=== PATIENT | male | born 1965 | race African-American/Black ===

== ENCOUNTER 2016-10-30 12:06 | Inpatient (IN) ==
[2016-10-30] MEDS ORDERED: PANTOPRAZOLE 40 MG VIAL IV STA (12:38)
[2016-10-30] MEDS ORDERED: METOCLOPRAMIDE 10 MG/2 ML VIAL IV STA (12:38)
[2016-10-30] MEDS ORDERED: ONDANSETRON ODT 4 MG TABLET PO STA (12:38)
[2016-10-30] MEDS ORDERED: SODIUM CHLORIDE 0.9% 1,000 ML IV STA (12:38)
--- NOTE | 2016-10-30 12:44 | Emergency Department Note ---
Arrival - Arrival Chief Complaint: Abdominal / Flank Pain Stated Complaint: gallbladder problems and sob ED Nursing Triage Note: C/o generalized abd pain and nausea-onset last night. Denies vomiting/diarrhea. Mode of Arrival: Ambulatory Limitations: No Limitations Source: Patient Time Seen by Provider: 10/30/16 12:38 - History of Present Illness HPI Narrative: This 51-year-old black male presents for abrupt onset of marked increase in right upper quadrant abdominal pain and nausea. The patient has been seen previously for low-grade cholecystitis which initially resolved in August but became a problem again in the last week or 2 with increased heartburn, indigestion, and water brash associated with right upper quadrant pain. Patient is nauseated but denies any chills, fever, kevin vomiting or diarrhea. Bothersome is complaints of some shortness of breath associated with this and some centralization of chest pain as well. Currently the patient appears uncomfortable but in no acute distress. Onset (ago): hour(s) (patient presents 3 hours post onset of symptoms) Consistency: constant Severity: moderate Severity scale (1-10): 7 Quality: aching Allergies/Adverse Reactions: Allergies Allergy/AdvReac Type Severity Reaction Status Date / Time No Known Allergies Allergy Verified 09/15/16 19:22 Home Medications: Home Medications Medication Instructions Recorded Confirmed Type Carvedilol 6.25 mg PO BID W/MEALS 04/21/16 10/30/16 History Citalopram Hydrobromide 10 mg PO DAILY 04/21/16 10/30/16 History [Citalopram HBr] Furosemide Tab [Lasix Tab] 20 mg PO BID DIURETIC 04/21/16 10/30/16 History Spironolactone 25 mg PO DAILY 04/21/16 10/30/16 History Aspirin EC Tab 81 mg PO DAILY 09/15/16 10/30/16 History Valsartan 40 mg PO DAILY 10/30/16 10/30/16 History Review of System - Review of System 12 point system: reviewed and no additional remarkable complaints except as stated - Review of System Constitutional: Present: as per HPI Gastrointestinal: Present: as per HPI Medical,Surgical,& Family Hx - Medical History Cardio: History of: CHF, Hypertension Psychological: History of: Anxiety Disorders, Depression Neurology: History of: Vertigo HEENT: History of: Eye Problem (ARTIFICIAL RIGHT EYE) Endocrine: No history of: Diabetes Mellitus (NIDDM) Respiratory: History of: Respiratory Problems (CHF) Gastrointestinal: History of: GI Problems (ABD PAIN) Musculoskeletal: History of: Musculoskeletal Problems (FX L WRIST) - Surgical History Abdominal Surgeries: Surgical HX of: Abdominal Surgery (HAKEEM INGUINEAL HERNIA REPAIR), Hernia Repair Orthopedic Surgeries: Surgical HX of;: Orthopedic Surgery (L WRIST PINNING) - Family History Family History: Reports;: Family Diabetes (GREAT GM), Family Heart Disease (MOM- CHF), Family Hypertension (?FATHER,BROTHER) Denies;: Family Anesthesia Reaction, Family Cancer, Family Psychiatric Problems, Family Stroke - Social History Smoking Status: Former smoker Frequency of Alcohol Use: None Type of Drug Use: None Exam Physical Examination: GENERAL: Obese black male in no acute distress. HEENT: Normocephalic. No trauma. Moist mucous membranes. EOMI. PERRLA. NECK: Supple. No adenopathy. CARDIAC: Regular. No murmurs. Heart rate 96 and CHEST: Clear to auscultation. No respiratory distress. O2 sat 96% is ABDOMEN: Firm abdomen. Tender right upper quadrant with hypoactive bowel sounds bowel sounds. EXTREMITIES: No trauma. Normal ROM. No pedal edema. SKIN: No diaphoresis. No rash. NEURO: Alert. Physiologic exam No focal deficits. Vital Signs: Vital Signs Temperature 97.3 F L 10/30/16 12:10 Pulse Rate 96 H 10/30/16 12:10 Respiratory Rate 18 10/30/16 12:10 Blood Pressure 126/92 10/30/16 12:10 O2 Sat by Pulse Oximetry 96 10/30/16 12:10 Results - Labs CBC & BMP: 10/30/16 12:54 - Impressions EKG: Sinus rhythm at 90, normal OH interval and QRS duration. Left atrial enlargement. Poor R-wave progression anteriorly with diffuse ST flattening and depression consistent with ischemia. No acute injury pattern noted.
[2016-10-30] MEDS ORDERED: LEVOFLOXACIN INJ 750 MG in PREMIX 1 EACH IV STA (13:19)
[2016-10-30] MEDS ORDERED: FUROSEMIDE 40 MG/4 ML VIAL IV STA (13:19)
[2016-10-30 13:32] LABS: Amylase 49 U/L (25-115); Lactic Acid 1.7 MMOL/L (0.4-2.0)
[2016-10-30 13:33] LABS: Albumin 3.2 G/DL (3.4-5.0); Bilirubin,Total 0.9 MG/DL (0.2-1.0); Potassium 4.4 MMOL/L (3.5-5.1); Total Protein 6.3 G/DL (6.4-8.3)
[2016-10-30 13:34] LABS: Troponin I Only 0.048 NG/ML (0.00-0.045)
[2016-10-30] MEDS ORDERED: PANTOPRAZOLE 40 MG VIAL IV ONE (13:41)
--- NOTE | 2016-10-30 13:41 | Ultrasound Report ---
US abdomen limited Indication: Right upper quadrant abdominal pain. Comparison: CT abdomen pelvis dated 09/15/16. Technique: Multiple longitudinal and transverse real-time sonographic images of the right upper quadrant of the abdomen are obtained. Findings: The liver measures 18.9 cm and demonstrates normal echogenicity without focal abnormality. Hepatic and portal veins are patent with normal directional flow. Punctate echogenic lesion with no significant posterior shadowing in the right lobe measures maximum of 0.6 cm and may represent a hemangioma. The gallbladder is contracted with suggestion of wall thickening, possibly due to contraction or gallbladder wall edema. There is also mild pericholecystic fluid and the sonographic Klein's sign is positive. Punctate internal echogenic foci adjacent to the wall may represent cholesterol deposits or adherent stones. The common duct measures 0.4 cm in diameter and there is no evidence of intrahepatic ductal dilation. Right kidney measures 11.6 x 4.1 x 5.5 cm and appears normal. There is no hydronephrosis. There is a small amount of perihepatic ascites noted within the right upper quadrant. There is also a small right pleural effusion. IMPRESSION: Gallbladder irregularity including wall thickening and trace pericholecystic fluid, which is accentuated due to the superimposed contracted gallbladder. Correlate clinically to exclude acute cholecystitis. No retained gallstones or biliary ductal dilatation. Ultrasound images were captured and stored. PROCEDURE INTERPRETED AT [facility] Final Report Signed by: Deandre Wilson
[2016-10-30] MEDS ORDERED: ONDANSETRON 4 MG/2 ML VIAL ONE (13:42)
[2016-10-30] MEDS ORDERED: METOCLOPRAMIDE 10 MG/2 ML VIAL ONE (13:42)
--- NOTE | 2016-10-30 13:43 | XRay Report ---
Exam: XR chest 2V Indication: Shortness of breath Comparison study: 04/24/16 Findings: Cardiac silhouette is enlarged, stable from prior. There are patchy perihilar interstitial opacities and basilar interstitial/airspace opacities which are slightly decreased in prominence from prior but may represent residual atelectasis and/or interstitial edema. There is also blunting of the right costophrenic angle. Right perihilar and right lung calcified nodular densities are most compatible with granulomatous disease and appear stable from prior. There is no pneumothorax. Impression: Cardiomegaly with small right pleural effusion and right basilar atelectasis. Minimal perihilar and basilar interstitial opacities are favored to represent scarring and superimposed interstitial edema changes. Infectious/inflammatory infiltrates are difficult to exclude. PROCEDURE INTERPRETED AT [facility]MENT OF RADIOLOGY Final Report Signed by: Deandre Wilson
--- NOTE | 2016-10-30 13:43 | EKG Report ---
Stationary ECG Study [facility] ER Test Date: 10/30/2016 1:41:33 PM Pat Name: JOSE IRVING Department: Room: Gender: M Laborer Laboratory: [facility] : 1965 Requested by: David Melgar Order Number: [id number] Reading MD: DIANE OKEEFE Intervals [place] Rate: 90 P: -4 CT: 198 QRS: -24 QRSD: 102 T: 138 QT: 403 QTc: 451 Interpretive Statements SINUS RHYTHM LEFT ATRIAL ENLARGEMENT ANTERIOR MYOCARDIAL INFARCTION, age indeterminate Electronically Signed On 10-30-16 15:05:55 ADMINISTRATIVE UNDERWRITER by DIANE OKEEFE [email or web address]
[2016-10-30] MEDS ORDERED: FUROSEMIDE 100 MG/10 ML VIAL ONE (13:55)
[2016-10-30] MEDS ORDERED: LEVOFLOXACIN INJ 150 ML IV ONE (13:55)
[2016-10-30 14:16] LABS: Basophils # 0.1 10*3/uL (0.0-0.2); Basophils % 1.1 % (0.0-0.8); Eosinophils # 0.4 10*3/uL (0.0-0.87); Hematocrit 46.5 VOL% (42.0-52.0); Hemoglobin 15.2 GM/DL (14.0-18.0); Immature Granulocytes % 0.3 %; Immature Granulocytes Absolute 0.02 #; Lymphocytes # 1.5 10*3/uL (1.4-4.0); Lymphocytes % 22.2 % (21.2-54.2); Mean Corpuscular HGB Conc 32.7 GM/DL (32-36); Mean Corpuscular Hemoglobin 30 PG (27-34); Mean Platelet Volume 14.1 FL (9.6-12.0); Monocytes % 14.8 % (1.7-12.7); NRBC # 0.02 10*3/uL; Neutrophils # 3.7 10*3/uL (1.4-7.4); Neutrophils % 55.6 % (38.7-73.9); Platelet Count 161 10*3/uL (130-400); Red Blood Count 5.11 10*6/uL (3.8-5.5); Red Cell Distribution Width 15.1 % (9.3-17.3); White Blood Count 6.6 10*3/uL (4.5-13.71)
--- NOTE | 2016-10-30 14:57 | Hospitalist History & Physical ---
History of Present Illness Chief complaint: abdominal pain History of present illness: Mr. Ramírez is a 51 year old male obese male with a history of hypertension and and systolic and diastolic congestive heart failure. Patient reports he was told that he had a bad gallbladder in the past and he said it has been hurting him every day and he cannot stand the pain anymore. During my physical exam I pressed is hard as I could over the gallbladder and he is nontender. Patient says the pain is causing him to be short of breath. Patient was satting 96% on room air on admission. Patient was given Lasix. Chest x-ray showed some mild congestive heart failure. Home Medications Medication Instructions Recorded Confirmed Type Carvedilol 6.25 mg PO BID W/MEALS 04/21/16 10/30/16 History Citalopram Hydrobromide 10 mg PO DAILY 04/21/16 10/30/16 History [Citalopram HBr] Furosemide Tab [Lasix Tab] 20 mg PO BID DIURETIC 04/21/16 10/30/16 History Spironolactone 25 mg PO DAILY 04/21/16 10/30/16 History Aspirin EC Tab 81 mg PO DAILY 09/15/16 10/30/16 History Valsartan 40 mg PO DAILY 10/30/16 10/30/16 History Allergies Allergy/AdvReac Type Severity Reaction Status Date / Time No Known Allergies Allergy Verified 09/15/16 19:22 Medical,Surgical,& Family Hx - Medical History Cardio: History of: CHF, Hypertension Psychological: History of: Anxiety Disorders, Depression Neurology: History of: Vertigo HEENT: History of: Eye Problem (ARTIFICIAL RIGHT EYE) Endocrine: No history of: Diabetes Mellitus (NIDDM) Respiratory: History of: Respiratory Problems (CHF) Gastrointestinal: History of: GI Problems (ABD PAIN) Musculoskeletal: History of: Musculoskeletal Problems (FX L WRIST) - Surgical History Abdominal Surgeries: Surgical HX of: Abdominal Surgery (HAKEEM INGUINEAL HERNIA REPAIR), Hernia Repair Orthopedic Surgeries: Surgical HX of;: Orthopedic Surgery (L WRIST PINNING) - Family History Family History: Reports;: Family Diabetes (GREAT GM), Family Heart Disease (MOM- CHF), Family Hypertension (?FATHER,BROTHER) Denies;: Family Anesthesia Reaction, Family Cancer, Family Psychiatric Problems, Family Stroke - Social History Smoking Status: Former smoker Frequency of Alcohol Use: None Type of Drug Use: None Exam - Constitutional Vitals: Period Temp Pulse Resp BP Sys/Lobo Pulse Ox Last 24 Hr 97.3 F 96 18 126/92 96 Results - Labs CBC & BMP: 10/30/16 12:54 10/30/16 12:54
--- NOTE | 2016-10-30 15:02 | Hospitalist Consult Note ---
Assessment and Plan (1) Abdominal pain Status: Acute Assessment and plan: us of abdomen mild prominence of GB, no stones, ?drug seeking, hida scan in am, defer to Jarrett Ivy given in Er, not convinced that his GB needs to come out. UDS. Current Visit: Yes (2) Hypertension Status: Acute Assessment and plan: controlled, restart home meds Current Visit: Yes (3) Congestive heart failure Status: Acute Assessment and plan: troponin not concerning, no chest pain, given diuretic in ER, restart home meds. Patient needs to continue on home meds. Current Visit: No History of Present Illness - Data of Consult Consult date: 10/30/16 Requesting Physician: David Barahona - Consult Narrative Reason for consult: abdominal pain History of present illness: Mr. Ramírez is a 51 year old male with a history of hypertension and systolic congestive heart failure. Patient sees the doctor at [facility] and does not have insurance. He does not work. Patient was told previously that he had a bad gallbladder that needed to be removed. He said he has been having significant abdominal pain and cannot stand the pain anymore and has to have his gallbladder removed. Ultrasound shows a contracted gallbladder with irregular wall thickening but no identified stones. Patient reports the pain is so bad that he is getting short of breath. Patient was satting 96% on room air. He was given 80 of IV Lasix in the emergency room. Chest x-ray shows some mild edema. Patient is not tender on exam over his gallbladder. This is a primary surgical case and have deferred it to Dr. Penn. Patient's last echocardiogram showed an EF of 25% with diastolic dysfunction and mitral regurgitation. Patient's blood pressure is well controlled. CC: - Home Medications and Allergies Home Medications: Home Medications Medication Instructions Recorded Confirmed Type Carvedilol 6.25 mg PO BID W/MEALS 04/21/16 10/30/16 History Citalopram Hydrobromide 10 mg PO DAILY 04/21/16 10/30/16 History [Citalopram HBr] Furosemide Tab [Lasix Tab] 20 mg PO BID DIURETIC 04/21/16 10/30/16 History Spironolactone 25 mg PO DAILY 04/21/16 10/30/16 History Aspirin EC Tab 81 mg PO DAILY 09/15/16 10/30/16 History Valsartan 40 mg PO DAILY 10/30/16 10/30/16 History Allergies/Adverse Reactions: Allergies Allergy/AdvReac Type Severity Reaction Status Date / Time No Known Allergies Allergy Verified 09/15/16 19:22 Medical,Surgical,& Family Hx - Medical History Cardio: History of: CHF, Hypertension Psychological: History of: Anxiety Disorders, Depression Neurology: History of: Vertigo HEENT: History of: Eye Problem (ARTIFICIAL RIGHT EYE) Endocrine: No history of: Diabetes Mellitus (NIDDM) Respiratory: History of: Respiratory Problems (CHF) Gastrointestinal: History of: GI Problems (ABD PAIN) Musculoskeletal: History of: Musculoskeletal Problems (FX L WRIST) - Surgical History Abdominal Surgeries: Surgical HX of: Abdominal Surgery (HAKEEM INGUINEAL HERNIA REPAIR), Hernia Repair Orthopedic Surgeries: Surgical HX of;: Orthopedic Surgery (L WRIST PINNING) - Family History Family History: Reports;: Family Diabetes (GREAT GM), Family Heart Disease (MOM- CHF), Family Hypertension (?FATHER,BROTHER) Denies;: Family Anesthesia Reaction, Family Cancer, Family Psychiatric Problems, Family Stroke - Social History Smoking Status: Former smoker Frequency of Alcohol Use: None Type of Drug Use: None Marital Status: Single Lives With:: Alone Functional capacity: independent ambulation - EENT Eyes: Absent: blurry vision, diplopia - Cardiovascular Cardiovascular: Present: dyspnea, dyspnea on exertion, edema. Absent: chest pain at rest, chest pain with activity - Gastrointestinal Gastrointestinal: Present: abdominal pain, diarrhea, nausea, vomiting. Absent: constipation - Psychiatric Psychiatric: Present: anxiety. Absent: depression - Endocrine Endocrine: Present: fatigue. Absent: cold intolerance, heat intolerance Exam - Constitutional Vitals: Period Temp Pulse Resp BP Sys/Lobo Pulse Ox Last 24 Hr 97.3 F 96 18 126/92 96 General appearance: no acute distress, morbidly obese - Head Head exam: Present: normal inspection, normocephalic - Eye Eye exam: Present: EOMI. Absent: scleral icterus Pupils: Present: CB, normal accommodation - ENT ENT exam: Present: normal exam, normal external ear exam - Neck Neck exam: Absent: lymphadenopathy, thyromegaly - Respiratory Respiratory exam: Present: clear to auscultation bilaterally. Absent: rhonchi, wheezes - Cardiovascular Cardiovascular exam: Present: regular rate and rhythm. Absent: systolic murmur - GI/Abdominal GI/Abdominal exam: Present: normal bowel sounds, soft. Absent: tenderness - Extremities Exam Extremities exam: Present: normal capillary refill, edema - Neurological Exam Neurological exam: Present: alert, oriented X3, CN II-XII intact, reflexes normal. Absent: motor sensory deficit - Psychiatric Psychiatric exam: Present: normal affect, normal mood - Skin Skin exam: Present: normal color, warm Results - Labs CBC & BMP: 10/30/16 12:54 10/30/16 12:54 Lab Results: I have reviewed the past 24 hour labs - EKG EKG shows: sinus rhythm - Diagnostic Findings Procedure: Chest x-ray: report reviewed by me, pending (mild interstitial changes ), Ultrasound: report reviewed by me (GB wall thickening and acute be consistent with cholecystitis ) Specialty Discharge - Follow Up or Referrals - Discharge Medications No Action Spironolactone 25 mg PO DAILY Carvedilol 6.25 mg PO BID W/MEALS Furosemide Tab [Lasix Tab] 20 mg PO BID DIURETIC Citalopram Hydrobromide [Citalopram HBr] 10 mg PO DAILY Aspirin EC Tab 81 mg PO DAILY Valsartan 40 mg PO DAILY
[2016-10-30 15:35] LABS: Apearance,Urine CLEAR (Clear); Bilirubin,Urine Negative (Negative); Blood, Urine Negative (Negative); Glucose,Urine (UA) Negative (Negative); Hyaline Casts,Urine 3 /LPF (0-3); Ketones,Urine Negative (Negative); Mucus,Urine Occasional /LPF (Occasional); Nitrite,Urine Negative (Negative); Protein,Urine 30 MG/DL; RBC,Urine 1 /HPF (0-4); Urine Color Yellow (Yellow); Urine Specific Gravity 1.004 (1.001-1.035); Urine Urobilinogen < 2.0 EU/DL (0.2-1.0); WBC,Urine <1 /HPF (0-6)
[2016-10-30 15:43] LABS: Barbiturates Screen,Urine Negative (Negative); Benzodiazepines Screen,Urine Negative (Negative); Cannabinoid Screen,Urine Negative (Negative); Opiate Screen,Urine Negative (Negative); Phencyclidine Screen,Urine Negative (Negative)
--- NOTE | 2016-10-30 16:16 | General Surgery Consult Note ---
Assessment and Plan - Time spent with patient Time spent with patient: Greater than 30 minutes (1) Abdominal pain Status: Acute Assessment and plan: Impression: 1. Abdominal pain etiology unclear questionable gallbladder disease undiagnosed 2. Obesity 3. Congestive heart failure 4. Low cardiac ejection fraction Recommendations: 1. Certainly would look at do a HIDA scan to see if its abnormal with that ejection fraction 2. We consider repeating ultrasound after his been nothing by mouth for at least 12 hours to see if there is any changes in the gallbladder see if it distends back up looks normal 3. We consider a CT scan abdomen and pelvis with contrast to get a better idea this is nothing else going on. 4. He needs a complete cardiac evaluation before that any consideration of surgery because he is at such high risk 5. May need pulmonary consult at some point 6. We consider surgery on the gallbladder all if everything else is ruled out and that we have clear diagnosis that he could possibly have gallbladder disease. Current Visit: Yes Qualifiers: Abdominal location: upper abdomen, unspecified Qualified Code(s): R10.10 - Upper abdominal pain, unspecified History of Present Illness Chief complaint: chronic abdominal pain etiology unclear History of present illness: Mr. Ramírez is a 51 year old male -[place] who came to the emergency room because of abdominal discomfort he describes as having recurring episodes in the past. Patient has significant coronary artery disease and has congestive heart failure with cardiomegaly and a low ejection fraction. He was extremely short of breath trying to walk in at this time. He ascribes some discomfort whenever he eats was never had a scope to rule out peptic ulcer disease in the past. His abdomen is not tender and liver function studies are normal. An ultrasound did suggest that there was a contracted gallbladder but otherwise unclear. He's had previous CT that was described as mild cholecystitis although that's unclear just a suggestion on CT. No stones of ever been diagnosed he's never had any complete workup of his gallbladder. Has been no history of stones that we can determine at this time. 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 He appears to be a high surgical risk and I do not think that surgery would be indicated him a she had a clear etiology of possible gallbladder disease. At this point he needs a good cardiac workup HIDA scan CT scan and possible repeat ultrasound at sometime when he is nothing by mouth to see if the contracted gallbladder distends back up and looks normal. He may also need possibility of consideration for an EGD if he is having symptoms whenever he eats in order to make sure he doesn't have peptic ulcer disease. Patient reports [place] some sorrel stool test on him that said he didn't have any occult blood but it is AG's never had a colonoscopy. Discussed with the hospitalist and he'll be admitted further evaluation get out of skin see exactly what might be going on see if we can better define his disease. Home Medications Medication Instructions Recorded Confirmed Type Carvedilol 6.25 mg PO BID W/MEALS 04/21/16 10/30/16 History Citalopram Hydrobromide 10 mg PO DAILY 04/21/16 10/30/16 History [Citalopram HBr] Furosemide Tab [Lasix Tab] 20 mg PO BID DIURETIC 04/21/16 10/30/16 History Spironolactone 25 mg PO DAILY 04/21/16 10/30/16 History Aspirin EC Tab 81 mg PO DAILY 09/15/16 10/30/16 History Valsartan 40 mg PO DAILY 10/30/16 10/30/16 History Allergies Allergy/AdvReac Type Severity Reaction Status Date / Time No Known Allergies Allergy Verified 09/15/16 19:22 Medical,Surgical,& Family Hx - Medical History Cardio: History of: CHF, Hypertension Psychological: History of: Anxiety Disorders, Depression Neurology: History of: Vertigo HEENT: History of: Eye Problem (ARTIFICIAL RIGHT EYE) Endocrine: No history of: Diabetes Mellitus (NIDDM) Respiratory: History of: Respiratory Problems (CHF) Gastrointestinal: History of: GI Problems (ABD PAIN) Musculoskeletal: History of: Musculoskeletal Problems (FX L WRIST) - Surgical History Abdominal Surgeries: Surgical HX of: Abdominal Surgery (HAKEEM INGUINEAL HERNIA REPAIR), Hernia Repair Orthopedic Surgeries: Surgical HX of;: Orthopedic Surgery (L WRIST PINNING) - Family History Family History: Reports;: Family Diabetes (GREAT GM), Family Heart Disease (MOM- CHF), Family Hypertension (?FATHER,BROTHER) Denies;: Family Anesthesia Reaction, Family Cancer, Family Psychiatric Problems, Family Stroke - Social History Smoking Status: Former smoker Frequency of Alcohol Use: None Type of Drug Use: None 12 point system: reviewed and no additional remarkable complaints except as stated Exam - Constitutional Vitals: Period Temp Pulse Resp BP Sys/Lobo Pulse Ox Last 24 Hr 97.3 F 88-101 16-18 103-155/72-92 96-100 General appearance: mild distress - Head Head exam: Present: normal inspection - ENT ENT exam: Present: normal exam - Neck Neck exam: Present: normal inspection - Respiratory Respiratory exam: Present: rales, rhonchi - Cardiovascular Cardiovascular exam: Present: RRR - GI/Abdominal GI/Abdominal exam: Present: hypoactive bowel sounds, soft, other (large obese rotund abdomen). Absent: distended, Klein's sign, tenderness - Extremities Exam Extremities exam: Present: normal inspection - Back Exam Back exam: Present: normal inspection - Neurological Exam Neurological exam: Present: alert, oriented X3, CN II-XII intact - Skin Skin exam: Present: normal color, warm, dry Results - Labs CBC & BMP: 10/30/16 12:54 10/30/16 12:54 Lab Results: I have reviewed the past 24 hour labs - Diagnostic Findings Procedure: Ultrasound: report reviewed by me (contracted gallbladder questionable disease) Specialty Discharge - Follow Up or Referrals - Discharge Medications No Action Spironolactone 25 mg PO DAILY Carvedilol 6.25 mg PO BID W/MEALS Furosemide Tab [Lasix Tab] 20 mg PO BID DIURETIC Citalopram Hydrobromide [Citalopram HBr] 10 mg PO DAILY Aspirin EC Tab 81 mg PO DAILY Valsartan 40 mg PO DAILY
--- NOTE | 2016-10-30 16:50 | Cardiology Consult Note ---
Assessment and Plan (1) Congestive heart failure Status: Acute Assessment and plan: Patient with pulmonary vascular congestion probably right pleural effusion. He has known cardiomyopathy that is systolic in nature. He has an exacerbation at this time. He needs to have diuresis and has frozen moderate ordered IV. He hasn't go up on his losartan as well as carvedilol.. Current Visit: No (2) Exertional dyspnea Status: Acute Assessment and plan: This is probably secondary to his congestive heart failure exacerbation. Current Visit: No (3) Acute on chronic systolic CHF (congestive heart failure) Status: Acute Assessment and plan: He has chronic cardiomyopathy and apparently some recurrent episodes of congestive heart failure symptomatology. Current Visit: No (4) Abdominal pain Status: Acute Assessment and plan: Etiology of this is unclear but evaluation is ongoing. Current Visit: Yes Qualifiers: Abdominal location: upper abdomen, unspecified Qualified Code(s): R10.10 - Upper abdominal pain, unspecified (5) Hypertension Status: Acute Current Visit: Yes History of Present Illness - Data of Consult Patient: new to practice Consult date: 10/30/16 Requesting Physician: Jennifer Knox - Consult Narrative Reason for consult: CHF History of present illness: Mr. Ramírez is a 51 year old male there were asked to see with a history of cardiomyopathy and congestive heart failure. He has abdominal pain is being evaluated. The patient has a long history of cardiomyopathy at least for several years and ejection fraction by echocardiogram this been persistent around 25%. This is based on old records as well as most recent echocardiogram of 6 months ago. He has marked severe mitral regurgitation. He is followed by cardiology clinic in [place] that he states is the heart. The and anteriorly sees Sherine Rodríguez nurse practitioner. He recently has had some dyspnea on exertion but denies PND or orthopnea. He thinks he may have has morphine edema recently. He has never had any angina and. He states she's had some kind cardiac scans that did not reveal any evidence for ischemia. The patient states he's previously been seen because of some possible gallbladder disease. He came to the emergency room today with right upper quadrant abdominal pain. There is some question whether or not this patient has gallbladder disease. On his evaluation he was found to have an elevated BNP of 1074. His chest x-ray with what may be some right pleural effusion and some pulmonary vascular congestion. The patient is already received some Lasix in the emergency room. Patient's ECG with sinus rhythm with left atrial enlargement. There is delayed anterior R-wave progression. The patient will be at least at moderate cardiovascular risk for moderate surgery. If he can be carried out with diuresis and better fluid control isn't improved his situation. CC: - Home Medications and Allergies Home Medications: Home Medications Medication Instructions Recorded Confirmed Type Carvedilol 6.25 mg PO BID W/MEALS 04/21/16 10/30/16 History Citalopram Hydrobromide 10 mg PO DAILY 04/21/16 10/30/16 History [Citalopram HBr] Furosemide Tab [Lasix Tab] 20 mg PO BID DIURETIC 04/21/16 10/30/16 History Spironolactone 25 mg PO DAILY 04/21/16 10/30/16 History Aspirin EC Tab 81 mg PO DAILY 09/15/16 10/30/16 History Valsartan 40 mg PO DAILY 10/30/16 10/30/16 History Allergies/Adverse Reactions: Allergies Allergy/AdvReac Type Severity Reaction Status Date / Time No Known Allergies Allergy Verified 09/15/16 19:22 Review of systems: Constitutional: Denies anorexia, chills, fatigue, fever, frequent falls, night sweats, weight gain, weight loss. He is chronically obese. Eyes: Denies visual changes or loss of vision Ears: Denies decreased hearing, vertigo Nose, mouth and throat: Denies dysphagia, epistaxis, headaches, neck pain, tongue swelling, Neck: Denies thyromegaly or masses. No stiffness. Cardiovascular: as per HPI Respiratory: Denies cough, hemoptysis, wheezing, snoring. Patient has had some dyspnea on exertion. Gastrointestinal: Denies dyspepsia, constipation, dysphagia, hematemesis, hematochezia, melena, nausea, vomiting. No abdominal pains discussed in history present illness. Genitourinary: Denies dysuria, hematuria, nocturia Musculoskeletal: Denies arthralgias, joint swelling, muscle weakness, myalgias Neurological: denies abnormal gait, abnormal speech, confusion, convulsions, frequent falls, headaches, memory loss, syncope Psychiatric: Denies anxiety, confusion, depression Endocrine: Denies cold intolerance, fatigue, heat intolerance Hematologic/Lymphatic: Denies easy bleeding, easy bruising Dermatologic: Denies Rash, itching, shingles Medical,Surgical,& Family Hx - Medical History Cardio: History of: CHF, Hypertension Psychological: History of: Anxiety Disorders, Depression Neurology: History of: Vertigo HEENT: History of: Eye Problem (ARTIFICIAL RIGHT EYE) Endocrine: History of: Dyslipidemia No history of: Diabetes Mellitus (NIDDM) Respiratory: History of: Respiratory Problems (CHF) Gastrointestinal: History of: GI Problems (ABD PAIN) Musculoskeletal: History of: Musculoskeletal Problems (FX L WRIST) - Surgical History Abdominal Surgeries: Surgical HX of: Abdominal Surgery (HAKEEM INGUINEAL HERNIA REPAIR), Hernia Repair Orthopedic Surgeries: Surgical HX of;: Orthopedic Surgery (L WRIST PINNING) - Family History Family History: Reports;: Family Diabetes (GREAT GM), Family Heart Disease (MOM- CHF), Family Hypertension (?FATHER,BROTHER) Denies;: Family Anesthesia Reaction, Family Cancer, Family Psychiatric Problems, Family Stroke - Social History Smoking Status: Former smoker Frequency of Alcohol Use: None Type of Drug Use: None Functional capacity: independent ambulation Physical Examination Vital Signs Temp Pulse Resp BP Pulse Ox 97.3 F L 96 H 18 126/92 96 10/30/16 12:10 10/30/16 12:10 10/30/16 12:10 10/30/16 12:10 10/30/16 12:10 Other: General appearance: Morbidly obese, no acute distress Head exam: normal inspection, atraumatic Eye exam: Right eye is a prosthesis. EOMI of left eye. Ear exam: Anatomically normal. Normal auditory acuity to conversation. Oral exam: No significant oral lesions. Neck exam: normal inspection no JVD. No carotid bruit. Trachea is in midline. Respiratory exam: Distant heart sounds but clear to auscultation bilaterally posteriorly and anteriorly with good air movement. A few scattered rales in the lower lung smiley posteriorly. Cardiovascular exam: regular rate and rhythm, no murmur or gallop or rub. No precordial lift. No bruits over the major arteries. Chest wall/torso: Anatomically normal. No tenderness, deformity Peripheral Pulses: 2+ radial. GI/Abdominal exam: Obese normal bowel sounds, soft. Right upper abdominal tenderness. Musculoskeletal/Extremities exam: Bilateral 1+ pre-tibial edema. Neurological exam: alert, oriented X3. There is no gross neurologic deficits. Psychiatric exam: normal affect, normal mood. Cognitive function is grossly intact. Skin exam: normal color, warm. No rashes or other skin lesions. Result/EKG - Labs CBC & BMP: 10/30/16 12:54 10/30/16 12:54 Lab Results: I have reviewed the past 24 hour labs Labs: Laboratory Results - last 24 hr 10/30/16 10/30/16 10/30/16 12:54 12:54 12:54 WBC 6.6 RBC 5.11 Hgb 15.2 Hct 46.5 MCV 91.0 MCH 30 MCHC 32.7 RDW 15.1 Plt Count 161 MPV 14.1 H Neut % (Auto) 55.6 Lymph % (Auto) 22.2 [place] % (Auto) 14.8 H Eos % (Auto) 6.0 Baso % (Auto) 1.1 H Neut # (Auto) 3.7 Lymph # (Auto) 1.5 [place] # (Auto) 1.0 H Eos # (Auto) 0.4 Baso # (Auto) 0.1 Immature Gran % 0.3 Nucleated RBC % 0.3 Immature Gran # 0.02 Nucleated RBCs # 0.02 Sodium 143 Potassium 4.4 Chloride 107 Carbon Dioxide 26 Anion Gap 14.4 BUN 16 Creatinine 1.20 GFR Calculation 100 BUN/Creatinine Ratio 13.00 Glucose 86 Calculated Osmolality 284.0 Lactic Acid 1.7 Calcium 8.0 L Total Bilirubin 0.90 AST 32 ALT 22 Alkaline Phosphatase 69 Total Creatine Kinase 363 H CK-MB (CK-2) 3.0 Troponin I 0.048 H B-Natriuretic Peptide Total Protein 6.3 L Albumin 3.2 L Globulin 3.1 Albumin/Globulin Ratio 1.0 L Amylase 49 Lipase 170.0 Urine Color Urine Appearance Urine pH Ur Specific [place] Urine Protein Urine Glucose (UA) Urine Ketones Urine Blood Urine Nitrate Urine Bilirubin Urine Urobilinogen Urine Leukocytes Urine RBC Urine WBC Hyaline Casts Urine Mucus Ur Culture Indicated? Urine Opiates Screen Ur Barbiturates Screen Ur Phencyclidine Scrn U Amphetamine/Methamph U Benzodiazepines Scrn U Cocaine Metab Screen U Cannabinoids Screen 10/30/16 10/30/16 10/30/16 12:54 15:15 15:15 WBC RBC Hgb Hct MCV MCH MCHC RDW Plt Count MPV Neut % (Auto) Lymph % (Auto) [place] % (Auto) Eos % (Auto) Baso % (Auto) Neut # (Auto) Lymph # (Auto) [place] # (Auto) Eos # (Auto) Baso # (Auto) Immature Gran % Nucleated RBC % Immature Gran # Nucleated RBCs # Sodium Potassium Chloride Carbon Dioxide Anion Gap BUN Creatinine GFR Calculation BUN/Creatinine Ratio Glucose Calculated Osmolality Lactic Acid Calcium Total Bilirubin AST ALT Alkaline Phosphatase Total Creatine Kinase CK-MB (CK-2) Troponin I B-Natriuretic Peptide 1074 H Total Protein Albumin Globulin Albumin/Globulin Ratio Amylase Lipase Urine Color Yellow Urine Appearance Clear Urine pH 6.0 Ur Specific [place] 1.004 Urine Protein 30 Urine Glucose (UA) Negative Urine Ketones Negative Urine Blood Negative Urine Nitrate Negative Urine Bilirubin Negative Urine Urobilinogen < 2.0 H Urine Leukocytes Negative Urine RBC 1 Urine WBC <1 Hyaline Casts 3 Urine Mucus Occasional Ur Culture Indicated? Not indicated Urine Opiates Screen Negative Ur Barbiturates Screen Negative Ur Phencyclidine Scrn Negative U Amphetamine/Methamph Negative U Benzodiazepines Scrn Negative U Cocaine Metab Screen Negative U Cannabinoids Screen Negative - Impressions Impressions: C description history present illness. Specialty Discharge - Follow Up or Referrals - Discharge Medications No Action Spironolactone 25 mg PO DAILY Carvedilol 6.25 mg PO BID W/MEALS Furosemide Tab [Lasix Tab] 20 mg PO BID DIURETIC Citalopram Hydrobromide [Citalopram HBr] 10 mg PO DAILY Aspirin EC Tab 81 mg PO DAILY Valsartan 40 mg PO DAILY
[2016-10-30] MEDS ORDERED: ACETAMINOPHEN 325 MG TABLET PO PRN (18:42)
[2016-10-30] MEDS ORDERED: MAGNESIUM SULF RIDER 4 GM in PREMIX 1 EACH IV PRN (18:42)
[2016-10-30] MEDS ORDERED: ZALEPLON 5 MG CAPSULE PO PRN (18:42)
[2016-10-30 19:37] LABS: Magnesium 1.9 MG/DL (1.8-2.4); Thyroid Stimulating Hormone 4.6 uIU/ml (0.358-3.74)
[2016-10-30] MEDS: LOSARTAN 25 MG TABLET PO SCH (20:44)
[2016-10-30] MEDS: CARVEDILOL 3.125 MG TABLET PO SCH (20:44)
[2016-10-30] MEDS: PANTOPRAZOLE 40 MG TABLET PO SCH (20:44)
[2016-10-30] MEDS: ENOXAPARIN 40 MG/0.4 ML SYRINGE SUBCUT SCH (20:44)
[2016-10-30] MEDS: AMPICILLIN/SULBACTAM 3,000 MG in SODIUM CHLORIDE 0.9% 100 ML IV SCH (20:50)
[2016-10-31 01:44] LABS: Basophils # 0.1 10*3/uL (0.0-0.2); Eosinophils # 0.5 10*3/uL (0.0-0.87); Eosinophils % 7.2 % (0.00-10.9); Hemoglobin 13.6 GM/DL (14.0-18.0); Immature Granulocytes % 0.1 %; Immature Granulocytes Absolute 0.01 #; Lymphocytes # 1.9 10*3/uL (1.4-4.0); Lymphocytes % 27.4 % (21.2-54.2); Mean Corpuscular HGB Conc 32.4 GM/DL (32-36); Mean Corpuscular Hemoglobin 29 PG (27-34); Mean Corpuscular Volume 90.3 FL (87-102); Mean Platelet Volume 13.5 FL (9.6-12.0); Monocytes % 14.1 % (1.7-12.7); Neutrophils # 3.4 10*3/uL (1.4-7.4); Neutrophils % 50.2 % (38.7-73.9); Platelet Count 152 10*3/uL (130-400); Red Blood Count 4.65 10*6/uL (3.8-5.5); Red Cell Distribution Width 15.1 % (9.3-17.3); White Blood Count 6.8 10*3/uL (4.5-13.71)
[2016-10-31 02:15] LABS: Calcium 7.7 MG/DL (8.5-10.1); Potassium 3.9 MMOL/L (3.5-5.1); Risk Ratio 5.37; VLDL CHOLESTEROL 14.4 MG/DL
[2016-10-31] MEDS: AMPICILLIN/SULBACTAM 3,000 MG in SODIUM CHLORIDE 0.9% 100 ML IV SCH ×4 (05:38→20:23)
--- NOTE | 2016-10-31 07:41 | General Surgery Progress Note ---
Assessment and Plan (1) Abdominal pain Status: Acute Assessment and plan: Impression: 1. Abdominal pain etiology unclear questionable gallbladder disease undiagnosed 2. Obesity 3. Congestive heart failure 4. Low cardiac ejection fraction Recommendations: 1. Certainly would look at do a HIDA scan to see if its abnormal with that ejection fraction 2. We consider repeating ultrasound after his been nothing by mouth for at least 12 hours to see if there is any changes in the gallbladder see if it distends back up looks normal 3. We consider a CT scan abdomen and pelvis with contrast to get a better idea this is nothing else going on. 4. He needs a complete cardiac evaluation before that any consideration of surgery because he is at such high risk 5. May need pulmonary consult at some point 6. We consider surgery on the gallbladder all if everything else is ruled out and that we have clear diagnosis that he could possibly have gallbladder disease. 10/31/2016. Patient continues to complain of discomfort in the upper abdomen right chest area. On exam though he does not exhibit any guarding or unusual tenderness on deep palpation. No masses are palpable. He did not have his oxygen own and I have noted cardiology's note. He is for a HIDA scan today and hopefully we'll plan to CT scan abdomen and pelvis tomorrow. Still unclear whether he has gallbladder disease but certainly he remains a high risk surgical patient because of his cardiac disease. Current Visit: Yes Qualifiers: Abdominal location: upper abdomen, unspecified Qualified Code(s): R10.10 - Upper abdominal pain, unspecified Subjective Patient reports: Present: still having pain, no bowel movement, afebrile Exam - Constitutional Vitals: Period Temp Pulse Resp BP Sys/Lobo Pulse Ox Last 24 Hr 97.2 F-97.4 F 77-89 16-18 97-117/67-77 97-99 General appearance: mild distress - Head Head exam: Present: normal inspection - ENT ENT exam: Present: normal exam - Neck Neck exam: Present: normal inspection - Respiratory Respiratory exam: Present: rales, rhonchi - Cardiovascular Cardiovascular exam: Present: RRR - GI/Abdominal GI/Abdominal exam: Present: hypoactive bowel sounds, soft. Absent: guarding, tenderness - Extremities Exam Extremities exam: Present: normal inspection - Back Exam Back exam: Present: normal inspection - Neurological Exam Neurological exam: Present: alert, oriented X3, CN II-XII intact - Skin Skin exam: Present: normal color, warm, dry Results - Labs CBC & BMP: 10/31/16 01:32 10/31/16 01:32 Lab Results: I have reviewed the past 24 hour labs Specialty Discharge - Follow Up or Referrals - Discharge Medications No Action Spironolactone 25 mg PO DAILY Carvedilol 6.25 mg PO BID W/MEALS Furosemide Tab [Lasix Tab] 20 mg PO BID DIURETIC Citalopram Hydrobromide [Citalopram HBr] 10 mg PO DAILY Aspirin EC Tab 81 mg PO DAILY Valsartan 40 mg PO DAILY
[2016-10-31] MEDS: FUROSEMIDE 40 MG/4 ML VIAL IV SCH ×2 (10:00→16:13)
--- NOTE | 2016-10-31 10:05 | Cardiology Progress Note ---
Assessment and Plan (1) Congestive heart failure Status: Acute Assessment and plan: Clinically this is improving. Will follow-up on his echocardiogram is ordered as well as check his chest x-ray tomorrow. Current Visit: No (2) Exertional dyspnea Status: Acute Assessment and plan: This is probably secondary to his congestive heart failure exacerbation and cardiovascular congestion. We will follow-up on his chest x-ray tomorrow. Current Visit: No (3) Acute on chronic systolic CHF (congestive heart failure) Status: Acute Assessment and plan: He has chronic cardiomyopathy and apparently some recurrent episodes of congestive heart failure symptomatology. This is been followed by his physicians in [place]. Current Visit: No (4) Abdominal pain Status: Acute Assessment and plan: Etiology of this is unclear but evaluation is ongoing. This is being evaluated by surgery. Current Visit: Yes Qualifiers: Abdominal location: upper abdomen, unspecified Qualified Code(s): R10.10 - Upper abdominal pain, unspecified (5) Hypertension Status: Chronic Assessment and plan: blood pressures are stable at this time. Current Visit: Yes Cardiology - PN: Subj Interval history: Patient feels better today. Is not short of breath. His abdominal pain does not appear to be a significant. His abdominal pain is being evaluated by Dr. Guerra surgery. He is not having any complaint of PND or orthopnea. He thinks his edema is better. He denies chest pain is not ever had chest pain. Patient's lab work is stable including blood counts and chemistries as well as electrolytes. It should be noted that he has been followed by heart clinic in [place]. Exam (Progress Note) - Constitutional Vitals: Period Temp Pulse Resp BP Sys/Lobo Pulse Ox Last 24 Hr 97.2 F-97.4 F 77-89 16-18 97-117/67-77 97-99 Exam: General appearance: Morbidly obese, no acute distress Head exam: normal inspection, atraumatic Eye exam: Right eye is a prosthesis. EOMI of left eye. Ear exam: Anatomically normal. Normal auditory acuity to conversation. Neck exam: normal inspection no JVD. No carotid bruit. Trachea is in midline. Respiratory exam: Quiet breath sounds but clear to auscultation bilaterally posteriorly and anteriorly with good air movement. Cardiovascular exam: regular rate and rhythm, no murmur or gallop or rub. No precordial lift. No bruits over the major arteries. Chest wall/torso: Anatomically normal. No tenderness, deformity Peripheral Pulses: 2+ radial. GI/Abdominal exam: Obese normal bowel sounds, soft. Right upper abdominal tenderness. Musculoskeletal/Extremities exam: Bilateral trace pre-tibial edema. Neurological exam: alert, oriented X3. There is no gross neurologic deficits. Psychiatric exam: normal affect, normal mood. Cognitive function is grossly intact. Skin exam: normal color, warm. No rashes or other skin lesions. Result/EKG - Labs CBC & BMP: 10/31/16 01:32 10/31/16 01:32 Lab Results: I have reviewed the past 24 hour labs (his chemistries are stable today.) Labs: Laboratory Results - last 24 hr 10/30/16 10/30/16 10/30/16 19:00 19:00 19:00 WBC RBC Hgb Hct MCV MCH MCHC RDW Plt Count MPV Neut % (Auto) Lymph % (Auto) [place] % (Auto) Eos % (Auto) Baso % (Auto) Neut # (Auto) Lymph # (Auto) [place] # (Auto) Eos # (Auto) Baso # (Auto) Immature Gran % Nucleated RBC % Immature Gran # Nucleated RBCs # Sodium Potassium Chloride Carbon Dioxide Anion Gap BUN Creatinine GFR Calculation BUN/Creatinine Ratio Glucose Calculated Osmolality Calcium Magnesium 1.9 Troponin I 0.056 H Triglycerides Cholesterol LDL Cholesterol VLDL Cholesterol HDL Cholesterol Heart Disease Risk Ratio Free T4 1.59 H TSH 3rd Generation 4.600 H 10/30/16 10/31/16 10/31/16 21:53 01:32 01:32 WBC 6.8 RBC 4.65 Hgb 13.6 L Hct 42.0 MCV 90.3 MCH 29 MCHC 32.4 RDW 15.1 Plt Count 152 MPV 13.5 H Neut % (Auto) 50.2 Lymph % (Auto) 27.4 [place] % (Auto) 14.1 H Eos % (Auto) 7.2 Baso % (Auto) 1.0 H Neut # (Auto) 3.4 Lymph # (Auto) 1.9 [place] # (Auto) 1.0 H Eos # (Auto) 0.5 Baso # (Auto) 0.1 Immature Gran % 0.1 Nucleated RBC % 0.0 Immature Gran # 0.01 Nucleated RBCs # 0.00 Sodium Potassium Chloride Carbon Dioxide Anion Gap BUN Creatinine GFR Calculation BUN/Creatinine Ratio Glucose Calculated Osmolality Calcium Magnesium Troponin I 0.053 H 0.046 H Triglycerides Cholesterol LDL Cholesterol VLDL Cholesterol HDL Cholesterol Heart Disease Risk Ratio Free T4 TSH 3rd Generation 10/31/16 01:32 WBC RBC Hgb Hct MCV MCH MCHC RDW Plt Count MPV Neut % (Auto) Lymph % (Auto) [place] % (Auto) Eos % (Auto) Baso % (Auto) Neut # (Auto) Lymph # (Auto) [place] # (Auto) Eos # (Auto) Baso # (Auto) Immature Gran % Nucleated RBC % Immature Gran # Nucleated RBCs # Sodium 143 Potassium 3.9 Chloride 106 Carbon Dioxide 28 Anion Gap 12.9 BUN 17 Creatinine 1.20 GFR Calculation 101 BUN/Creatinine Ratio 14.00 Glucose 87 Calculated Osmolality 285.0 Calcium 7.7 L Magnesium Troponin I Triglycerides 72 Cholesterol 102 LDL Cholesterol 74.0 VLDL Cholesterol 14.4 HDL Cholesterol 19 L Heart Disease Risk Ratio 5.37 Free T4 TSH 3rd Generation - Impressions Impressions: Telemetry was sinus rhythm without dysrhythmias. Specialty Discharge - Follow Up or Referrals - Discharge Medications No Action Spironolactone 25 mg PO DAILY Carvedilol 6.25 mg PO BID W/MEALS Furosemide Tab [Lasix Tab] 20 mg PO BID DIURETIC Citalopram Hydrobromide [Citalopram HBr] 10 mg PO DAILY Aspirin EC Tab 81 mg PO DAILY Valsartan 40 mg PO DAILY
--- NOTE | 2016-10-31 10:40 | ECHO Report ---
Monroe Ramírez Exam Date: 10/31/2016 08:44 Referring Physician: Technologist: Blake RUANO Age: 51 Ht (in): Wt (lb): Gender: M Exam Location: [facility] Echo Indications: abd. pain, CHF, exertional dyspnea, cocaine abuse, HTN BP: / HR: Rhythm: Sinus Technical Quality: Good IMPRESSIONS 1. Left ventricle is severely dilated with global hypokinesis and ejection fraction of 15% or less. 2. Right and left atrium are dilated. 3. Right ventricle is upper is normal size to mildly dilated and hypokinetic. 4. Moderate mitral valve regurgitation. 5. Moderate tricuspid valve regurgitation. 6. Mild pulmonic valve insufficiency. 7. It worse mildly elevated right-sided pressures. MEASUREMENTS (Male / Female) Normal Values 2D ECHO LV Diastolic Diameter PLAX 7.8 cm 4.2 - 5.9 / 3.9 - 5.3 cm LV Systolic Diameter PLAX 7.4 cm LV Fractional Shortening PLAX 4.5 % IVS Diastolic Thickness 1.1 cm 0.6 - 1.0 / 0.6 - 0.9 cm LVPW Diastolic Thickness 1.4 cm 0.6 - 1.0 / 0.6 - 0.9 cm RV Internal Dim ED PLAX 3.6 cm Aortic Root Diameter 2.4 cm LA Systolic Diameter LX 4.7 cm 3.0 - 4.0 / 2.7 - 3.8 cm DOPPLER TR Peak Velocity 290.0 cm/s TR Peak Gradient 33.6 mmHg FINDINGS Left Ventricle Left ventricle is severely dilated with severe global hypokinesis and ejection fraction 15% or less. No specific segmental wall motion abnormalities are appreciated. Right Ventricle Right ventricle is upper limits normal size to mildly dilated with hypokinesis. Right Atrium The right atrium is mildly enlarged. Left Atrium Left atrium is mild to moderately increased in size. Mitral Valve Morphologically normal mitral valve. Moderate mitral valve regurgitation. Aortic Valve Aortic valve sclerosis without stenosis or regurgitation. Tricuspid Valve Morphologically normal tricuspid valve. Moderate tricuspid valve regurgitation. Tricuspid regurgitation velocities suggest TR gradient of 34 mercury with a estimated right ventricular peak systolic pressure of 39-44 mmHg. Pulmonic Valve Morphologically normal pulmonic valve. Mild pulmonary valve regurgitation. Pericardium No pericardial effusion. Aorta Normal size aortic root and proximal ascending aorta. Benigno Dodson MD (Electronically Signed) Final Date: 31 October 2016 10:39
--- NOTE | 2016-10-31 12:15 | Nuclear Medicine Report ---
History: Acute cholecystitis Date: 10/31/2016 Study: Nuclear medicine hepatobiliary scan with gallbladder ejection fraction Comparison exam: No previous similar study Following the IV administration of 5 mCi technetium 99m Choletec, there is homogeneous uptake of the radiotracer by the liver. There is visualization of duodenal activity at 10 minutes and gallbladder activity at 20 minutes. Following routine dynamic imaging, a gallbladder ejection fraction was then measured for 20 minutes. Counts were measured over the gallbladder following the IV administration of 2.1 mcg sincalide. The patient did report some nausea with sincalide administration. The gallbladder ejection fraction measures decreased at 12%. Impression: Abnormally low gallbladder ejection fraction of 12%. Otherwise normal study PROCEDURE INTERPRETED AT [facility] DEPARTMENT OF RADIOLOGY Final Report Signed by: Dr. Kristen Salgado
[2016-10-31] MEDS: PANTOPRAZOLE 40 MG TABLET PO SCH (12:26)
[2016-10-31] MEDS: SPIRONOLACTONE 25 MG TABLET PO SCH (12:26)
[2016-10-31] MEDS: LOSARTAN 25 MG TABLET PO SCH (12:26)
[2016-10-31] MEDS: CARVEDILOL 3.125 MG TABLET PO SCH ×2 (12:26→20:22)
[2016-10-31] MEDS: CITALOPRAM 20 MG TABLET PO SCH (12:26)
--- NOTE | 2016-10-31 12:27 | Hospitalist Progress Note ---
Assessment and Plan (1) Abdominal pain Status: Acute Assessment and plan: Discussed with Dr Penn last night, hida scan today if negative will repeat ct of abdomen tomorrow, cont IV abx Current Visit: Yes Qualifiers: Abdominal location: upper abdomen, unspecified Qualified Code(s): R10.10 - Upper abdominal pain, unspecified (2) Hypertension Status: Chronic Assessment and plan: controlled, cont coreg and losartan Current Visit: Yes (3) Congestive heart failure Status: Acute Assessment and plan: Dr alvarez feels he is at moderate risk for surgery. Repeat echo ef down to 15%, with moderate MV regurg, need to download onto disk to take with him when he leaves. cont IV lasix, coreg, losartan and aldactone. Current Visit: No (4) CHEMA (obstructive sleep apnea) Status: Acute Assessment and plan: Has severe chema, will need evaluation left message today, Dr Arellano to see him on Wednesday when he returns. I feel it is making his heart failure worse. Current Visit: Yes Hospitalist: Subjective Interval history: Had long conversation with patient today approximately 20 minutes and spoke with his brother on the phone. He is still having abdominal discomfort and we are going to do a HIDA scan today just to see if his gallbladder is working. His gallbladder definitely has disease and it was at some point needs to come out. I am concerned because he does not have insurance and I want to get everything done in the hospital that he needs. I am also concerned that he is got obstructive sleep apnea and I will have Dr. Arellano see him on Wednesday. Cardiology saw him yesterday and feels he is moderate risk for surgery due to his heart failure also explained to him that he has bad mitral valve but according to him he is seeing cardiology down in [place] which is excellent. I repeated his echo just to see if his mitral valve is changed since the last time that he was in the hospital. Tomorrow Dr. Penn and I had talked about doing a CT of his abdomen if the HIDA was unremarkable today. Patient's color looks better today after receiving oxygen and he is will be getting IV Lasix twice a day to try to get off the extra fluid. His BNP was over thousand. I believe his sleep apnea needs to be treated otherwise his heart failure exacerbations will be less for him. Exam - Constitutional Vitals: Period Temp Pulse Resp BP Sys/Lobo Pulse Ox Last 24 Hr 97.0 F-97.4 F 77-89 16-20 97-117/67-77 91-99 Exam: Heart Rate-[RRR] Lungs-[clear but diminished] GI-[+bs soft, NT] Ext-[edema much better] neuro motor 5/5, alert and oriented times 3 psych normal mood and affect general no acute distress Results - Labs CBC & BMP: 10/31/16 01:32 10/31/16 01:32 Lab Results: I have reviewed the past 24 hour labs - Diagnostic Findings Procedure: Ultrasound: report reviewed by me (echo moderate MVR, ef 15% ) Specialty Discharge - Follow Up or Referrals - Discharge Medications No Action Spironolactone 25 mg PO DAILY Carvedilol 6.25 mg PO BID W/MEALS Furosemide Tab [Lasix Tab] 20 mg PO BID DIURETIC Citalopram Hydrobromide [Citalopram HBr] 10 mg PO DAILY Aspirin EC Tab 81 mg PO DAILY Valsartan 40 mg PO DAILY
[2016-10-31] MEDS: ENOXAPARIN 40 MG/0.4 ML SYRINGE SUBCUT SCH (20:22)
[2016-11-01] MEDS: AMPICILLIN/SULBACTAM 3,000 MG in SODIUM CHLORIDE 0.9% 100 ML IV SCH ×3 (05:26→20:18)
[2016-11-01 06:03] LABS: Basophils # 0.1 10*3/uL (0.0-0.2); Basophils % 1.3 % (0.0-0.8); Eosinophils # 0.4 10*3/uL (0.0-0.87); Eosinophils % 7.3 % (0.00-10.9); Hematocrit 44.4 VOL% (42.0-52.0); Hemoglobin 14.3 GM/DL (14.0-18.0); Immature Granulocytes % 0.2 %; Immature Granulocytes Absolute 0.01 #; Lymphocytes # 1.4 10*3/uL (1.4-4.0); Lymphocytes % 22.4 % (21.2-54.2); Mean Corpuscular HGB Conc 32.2 GM/DL (32-36); Mean Corpuscular Hemoglobin 29 PG (27-34); Mean Corpuscular Volume 90.2 FL (87-102); Mean Platelet Volume 13.8 FL (9.6-12.0); Monocytes # 0.7 10*3/uL (0.11-0.8); Monocytes % 12.3 % (1.7-12.7); Neutrophils # 3.4 10*3/uL (1.4-7.4); Neutrophils % 56.5 % (38.7-73.9); Platelet Count 146 10*3/uL (130-400); Red Blood Count 4.92 10*6/uL (3.8-5.5); Red Cell Distribution Width 15.2 % (9.3-17.3)
[2016-11-01 06:16] LABS: INR 1.3; PT Patient Result 14.5 SECS; Partial Thromboplastin Time 28.7 SECS (0-40)
[2016-11-01 06:51] LABS: Albumin 2.9 G/DL (3.4-5.0); Bilirubin,Total 1.7 MG/DL (0.2-1.0); Calcium 8.4 MG/DL (8.5-10.1); Osmolality,Calculated 285.1 MOS/KG (273-304); Potassium 4.7 MMOL/L (3.5-5.1); Total Protein 5.9 G/DL (6.4-8.3)
[2016-11-01] MEDS: SPIRONOLACTONE 25 MG TABLET PO SCH (09:00)
[2016-11-01] MEDS: CITALOPRAM 20 MG TABLET PO SCH (09:00)
[2016-11-01] MEDS: CARVEDILOL 3.125 MG TABLET PO SCH ×2 (09:00→20:18)
[2016-11-01] MEDS: LOSARTAN 25 MG TABLET PO SCH (09:01)
[2016-11-01] MEDS: PANTOPRAZOLE 40 MG TABLET PO SCH (09:01)
[2016-11-01] MEDS: FUROSEMIDE 40 MG/4 ML VIAL IV SCH ×2 (09:10→17:00)
--- NOTE | 2016-11-01 09:25 | XRay Report ---
History: CHF. Cardiomyopathy Date: 11/01/2016 Study: Chest x-ray PA and lateral Comparison exam: Chest x-ray 10/31/2016 There is continued cardiomegaly. The mediastinal contours are unchanged. The pulmonary vasculature is upper normal. There is continued mild platelike scar or atelectasis in the left mid to lower lung. There is continued strandy and hazy atelectasis/infiltrate in the right lung base. There is a calcified granuloma in the right midlung. The osseous structures are similar. Impression: There is some continued mild asymmetric right basilar atelectasis/infiltrate which could represent pneumonia. This was not present on April 24, 2016. Cardiomegaly without overt pulmonary venous hypertension. Otherwise unchanged PROCEDURE INTERPRETED AT [facility] DEPARTMENT OF RADIOLOGY Final Report Signed by: Dr. Kristen Salgado
--- NOTE | 2016-11-01 10:01 | CT Report ---
History: Right upper quadrant abdominal pain Date: 11/01/2016 Study: CT abdomen and pelvis with IV contrast Comparison exam: Noncontrast CT abdomen and pelvis September 15, 2016 Technique: Spiral CT sections were obtained from the lung bases to the pubic symphysis following oral contrast and 100 mL Omnipaque 350 IV. Total DLP measures 2104.6 mGy*cm. CT abdomen: There is mild to moderate right-sided pleural effusion. There is mild strandy atelectatic change in the lower lobes, right greater than left. There is cardiomegaly. There is no evidence of pneumoperitoneum. There is distention of the IVC and hepatic veins suggesting passive venous congestion. There is body wall edema which has developed since the previous study. There is mild to moderate diffuse fatty infiltration of the otherwise unremarkable liver. There is no abnormal biliary dilatation. The gallbladder is slightly contracted. No calcific density gallstones are seen. The spleen, pancreas, and adrenal glands are without obvious intrinsic mass lesion. There is bilateral renal excretion without hydronephrosis. There is no renal parenchymal mass. There is some bilateral perinephric stranding which is unchanged from the comparison study. There is some minimal right paracolic gutter free fluid which has developed since the previous study. There is no kevin bowel obstruction. The appendix is normal. There is no abdominal aortic aneurysm. CT pelvis: There is small fat-containing right inguinal hernia. There is mild nonspecific diffuse prominence of the prostate gland. There is no obvious soft tissue mass in the pelvis. Impression: Mild to moderate right pleural effusion. Mild right greater than left bilateral lower lobe atelectasis. Contracted gallbladder Minimal free fluid in the right paracolic gutter region Continued bilateral perinephric stranding which is unchanged from the previous study There is evidence of hepatic venous congestion, suggesting element of right heart failure. There is increasing body wall edema suggesting anasarca No significant changes otherwise PROCEDURE INTERPRETED AT [facility] DEPARTMENT OF RADIOLOGY Final Report Signed by: Dr. Kristen Salgado
--- NOTE | 2016-11-01 10:24 | Event Note ---
11/01/2016. Waiting on the final report on the CT scan of the abdomen. There are some changes on it that concerns me greatly at this time. To me it has a suggestion of an enlargement of the head of the pancreas but not certain of this. Also there looks like some stranding around the kidneys whether this represents a chronic pyelonephritis is unclear. Before making any plans at this point will see what the final CT report says suggest there probably reviewed with the radiologist.
--- NOTE | 2016-11-01 11:28 | Hospitalist Progress Note ---
Assessment and Plan (1) Abdominal pain Status: Acute Assessment and plan: Patient's gallbladder is not working we will need lap kailey. CT of the abdomen shows perinephritic standing but his UA was negative. Continue antibiotics. Current Visit: Yes Qualifiers: Abdominal location: upper abdomen, unspecified Qualified Code(s): R10.10 - Upper abdominal pain, unspecified (2) Hypertension Status: Chronic Assessment and plan: controlled Current Visit: Yes (3) Congestive heart failure Status: Acute Assessment and plan: Patient echo shows an EF of 15% and moderate mitral regurg already discussed with patient, cont lasix IV. Current Visit: No (4) CHEMA (obstructive sleep apnea) Status: Acute Assessment and plan: Has severe chema, Dr harmon to see in am Current Visit: Yes (5) Fatty liver Status: Acute Assessment and plan: needs to lose weight Current Visit: Yes Hospitalist: Subjective Interval history: I am hoping patient will have a lap kailey tomorrow. He has got a right pleural effusion which may need to be tapped at some point. Patient's breathing has improved. He is able to lay down a little bit. His CT of his abdomen shows fatty infiltration of the liver. When I saw him this morning the results of the CT and chest x-ray are not available. Patient reports still having some abdominal discomfort. Exam - Constitutional Vitals: Period Temp Pulse Resp BP Sys/Lobo Pulse Ox Last 24 Hr 96.0 F-98.4 F 73-89 18-22 97-116/63-78 91-98 Exam: Heart Rate-[RRR] Lungs-[few wheezes but diminished] GI-[+bs soft, NT] Ext-[edema trace] neuro motor 5/5, alert and oriented times 3 psych normal mood and affect general no acute distress Results - Labs CBC & BMP: 11/01/16 04:59 11/01/16 04:59 Lab Results: I have reviewed the past 24 hour labs Labs: Blood cultures 2 negative. - Diagnostic Findings Procedure: Chest x-ray: report reviewed by me (Right pleural effusion mild to moderate), CT Abdomen and Pelvis: report reviewed by me (Fatty liver and perinephritic stranding.) Specialty Discharge - Follow Up or Referrals - Discharge Medications No Action Spironolactone 25 mg PO DAILY Carvedilol 6.25 mg PO BID W/MEALS Furosemide Tab [Lasix Tab] 20 mg PO BID DIURETIC Citalopram Hydrobromide [Citalopram HBr] 10 mg PO DAILY Aspirin EC Tab 81 mg PO DAILY Valsartan 40 mg PO DAILY
[2016-11-01] MEDS: ALBUTEROL/IPRATROPIUM 3 ML NEB RESP TX SCH ×2 (12:58→19:14)
--- NOTE | 2016-11-01 12:59 | Cardiology Progress Note ---
Assessment and Plan (1) Congestive heart failure Status: Acute Assessment and plan: Clinically this is improving. His echocardiogram course reveals that he has severe LV dysfunction. This though is stable compared to his prior history. We will continue to aggressively treat his clinical status. His blood pressure is stable. We'll diurese him as he tolerates. Current Visit: No (2) Exertional dyspnea Status: Acute Assessment and plan: Clinically this is stable. Current Visit: No (3) Acute on chronic systolic CHF (congestive heart failure) Status: Acute Assessment and plan: Chronic severe cardiomyopathy. Clinically is having some heart failure but this is improved. Current Visit: No (4) Abdominal pain Status: Acute Assessment and plan: This may well be secondary to gallbladder disease is being evaluated by surgery. Current Visit: Yes Qualifiers: Abdominal location: upper abdomen, unspecified Qualified Code(s): R10.10 - Upper abdominal pain, unspecified (5) Hypertension Status: Chronic Assessment and plan: blood pressures are stable at this time. Current Visit: Yes (6) Cardiomyopathy Status: Chronic Assessment and plan: He has chronic severe cardiomyopathy is really unchanged. Continue to treat this aggressively. He may need a AICD but I would not place at this time. He is followed by cardiology in [place]. Current Visit: Yes (7) Tachycardia Status: Acute Assessment and plan: Brief tachycardic episode that is either ventricular tachycardia or SVT. He's had one episode. We will await his magnesium. His other chemistries were unremarkable. Current Visit: Yes Cardiology - PN: Subj Interval history: Patient without specific cardiac complaints. No SOB or chest pain. Has diuresed some with decreased weight. He did have an episode of fast rhythm but complex and not changed from his baseline and I suspect this may be an SVT but cannot rule out VT. His lower chest was okay but will wait is magnesium level. He is being evaluated for gallbladder disease which apparent has some level of. We will await surgeon's evaluation. Once again this patient will be a moderate to high risk for abdominal surgery from his chronic standpoint. His heart failure status is improving. Exam (Progress Note) - Constitutional Vitals: Period Temp Pulse Resp BP Sys/Lobo Pulse Ox Last 24 Hr 96.0 F-98.4 F 73-89 18-22 97-116/63-75 92-99 Exam: General appearance: Morbidly obese, no acute distress Head exam: normal inspection, atraumatic Eye exam: Right eye is a prosthesis. EOMI of left eye. Ear exam: Anatomically normal. Normal auditory acuity to conversation. Neck exam: normal inspection no JVD. No carotid bruit. Trachea is in midline. Respiratory exam: Quiet breath sounds but clear to auscultation bilaterally posteriorly and anteriorly with good air movement. Cardiovascular exam: regular rate and rhythm, no murmur or gallop or rub. No precordial lift. No bruits over the major arteries. Chest wall/torso: Anatomically normal. No tenderness, deformity Peripheral Pulses: 2+ radial. GI/Abdominal exam: Obese normal bowel sounds, soft. Right upper abdominal tenderness. Musculoskeletal/Extremities exam: Bilateral trace pre-tibial edema. Neurological exam: alert, oriented X3. There is no gross neurologic deficits. Psychiatric exam: normal affect, normal mood. Cognitive function is grossly intact. Skin exam: normal color, warm. No rashes or other skin lesions. Result/EKG - Labs CBC & BMP: 11/01/16 04:59 11/01/16 04:59 Lab Results: I have reviewed the past 24 hour labs (this is stable. We will await his magnesium level of the time this dictation.) Labs: Laboratory Results - last 24 hr 11/01/16 11/01/16 11/01/16 04:59 04:59 04:59 WBC 6.0 RBC 4.92 Hgb 14.3 Hct 44.4 MCV 90.2 MCH 29 MCHC 32.2 RDW 15.2 Plt Count 146 MPV 13.8 H Neut % (Auto) 56.5 Lymph % (Auto) 22.4 Beadle % (Auto) 12.3 Eos % (Auto) 7.3 Baso % (Auto) 1.3 H Neut # (Auto) 3.4 Lymph # (Auto) 1.4 Beadle # (Auto) 0.7 Eos # (Auto) 0.4 Baso # (Auto) 0.1 Immature Gran % 0.2 Nucleated RBC % 0.0 Immature Gran # 0.01 Nucleated RBCs # 0.00 INR 1.3 PT Patient/Control Mix 14.5 Circ Anticoag PTT 28.7 Sodium 142 Potassium 4.7 Chloride 104 Carbon Dioxide 27 Anion Gap 15.7 H BUN 22 H Creatinine 1.10 GFR Calculation 115 BUN/Creatinine Ratio 20.00 Glucose 92 Calculated Osmolality 285.1 Calcium 8.4 L Total Bilirubin 1.70 H AST 25 ALT 17 Alkaline Phosphatase 60 Total Protein 5.9 L Albumin 2.9 L Globulin 3.0 Albumin/Globulin Ratio 0.9 L - Impressions Impressions: Rhythm is been sinus. He had one episode of tachycardia SVT versus VT. Specialty Discharge - Follow Up or Referrals - Discharge Medications No Action Spironolactone 25 mg PO DAILY Carvedilol 6.25 mg PO BID W/MEALS Furosemide Tab [Lasix Tab] 20 mg PO BID DIURETIC Citalopram Hydrobromide [Citalopram HBr] 10 mg PO DAILY Aspirin EC Tab 81 mg PO DAILY Valsartan 40 mg PO DAILY
--- NOTE | 2016-11-01 13:29 | General Surgery Progress Note ---
Assessment and Plan (1) Abdominal pain Status: Acute Assessment and plan: Impression: 1. Abdominal pain etiology unclear questionable gallbladder disease undiagnosed 2. Obesity 3. Congestive heart failure 4. Low cardiac ejection fraction Recommendations: 1. Certainly would look at do a HIDA scan to see if its abnormal with that ejection fraction 2. We consider repeating ultrasound after his been nothing by mouth for at least 12 hours to see if there is any changes in the gallbladder see if it distends back up looks normal 3. We consider a CT scan abdomen and pelvis with contrast to get a better idea this is nothing else going on. 4. He needs a complete cardiac evaluation before that any consideration of surgery because he is at such high risk 5. May need pulmonary consult at some point 6. We consider surgery on the gallbladder all if everything else is ruled out and that we have clear diagnosis that he could possibly have gallbladder disease. 10/31/2016. Patient continues to complain of discomfort in the upper abdomen right chest area. On exam though he does not exhibit any guarding or unusual tenderness on deep palpation. No masses are palpable. He did not have his oxygen own and I have noted cardiology's note. He is for a HIDA scan today and hopefully we'll plan to CT scan abdomen and pelvis tomorrow. Still unclear whether he has gallbladder disease but certainly he remains a high risk surgical patient because of his cardiac disease. 11/01/2016 Patient continues to have some discomfort in the upper part of his abdomen. Better today than has been. His CT scan abdomen and pelvis was performed in his completed and they continue to see her contracted gallbladder normal size biliary tree. See some stranding around the kidneys but otherwise nothing dramatically noted at this point. I felt the pancreas was okay. At this point after discussing his cardiac status with Dr. Dodson we feel like that he has in optimal condition to proceed with surgery at this time. He is a high risk patient and he understands this but he is okay with going ahead with surgery. Dr. Dodson feels like that he would be best to get him at this point when he is optimal as opposed to let the gallbladder get truly sick and then having a worse situation deal with. Current Visit: Yes Qualifiers: Abdominal location: upper abdomen, unspecified Qualified Code(s): R10.10 - Upper abdominal pain, unspecified Subjective Patient reports: Present: feels better, tolerating liquids well, bowel movement , afebrile Exam - Constitutional Vitals: Period Temp Pulse Resp BP Sys/Lobo Pulse Ox Last 24 Hr 96.0 F-98.4 F 63-89 16-22 97-116/63-75 92-99 General appearance: mild distress - Head Head exam: Present: normal inspection - ENT ENT exam: Present: normal exam - Neck Neck exam: Present: normal inspection - Respiratory Respiratory exam: Present: rales - Cardiovascular Cardiovascular exam: Present: RRR - GI/Abdominal GI/Abdominal exam: Present: hypoactive bowel sounds, tenderness (still RUQ), soft - Extremities Exam Extremities exam: Present: normal inspection - Neurological Exam Neurological exam: Present: alert, oriented X3, CN II-XII intact - Skin Skin exam: Present: normal color, warm, dry Results - Labs CBC & BMP: 11/01/16 04:59 11/01/16 04:59 Lab Results: I have reviewed the past 24 hour labs - Diagnostic Findings Procedure: CT: report reviewed by me (report noted) Specialty Discharge - Follow Up or Referrals - Discharge Medications No Action Spironolactone 25 mg PO DAILY Carvedilol 6.25 mg PO BID W/MEALS Furosemide Tab [Lasix Tab] 20 mg PO BID DIURETIC Citalopram Hydrobromide [Citalopram HBr] 10 mg PO DAILY Aspirin EC Tab 81 mg PO DAILY Valsartan 40 mg PO DAILY
[2016-11-02] MEDS: ALBUTEROL/IPRATROPIUM 3 ML NEB RESP TX SCH ×4 (00:37→20:03)
[2016-11-02 04:04] LABS: INR 1.3; PT Patient Result 13.8 SECS; Partial Thromboplastin Time 27.3 SECS (0-40)
[2016-11-02 04:05] LABS: Basophils # 0.1 10*3/uL (0.0-0.2); Basophils % 1.3 % (0.0-0.8); Eosinophils # 0.4 10*3/uL (0.0-0.87); Eosinophils % 6.9 % (0.00-10.9); Hematocrit 43.8 VOL% (42.0-52.0); Hemoglobin 14.2 GM/DL (14.0-18.0); Immature Granulocytes % 0.2 %; Immature Granulocytes Absolute 0.01 #; Lymphocytes # 1.6 10*3/uL (1.4-4.0); Lymphocytes % 24.6 % (21.2-54.2); Mean Corpuscular HGB Conc 32.4 GM/DL (32-36); Mean Corpuscular Hemoglobin 29 PG (27-34); Mean Corpuscular Volume 90.1 FL (87-102); Monocytes # 0.7 10*3/uL (0.11-0.8); Monocytes % 11.3 % (1.7-12.7); Neutrophils # 3.5 10*3/uL (1.4-7.4); Neutrophils % 55.7 % (38.7-73.9); Platelet Count 154 10*3/uL (130-400); Red Blood Count 4.86 10*6/uL (3.8-5.5); White Blood Count 6.4 10*3/uL (4.5-13.71)
[2016-11-02 04:27] LABS: Bilirubin,Total 1.5 MG/DL (0.2-1.0); Calcium 7.9 MG/DL (8.5-10.1); Potassium 4.3 MMOL/L (3.5-5.1); Total Protein 6.1 G/DL (6.4-8.3)
[2016-11-02 04:52] LABS: Calcium 8.3 MG/DL (8.5-10.1); Osmolality,Calculated 287.8 MOS/KG (273-304); Potassium 4.3 MMOL/L (3.5-5.1)
[2016-11-02] MEDS: AMPICILLIN/SULBACTAM 3,000 MG in SODIUM CHLORIDE 0.9% 100 ML IV SCH ×2 (05:11→20:52)
[2016-11-02] MEDS: FUROSEMIDE 40 MG/4 ML VIAL IV SCH (07:34)
[2016-11-02] MEDS: CARVEDILOL 3.125 MG TABLET PO SCH ×2 (07:52→11:26)
[2016-11-02] MEDS: LOSARTAN 25 MG TABLET PO SCH ×2 (07:52→11:26)
[2016-11-02] MEDS: SPIRONOLACTONE 25 MG TABLET PO SCH ×2 (07:52→11:25)
[2016-11-02] MEDS: CITALOPRAM 20 MG TABLET PO SCH (07:52)
[2016-11-02] MEDS: PANTOPRAZOLE 40 MG TABLET PO SCH ×2 (07:53→11:26)
[2016-11-02] MEDS ORDERED: ceFAZolin 2,000 MG in PREMIX 1 EACH IV ONE (08:00)
[2016-11-02] MEDS ORDERED: BUPIVACAINE MPF 0.25% /EPI 30 ML VIAL ONE (08:14)
[2016-11-02] MEDS ORDERED: ceFAZolin 1,000 MG VIAL ONE (08:58)
[2016-11-02] MEDS ORDERED: LIDOCAINE 1% 5 ML VIAL ONE (09:00)
[2016-11-02] MEDS ORDERED: DEXAMETHASONE 10 MG/1 ML VIAL ONE (09:00)
[2016-11-02] MEDS ORDERED: NEOSTIGMINE 10 MG/10 ML VIAL ONE (09:00)
[2016-11-02] MEDS ORDERED: KETOROLAC 30 MG/1 ML VIAL ONE (09:00)
[2016-11-02] MEDS ORDERED: GLYCOPYRROLATE 0.4 MG/2 ML VIAL ONE (09:00)
[2016-11-02] MEDS ORDERED: PHENYLEPHRINE 1 MG/10 ML SYRINGE IV ONE (09:00)
[2016-11-02] MEDS ORDERED: ONDANSETRON 4 MG/2 ML VIAL ONE (09:00)
[2016-11-02] MEDS ORDERED: METOPROLOL TARTRATE 5 MG/5 ML VIAL IV ONE (09:00)
[2016-11-02] MEDS ORDERED: ROCURONIUM 100 MG/10 ML VIAL IV ONE (09:00)
[2016-11-02] MEDS ORDERED: PROPOFOL 200 MG/20 ML VIAL IV ONE ×2 (09:00→12:50)
[2016-11-02 11:00] LABS: Apearance,Urine CLEAR (Clear); Bilirubin,Urine Negative (Negative); Blood, Urine Negative (Negative); Glucose,Urine (UA) Negative (Negative); Ketones,Urine Negative (Negative); Nitrite,Urine Negative (Negative); Protein,Urine Negative; Urine Color Straw (Yellow); Urine Specific Gravity 1.004 (1.001-1.035)
--- NOTE | 2016-11-02 11:51 | Operative Note ---
Date of procedure: 11/02/16 Pre-op diagnosis: acalculous cholecystitis Post-op diagnosis: other (acalculus cholecystitis and epigastric hernia) Procedure: Operative note: Preoperative diagnosis: Acalculous cholecystitis. Postoperative diagnosis: Acalculus cholecystitis. Epigastric incarcerated hernia Procedure: 1. Laparoscopic cholecystectomy with intraoperative clenched Wang. 2. Reduction and primary repair of epigastric ventral hernia 3. Insertion of central line right internal jugular Surgeon Dr. [facility] Adult Basic Studies Teacher Mei Bello [facility] Anesthesia Gen. with local Brief history: 51-year-old obese after [place] male with severe coronary disease with cardiomegaly and congestive heart failure comes in complaining of constant abdominal pain right upper quadrant area. His a CT scan showed contracted gallbladder ultrasound with contracted gallbladder some fluid around the gallbladder. HIDA scan though was a showed the cystic duct be open but it was a 12% ejection fraction. Was here he was seen by cardiology and all of his cardiac status was stabilized. We finally decided to go ahead with gallbladder since he continued complain of discomfort in that area and difficulty needing because of the pain. Nothing else that shown up on the scans and he was felt to be in an optimal cardiac status at this time. It was felt that he was in optimal shape at this time and move along with surgery. Procedure: With patient supine position prepped and draped in a sterile fashion Timeout and antibodies completed we approached this area of the abdomen itself. Large rotund abdomen at this point so elected go just above the umbilicus. Infiltrated with local anesthetic and made an incision to skin subcutaneous tissue and as I dissected into the fatty tissue we encountered an epigastric hernia with fat in it. I carefully dissected around the hernia to free it from the subcutaneous tissue Jackie see it down the base of the fascia. Did not appear to be umbilical in nature seen to be above the head just small epigastric incarcerated hernia. At that point opened up the hernia sac and began to dissect out the omental fat in it until I had it fat removed and I had an opening. I removed the excess of the sac made a small incision in the fascia to place a 11 mm trocar in through this area. We then filled the abdomen with 3 L of CO2. We put her scope in looked around we didn't see any other abnormalities the liver looked like it had a little chronic scarring in it and the gallbladder was pale not thickened or distended but had adhesions on the underside of it. At that point we then placed in 5 mm trocar the anterior axillary line and a 5 mm trocar at the midclavicular line under direct vision. We then placed an epigastric trocar 11 mm at the epigastric area under direct vision. We then put the patient in upright tilt left side position. I was able to grasp fundus of the gallbladder elevated up that I had to use sharp and blunt dissection to dissected the omentum from the underside the gallbladder. Once that was dissected free I grasped the fundus and did careful dissection until I could identify the cystic duct and cystic artery. I then placed a clip on the proximal part of the cystic duct made an incision and placed a cholangio- clamp in place. We then brought the C-arm in and we did several x-rays showing that we were in the cystic duct with good flow into duodenum and good upper radicles were seen. We then pulled the Cholangiocath and we then went back reestablished our exposure. I then placed 3 clips across the distal part of the cystic duct and then placed 3 clips on the proximal part of the cystic artery and one distally and we divided then. At that point we then went ahead and began to dissected out the gallbladder incising the peritoneal attachments anteriorly and posteriorly and used sharp and blunt dissection is dissected gallbladder out of the liver bed. Once the gallbladder was free we placed it in the Endo Catch bag pulled it out through the epigastric port. Once it was out we went back in and we washed irrigated touch liver bed with the cautery to control any bleeding and washed out the above and below the liver. He was stable with a little bit of low blood pressure at this point and so elected go ahead and placed a #10 Ermias-Fuchs drain under the liver bring it out to the lateral port secure with 3-0 nylon. I then placed Surgicel in the liver bed so that we can monitor this more closely. We then pulled our of the trocar sites and went back to the epigastric closed it with interrupted 0 Monocryl and and then went back and closed the hernia defect in the umbilical port site with interrupted 0 Monocryl sutures. We then washed out subcutaneous tissue and closed it with 3-0 Vicryl closed the skin with skin clips. Dressings were applied. Estimated blood loss about 30 mL Sponge count was correct 2 Drains one #10 Ermias-Fuchs Complications were none Condition stable at this time. Before leaving the OR the patient underwent a cardiac arrest and had undergo cardiac massage with multiple medications. After 20 minutes of work he did reestablish a pulse width SaO2 in the 90s. He sounds he has his endotracheal tube in place. At this point I plan to place a central line. After prepping and draping the area of the right neck and I was able to bring the ultrasound up identified the vein and used that as a guide to place the needle and catheter in the vein itself. Once it was in place with good flow was able placed a wire through this catheter. Once it was in good position I used the dilator over the wire and we placed the triple-lumen catheter into the vein and sutured it in place with 2-0 silk suture. This went well without problems dressings were applied and the patient was moved to the unit. Anesthesia: GETA, local (0.25% Marcaine with epinephrine mixed [id number] 1 to Xylocaine plain into the trocar sites) Surgeon / Physician: Emiliano ePnn Adult Basic Studies Teacher: Mei Bello Estimated blood loss: other (30 mL) Specimens: other (gallbladder and hernia contents) Condition: stable Disposition: ICU Results - Labs CBC & BMP: 11/02/16 02:31 11/02/16 02:31 Discharge Plan - Discharge Medications No Action Spironolactone 25 mg PO DAILY Carvedilol 6.25 mg PO BID W/MEALS Furosemide Tab [Lasix Tab] 20 mg PO BID DIURETIC Citalopram Hydrobromide [Citalopram HBr] 10 mg PO DAILY Aspirin EC Tab 81 mg PO DAILY Valsartan 40 mg PO DAILY - Follow Up or Referral - Forms/Instructions
--- NOTE | 2016-11-02 12:02 | EKG Report ---
Stationary ECG Study [facility] Test Date: 11/02/2016 12:01:37 PM Pat Name: JOSE IRVING Department: Room: 107 Gender: M Advanced Solutions Architect: MARCY : 1965 Requested by: Emiliano Penn Order Number: [id number] Reading MD: ANA LAURA LUNA Intervals [place] Rate: 85 P: 85 AR: 180 QRS: 13 QRSD: 118 T: 115 QT: 392 QTc: 435 Interpretive Statements SINUS RHYTHM MODERATE INTRAVENTRICULAR CONDUCTION DELAY ST ELEVATION, PROBABLY EARLY REPOLARIZATION NONSPECIFIC T-WAVE ABNORMALITY Electronically Signed On 11-02-16 12:14:00 PYTHON CONSULTANT by ANA LAURA LUNA [email or web address]
[2016-11-02] MEDS ORDERED: PHENYLEPHRINE DRIP 40 MG/250 ML PREMIX IV ONE (12:15)
[2016-11-02] MEDS ORDERED: PROPOFOL 1,000 MG/100 ML BOTTLE IV ONE (12:15)
[2016-11-02] MEDS ORDERED: EPINEPHrine 1 MG/ML VIAL ONE (12:16)
[2016-11-02] MEDS: PROPOFOL 1,000 MG/100 ML BOTTLE IV SCH ×2 (12:20→21:06)
[2016-11-02] MEDS ORDERED: SODIUM CHLORIDE 0.9% 500 ML IV ONE (12:28)
--- NOTE | 2016-11-02 12:35 | Sleep Medicine Progress Note ---
Sleep Medicine Subjective Interval history: Sleep medicine been consulted to see this patient regarding possible sleep apnea. He underwent cholecystectomy today and had a postop cardiac arrest. He is now on mechanical ventilation after prolonged CPR. I discussed this case with the hospitalist service, sleep medicine we'll be glad to see him once off mechanical ventilation and if consultation is felt appropriate. Exam (Progress Note) - Constitutional Vitals: Period Temp Pulse Resp BP Sys/Lobo Pulse Ox Last 24 Hr 97.5 F-98 F 63-86 15-20 104-113/64-73 95-100 Results - Labs CBC & BMP: 11/02/16 02:31 11/02/16 02:31 Specialty Discharge - Follow Up or Referrals - Discharge Medications No Action Spironolactone 25 mg PO DAILY Carvedilol 6.25 mg PO BID W/MEALS Furosemide Tab [Lasix Tab] 20 mg PO BID DIURETIC Citalopram Hydrobromide [Citalopram HBr] 10 mg PO DAILY Aspirin EC Tab 81 mg PO DAILY Valsartan 40 mg PO DAILY
[2016-11-02 12:37] LABS: Basophils # 0.1 10*3/uL (0.0-0.2); Basophils % 0.6 % (0.0-0.8); Eosinophils # 0.2 10*3/uL (0.0-0.87); Eosinophils % 1.9 % (0.00-10.9); Hematocrit 44.7 VOL% (42.0-52.0); Hemoglobin 14.5 GM/DL (14.0-18.0); Immature Granulocytes % 0.5 %; Immature Granulocytes Absolute 0.05 #; Lymphocytes # 0.6 10*3/uL (1.4-4.0); Lymphocytes % 5.7 % (21.2-54.2); Mean Corpuscular HGB Conc 32.4 GM/DL (32-36); Mean Corpuscular Hemoglobin 30 PG (27-34); Mean Corpuscular Volume 91.2 FL (87-102); Mean Platelet Volume 13.1 FL (9.6-12.0); Monocytes # 0.2 10*3/uL (0.11-0.8); Monocytes % 2.2 % (1.7-12.7); NRBC # 0.02 10*3/uL; Neutrophils # 9.6 10*3/uL (1.4-7.4); Neutrophils % 89.1 % (38.7-73.9); Platelet Count 165 10*3/uL (130-400); Red Cell Distribution Width 15.1 % (9.3-17.3); White Blood Count 10.7 10*3/uL (4.5-13.71)
--- NOTE | 2016-11-02 12:38 | Hospitalist Progress Note ---
Hospitalist: Subjective Interval history: Mr Ramírez had lap cholecystectomy and hernia repair this morning and the arrested just before the end of surgery. The OR nurses report that he had bradycardia then PEA/asystole. He required CPR for 20 minutes. He was started on Epi infusion and transferred to ICU. Dr Colindres has been consulted for vent management and Dr Tovar talked to Dr Lam his finance mgr. He did require Marquis during the entire procedure, and had been diuresed to optimize his chronic systolic CHF in the days prior to surgery. He made 600 cc urine during the procedure, and has had about 100 since code. A/P: 1)S/P PEA/asystolic arrest after surgery- supportive care. Bolus with NS and reeval hemodynamics- his SBP is 90-100 on Epi. Monitor UOP. post code labs and ABG pending. Hold BP lowering meds for now, including lasix for now. revisit as things stabilize. 2)lap cholecystectomy and hernia repair. 3)chronic systolic CHF with EF of 15% 4)CHEMA- Dr Arellano can be reconsulted when off vent. 5)social- his brother is long distance steam table worker on the road. He is next of kin. Unclear at this point whether he has been notified of today's events. 6)h/o cocaine use- verbal report- Exam - Constitutional Vitals: Period Temp Pulse Resp BP Sys/Lobo Pulse Ox Last 24 Hr 97.5 F-98 F 63-86 15-20 104-113/64-73 95-100 General appearance: morbidly obese, other (sedated on vent. Noted to try to sit up after code, I saw him move his right arm a bit.) - Head Head exam: Present: normocephalic, atraumatic - Respiratory Respiratory exam: Present: rhonchi (upper airway noises, no rales. ) - Cardiovascular Cardiovascular exam: Present: regular rate and rhythm, systolic murmur - GI/Abdominal GI/Abdominal exam: Present: hypoactive bowel sounds, soft (lap kailey incisions dressed. MAT drain with bloody drainage.) - Extremities Exam Extremities exam: Absent: edema - Neurological Exam Neurological exam: Present: altered - Skin Skin exam: Present: warm, dry Results - Labs CBC & BMP: 11/02/16 02:31 11/02/16 02:31 Lab Results: I have reviewed the past 24 hour labs Specialty Discharge - Follow Up or Referrals - Discharge Medications No Action Spironolactone 25 mg PO DAILY Carvedilol 6.25 mg PO BID W/MEALS Furosemide Tab [Lasix Tab] 20 mg PO BID DIURETIC Citalopram Hydrobromide [Citalopram HBr] 10 mg PO DAILY Aspirin EC Tab 81 mg PO DAILY Valsartan 40 mg PO DAILY
--- NOTE | 2016-11-02 13:02 | XRay Report ---
History: Cardiac arrest. Central line placement Date: 11/02/2016 at 12:22 PM Study: Chest x-ray AP portable Comparison exam: Chest x-ray 11/01/2016 The right IJ central line is well-positioned with its tip over the region of the atriocaval junction. There is no pneumothorax. The endotracheal tube is well-positioned. There is continued cardiomegaly. The mediastinal contours are unchanged. Some left retrocardiac atelectasis has developed since the previous study. There is increasing asymmetric patchy and hazy right perihilar airspace disease on the current exam. Consider asymmetric pulmonary edema and aspiration. There is a calcified granuloma in the right mid to lower lung. The osseous structures are unchanged. Impression: No evidence of pneumothorax following central line placement Right perihilar airspace disease which could represent asymmetric pulmonary edema, though also consider aspiration. Developing left lower lobe atelectasis The endotracheal tube is well-positioned PROCEDURE INTERPRETED AT [facility] DEPARTMENT OF RADIOLOGY Final Report Signed by: Dr. Kristen Salgado
[2016-11-02 13:05] LABS: Albumin 2.9 G/DL (3.4-5.0); Bilirubin,Total 1.5 MG/DL (0.2-1.0); Calcium 8.1 MG/DL (8.5-10.1); Osmolality,Calculated 288.8 MOS/KG (273-304); Potassium 4.4 MMOL/L (3.5-5.1); Total Protein 5.8 G/DL (6.4-8.3)
[2016-11-02 13:20] LABS: Troponin I Only 0.046 NG/ML (0.00-0.045)
[2016-11-02 13:28] LABS: ABG Base Excess -1.7 MMOL/L (-2.5-2.5); ABG HCO3 22.9 MMOL/L (20-26); ABG Oxygen Saturation 95.5 % (95-100); ABG PH 7.261 (7.35-7.45); ABG PO2 96.6 MM HG (80-95); ABG TCO2 23.7 MMOL/L (23-27); Pt O2 Delivery Device Ventilator
[2016-11-02] MEDS: DEXTROSE 5% NACL 0.45% 1,000 ML IV SCH ×2 (13:43→23:00)
--- NOTE | 2016-11-02 14:52 | Fluoroscopy Report ---
History: Patient with history of right upper quadrant abdominal pain undergoing cholecystectomy Date: 11/02/2016 Study: Intraoperative cholangiogram Comparison exam: No previous similar study Contrast material was injected into the biliary tree via the cystic duct stump in surgery by Dr. Penn, who used 24.4 seconds fluoroscopy time. The common bile duct and hepatic ducts are normal in appearance where opacified. There is no choledochal stone. There is contrast material in the second portion of the duodenum compatible with patency of the common bile duct. Impression: Normal intraoperative cholangiogram in this patient undergoing cholecystectomy PROCEDURE INTERPRETED AT [facility] DEPARTMENT OF RADIOLOGY Final Report Signed by: Dr. Kristen Salgado
[2016-11-02] MEDS ORDERED: SEVOFLURANE 1 UNIT/15 MINUTE INH ONE (15:24)
[2016-11-02] MEDS ORDERED: fentaNYL 100 MCG/2 ML VIAL ONE (15:25)
[2016-11-02] MEDS ORDERED: MIDAZOLAM 2 MG/2 ML VIAL ONE (15:25)
[2016-11-02] MEDS ORDERED: SODIUM CHLORIDE 0.9% 250 ML IV ONE (15:25)
[2016-11-02] MEDS ORDERED: LACTATED RINGERS 1,000 ML IV ONE (15:25)
[2016-11-02] MEDS ORDERED: ePHEDrine 50 MG/ML AMP ONE (15:25)
[2016-11-02 16:04] LABS: Hematocrit 44.1 VOL% (42.0-52.0); Hemoglobin 14.6 GM/DL (14.0-18.0)
--- NOTE | 2016-11-02 16:17 | Cardiology Progress Note ---
Moshe Mancia Vanessa, RN, am scribing for, and in the presence of, Yannick Meyer MD 16 :12. Assessment and Plan - Time spent with patient Time spent with patient: Less than 30 minutes (1) Cardiopulmonary arrest with successful resuscitation Status: Acute Assessment and plan: 51 year old black male with PMHx of severe NICM (LV EF 15%), CHF, HTN, and h/o cocaine abuse admitted to hospital for cholecystitis. He underwent LC today and had a bradycardic arrest at the end of the procedure. CPR for approximately 20 minutes. He did not regain consciousness, which is also difficult to assess as he was on anesthetics at that time. -ECG, recheck cardiac enzymes. Doubt ACS. Enzymes likely due to demand ischema -Hold propofol. If he does not regain consciousness, we'll initiate cooling protocol. He also became febrile. -Check and monitor CVP. Severe CHF. Oliguric despite good BP. -A-line. -Hold losartan/coreg/aldactone while on pressor Current Visit: Yes (2) S/P laparoscopic cholecystectomy Status: Acute Current Visit: Yes (3) Acute on chronic systolic CHF (congestive heart failure) Status: Acute Current Visit: No (4) Cardiomyopathy Status: Chronic Current Visit: Yes (5) CHEMA (obstructive sleep apnea) Status: Acute Current Visit: Yes (6) Hypertension Status: Chronic Current Visit: Yes (7) Cocaine abuse Status: Acute Current Visit: No (8) Uncontrolled hypertension Status: Acute Current Visit: No Cardiology - PN: Subj Interval history: He had bradycardic arrest at the end of LC. CPR for approximately 20 minutes. He did not regain full consciousness and is now febrile. Still on low-dose epinephrine, at 4. MAP 89. Has a central line but no A-line. SR with occasional PVCs. First set of troponins borderline post event. Exam (Progress Note) - Constitutional Vitals: Period Temp Pulse Resp BP Sys/Lobo Pulse Ox Last 24 Hr 97.5 F-99.3 F 72-96 10-20 96-113/64-73 95-100 General appearance: over weight, other (intubated and sedated) - Head Head exam: Absent: contusion, hematoma - Eye Eye exam: Absent: laceration to eyelids Pupils: Present: unequal (sluggish reaction) - ENT ENT exam: Present: normal exam - Neck Neck exam: Absent: tenderness - Respiratory Respiratory exam: Present: rhonchi (throughout all lung smiley) - Cardiovascular Cardiovascular exam: Present: regular rate and rhythm (pulse rate 70's). Absent : JVD - GI/Abdominal GI/Abdominal exam: Present: hypoactive bowel sounds, soft, other (MAT drain x 1 RLQ; sx dsg x 2 hypogastric and umbilical area). Absent: ascites, distended, firm, mass - Extremities Exam Extremities exam: Present: edema (trace BUE's). Absent: full ROM - Back Exam Back exam: Present: other (unable to assess d/t intubation) - Neurological Exam Neurological exam: Present: altered (pt sedated with mechanical ventilation) - Psychiatric Psychiatric exam: Present: other (unable to assess d/t intubation and sedation) - Skin Skin exam: Present: dry, intact, other (BLE's slightly cool to touch). Absent: cyanosis, diaphoretic, petechiae, rash Result/EKG - Labs CBC & BMP: 11/02/16 15:53 11/02/16 12:30 Lab Results: I have reviewed the past 24 hour labs Labs: Laboratory Results - last 24 hr 11/02/16 11/02/16 11/02/16 02:31 02:31 02:31 WBC 6.4 RBC 4.86 Hgb 14.2 Hct 43.8 MCV 90.1 MCH 29 MCHC 32.4 RDW 15.0 Plt Count 154 MPV 14.0 H Neut % (Auto) 55.7 Lymph % (Auto) 24.6 Sandoval % (Auto) 11.3 Eos % (Auto) 6.9 Baso % (Auto) 1.3 H Neut # (Auto) 3.5 Lymph # (Auto) 1.6 [place] # (Auto) 0.7 Eos # (Auto) 0.4 Baso # (Auto) 0.1 Immature Gran % 0.2 Nucleated RBC % 0.0 Immature Gran # 0.01 Nucleated RBCs # 0.00 INR 1.3 PT Patient/Control Mix 13.8 Circ Anticoag PTT 27.3 ABG pH ABG pCO2 ABG pO2 ABG HCO3 ABG Total CO2 ABG O2 Saturation ABG Base Excess FiO2 Sodium 144 Potassium 4.3 Chloride 102 Carbon Dioxide 29 Anion Gap 17.3 H BUN 22 H Creatinine 1.20 GFR Calculation 103 BUN/Creatinine Ratio 18.00 Glucose 86 Calculated Osmolality 287.8 Calcium 8.3 L Total Bilirubin AST ALT Alkaline Phosphatase Total Creatine Kinase CK-MB (CK-2) Troponin I Total Protein Albumin Globulin Albumin/Globulin Ratio Urine Color Urine Appearance Urine pH Ur Specific [place] Urine Protein Urine Glucose (UA) Urine Ketones Urine Blood Urine Nitrate Urine Bilirubin Urine Urobilinogen Urine Leukocytes Ur Culture Indicated? Blood Type Antibody Screen 11/02/16 11/02/16 11/02/16 02:31 02:31 09:40 WBC RBC Hgb Hct MCV MCH MCHC RDW Plt Count MPV Neut % (Auto) Lymph % (Auto) [place] % (Auto) Eos % (Auto) Baso % (Auto) Neut # (Auto) Lymph # (Auto) [place] # (Auto) Eos # (Auto) Baso # (Auto) Immature Gran % Nucleated RBC % Immature Gran # Nucleated RBCs # INR PT Patient/Control Mix Circ Anticoag PTT ABG pH ABG pCO2 ABG pO2 ABG HCO3 ABG Total CO2 ABG O2 Saturation ABG Base Excess FiO2 Sodium 143 Potassium 4.3 Chloride 103 Carbon Dioxide 30 Anion Gap 14.3 BUN 22 H Creatinine 1.20 GFR Calculation 103 BUN/Creatinine Ratio 18.00 Glucose 83 Calculated Osmolality 286.0 Calcium 7.9 L Total Bilirubin 1.50 H AST 23 ALT 17 Alkaline Phosphatase 61 Total Creatine Kinase CK-MB (CK-2) Troponin I Total Protein 6.1 L Albumin 3.0 L Globulin 3.1 Albumin/Globulin Ratio 0.9 L Urine Color Straw Urine Appearance Clear Urine pH 7.0 Ur Specific [place] 1.004 Urine Protein Negative Urine Glucose (UA) Negative Urine Ketones Negative Urine Blood Negative Urine Nitrate Negative Urine Bilirubin Negative Urine Urobilinogen 2.0 H Urine Leukocytes Negative Ur Culture Indicated? Not indicated Blood Type A POSITIVE Antibody Screen Negative 11/02/16 11/02/16 11/02/16 12:30 12:30 12:30 WBC 10.7 D RBC 4.90 Hgb 14.5 Hct 44.7 MCV 91.2 MCH 30 MCHC 32.4 RDW 15.1 Plt Count 165 MPV 13.1 H Neut % (Auto) 89.1 H Lymph % (Auto) 5.7 L [place] % (Auto) 2.2 Eos % (Auto) 1.9 Baso % (Auto) 0.6 Neut # (Auto) 9.6 H Lymph # (Auto) 0.6 L [place] # (Auto) 0.2 Eos # (Auto) 0.2 Baso # (Auto) 0.1 Immature Gran % 0.5 Nucleated RBC % 0.2 Immature Gran # 0.05 Nucleated RBCs # 0.02 INR PT Patient/Control Mix Circ Anticoag PTT ABG pH ABG pCO2 ABG pO2 ABG HCO3 ABG Total CO2 ABG O2 Saturation ABG Base Excess FiO2 Sodium 144 Potassium 4.4 Chloride 104 Carbon Dioxide 29 Anion Gap 15.4 H BUN 21 H Creatinine 1.50 H GFR Calculation 79 BUN/Creatinine Ratio 14.00 Glucose 92 Calculated Osmolality 288.8 Calcium 8.1 L Total Bilirubin 1.50 H AST 40 H ALT 22 Alkaline Phosphatase 62 Total Creatine Kinase 253 D CK-MB (CK-2) 2.1 Troponin I 0.046 H Total Protein 5.8 L Albumin 2.9 L Globulin 2.9 Albumin/Globulin Ratio 1.0 L Urine Color Urine Appearance Urine pH Ur Specific [place] Urine Protein Urine Glucose (UA) Urine Ketones Urine Blood Urine Nitrate Urine Bilirubin Urine Urobilinogen Urine Leukocytes Ur Culture Indicated? Blood Type Antibody Screen 11/02/16 13:17 WBC RBC Hgb Hct MCV MCH MCHC RDW Plt Count MPV Neut % (Auto) Lymph % (Auto) [place] % (Auto) Eos % (Auto) Baso % (Auto) Neut # (Auto) Lymph # (Auto) [place] # (Auto) Eos # (Auto) Baso # (Auto) Immature Gran % Nucleated RBC % Immature Gran # Nucleated RBCs # INR PT Patient/Control Mix Circ Anticoag PTT ABG pH 7.261 L ABG pCO2 61.0 H ABG pO2 96.6 H ABG HCO3 22.9 ABG Total CO2 23.7 ABG O2 Saturation 95.5 ABG Base Excess -1.7 FiO2 50.00 Sodium Potassium Chloride Carbon Dioxide Anion Gap BUN Creatinine GFR Calculation BUN/Creatinine Ratio Glucose Calculated Osmolality Calcium Total Bilirubin AST ALT Alkaline Phosphatase Total Creatine Kinase CK-MB (CK-2) Troponin I Total Protein Albumin Globulin Albumin/Globulin Ratio Urine Color Urine Appearance Urine pH Ur Specific [place] Urine Protein Urine Glucose (UA) Urine Ketones Urine Blood Urine Nitrate Urine Bilirubin Urine Urobilinogen Urine Leukocytes Ur Culture Indicated? Blood Type Antibody Screen - Diagnostic Findings Procedure: Chest x-ray: report reviewed by me (11/02 development of left lower lobe atelectasis; right perihilar airspace sales representative business courses of pulm edema or possible aspiration) - EKG EKG results: interpreted by me EKG shows: sinus rhythm (pulse rate 70's) Specialty Discharge - Follow Up or Referrals - Discharge Medications No Action Spironolactone 25 mg PO DAILY Carvedilol 6.25 mg PO BID W/MEALS Furosemide Tab [Lasix Tab] 20 mg PO BID DIURETIC Citalopram Hydrobromide [Citalopram HBr] 10 mg PO DAILY Aspirin EC Tab 81 mg PO DAILY Valsartan 40 mg PO DAILY Mitch Mancia Attila, MD, personally performed the services described in this documentation, ascribed by Laura Mesa RN in my presence, and it is both accurate and complete [id number] .
[2016-11-02] MEDS ORDERED: fentaNYL 100 MCG/2 ML VIAL IV ONE (16:52)
[2016-11-02] MEDS ORDERED: PROPOFOL 1,000 MG/100 ML BOTTLE IV SCH (17:00)
[2016-11-02] MEDS ORDERED: fentaNYL 100 MCG/2 ML VIAL IV PRN (17:02)
--- NOTE | 2016-11-02 17:08 | Pulmonology Consult Note ---
Assessment and Plan (1) Hypertension Status: Chronic Assessment and plan: The patient has a history of hypertension and a cardiomyopathy but his blood pressure is reasonably stable on the ventilator at present. Current Visit: Yes (2) CHEMA (obstructive sleep apnea) Status: Acute Assessment and plan: This will be evaluated later. Current Visit: Yes (3) Cardiomyopathy Status: Chronic Assessment and plan: The patient apparently has an ejection fraction of 15% and severe cardiomyopathy. Current Visit: Yes (4) Cardiopulmonary arrest with successful resuscitation Status: Acute Assessment and plan: The patient is on the ventilator after a successful resuscitation. He will be started on the cooling protocol. Current Visit: Yes (5) S/P laparoscopic cholecystectomy Status: Acute Assessment and plan: The patient has had a lap cholecystectomy after presenting with significant abdominal pain. Current Visit: No History of Present Illness Chief complaint: ventilator management History of present illness: Mr. Ramírez is a 51 year old black male that has a history of a severe nonischemic cardiomyopathy with hypertension and previous heart failure. He underwent a lap cholecystectomy today and has been to the procedure he had a cardiac arrest. Apparently had CPR for around 20 minutes and was resuscitated. He is now on the ventilator in the ICU. He is not responding and starting the Coumadin protocol. His oxygenation is adequate on the ventilator. The patient has a history of hypertension along with his severe cardiomyopathy and cocaine abuse. He has a history of obstructive sleep apnea. Home Medications Medication Instructions Recorded Confirmed Type Carvedilol 6.25 mg PO BID W/MEALS 04/21/16 10/30/16 History Citalopram Hydrobromide 10 mg PO DAILY 04/21/16 10/30/16 History [Citalopram HBr] Furosemide Tab [Lasix Tab] 20 mg PO BID DIURETIC 04/21/16 10/30/16 History Spironolactone 25 mg PO DAILY 04/21/16 10/30/16 History Aspirin EC Tab 81 mg PO DAILY 09/15/16 10/30/16 History Valsartan 40 mg PO DAILY 10/30/16 10/30/16 History Allergies Allergy/AdvReac Type Severity Reaction Status Date / Time No Known Allergies Allergy Verified 09/15/16 19:22 ROS unobtainable: due to endotracheal tube (he is not responding on the ventilator at present.) Exam (Pulmonay) H&P - Constitutional Vitals: Period Temp Pulse Resp BP Sys/Lobo Pulse Ox Last 24 Hr 97.5 F-101.7 F 72-96 10-20 96-129/64-107 95-100 General appearance: morbidly obese, other (patient does look ill on the ventilator at present.) - Head Head exam: Present: normal inspection - Eye Eye exam: Present: EOMI. Absent: scleral icterus Pupils: Present: CB, constricted - ENT ENT exam: Present: other (ET tube in good position) - Neck Neck exam: Present: normal inspection. Absent: lymphadenopathy, thyromegaly - Respiratory Respiratory exam: Present: rhonchi, other (patient has fairly good breath sounds bilaterally with mild rhonchi) - Cardiovascular Cardiovascular exam: Present: regular rate and rhythm. Absent: gallop, JVD, systolic murmur - GI/Abdominal GI/Abdominal exam: Present: hypoactive bowel sounds, soft, other (he is postop and drains in place.). Absent: organomegaly - Extremities Exam Extremities exam: Present: edema (he has mild lower extremity edema.) - Neurological Exam Neurological exam: Present: altered (patient is sedated on the ventilator) - Skin Skin exam: Present: dry. Absent: rash Medical,Surgical,& Family Hx - Medical History Cardio: History of: CHF, Hypertension Psychological: History of: Anxiety Disorders, Depression Neurology: History of: Vertigo HEENT: History of: Eye Problem (ARTIFICIAL RIGHT EYE) Endocrine: History of: Dyslipidemia No history of: Diabetes Mellitus (NIDDM) Respiratory: History of: Respiratory Problems (CHF) Gastrointestinal: History of: GI Problems (ABD PAIN) Musculoskeletal: History of: Musculoskeletal Problems (FX L WRIST) - Surgical History Abdominal Surgeries: Surgical HX of: Abdominal Surgery (HAKEEM INGUINEAL HERNIA REPAIR), Hernia Repair Orthopedic Surgeries: Surgical HX of;: Orthopedic Surgery (L WRIST PINNING) - Family History Family History: Reports;: Family Diabetes (GREAT GM), Family Heart Disease (MOM- CHF), Family Hypertension (?FATHER,BROTHER) Denies;: Family Anesthesia Reaction, Family Cancer, Family Psychiatric Problems, Family Stroke - Social History Smoking Status: Former smoker Frequency of Alcohol Use: None Type of Drug Use: None Results - Labs CBC & BMP: 11/02/16 15:53 11/02/16 12:30 Labs: His PO2 is 96 with a PCO2 of 61 and pH 7.26 - Diagnostic Findings Procedure: Chest x-ray: image reviewed by me, report reviewed by me (chest x- ray shows cardiomegaly with mild increased markings bilaterally.) Specialty Discharge - Follow Up or Referrals - Discharge Medications No Action Spironolactone 25 mg PO DAILY Carvedilol 6.25 mg PO BID W/MEALS Furosemide Tab [Lasix Tab] 20 mg PO BID DIURETIC Citalopram Hydrobromide [Citalopram HBr] 10 mg PO DAILY Aspirin EC Tab 81 mg PO DAILY Valsartan 40 mg PO DAILY
[2016-11-02 17:09] LABS: Troponin I Only 0.068 NG/ML (0.00-0.045)
[2016-11-02 17:46] LABS: Basophils % 0.2 % (0.0-0.8); Hematocrit 44.1 VOL% (42.0-52.0); Hemoglobin 14.5 GM/DL (14.0-18.0); Immature Granulocytes % 0.2 %; Immature Granulocytes Absolute 0.02 #; Lymphocytes # 0.3 10*3/uL (1.4-4.0); Lymphocytes % 4.1 % (21.2-54.2); Mean Corpuscular HGB Conc 32.9 GM/DL (32-36); Mean Corpuscular Hemoglobin 30 PG (27-34); Mean Corpuscular Volume 90.2 FL (87-102); Mean Platelet Volume 13.9 FL (9.6-12.0); Monocytes # 0.3 10*3/uL (0.11-0.8); Monocytes % 3.2 % (1.7-12.7); Neutrophils # 7.6 10*3/uL (1.4-7.4); Neutrophils % 92.3 % (38.7-73.9); Platelet Count 157 10*3/uL (130-400); Red Blood Count 4.89 10*6/uL (3.8-5.5); Red Cell Distribution Width 14.9 % (9.3-17.3); White Blood Count 8.2 10*3/uL (4.5-13.71)
[2016-11-02 17:54] LABS: INR 1.4; PT Patient Result 15.6 SECS; Partial Thromboplastin Time 25.8 SECS (0-40)
[2016-11-02 17:59] LABS: Phosphorous 4.1 MG/DL (2.5-4.9)
[2016-11-02 18:02] LABS: Lactic Acid 2.3 MMOL/L (0.4-2.0)
[2016-11-02 18:13] LABS: Calcium 8.1 MG/DL (8.5-10.1); Magnesium 1.8 MG/DL (1.8-2.4); Osmolality,Calculated 288.3 MOS/KG (273-304); Potassium 4.2 MMOL/L (3.5-5.1)
[2016-11-02] MEDS: SODIUM CHLORIDE 0.9% IV SCH (18:15)
[2016-11-02] MEDS: CISATRACURIUM IV SCH (18:15)
[2016-11-02] MEDS: fentaNYL INJ 1,250 MCG in SODIUM CHLORIDE 0.9% 225 ML IV SCH ×2 (18:15→19:24)
--- NOTE | 2016-11-02 18:49 | Event Note ---
Procedure report: Arterial line placement. The patient did not regain consciousness post code, hypothermia protocol was initiated, using the [place]. A central line was already placed post surgery. I spoke with the brother over the phone and explained the patient's critical condition and obtained consent to proceed with the arterial line placement. Kei test in the R wrist was normal. Using standard sterile technique, right radial arterial line was placed. There were no complications. Biopatch and occlusive dressing was applied.
[2016-11-02 18:57] LABS: ABG Base Excess 0.6 MMOL/L (-2.5-2.5); ABG Oxygen Saturation 99.7 % (95-100); ABG PCO2 37.9 MM HG (35-48); ABG PH 7.423 (7.35-7.45)
[2016-11-02 19:39] LABS: Lymphocytes 2 % (20-55); Platelet Estimate Normal; Segmented Neutrophils 93 % (50-85); Total Cells Counted 100
[2016-11-02] MEDS: LEVOFLOXACIN INJ 750 MG in PREMIX 1 EACH IV SCH (21:05)
[2016-11-02] MEDS: VANCOMYCIN INJ 1,750 MG in SODIUM CHLORIDE 0.9% 500 ML IV SCH (21:06)
[2016-11-02] MEDS: ceFAZolin 2,000 MG in PREMIX 1 EACH IV SCH (21:26)
[2016-11-02] MEDS: INSULIN REGULAR 100 UNIT/ML SUBCUT SCH (22:13)
[2016-11-02] MEDS: MINERAL OIL/PETROLATUM OPH OINT 3.5 GM TUBE BOTH EYES SCH (22:13)
[2016-11-02 23:08] LABS: Basophils % 0.2 % (0.0-0.8); Hematocrit 45.6 VOL% (42.0-52.0); Immature Granulocytes % 0.5 %; Immature Granulocytes Absolute 0.03 #; Lymphocytes # 0.5 10*3/uL (1.4-4.0); Lymphocytes % 7.9 % (21.2-54.2); Mean Corpuscular HGB Conc 32.9 GM/DL (32-36); Mean Corpuscular Hemoglobin 29 PG (27-34); Mean Corpuscular Volume 89.1 FL (87-102); Mean Platelet Volume 14.1 FL (9.6-12.0); Monocytes # 0.3 10*3/uL (0.11-0.8); Monocytes % 4.7 % (1.7-12.7); Neutrophils # 5.7 10*3/uL (1.4-7.4); Neutrophils % 86.7 % (38.7-73.9); Platelet Count 127 10*3/uL (130-400); Red Blood Count 5.12 10*6/uL (3.8-5.5); Red Cell Distribution Width 14.8 % (9.3-17.3); White Blood Count 6.6 10*3/uL (4.5-13.71)
[2016-11-02 23:20] LABS: INR 1.7; PT Patient Result 18.1 SECS; Partial Thromboplastin Time 27.1 SECS (0-40)
[2016-11-02 23:54] LABS: Calcium 7.9 MG/DL (8.5-10.1); Magnesium 1.8 MG/DL (1.8-2.4); Potassium 3.3 MMOL/L (3.5-5.1)
[2016-11-03] MEDS: fentaNYL INJ 1,250 MCG in SODIUM CHLORIDE 0.9% 225 ML IV SCH ×6 (00:11→21:58)
[2016-11-03] MEDS: INSULIN REGULAR 100 UNIT/ML SUBCUT SCH ×7 (00:30→13:42)
[2016-11-03] MEDS: POTASSIUM CHLORIDE RIDER 20 MEQ in PREMIX 1 EACH IV PRN ×2 (00:34→05:18)
[2016-11-03] MEDS: ceFAZolin 2,000 MG in PREMIX 1 EACH IV SCH ×3 (00:54→17:47)
[2016-11-03] MEDS: ALBUTEROL/IPRATROPIUM 3 ML NEB RESP TX SCH ×4 (01:42→19:33)
[2016-11-03 04:24] LABS: ABG Base Excess 0.7 MMOL/L (-2.5-2.5); ABG Oxygen Saturation 98.3 % (95-100); ABG PCO2 33.3 MM HG (35-48); ABG PH 7.461 (7.35-7.45); ABG TCO2 19.9 MMOL/L (23-27)
[2016-11-03 04:29] LABS: Basophils % 0.1 % (0.0-0.8); Hematocrit 46.4 VOL% (42.0-52.0); Hemoglobin 15.3 GM/DL (14.0-18.0); Immature Granulocytes % 0.3 %; Immature Granulocytes Absolute 0.02 #; Lymphocytes # 0.4 10*3/uL (1.4-4.0); Lymphocytes % 5.6 % (21.2-54.2); Mean Corpuscular Hemoglobin 29 PG (27-34); Mean Corpuscular Volume 88.7 FL (87-102); Monocytes # 0.6 10*3/uL (0.11-0.8); Monocytes % 8.3 % (1.7-12.7); Neutrophils # 6.6 10*3/uL (1.4-7.4); Neutrophils % 85.7 % (38.7-73.9); Platelet Count 134 10*3/uL (130-400); Red Blood Count 5.23 10*6/uL (3.8-5.5); Red Cell Distribution Width 14.6 % (9.3-17.3); White Blood Count 7.7 10*3/uL (4.5-13.71)
[2016-11-03] MEDS: AMPICILLIN/SULBACTAM 3,000 MG in SODIUM CHLORIDE 0.9% 100 ML IV SCH ×3 (04:29→20:39)
[2016-11-03] MEDS: ENOXAPARIN 40 MG/0.4 ML SYRINGE SUBCUT SCH (04:29)
[2016-11-03] MEDS: VANCOMYCIN INJ 1,750 MG in SODIUM CHLORIDE 0.9% 500 ML IV SCH ×2 (04:29→16:57)
[2016-11-03 04:36] LABS: Partial Thromboplastin Time 35.7 SECS (0-40)
[2016-11-03 04:41] LABS: INR 4.1
[2016-11-03 04:45] LABS: PT Patient Result 47.2 SECS
[2016-11-03 05:07] LABS: Lactic Acid 2.3 MMOL/L (0.4-2.0)
[2016-11-03 05:09] LABS: Calcium 7.7 MG/DL (8.5-10.1); Magnesium 1.8 MG/DL (1.8-2.4); Osmolality,Calculated 292.8 MOS/KG (273-304); Potassium 3.4 MMOL/L (3.5-5.1)
[2016-11-03] MEDS: SODIUM CHLORIDE 0.9% IV SCH (06:30)
[2016-11-03] MEDS: CISATRACURIUM IV SCH (06:30)
[2016-11-03 07:17] LABS: Apearance,Urine CLEAR (Clear); Bilirubin,Urine Negative (Negative); Blood, Urine Negative (Negative); Glucose,Urine (UA) 50 mg/dL (Negative); Ketones,Urine Negative (Negative); Mucus,Urine Occasional /LPF (Occasional); Nitrite,Urine Negative (Negative); Protein,Urine Negative; RBC,Urine <1 /HPF (0-4); Urine Color Straw (Yellow); Urine Specific Gravity 1.005 (1.001-1.035); Urine Urobilinogen < 2.0 EU/DL (0.2-1.0)
[2016-11-03 07:21] LABS: Troponin I Only 0.056 NG/ML (0.00-0.045)
--- NOTE | 2016-11-03 07:21 | EKG Report ---
Stationary ECG Study [facility] Test Date: 11/03/2016 7:19:31 AM Pat Name: JOSE IRVING Department: Room: 107 Gender: M Players Assistant: MARCY : 1965 Requested by: Emiliano Penn Order Number: [id number] Reading MD: DIANE OKEEFE Intervals [place] Rate: 52 P: 67 [place]: 122 QRS: -5 QRSD: 126 T: 101 QT: 567 QTc: 546 Interpretive Statements SINUS BRADYCARDIA WITH OCCASIONAL VENTRICULAR PREMATURE COMPLEXES WITH MARKED RHYTHM IRREGULARITY, POSSIBLE NON-CONDUCTED PAC, POSSIBLE ANTERIOR MYOCARDIAL INFARCTION, OF INDETERMINATE AGE POSSIBLE INFERIOR MYOCARDIAL INFARCTION, PROBABLY OLD Electronically Signed On 11-03-16 20:46:47 HOSPITAL LABORATORY TECHNICIAN by DIANE OKEEFE [email or web address]
--- NOTE | 2016-11-03 07:52 | XRay Report ---
Portable chest Date:[11/03/2016] Clinical history: Postop, CHF Comparison: 11/02/2016 Technique: Portable AP sitting chest Findings: Stable cardiomegaly and supportive devices. Persistent diffuse parenchymal findings in the lungs with small pleural effusions. Stable mediastinum and osseous structures. Impression: No significant change in the appearance of the chest when compared to previous exam. PROCEDURE INTERPRETED AT [facility] DEPARTMENT OF RADIOLOGY Final Report Signed by: Dr. Sarai Sanchez
--- NOTE | 2016-11-03 09:01 | Pulmonology Progress Note ---
Pulmonary - PN: Subj Interval history: The patient is a 51-year-old black man that has a severe cardiomyopathy and had an arrest during surgery. He had just completed a lap cholecystectomy. He had a 20 minute resuscitation but didn't come around a little. He has been on pressors but is stable on the ventilator. He is on the Coumadin protocol now and is sedated and comfortable on the ventilator. His vital signs are stable at present. His chest x-ray actually looks a little better. Exam (Progress Note) - Constitutional Vitals: Period Temp Pulse Resp BP Sys/Lobo Pulse Ox Last 24 Hr 90.2 F-101.7 F 55-96 10-20 87-132/58-107 96-100 Exam: General appearance: moderately obese, other (patient is comfortable on the ventilator at present. He is sedated and his temperature is down to 90.) - Head Head exam: Present: normal inspection - Eye Eye exam: Present: EOMI. Absent: scleral icterus Pupils: Present: CB, constricted - ENT ENT exam: Present: other (ET tube in good position) - Neck Neck exam: Present: normal inspection. Absent: lymphadenopathy, thyromegaly - Respiratory Respiratory exam: Present: He has good breath sounds bilaterally and his lungs sound a little clearer today. - Cardiovascular Cardiovascular exam: Present: regular rate and rhythm. Absent: gallop, JVD, systolic murmur - GI/Abdominal GI/Abdominal exam: Present: hypoactive bowel sounds, soft, other (he is postop and drains in place.). Absent: organomegaly - Extremities Exam Extremities exam: Present: edema (he has mild lower extremity edema.) - Neurological Exam Neurological exam: Present: altered (patient is sedated on the ventilator) - Skin Skin exam: Present: dry. Absent: rash Results - Labs CBC & BMP: 11/03/16 04:00 11/03/16 04:00 Labs: PO2 is 102 with a PCO2 of 33 and a pH of 7.46 - Diagnostic Findings Procedure: Chest x-ray: image reviewed by me, report reviewed by me (chest x- ray shows cardiomegaly but less infiltrates.) Assessment and Plan (1) Hypertension Status: Chronic Assessment and plan: The patient has a history of hypertension and a cardiomyopathy but his blood pressure is reasonably stable on the ventilator at present. He is still on some mild pressors but overall is stable. Current Visit: Yes (2) CHEMA (obstructive sleep apnea) Status: Acute Assessment and plan: This will be evaluated later. Current Visit: Yes (3) Cardiomyopathy Status: Chronic Assessment and plan: The patient apparently has an ejection fraction of 15% and severe cardiomyopathy. He does not show any signs of heart failure at present. Current Visit: Yes (4) Cardiopulmonary arrest with successful resuscitation Status: Acute Assessment and plan: The patient is on the ventilator after a successful resuscitation. He is on the Cooling protocol and is fairly stable at present. Current Visit: Yes (5) S/P laparoscopic cholecystectomy Status: Acute Assessment and plan: The patient has had a lap cholecystectomy after presenting with significant abdominal pain. Current Visit: No Specialty Discharge - Follow Up or Referrals - Discharge Medications No Action Spironolactone 25 mg PO DAILY Carvedilol 6.25 mg PO BID W/MEALS Furosemide Tab [Lasix Tab] 20 mg PO BID DIURETIC Citalopram Hydrobromide [Citalopram HBr] 10 mg PO DAILY Aspirin EC Tab 81 mg PO DAILY Valsartan 40 mg PO DAILY
[2016-11-03] MEDS: PANTOPRAZOLE 40 MG VIAL IV SCH (09:08)
[2016-11-03] MEDS: MINERAL OIL/PETROLATUM OPH OINT 3.5 GM TUBE BOTH EYES SCH ×3 (09:09→20:42)
[2016-11-03] MEDS: DEXTROSE 5% NACL 0.45% 1,000 ML IV SCH ×2 (09:10→18:21)
[2016-11-03] MEDS: PROPOFOL 1,000 MG/100 ML BOTTLE IV SCH ×3 (09:11→21:30)
--- NOTE | 2016-11-03 09:12 | Cardiology Progress Note ---
Moshe Mancia Vanessa, RN, am scribing for, and in the presence of, Yannick Meyer MD 09 :12. Assessment and Plan - Time spent with patient Time spent with patient: Less than 30 minutes (1) Cardiopulmonary arrest with successful resuscitation Status: Acute Assessment and plan: 51 year old black male with PMHx of severe NICM (LV EF 15%), CHF, HTN, and h/o cocaine abuse admitted to hospital for cholecystitis. He underwent LC today and had a bradycardic arrest at the end of the procedure. CPR for approximately 20 minutes. He did not regain consciousness, which is also difficult to assess as he was on anesthetics at that time. -Ventricular ectopy. So far, this is hemodynamically not significant. Repeat electrolytes, continue hypothermia protocol. Continue to wean epinephrine. Currently, the map is 86. -Hold losartan/coreg/aldactone while on pressor. He will need CMP workup when recovers from acute issues. Current Visit: Yes (2) S/P laparoscopic cholecystectomy Status: Acute Current Visit: No (3) Acute on chronic systolic CHF (congestive heart failure) Status: Acute Current Visit: No (4) Cardiomyopathy Status: Chronic Current Visit: Yes (5) CHEMA (obstructive sleep apnea) Status: Acute Current Visit: Yes (6) Hypertension Status: Chronic Current Visit: Yes (7) Cocaine abuse Status: Acute Current Visit: No (8) Uncontrolled hypertension Status: Acute Current Visit: No Cardiology - PN: Subj Interval history: Intubated, sedated in ICU. Uneventful night. Currently in maintenance phase of hypothermic therapy with [place]. Low dose epinephrine 2 mcg/min. BP is 112/ 84. MAP 93. BNP yesterday evening 2,449. K+ 3.4. Serial enzymes s/p arrest yesterday. Troponin is 0.056 and is decreased. CPK 242. Creatinine improved at 1.0. The epinephrine was weaned off last night but had to be restarted due to hypotension. Sinus rhythm, sinus bradycardia with ventricular bigeminy occasional couplets on telemetry. Exam (Progress Note) - Constitutional Vitals: Period Temp Pulse Resp BP Sys/Lobo Pulse Ox Last 24 Hr 90.3 F-101.7 F 55-96 10-20 87-132/58-107 96-100 General appearance: over weight, other (intubated and sedated) - Head Head exam: Absent: contusion, hematoma - Eye Eye exam: Absent: periorbital swelling Pupils: Present: unequal (sluggish reaction). Absent: fixed - ENT ENT exam: Present: normal exam - Neck Neck exam: Absent: tenderness - Respiratory Respiratory exam: Present: rhonchi (scattered throughout all lung smiley; improved from yesterday) - Cardiovascular Cardiovascular exam: Present: irregular rhythm. Absent: tachycardia - GI/Abdominal GI/Abdominal exam: Present: hypoactive bowel sounds, soft, other (MAT drain x 1 RLQ, serous drainage; sx dsg x 2 epigastric and umbilical area). Absent: ascites, distended, firm, mass - Extremities Exam Extremities exam: Present: edema (trace BUE's). Absent: full ROM - Neurological Exam Neurological exam: Present: altered (pt sedated with mechanical ventilation) - Skin Skin exam: Present: dry, intact. Absent: cyanosis, diaphoretic, petechiae, rash Result/EKG - Labs CBC & BMP: 11/03/16 04:00 11/03/16 04:00 Lab Results: I have reviewed the past 24 hour labs Labs: Laboratory Results - last 24 hr 11/02/16 11/02/16 11/02/16 09:40 12:30 12:30 WBC 10.7 D RBC 4.90 Hgb 14.5 Hct 44.7 MCV 91.2 MCH 30 MCHC 32.4 RDW 15.1 Plt Count 165 MPV 13.1 H Neut % (Auto) 89.1 H Lymph % (Auto) 5.7 L [place] % (Auto) 2.2 Eos % (Auto) 1.9 Baso % (Auto) 0.6 Neut # (Auto) 9.6 H Lymph # (Auto) 0.6 L [place] # (Auto) 0.2 Eos # (Auto) 0.2 Baso # (Auto) 0.1 Total Counted Immature Gran % 0.5 Nucleated RBC % 0.2 Immature Gran # 0.05 Segmented Neutrophils Lymphocytes Monocytes Nucleated RBCs # 0.02 Platelet Estimate Morphology Comment INR PT Patient/Control Mix Fibrinogen Circ Anticoag PTT ABG pH ABG pCO2 ABG pO2 ABG HCO3 ABG Total CO2 ABG O2 Saturation ABG Base Excess FiO2 Sodium Potassium Chloride Carbon Dioxide Anion Gap BUN Creatinine GFR Calculation BUN/Creatinine Ratio Glucose POC Glucose Calculated Osmolality Lactic Acid Calcium Phosphorus Magnesium Total Bilirubin AST ALT Alkaline Phosphatase Lactate Dehydrogenase Total Creatine Kinase 253 D CK-MB (CK-2) 2.1 Troponin I 0.046 H B-Natriuretic Peptide Total Protein Albumin Globulin Albumin/Globulin Ratio Amylase Lipase Urine Color Straw Urine Appearance Clear Urine pH 7.0 Ur Specific Blue 1.004 Urine Protein Negative Urine Glucose (UA) Negative Urine Ketones Negative Urine Blood Negative Urine Nitrate Negative Urine Bilirubin Negative Urine Urobilinogen 2.0 H Urine Leukocytes Negative Urine RBC Urine Mucus Ur Culture Indicated? Not indicated 11/02/16 11/02/16 11/02/16 12:30 13:17 15:53 WBC RBC Hgb 14.6 Hct 44.1 MCV MCH MCHC RDW Plt Count MPV Neut % (Auto) Lymph % (Auto) [place] % (Auto) Eos % (Auto) Baso % (Auto) Neut # (Auto) Lymph # (Auto) [place] # (Auto) Eos # (Auto) Baso # (Auto) Total Counted Immature Gran % Nucleated RBC % Immature Gran # Segmented Neutrophils Lymphocytes Monocytes Nucleated RBCs # Platelet Estimate Morphology Comment INR PT Patient/Control Mix Fibrinogen Circ Anticoag PTT ABG pH 7.261 L ABG pCO2 61.0 H ABG pO2 96.6 H ABG HCO3 22.9 ABG Total CO2 23.7 ABG O2 Saturation 95.5 ABG Base Excess -1.7 FiO2 50.00 Sodium 144 Potassium 4.4 Chloride 104 Carbon Dioxide 29 Anion Gap 15.4 H BUN 21 H Creatinine 1.50 H GFR Calculation 79 BUN/Creatinine Ratio 14.00 Glucose 92 POC Glucose Calculated Osmolality 288.8 Lactic Acid Calcium 8.1 L Phosphorus Magnesium Total Bilirubin 1.50 H AST 40 H ALT 22 Alkaline Phosphatase 62 Lactate Dehydrogenase Total Creatine Kinase CK-MB (CK-2) Troponin I B-Natriuretic Peptide Total Protein 5.8 L Albumin 2.9 L Globulin 2.9 Albumin/Globulin Ratio 1.0 L Amylase Lipase Urine Color Urine Appearance Urine pH Ur Specific Blue Urine Protein Urine Glucose (UA) Urine Ketones Urine Blood Urine Nitrate Urine Bilirubin Urine Urobilinogen Urine Leukocytes Urine RBC Urine Mucus Ur Culture Indicated? 11/02/16 11/02/16 11/02/16 16:29 17:26 17:26 WBC RBC Hgb Hct MCV MCH MCHC RDW Plt Count MPV Neut % (Auto) Lymph % (Auto) [place] % (Auto) Eos % (Auto) Baso % (Auto) Neut # (Auto) Lymph # (Auto) [place] # (Auto) Eos # (Auto) Baso # (Auto) Total Counted Immature Gran % Nucleated RBC % Immature Gran # Segmented Neutrophils Lymphocytes Monocytes Nucleated RBCs # Platelet Estimate Morphology Comment INR PT Patient/Control Mix Fibrinogen Circ Anticoag PTT ABG pH ABG pCO2 ABG pO2 ABG HCO3 ABG Total CO2 ABG O2 Saturation ABG Base Excess FiO2 Sodium Potassium Chloride Carbon Dioxide Anion Gap BUN Creatinine GFR Calculation BUN/Creatinine Ratio Glucose POC Glucose Calculated Osmolality Lactic Acid 2.3 H Calcium Phosphorus 4.1 Magnesium Total Bilirubin AST ALT Alkaline Phosphatase Lactate Dehydrogenase 242 Total Creatine Kinase 287 CK-MB (CK-2) 2.8 Troponin I 0.068 H D B-Natriuretic Peptide Total Protein Albumin Globulin Albumin/Globulin Ratio Amylase 222 H Lipase 110.0 D Urine Color Urine Appearance Urine pH Ur Specific Blue Urine Protein Urine Glucose (UA) Urine Ketones Urine Blood Urine Nitrate Urine Bilirubin Urine Urobilinogen Urine Leukocytes Urine RBC Urine Mucus Ur Culture Indicated? 11/02/16 11/02/16 11/02/16 17:27 17:28 17:29 WBC 8.2 RBC 4.89 Hgb 14.5 Hct 44.1 MCV 90.2 MCH 30 MCHC 32.9 RDW 14.9 Plt Count 157 MPV 13.9 H Neut % (Auto) 92.3 H Lymph % (Auto) 4.1 L [place] % (Auto) 3.2 Eos % (Auto) 0.0 Baso % (Auto) 0.2 Neut # (Auto) 7.6 H Lymph # (Auto) 0.3 L [place] # (Auto) 0.3 Eos # (Auto) 0.0 Baso # (Auto) 0.0 Total Counted 100 Immature Gran % 0.2 Nucleated RBC % 0.0 Immature Gran # 0.02 Segmented Neutrophils 93 H Lymphocytes 2 L Monocytes 5 Nucleated RBCs # 0.00 Platelet Estimate Normal Morphology Comment INR PT Patient/Control Mix Fibrinogen 365 Circ Anticoag PTT ABG pH ABG pCO2 ABG pO2 ABG HCO3 ABG Total CO2 ABG O2 Saturation ABG Base Excess FiO2 Sodium 141 Potassium 4.2 Chloride 103 Carbon Dioxide 27 Anion Gap 15.2 H BUN 24 H Creatinine 1.60 H GFR Calculation 73 BUN/Creatinine Ratio 15.00 Glucose 171 H POC Glucose Calculated Osmolality 288.3 Lactic Acid Calcium 8.1 L Phosphorus Magnesium 1.8 Total Bilirubin AST ALT Alkaline Phosphatase Lactate Dehydrogenase Total Creatine Kinase CK-MB (CK-2) Troponin I B-Natriuretic Peptide Total Protein Albumin Globulin Albumin/Globulin Ratio Amylase Lipase Urine Color Urine Appearance Urine pH Ur Specific Blue Urine Protein Urine Glucose (UA) Urine Ketones Urine Blood Urine Nitrate Urine Bilirubin Urine Urobilinogen Urine Leukocytes Urine RBC Urine Mucus Ur Culture Indicated? 11/02/16 11/02/16 11/02/16 17:29 17:30 18:50 WBC RBC Hgb Hct MCV MCH MCHC RDW Plt Count MPV Neut % (Auto) Lymph % (Auto) [place] % (Auto) Eos % (Auto) Baso % (Auto) Neut # (Auto) Lymph # (Auto) [place] # (Auto) Eos # (Auto) Baso # (Auto) Total Counted Immature Gran % Nucleated RBC % Immature Gran # Segmented Neutrophils Lymphocytes Monocytes Nucleated RBCs # Platelet Estimate Morphology Comment INR 1.4 PT Patient/Control Mix 15.6 Fibrinogen Circ Anticoag PTT 25.8 ABG pH 7.423 ABG pCO2 37.9 ABG pO2 183.0 H ABG HCO3 25.0 ABG Total CO2 21.0 L ABG O2 Saturation 99.7 ABG Base Excess 0.6 FiO2 Sodium Potassium Chloride Carbon Dioxide Anion Gap BUN Creatinine GFR Calculation BUN/Creatinine Ratio Glucose POC Glucose Calculated Osmolality Lactic Acid Calcium Phosphorus Magnesium Total Bilirubin AST ALT Alkaline Phosphatase Lactate Dehydrogenase Total Creatine Kinase CK-MB (CK-2) Troponin I B-Natriuretic Peptide 2449 H Total Protein Albumin Globulin Albumin/Globulin Ratio Amylase Lipase Urine Color Urine Appearance Urine pH Ur Specific Blue Urine Protein Urine Glucose (UA) Urine Ketones Urine Blood Urine Nitrate Urine Bilirubin Urine Urobilinogen Urine Leukocytes Urine RBC Urine Mucus Ur Culture Indicated? 11/02/16 11/02/16 11/02/16 22:03 23:00 23:00 WBC RBC Hgb Hct MCV MCH MCHC RDW Plt Count MPV Neut % (Auto) Lymph % (Auto) [place] % (Auto) Eos % (Auto) Baso % (Auto) Neut # (Auto) Lymph # (Auto) [place] # (Auto) Eos # (Auto) Baso # (Auto) Total Counted Immature Gran % Nucleated RBC % Immature Gran # Segmented Neutrophils Lymphocytes Monocytes Nucleated RBCs # Platelet Estimate Morphology Comment INR PT Patient/Control Mix Fibrinogen Circ Anticoag PTT ABG pH ABG pCO2 ABG pO2 ABG HCO3 ABG Total CO2 ABG O2 Saturation ABG Base Excess FiO2 Sodium 143 Potassium 3.3 L Chloride 103 Carbon Dioxide 23 Anion Gap 20.3 H BUN 21 H Creatinine 1.20 GFR Calculation 106 BUN/Creatinine Ratio 17.00 Glucose 240 H POC Glucose 216 H Calculated Osmolality 295.0 Lactic Acid Calcium 7.9 L Phosphorus Magnesium 1.8 Total Bilirubin AST ALT Alkaline Phosphatase Lactate Dehydrogenase Total Creatine Kinase 263 CK-MB (CK-2) 3.7 H Troponin I 0.080 H B-Natriuretic Peptide Total Protein Albumin Globulin Albumin/Globulin Ratio Amylase Lipase Urine Color Urine Appearance Urine pH Ur Specific Blue Urine Protein Urine Glucose (UA) Urine Ketones Urine Blood Urine Nitrate Urine Bilirubin Urine Urobilinogen Urine Leukocytes Urine RBC Urine Mucus Ur Culture Indicated? 11/02/16 11/02/16 11/03/16 23:00 23:00 00:28 WBC 6.6 RBC 5.12 Hgb 15.0 Hct 45.6 MCV 89.1 MCH 29 MCHC 32.9 RDW 14.8 Plt Count 127 L MPV 14.1 H Neut % (Auto) 86.7 H Lymph % (Auto) 7.9 L [place] % (Auto) 4.7 Eos % (Auto) 0.0 Baso % (Auto) 0.2 Neut # (Auto) 5.7 Lymph # (Auto) 0.5 L [place] # (Auto) 0.3 Eos # (Auto) 0.0 Baso # (Auto) 0.0 Total Counted Immature Gran % 0.5 Nucleated RBC % 0.0 Immature Gran # 0.03 Segmented Neutrophils Lymphocytes Monocytes Nucleated RBCs # 0.00 Platelet Estimate Morphology Comment INR 1.7 PT Patient/Control Mix 18.1 Fibrinogen Circ Anticoag PTT 27.1 ABG pH ABG pCO2 ABG pO2 ABG HCO3 ABG Total CO2 ABG O2 Saturation ABG Base Excess FiO2 Sodium Potassium Chloride Carbon Dioxide Anion Gap BUN Creatinine GFR Calculation BUN/Creatinine Ratio Glucose POC Glucose 179 H Calculated Osmolality Lactic Acid Calcium Phosphorus Magnesium Total Bilirubin AST ALT Alkaline Phosphatase Lactate Dehydrogenase Total Creatine Kinase CK-MB (CK-2) Troponin I B-Natriuretic Peptide Total Protein Albumin Globulin Albumin/Globulin Ratio Amylase Lipase Urine Color Urine Appearance Urine pH Ur Specific Blue Urine Protein Urine Glucose (UA) Urine Ketones Urine Blood Urine Nitrate Urine Bilirubin Urine Urobilinogen Urine Leukocytes Urine RBC Urine Mucus Ur Culture Indicated? 11/03/16 11/03/16 11/03/16 02:20 04:00 04:00 WBC RBC Hgb Hct MCV MCH MCHC RDW Plt Count MPV Neut % (Auto) Lymph % (Auto) [place] % (Auto) Eos % (Auto) Baso % (Auto) Neut # (Auto) Lymph # (Auto) [place] # (Auto) Eos # (Auto) Baso # (Auto) Total Counted Immature Gran % Nucleated RBC % Immature Gran # Segmented Neutrophils Lymphocytes Monocytes Nucleated RBCs # Platelet Estimate Morphology Comment INR PT Patient/Control Mix Fibrinogen Circ Anticoag PTT ABG pH 7.461 H ABG pCO2 33.3 L ABG pO2 102.0 H ABG HCO3 25.0 ABG Total CO2 19.9 L ABG O2 Saturation 98.3 ABG Base Excess 0.7 FiO2 Sodium Potassium Chloride Carbon Dioxide Anion Gap BUN Creatinine GFR Calculation BUN/Creatinine Ratio Glucose POC Glucose 164 H Calculated Osmolality Lactic Acid Calcium Phosphorus Magnesium Total Bilirubin AST ALT Alkaline Phosphatase Lactate Dehydrogenase Total Creatine Kinase 242 CK-MB (CK-2) 3.4 Troponin I 0.056 H D B-Natriuretic Peptide Total Protein Albumin Globulin Albumin/Globulin Ratio Amylase Lipase Urine Color Urine Appearance Urine pH Ur Specific Blue Urine Protein Urine Glucose (UA) Urine Ketones Urine Blood Urine Nitrate Urine Bilirubin Urine Urobilinogen Urine Leukocytes Urine RBC Urine Mucus Ur Culture Indicated? 11/03/16 11/03/16 11/03/16 04:00 04:00 04:00 WBC 7.7 RBC 5.23 Hgb 15.3 Hct 46.4 MCV 88.7 MCH 29 MCHC 33.0 RDW 14.6 Plt Count 134 MPV 14.0 H Neut % (Auto) 85.7 H Lymph % (Auto) 5.6 L [place] % (Auto) 8.3 Eos % (Auto) 0.0 Baso % (Auto) 0.1 Neut # (Auto) 6.6 Lymph # (Auto) 0.4 L [place] # (Auto) 0.6 Eos # (Auto) 0.0 Baso # (Auto) 0.0 Total Counted Immature Gran % 0.3 Nucleated RBC % 0.0 Immature Gran # 0.02 Segmented Neutrophils Lymphocytes Monocytes Nucleated RBCs # 0.00 Platelet Estimate Morphology Comment INR PT Patient/Control Mix Fibrinogen Circ Anticoag PTT ABG pH ABG pCO2 ABG pO2 ABG HCO3 ABG Total CO2 ABG O2 Saturation ABG Base Excess FiO2 Sodium 144 Potassium 3.4 L Chloride 107 Carbon Dioxide 24 Anion Gap 16.4 H BUN 17 Creatinine 1.00 GFR Calculation 132 BUN/Creatinine Ratio 17.00 Glucose 190 H POC Glucose Calculated Osmolality 292.8 Lactic Acid 2.3 H Calcium 7.7 L Phosphorus Magnesium 1.8 Total Bilirubin AST ALT Alkaline Phosphatase Lactate Dehydrogenase 196 Total Creatine Kinase CK-MB (CK-2) Troponin I B-Natriuretic Peptide Total Protein Albumin Globulin Albumin/Globulin Ratio Amylase Lipase Urine Color Urine Appearance Urine pH Ur Specific Blue Urine Protein Urine Glucose (UA) Urine Ketones Urine Blood Urine Nitrate Urine Bilirubin Urine Urobilinogen Urine Leukocytes Urine RBC Urine Mucus Ur Culture Indicated? 11/03/16 11/03/16 11/03/16 04:00 04:00 04:10 WBC RBC Hgb Hct MCV MCH MCHC RDW Plt Count MPV Neut % (Auto) Lymph % (Auto) [place] % (Auto) Eos % (Auto) Baso % (Auto) Neut # (Auto) Lymph # (Auto) [place] # (Auto) Eos # (Auto) Baso # (Auto) Total Counted Immature Gran % Nucleated RBC % Immature Gran # Segmented Neutrophils Lymphocytes Monocytes Nucleated RBCs # Platelet Estimate Morphology Comment INR PT Patient/Control Mix Fibrinogen Circ Anticoag PTT ABG pH ABG pCO2 ABG pO2 ABG HCO3 ABG Total CO2 ABG O2 Saturation ABG Base Excess FiO2 Sodium Potassium Chloride Carbon Dioxide Anion Gap BUN Creatinine GFR Calculation BUN/Creatinine Ratio Glucose POC Glucose 124 H Calculated Osmolality Lactic Acid Calcium Phosphorus 2.0 L Magnesium 1.9 Total Bilirubin AST ALT Alkaline Phosphatase Lactate Dehydrogenase Total Creatine Kinase CK-MB (CK-2) Troponin I B-Natriuretic Peptide Total Protein Albumin Globulin Albumin/Globulin Ratio Amylase Lipase Urine Color Urine Appearance Urine pH Ur Specific Blue Urine Protein Urine Glucose (UA) Urine Ketones Urine Blood Urine Nitrate Urine Bilirubin Urine Urobilinogen Urine Leukocytes Urine RBC Urine Mucus Ur Culture Indicated? 11/03/16 11/03/16 11/03/16 05:11 05:45 05:57 WBC RBC Hgb Hct MCV MCH MCHC RDW Plt Count MPV Neut % (Auto) Lymph % (Auto) [place] % (Auto) Eos % (Auto) Baso % (Auto) Neut # (Auto) Lymph # (Auto) [place] # (Auto) Eos # (Auto) Baso # (Auto) Total Counted Immature Gran % Nucleated RBC % Immature Gran # Segmented Neutrophils Lymphocytes Monocytes Nucleated RBCs # Platelet Estimate Morphology Comment INR 4.1 PT Patient/Control Mix 47.2 D Fibrinogen Circ Anticoag PTT 35.7 D ABG pH ABG pCO2 ABG pO2 ABG HCO3 ABG Total CO2 ABG O2 Saturation ABG Base Excess FiO2 Sodium Potassium Chloride Carbon Dioxide Anion Gap BUN Creatinine GFR Calculation BUN/Creatinine Ratio Glucose POC Glucose 145 H Calculated Osmolality Lactic Acid Calcium Phosphorus Magnesium Total Bilirubin AST ALT Alkaline Phosphatase Lactate Dehydrogenase Total Creatine Kinase CK-MB (CK-2) Troponin I B-Natriuretic Peptide Total Protein Albumin Globulin Albumin/Globulin Ratio Amylase Lipase Urine Color Straw Urine Appearance Clear Urine pH 7.0 Ur Specific Blue 1.005 Urine Protein Negative Urine Glucose (UA) 50 Urine Ketones Negative Urine Blood Negative Urine Nitrate Negative Urine Bilirubin Negative Urine Urobilinogen < 2.0 H Urine Leukocytes Negative Urine RBC <1 Urine Mucus Occasional Ur Culture Indicated? Not indicated - Diagnostic Findings Procedure: Chest x-ray: report reviewed by me (11/03 no significant change; stable cardiomegaly, persistent small pleural effusions) - EKG EKG results: interpreted by me Specialty Discharge - Follow Up or Referrals - Discharge Medications No Action Spironolactone 25 mg PO DAILY Carvedilol 6.25 mg PO BID W/MEALS Furosemide Tab [Lasix Tab] 20 mg PO BID DIURETIC Citalopram Hydrobromide [Citalopram HBr] 10 mg PO DAILY Aspirin EC Tab 81 mg PO DAILY Valsartan 40 mg PO DAILY Mitch Mancia Attila, MD, personally performed the services described in this documentation, ascribed by Laura Mesa RN in my presence, and it is both accurate and complete 912 .
--- NOTE | 2016-11-03 09:30 | Hospitalist Progress Note ---
Assessment and Plan (1) Cardiopulmonary arrest with successful resuscitation Status: Acute Assessment and plan: 1)post code- on cooling protocol, stable at this time. BP requiring minimum amount of Epi. UOP good. CXR looking better. 2)HTN 3)CHEMA 4)severe cardiomyopathy 5)s/p lap cholecystectomy and hernia repair 6)morbid obesity 7)social- yesterday the floor nurse knew that he had a turbinated bone grinder brother and that was the only family he talked about. Then last night his father came to visit. Dr Meyer and Fili have talked to them. Current Visit: Yes (2) Hypertension Status: Chronic Current Visit: Yes (3) CHEMA (obstructive sleep apnea) Status: Acute Current Visit: Yes (4) Cardiomyopathy Status: Chronic Current Visit: Yes (5) Tachycardia Status: Acute Current Visit: Yes (6) S/P laparoscopic cholecystectomy Status: Acute Current Visit: No Hospitalist: Subjective Interval history: Mr Ramírez is stable on cooling protocol- watming to start at 10pm. He is making good urine and his creatinine is normal. Sedated. No arrhythmias. Exam - Constitutional Vitals: Period Temp Pulse Resp BP Sys/Lobo Pulse Ox Last 24 Hr 90.2 F-101.7 F 55-96 10-20 87-132/58-107 96-100 General appearance: no acute distress, morbidly obese - Respiratory Respiratory exam: Present: clear to auscultation bilaterally - Cardiovascular Cardiovascular exam: Present: regular rate and rhythm - GI/Abdominal GI/Abdominal exam: Present: normal bowel sounds, soft. Absent: tenderness - Extremities Exam Extremities exam: Absent: edema - Skin Skin exam: Present: other (cool) Results - Labs CBC & BMP: 11/03/16 04:00 11/03/16 04:00 Specialty Discharge - Follow Up or Referrals - Discharge Medications No Action Spironolactone 25 mg PO DAILY Carvedilol 6.25 mg PO BID W/MEALS Furosemide Tab [Lasix Tab] 20 mg PO BID DIURETIC Citalopram Hydrobromide [Citalopram HBr] 10 mg PO DAILY Aspirin EC Tab 81 mg PO DAILY Valsartan 40 mg PO DAILY
[2016-11-03] MEDS ORDERED: POTASSIUM PHOSPHATE 30 MMOL in SODIUM CHLORIDE 0.9% 250 ML IV ONE (10:00)
[2016-11-03 10:29] LABS: Basophils % 0.1 % (0.0-0.8); Hemoglobin 15.3 GM/DL (14.0-18.0); Immature Granulocytes % 0.3 %; Immature Granulocytes Absolute 0.03 #; Lymphocytes # 0.3 10*3/uL (1.4-4.0); Lymphocytes % 3.8 % (21.2-54.2); Mean Corpuscular Hemoglobin 30 PG (27-34); Mean Corpuscular Volume 87.9 FL (87-102); Mean Platelet Volume 13.9 FL (9.6-12.0); Monocytes # 0.6 10*3/uL (0.11-0.8); Monocytes % 6.7 % (1.7-12.7); Neutrophils # 7.9 10*3/uL (1.4-7.4); Neutrophils % 89.1 % (38.7-73.9); Platelet Count 140 10*3/uL (130-400); Red Blood Count 5.12 10*6/uL (3.8-5.5); Red Cell Distribution Width 14.6 % (9.3-17.3); White Blood Count 8.9 10*3/uL (4.5-13.71)
[2016-11-03 10:44] LABS: INR 1.7; PT Patient Result 18.5 SECS; Partial Thromboplastin Time 29.2 SECS (0-40)
[2016-11-03 10:49] LABS: Hypochromasia 1+; Lymphocytes 3 % (20-55); Segmented Neutrophils 89 % (50-85); Total Cells Counted 100
[2016-11-03 10:50] LABS: Burr Cells Slight; Platelet Estimate Adequate
[2016-11-03 11:05] LABS: Troponin I Only 0.054 NG/ML (0.00-0.045)
--- NOTE | 2016-11-03 11:19 | Pathology Report from [facility] ---
ACCESSION # : [id number] PATIENT NAME : Monroe Ramírez ORDERING DR : KERI ORTIZ MD CLINICAL HX: Chronic cholecystitis POST-OP DX: Same SPECIMEN INFO: #1 Gallbladder #2 Hernia contents GROSS DESCRIPTION: #1 Received in formalin labeled with the patient's name "MONROE RAMÍREZ and #1" consists of an intact gallbladder measuring 9.0 x 3.5 cm. The serosa is smooth, pink-kline. The wall averages up to 0.2 cm in thickness. The mucosa is granular, hyperemic, yellow-gold. The mucosa at the fundus is somewhat thickened which reveals the presence of submucosal stones and stone fragments. The stones and stone fragments are black and measure 1.0 x 0.5 cm collectively. The largest measuring up to 0.5 cm. Journeyman Electrician sections submitted in cassette #1.#2 Received in formalin labeled with the patient's name "MONROE RAMÍREZ and #2" consists of two hyperemic yellow-kline adipose and fibromembranous tissue fragments together measuring 3.2 x 4.0 cm. Journeyman Electrician section of each submitted in cassette #2. DIAGNOSIS FOR MONROE RAMÍREZ: #1 GALLBLADDER, CHOLECYSTECTOMY: Acute and chronic cholecystitis; cholelithiasis.#2 EPIGASTRIC VENTRAL HERINA CONTENTS: Fibroadipose tissue with mesothelial proliferation, chronic inflammation, fibrosis. SERVICE DATE: 11/02/2016 REPORT DATE: 11/03/2016 PATHOLOGIST: Sima Bustillo
[2016-11-03 11:25] LABS: Calcium 7.7 MG/DL (8.5-10.1); Magnesium 1.8 MG/DL (1.8-2.4); Potassium 3.4 MMOL/L (3.5-5.1)
[2016-11-03] MEDS: INSULIN REGULAR 100 UNIT/ML IV SCH ×4 (13:07→22:30)
--- NOTE | 2016-11-03 13:32 | Anesthesia ---
Anesthesia Post OP - Post Ansesthetic Evaluation Patient seen in post op: Yes Resp: other (vent) CV: other (off vasopressors at this time) Mental: other (sedated) Temp: other (cooling therapy) [id number]: within normal limits Nausea and Vomiting: within normal limits Pain: within normal limits
[2016-11-03] MEDS: CISATRACURIUM 200 MG in SODIUM CHLORIDE 0.9% 100 ML IV SCH ×2 (15:27→22:57)
[2016-11-03] MEDS: LEVOFLOXACIN INJ 750 MG in PREMIX 1 EACH IV SCH (15:52)
[2016-11-03 16:19] LABS: Basophils % 0.1 % (0.0-0.8); Hematocrit 45.6 VOL% (42.0-52.0); Hemoglobin 15.4 GM/DL (14.0-18.0); Immature Granulocytes % 0.3 %; Immature Granulocytes Absolute 0.03 #; Lymphocytes # 0.4 10*3/uL (1.4-4.0); Mean Corpuscular HGB Conc 33.8 GM/DL (32-36); Mean Corpuscular Hemoglobin 29 PG (27-34); Mean Platelet Volume 13.8 FL (9.6-12.0); Monocytes % 9.8 % (1.7-12.7); Neutrophils # 8.9 10*3/uL (1.4-7.4); Neutrophils % 85.8 % (38.7-73.9); Platelet Count 149 10*3/uL (130-400); Red Blood Count 5.24 10*6/uL (3.8-5.5); Red Cell Distribution Width 14.6 % (9.3-17.3); White Blood Count 10.3 10*3/uL (4.5-13.71)
--- NOTE | 2016-11-03 16:21 | Neurology Consult Note ---
History of Present Illness History of present illness: Mr. Ramírez is a 51 year old -[place] gentleman that has a history of a severe nonischemic cardiomyopathy, ejection fraction of 15-20%, with hypertension and previous heart failure. He underwent a lap cholecystectomy yesterday. Surgery went well but post surgery he developed cardiac arrest. Apparently had CPR for around 20 minutes and was resuscitated. He is now on the ventilator in the ICU going through Hypothermia protocol. His oxygenation is adequate on the ventilator. The patient has a history of hypertension along with his severe cardiomyopathy and cocaine abuse. He has a history of obstructive sleep apnea. Home Medications Medication Instructions Recorded Confirmed Type Carvedilol 6.25 mg PO BID W/MEALS 04/21/16 10/30/16 History Citalopram Hydrobromide 10 mg PO DAILY 04/21/16 10/30/16 History [Citalopram HBr] Furosemide Tab [Lasix Tab] 20 mg PO BID DIURETIC 04/21/16 10/30/16 History Spironolactone 25 mg PO DAILY 04/21/16 10/30/16 History Aspirin EC Tab 81 mg PO DAILY 09/15/16 10/30/16 History Valsartan 40 mg PO DAILY 10/30/16 10/30/16 History Allergies Allergy/AdvReac Type Severity Reaction Status Date / Time No Known Allergies Allergy Verified 09/15/16 19:22 ROS unobtainable: due to endotracheal tube Medical,Surgical,& Family Hx - Medical History Cardio: History of: CHF, Hypertension Psychological: History of: Anxiety Disorders, Depression Neurology: History of: Vertigo HEENT: History of: Eye Problem (ARTIFICIAL RIGHT EYE) Endocrine: History of: Dyslipidemia No history of: Diabetes Mellitus (NIDDM) Respiratory: History of: Respiratory Problems (CHF) Gastrointestinal: History of: GI Problems (ABD PAIN) Musculoskeletal: History of: Musculoskeletal Problems (FX L WRIST) - Surgical History Abdominal Surgeries: Surgical HX of: Abdominal Surgery (HAKEEM INGUINEAL HERNIA REPAIR), Hernia Repair Orthopedic Surgeries: Surgical HX of;: Orthopedic Surgery (L WRIST PINNING) - Family History Family History: Reports;: Family Diabetes (GREAT GM), Family Heart Disease (MOM- CHF), Family Hypertension (?FATHER,BROTHER) Denies;: Family Anesthesia Reaction, Family Cancer, Family Psychiatric Problems, Family Stroke - Social History Smoking Status: Former smoker Frequency of Alcohol Use: None Type of Drug Use: None Exam - Constitutional Vitals: Period Temp Pulse Resp BP Sys/Lobo Pulse Ox Last 24 Hr 90.1 F-98.2 F 55-84 12-17 87-132/58-88 96-100 Exam: GENERAL: Patient is in no acute distress. NECK: Neck is supple. There is no JVD. No carotid bruits present. No thyroid masses. CVS: First and second heart sounds are normal. There is no S3 present. Regular rate and rhythm. RESPIRATORY: Lungs are clear to auscultation without any rales or rhonchi. ABDOMEN: Soft and non-tender. Bowel sounds are present. There is no hepatosplenomegaly. EXT: There is no palpable edema. Peripheral pulses are present. 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 Left pupil is sluggish but reactive Motor: Strength cannot be assessed Sensory: Cannot be assessed Reflexes: Absent and symmetrical Cerebellar function: Cannot be assessed Gait: Cannot be assessed Results - Labs CBC & BMP: 11/03/16 10:15 11/03/16 10:15 Assessment and Plan (1) Anoxic encephalopathy Status: Acute Assessment and plan: Patient is getting hypothermia protocol treatment. Hold off to any further intervention at this time until this is completed. Prognosis is guarded. Current Visit: Yes (2) Cardiopulmonary arrest with successful resuscitation Status: Acute Assessment and plan: Continue watchful observation. Current Visit: Yes Specialty Discharge - Follow Up or Referrals - Discharge Medications No Action Spironolactone 25 mg PO DAILY Carvedilol 6.25 mg PO BID W/MEALS Furosemide Tab [Lasix Tab] 20 mg PO BID DIURETIC Citalopram Hydrobromide [Citalopram HBr] 10 mg PO DAILY Aspirin EC Tab 81 mg PO DAILY Valsartan 40 mg PO DAILY
[2016-11-03 16:32] LABS: INR 1.6; PT Patient Result 17.7 SECS; Partial Thromboplastin Time 28.7 SECS (0-40)
[2016-11-03 16:39] LABS: Calcium 7.8 MG/DL (8.5-10.1); Magnesium 1.8 MG/DL (1.8-2.4); Osmolality,Calculated 290.7 MOS/KG (273-304); Potassium 3.9 MMOL/L (3.5-5.1)
[2016-11-03 16:42] LABS: Troponin I Only 0.057 NG/ML (0.00-0.045)
[2016-11-03 17:39] LABS: Lactic Acid 1.8 MMOL/L (0.4-2.0)
--- NOTE | 2016-11-03 22:24 | EKG Report ---
Stationary ECG Study [facility] Test Date: 11/03/2016 9:47:42 PM Pat Name: JOSE IRVING Department: Room: 107 Gender: M Taximeter Repairer: TATI : 1965 Requested by: Yannick Meyer Order Number: [id number] Reading MD: DIANE OKEEFE Intervals Umpire Rate: 65 P: 99 CO: 193 QRS: -10 QRSD: 116 T: 205 QT: 502 QTc: 514 Interpretive Statements SINUS RHYTHM POSSIBLE ANTERIOR MYOCARDIAL INFARCTION, OF INDETERMINATE AGE vs INCOMPLETE IVCD Electronically Signed On 11-04-16 11:44:32 PUNCHBOARD ASSEMBLER by DIANE OKEEFE [email or web address]
[2016-11-03 23:15] LABS: ABG Base Excess -0.1 MMOL/L (-2.5-2.5); ABG HCO3 24.4 MMOL/L (20-26); ABG Oxygen Saturation 99.2 % (95-100); ABG PCO2 30.1 MM HG (35-48); ABG PH 7.475 (7.35-7.45); ABG TCO2 18.2 MMOL/L (23-27)
[2016-11-03 23:19] LABS: Basophils % 0.2 % (0.0-0.8); Hematocrit 46.7 VOL% (42.0-52.0); Hemoglobin 16.1 GM/DL (14.0-18.0); Immature Granulocytes % 0.3 %; Immature Granulocytes Absolute 0.03 #; Lymphocytes # 0.5 10*3/uL (1.4-4.0); Lymphocytes % 4.1 % (21.2-54.2); Mean Corpuscular HGB Conc 34.5 GM/DL (32-36); Mean Corpuscular Hemoglobin 30 PG (27-34); Mean Platelet Volume 13.4 FL (9.6-12.0); Monocytes # 1.1 10*3/uL (0.11-0.8); Monocytes % 9.7 % (1.7-12.7); Neutrophils # 9.9 10*3/uL (1.4-7.4); Neutrophils % 85.7 % (38.7-73.9); Platelet Count 146 10*3/uL (130-400); Red Blood Count 5.43 10*6/uL (3.8-5.5); Red Cell Distribution Width 14.5 % (9.3-17.3); White Blood Count 11.5 10*3/uL (4.5-13.71)
[2016-11-03 23:35] LABS: INR 1.8; PT Patient Result 19.8 SECS; Partial Thromboplastin Time 28.7 SECS (0-40)
[2016-11-03 23:48] LABS: Lactic Acid 1.6 MMOL/L (0.4-2.0)
[2016-11-04] MEDS: INSULIN REGULAR 100 UNIT/ML IV SCH ×9 (00:07→20:25)
[2016-11-04 00:08] LABS: Calcium 7.8 MG/DL (8.5-10.1); Magnesium 1.8 MG/DL (1.8-2.4); Osmolality,Calculated 290.6 MOS/KG (273-304); Potassium 3.8 MMOL/L (3.5-5.1)
[2016-11-04 00:23] LABS: Lymphocytes 3 % (20-55); Segmented Neutrophils 84 % (50-85); Total Cells Counted 100
[2016-11-04 00:24] LABS: Burr Cells Few; Platelet Estimate Adequate
[2016-11-04] MEDS: ceFAZolin 2,000 MG in PREMIX 1 EACH IV SCH ×2 (00:34→08:40)
[2016-11-04] MEDS: ALBUTEROL/IPRATROPIUM 3 ML NEB RESP TX SCH ×4 (01:15→19:55)
[2016-11-04] MEDS: fentaNYL INJ 1,250 MCG in SODIUM CHLORIDE 0.9% 225 ML IV SCH ×3 (02:36→11:22)
[2016-11-04] MEDS: DEXTROSE 5% NACL 0.45% 1,000 ML IV SCH ×5 (04:07→22:46)
[2016-11-04 04:24] LABS: ABG Base Excess -0.8 MMOL/L (-2.5-2.5); ABG HCO3 23.8 MMOL/L (20-26); ABG Oxygen Saturation 98.4 % (95-100); ABG PCO2 34.1 MM HG (35-48); ABG PH 7.431 (7.35-7.45); ABG TCO2 18.9 MMOL/L (23-27)
[2016-11-04 04:27] LABS: Basophils % 0.1 % (0.0-0.8); Eosinophils % 0.1 % (0.00-10.9); Hematocrit 46.9 VOL% (42.0-52.0); Hemoglobin 15.9 GM/DL (14.0-18.0); Immature Granulocytes % 0.4 %; Immature Granulocytes Absolute 0.05 #; Lymphocytes # 0.7 10*3/uL (1.4-4.0); Lymphocytes % 4.8 % (21.2-54.2); Mean Corpuscular HGB Conc 33.9 GM/DL (32-36); Mean Corpuscular Hemoglobin 30 PG (27-34); Mean Platelet Volume 13.8 FL (9.6-12.0); Monocytes # 1.4 10*3/uL (0.11-0.8); Neutrophils # 11.4 10*3/uL (1.4-7.4); Neutrophils % 84.6 % (38.7-73.9); Platelet Count 159 10*3/uL (130-400); Red Blood Count 5.39 10*6/uL (3.8-5.5); Red Cell Distribution Width 14.9 % (9.3-17.3); White Blood Count 13.5 10*3/uL (4.5-13.71)
[2016-11-04] MEDS: ENOXAPARIN 40 MG/0.4 ML SYRINGE SUBCUT SCH (04:30)
[2016-11-04] MEDS: VANCOMYCIN INJ 1,750 MG in SODIUM CHLORIDE 0.9% 500 ML IV SCH ×2 (04:30→16:15)
[2016-11-04] MEDS: AMPICILLIN/SULBACTAM 3,000 MG in SODIUM CHLORIDE 0.9% 100 ML IV SCH ×3 (04:30→20:42)
[2016-11-04 04:37] LABS: Partial Thromboplastin Time 29.9 SECS (0-40)
[2016-11-04 04:42] LABS: INR 1.9
[2016-11-04 04:44] LABS: PT Patient Result 21.4 SECS
[2016-11-04 04:50] LABS: Calcium 7.8 MG/DL (8.5-10.1); Magnesium 1.8 MG/DL (1.8-2.4); Osmolality,Calculated 290.6 MOS/KG (273-304)
[2016-11-04 04:57] LABS: Band Neutrophils 2 % (0-10); Burr Cells Few; Lymphocytes 5 % (20-55); Platelet Estimate Adequate; Segmented Neutrophils 87 % (50-85); Total Cells Counted 100
[2016-11-04] MEDS: CISATRACURIUM 200 MG in SODIUM CHLORIDE 0.9% 100 ML IV SCH ×2 (05:32→13:47)
[2016-11-04] MEDS: PROPOFOL 1,000 MG/100 ML BOTTLE IV SCH ×3 (07:02→18:53)
--- NOTE | 2016-11-04 07:19 | Pulmonology Progress Note ---
Pulmonary - PN: Subj Interval history: The patient is a 51-year-old black man that has a severe cardiomyopathy and had an arrest during surgery. He had just completed a lap cholecystectomy. He had a 20 minute resuscitation but didn't come around a little. He has been on pressors but is stable on the ventilator. He is on the Cooling protocol and is starting the warming process. His blood pressure has been on the low side and is on a very low dose of pressors. His oxygenation has been stable and is comfortable on the ventilator. His urine output has been adequate. Exam (Progress Note) - Constitutional Vitals: Period Temp Pulse Resp BP Sys/Lobo Pulse Ox Last 24 Hr 90.1 F-95.7 F 61-83 11-12 90-120/61-82 97-100 Exam: General appearance: moderately obese, other (patient is comfortable on the ventilator at present. He has started the rewarming process and overall he is stable. ) - Head Head exam: Present: normal inspection - Eye Eye exam: Present: EOMI. Absent: scleral icterus Pupils: Present: CB, constricted - ENT ENT exam: Present: other (ET tube in good position) - Neck Neck exam: Present: normal inspection. Absent: lymphadenopathy, thyromegaly - Respiratory Respiratory exam: Present: He has good breath sounds bilaterally and his lungs sound a little clearer today. - Cardiovascular Cardiovascular exam: Present: regular rate and rhythm. Absent: gallop, JVD, systolic murmur - GI/Abdominal GI/Abdominal exam: Present: hypoactive bowel sounds, soft, other (he is postop and drains in place.). Absent: organomegaly - Extremities Exam Extremities exam: Present: edema (he has mild lower extremity edema.) - Neurological Exam Neurological exam: Present: altered (patient is sedated on the ventilator. He has had no real change yet.) - Skin Skin exam: Present: dry. Absent: rash Results - Labs CBC & BMP: 11/04/16 04:15 11/04/16 04:15 Labs: PO2 is 119 with a PCO2 of 34 and a pH of 7.43 - Diagnostic Findings Procedure: Chest x-ray: image reviewed by me, report reviewed by me (chest x- ray shows cardiomegaly but otherwise no change.) Assessment and Plan (1) Hypertension Status: Chronic Assessment and plan: The patient has a history of hypertension and a cardiomyopathy but his blood pressure is reasonably stable on the ventilator at present. He is still on some mild pressors but overall is stable. His blood pressure is usually on the low side lately. Current Visit: Yes (2) CHEMA (obstructive sleep apnea) Status: Acute Assessment and plan: This will be evaluated later. Current Visit: Yes (3) Cardiomyopathy Status: Chronic Assessment and plan: The patient apparently has an ejection fraction of 15% and severe cardiomyopathy. He does not show any signs of heart failure at present. His oxygenation is stable at present. Current Visit: Yes (4) Cardiopulmonary arrest with successful resuscitation Status: Acute Assessment and plan: The patient is on the ventilator after a successful resuscitation. He is on the Cooling protocol and is fairly stable at present. He is starting the rewarming process now. Current Visit: Yes (5) S/P laparoscopic cholecystectomy Status: Acute Assessment and plan: The patient has had a lap cholecystectomy after presenting with significant abdominal pain. Current Visit: No
--- NOTE | 2016-11-04 07:23 | EKG Report ---
Stationary ECG Study [facility] Test Date: 11/04/2016 7:22:34 AM Pat Name: JOSE IRVING Department: Room: 107 Gender: M Jewelry Internship: MICHELLE : 1965 Requested by: Emiliano Penn Order Number: [id number] Reading MD: DIANE OKEEFE Intervals [place] Rate: 80 P: 124 AL: 164 QRS: -10 QRSD: 114 T: 149 QT: 425 QTc: 462 Interpretive Statements SINUS RHYTHM POSSIBLE ANTERIOR MYOCARDIAL INFARCTION, OF INDETERMINATE AGE vs INCOMPLETE IVCD Electronically Signed On 11-04-16 11:47:15 MAINTENANCE MECHANIC TECHNICIAN by DIANE OKEEFE [email or web address]
--- NOTE | 2016-11-04 08:02 | XRay Report ---
Portable chest Date:[11/04/2016] Clinical history: Cardiac arrest, on ventilator Comparison: 11/03/2016 Technique: Portable AP sitting chest Findings: Stable cardiomegaly and supportive devices. Little change in diffuse parenchymal findings in the lungs with small pleural effusions. Stable mediastinum and osseous structures. Impression: No significant change in the appearance of the chest when compared to the previous exam. PROCEDURE INTERPRETED AT [facility] DEPARTMENT OF RADIOLOGY Final Report Signed by: Dr. Sarai Sanchez
--- NOTE | 2016-11-04 08:08 | General Surgery Progress Note ---
Assessment and Plan - Time spent with patient Time spent with patient: Less than 30 minutes (1) Abdominal pain Status: Acute Assessment and plan: Impression: 1. Abdominal pain etiology unclear questionable gallbladder disease undiagnosed 2. Obesity 3. Congestive heart failure 4. Low cardiac ejection fraction Recommendations: 1. Certainly would look at do a HIDA scan to see if its abnormal with that ejection fraction 2. We consider repeating ultrasound after his been nothing by mouth for at least 12 hours to see if there is any changes in the gallbladder see if it distends back up looks normal 3. We consider a CT scan abdomen and pelvis with contrast to get a better idea this is nothing else going on. 4. He needs a complete cardiac evaluation before that any consideration of surgery because he is at such high risk 5. May need pulmonary consult at some point 6. We consider surgery on the gallbladder all if everything else is ruled out and that we have clear diagnosis that he could possibly have gallbladder disease. 10/31/2016. Patient continues to complain of discomfort in the upper abdomen right chest area. On exam though he does not exhibit any guarding or unusual tenderness on deep palpation. No masses are palpable. He did not have his oxygen own and I have noted cardiology's note. He is for a HIDA scan today and hopefully we'll plan to CT scan abdomen and pelvis tomorrow. Still unclear whether he has gallbladder disease but certainly he remains a high risk surgical patient because of his cardiac disease. 11/01/2016 Patient continues to have some discomfort in the upper part of his abdomen. Better today than has been. His CT scan abdomen and pelvis was performed in his completed and they continue to see her contracted gallbladder normal size biliary tree. See some stranding around the kidneys but otherwise nothing dramatically noted at this point. I felt the pancreas was okay. At this point after discussing his cardiac status with Dr. Dodson we feel like that he has in optimal condition to proceed with surgery at this time. He is a high risk patient and he understands this but he is okay with going ahead with surgery. Dr. Dodson feels like that he would be best to get him at this point when he is optimal as opposed to let the gallbladder get truly sick and then having a worse situation deal with. 11/04/2016 Patient remains on the ventilator and they're starting to warm him up today. Else reduce his sedation once he is warm to see I much mental activity he comes back with. From his surgery he is done well minimal MAT drainage at this point. Remains with a mild ileus with some bowel sounds are present. NG tube with minimal drainage. We'll consider possible to feedings but right now wait and see how he wakes up. Current Visit: Yes Qualifiers: Abdominal location: upper abdomen, unspecified Qualified Code(s): R10.10 - Upper abdominal pain, unspecified Subjective Patient reports: Present: other (patient remains on the ventilator and sedated) Exam - Constitutional Vitals: Period Temp Pulse Resp BP Sys/Lobo Pulse Ox Last 24 Hr 90.1 F-95.7 F 61-83 11-12 90-120/61-82 97-100 General appearance: mild distress - Head Head exam: Present: normal inspection - ENT ENT exam: Present: normal exam - Neck Neck exam: Present: normal inspection - Respiratory Respiratory exam: Present: rales - Cardiovascular Cardiovascular exam: Present: RRR - GI/Abdominal GI/Abdominal exam: Present: distended (mild), hypoactive bowel sounds, soft, other (MAT drainage is decreasing) - Extremities Exam Extremities exam: Present: normal inspection - Back Exam Back exam: Present: normal inspection - Neurological Exam Neurological exam: Present: alert, oriented X3, CN II-XII intact - Skin Skin exam: Present: normal color, warm, dry Results - Labs CBC & BMP: 11/04/16 04:15 11/04/16 04:15 Lab Results: I have reviewed the past 24 hour labs
[2016-11-04] MEDS: PANTOPRAZOLE 40 MG VIAL IV SCH (08:40)
[2016-11-04] MEDS: MINERAL OIL/PETROLATUM OPH OINT 3.5 GM TUBE BOTH EYES SCH ×3 (08:41→21:11)
--- NOTE | 2016-11-04 09:33 | Cardiology Progress Note ---
Assessment and Plan (1) Cardiopulmonary arrest with successful resuscitation Status: Acute Assessment and plan: 51 year old black male with PMHx of severe NICM (LV EF 15%), CHF, HTN, and h/o cocaine abuse admitted to hospital for cholecystitis. He underwent LC today and had a bradycardic arrest at the end of the procedure. CPR for approximately 20 minutes. He did not regain consciousness, which is also difficult to assess as he was on anesthetics at that time. -Cardiac arrest. Bradycardic arrest was likely due to underlying severe cardiomyopathy, stress from anesthesia, surgery. No ACS/OH. -Ventricular ectopy. So far, this is hemodynamically not significant. Monitor and replete electrolytes, continue hypothermia protocol. Continue to wean epinephrine. -Hold losartan/coreg/aldactone while on pressor. He will need CMP workup when recovers from acute issues. Current Visit: Yes (2) S/P laparoscopic cholecystectomy Status: Acute Current Visit: No (3) Acute on chronic systolic CHF (congestive heart failure) Status: Acute Current Visit: No (4) Cardiomyopathy Status: Chronic Current Visit: Yes (5) CHEMA (obstructive sleep apnea) Status: Acute Current Visit: Yes (6) Hypertension Status: Chronic Current Visit: Yes (7) Cocaine abuse Status: Acute Current Visit: No (8) Uncontrolled hypertension Status: Acute Current Visit: No Cardiology - PN: Subj Interval history: He is getting warmed, on the hypothermia protocol. t 96.6. Sinus rhythm, with occasional ventricular ectopy. Epinephrine is at 1, he still becomes hypotensive when moved around. Exam (Progress Note) - Constitutional Vitals: Period Temp Pulse Resp BP Sys/Lobo Pulse Ox Last 24 Hr 90.1 F-95.9 F 61-90 11-12 90-117/61-77 97-100 General appearance: morbidly obese - Head Head exam: Present: normal inspection - Eye Eye exam: Absent: periorbital swelling Pupils: Present: dilated - ENT ENT exam: Present: normal external ear exam - Neck Neck exam: Present: normal inspection - Respiratory Respiratory exam: Present: clear to auscultation bilaterally - Cardiovascular Cardiovascular exam: Present: regular rate and rhythm, systolic murmur - GI/Abdominal GI/Abdominal exam: Present: hypoactive bowel sounds - Extremities Exam Extremities exam: Present: normal inspection - Neurological Exam Neurological exam: Present: other (sedated) - Skin Skin exam: Present: normal color, warm. Absent: cyanosis Result/EKG - Labs CBC & BMP: 11/04/16 04:15 11/04/16 04:15 Lab Results: I have reviewed the past 24 hour labs Labs: Laboratory Results - last 24 hr 11/03/16 11/03/16 11/03/16 10:15 10:15 10:15 WBC RBC Hgb Hct MCV MCH MCHC RDW Plt Count MPV Neut % (Auto) Lymph % (Auto) Jerome % (Auto) Eos % (Auto) Baso % (Auto) Neut # (Auto) Lymph # (Auto) Jerome # (Auto) Eos # (Auto) Baso # (Auto) Total Counted Immature Gran % Nucleated RBC % Immature Gran # Segmented Neutrophils Band Neutrophils Lymphocytes Monocytes Nucleated RBCs # Platelet Estimate Hypochromasia [place] Cells Morphology Comment INR PT Patient/Control Mix Circ Anticoag PTT ABG pH ABG pCO2 ABG pO2 ABG HCO3 ABG Total CO2 ABG O2 Saturation ABG Base Excess Sodium 143 Potassium 3.4 L Chloride 107 Carbon Dioxide 23 Anion Gap 16.4 H BUN 16 Creatinine 1.10 GFR Calculation 118 BUN/Creatinine Ratio 14.00 Glucose 200 H POC Glucose Calculated Osmolality 291.0 Lactic Acid 3.0 H Calcium 7.7 L Phosphorus Magnesium 1.8 Lactate Dehydrogenase 181 Total Creatine Kinase 214 CK-MB (CK-2) 3.9 H Troponin I 0.054 H Vancomycin Trough 11/03/16 11/03/16 11/03/16 10:15 10:15 11:44 WBC 8.9 RBC 5.12 Hgb 15.3 Hct 45.0 MCV 87.9 MCH 30 MCHC 34.0 RDW 14.6 Plt Count 140 MPV 13.9 H Neut % (Auto) 89.1 H Lymph % (Auto) 3.8 L Jerome % (Auto) 6.7 Eos % (Auto) 0.0 Baso % (Auto) 0.1 Neut # (Auto) 7.9 H Lymph # (Auto) 0.3 L Jerome # (Auto) 0.6 Eos # (Auto) 0.0 Baso # (Auto) 0.0 Total Counted 100 Immature Gran % 0.3 Nucleated RBC % 0.0 Immature Gran # 0.03 Segmented Neutrophils 89 H Band Neutrophils Lymphocytes 3 L Monocytes 8 Nucleated RBCs # 0.00 Platelet Estimate Adequate Hypochromasia 1+ Ciro Cells Slight Morphology Comment INR 1.7 PT Patient/Control Mix 18.5 D Circ Anticoag PTT 29.2 ABG pH ABG pCO2 ABG pO2 ABG HCO3 ABG Total CO2 ABG O2 Saturation ABG Base Excess Sodium Potassium Chloride Carbon Dioxide Anion Gap BUN Creatinine GFR Calculation BUN/Creatinine Ratio Glucose POC Glucose 168 H Calculated Osmolality Lactic Acid Calcium Phosphorus Magnesium Lactate Dehydrogenase Total Creatine Kinase CK-MB (CK-2) Troponin I Vancomycin Trough 11/03/16 11/03/16 11/03/16 16:00 16:00 16:00 WBC RBC Hgb Hct MCV MCH MCHC RDW Plt Count MPV Neut % (Auto) Lymph % (Auto) Jerome % (Auto) Eos % (Auto) Baso % (Auto) Neut # (Auto) Lymph # (Auto) Jerome # (Auto) Eos # (Auto) Baso # (Auto) Total Counted Immature Gran % Nucleated RBC % Immature Gran # Segmented Neutrophils Band Neutrophils Lymphocytes Monocytes Nucleated RBCs # Platelet Estimate Hypochromasia [place] Cells Morphology Comment INR PT Patient/Control Mix Circ Anticoag PTT ABG pH ABG pCO2 ABG pO2 ABG HCO3 ABG Total CO2 ABG O2 Saturation ABG Base Excess Sodium 145 Potassium 3.9 Chloride 109 H Carbon Dioxide 23 Anion Gap 16.9 H BUN 15 Creatinine 0.80 GFR Calculation 158 BUN/Creatinine Ratio 18.00 Glucose 130 H POC Glucose Calculated Osmolality 290.7 Lactic Acid 1.8 Calcium 7.8 L Phosphorus Magnesium 1.8 Lactate Dehydrogenase 181 Total Creatine Kinase 178 CK-MB (CK-2) 4.0 H Troponin I 0.057 H Vancomycin Trough 11/03/16 11/03/16 11/03/16 16:00 16:00 16:00 WBC 10.3 RBC 5.24 Hgb 15.4 Hct 45.6 MCV 87.0 MCH 29 MCHC 33.8 RDW 14.6 Plt Count 149 MPV 13.8 H Neut % (Auto) 85.8 H Lymph % (Auto) 4.0 L Jerome % (Auto) 9.8 Eos % (Auto) 0.0 Baso % (Auto) 0.1 Neut # (Auto) 8.9 H Lymph # (Auto) 0.4 L Jerome # (Auto) 1.0 H Eos # (Auto) 0.0 Baso # (Auto) 0.0 Total Counted Immature Gran % 0.3 Nucleated RBC % 0.0 Immature Gran # 0.03 Segmented Neutrophils Band Neutrophils Lymphocytes Monocytes Nucleated RBCs # 0.00 Platelet Estimate Hypochromasia [place] Cells Morphology Comment INR 1.6 PT Patient/Control Mix 17.7 Circ Anticoag PTT 28.7 ABG pH ABG pCO2 ABG pO2 ABG HCO3 ABG Total CO2 ABG O2 Saturation ABG Base Excess Sodium Potassium Chloride Carbon Dioxide Anion Gap BUN Creatinine GFR Calculation BUN/Creatinine Ratio Glucose POC Glucose 107 H Calculated Osmolality Lactic Acid Calcium Phosphorus Magnesium Lactate Dehydrogenase Total Creatine Kinase CK-MB (CK-2) Troponin I Vancomycin Trough 11/03/16 11/03/16 11/03/16 20:03 20:04 22:01 WBC RBC Hgb Hct MCV MCH MCHC RDW Plt Count MPV Neut % (Auto) Lymph % (Auto) Jerome % (Auto) Eos % (Auto) Baso % (Auto) Neut # (Auto) Lymph # (Auto) Jerome # (Auto) Eos # (Auto) Baso # (Auto) Total Counted Immature Gran % Nucleated RBC % Immature Gran # Segmented Neutrophils Band Neutrophils Lymphocytes Monocytes Nucleated RBCs # Platelet Estimate Hypochromasia [place] Cells Morphology Comment INR PT Patient/Control Mix Circ Anticoag PTT ABG pH ABG pCO2 ABG pO2 ABG HCO3 ABG Total CO2 ABG O2 Saturation ABG Base Excess Sodium Potassium Chloride Carbon Dioxide Anion Gap BUN Creatinine GFR Calculation BUN/Creatinine Ratio Glucose POC Glucose 79 107 H 95 Calculated Osmolality Lactic Acid Calcium Phosphorus Magnesium Lactate Dehydrogenase Total Creatine Kinase CK-MB (CK-2) Troponin I Vancomycin Trough 11/03/16 11/03/16 11/03/16 23:00 23:00 23:00 WBC RBC Hgb Hct MCV MCH MCHC RDW Plt Count MPV Neut % (Auto) Lymph % (Auto) Jerome % (Auto) Eos % (Auto) Baso % (Auto) Neut # (Auto) Lymph # (Auto) Jerome # (Auto) Eos # (Auto) Baso # (Auto) Total Counted Immature Gran % Nucleated RBC % Immature Gran # Segmented Neutrophils Band Neutrophils Lymphocytes Monocytes Nucleated RBCs # Platelet Estimate Hypochromasia [place] Cells Morphology Comment INR PT Patient/Control Mix Circ Anticoag PTT ABG pH 7.475 H ABG pCO2 30.1 L ABG pO2 154.0 H ABG HCO3 24.4 ABG Total CO2 18.2 L ABG O2 Saturation 99.2 ABG Base Excess -0.1 Sodium 146 H Potassium 3.8 Chloride 112 H Carbon Dioxide 22 Anion Gap 15.8 H BUN 12 Creatinine 0.70 GFR Calculation 167 BUN/Creatinine Ratio 17.00 Glucose 116 H POC Glucose Calculated Osmolality 290.6 Lactic Acid 1.6 Calcium 7.8 L Phosphorus Magnesium 1.8 Lactate Dehydrogenase 171 Total Creatine Kinase CK-MB (CK-2) Troponin I Vancomycin Trough 11/03/16 11/03/16 11/03/16 23:00 23:10 23:11 WBC 11.5 RBC 5.43 Hgb 16.1 Hct 46.7 MCV 86.0 L MCH 30 MCHC 34.5 RDW 14.5 Plt Count 146 MPV 13.4 H Neut % (Auto) 85.7 H Lymph % (Auto) 4.1 L Jerome % (Auto) 9.7 Eos % (Auto) 0.0 Baso % (Auto) 0.2 Neut # (Auto) 9.9 H Lymph # (Auto) 0.5 L Jerome # (Auto) 1.1 H Eos # (Auto) 0.0 Baso # (Auto) 0.0 Total Counted 100 Immature Gran % 0.3 Nucleated RBC % 0.0 Immature Gran # 0.03 Segmented Neutrophils 84 Band Neutrophils Lymphocytes 3 L Monocytes 13 Nucleated RBCs # 0.00 Platelet Estimate Adequate Hypochromasia [place] Cells Few Morphology Comment INR 1.8 PT Patient/Control Mix 19.8 Circ Anticoag PTT 28.7 ABG pH ABG pCO2 ABG pO2 ABG HCO3 ABG Total CO2 ABG O2 Saturation ABG Base Excess Sodium Potassium Chloride Carbon Dioxide Anion Gap BUN Creatinine GFR Calculation BUN/Creatinine Ratio Glucose POC Glucose Calculated Osmolality Lactic Acid Calcium Phosphorus Magnesium Lactate Dehydrogenase Total Creatine Kinase 148 CK-MB (CK-2) 4.4 H Troponin I 0.060 H Vancomycin Trough 11/03/16 11/04/16 11/04/16 23:57 02:07 04:13 WBC RBC Hgb Hct MCV MCH MCHC RDW Plt Count MPV Neut % (Auto) Lymph % (Auto) Jerome % (Auto) Eos % (Auto) Baso % (Auto) Neut # (Auto) Lymph # (Auto) Jerome # (Auto) Eos # (Auto) Baso # (Auto) Total Counted Immature Gran % Nucleated RBC % Immature Gran # Segmented Neutrophils Band Neutrophils Lymphocytes Monocytes Nucleated RBCs # Platelet Estimate Hypochromasia Ciro Cells Morphology Comment INR PT Patient/Control Mix Circ Anticoag PTT ABG pH ABG pCO2 ABG pO2 ABG HCO3 ABG Total CO2 ABG O2 Saturation ABG Base Excess Sodium Potassium Chloride Carbon Dioxide Anion Gap BUN Creatinine GFR Calculation BUN/Creatinine Ratio Glucose POC Glucose 107 H 106 107 H Calculated Osmolality Lactic Acid Calcium Phosphorus Magnesium Lactate Dehydrogenase Total Creatine Kinase CK-MB (CK-2) Troponin I Vancomycin Trough 11/04/16 11/04/16 11/04/16 04:15 04:15 04:15 WBC RBC Hgb Hct MCV MCH MCHC RDW Plt Count MPV Neut % (Auto) Lymph % (Auto) Jerome % (Auto) Eos % (Auto) Baso % (Auto) Neut # (Auto) Lymph # (Auto) Jerome # (Auto) Eos # (Auto) Baso # (Auto) Total Counted Immature Gran % Nucleated RBC % Immature Gran # Segmented Neutrophils Band Neutrophils Lymphocytes Monocytes Nucleated RBCs # Platelet Estimate Hypochromasia [place] Cells Morphology Comment INR PT Patient/Control Mix Circ Anticoag PTT ABG pH 7.431 ABG pCO2 34.1 L ABG pO2 119.0 H ABG HCO3 23.8 ABG Total CO2 18.9 L ABG O2 Saturation 98.4 ABG Base Excess -0.8 Sodium 146 H Potassium 4.0 Chloride 111 H Carbon Dioxide 22 Anion Gap 17.0 H BUN 12 Creatinine 0.80 GFR Calculation 158 BUN/Creatinine Ratio 15.00 Glucose 119 H POC Glucose Calculated Osmolality 290.6 Lactic Acid 2.0 Calcium 7.8 L Phosphorus Magnesium 1.8 Lactate Dehydrogenase 194 Total Creatine Kinase CK-MB (CK-2) Troponin I Vancomycin Trough 11/04/16 11/04/16 11/04/16 04:15 04:15 04:15 WBC 13.5 RBC 5.39 Hgb 15.9 Hct 46.9 MCV 87.0 MCH 30 MCHC 33.9 RDW 14.9 Plt Count 159 MPV 13.8 H Neut % (Auto) 84.6 H Lymph % (Auto) 4.8 L Jerome % (Auto) 10.0 Eos % (Auto) 0.1 Baso % (Auto) 0.1 Neut # (Auto) 11.4 H Lymph # (Auto) 0.7 L Jerome # (Auto) 1.4 H Eos # (Auto) 0.0 Baso # (Auto) 0.0 Total Counted 100 Immature Gran % 0.4 Nucleated RBC % 0.0 Immature Gran # 0.05 Segmented Neutrophils 87 H Band Neutrophils 2 Lymphocytes 5 L Monocytes 6 Nucleated RBCs # 0.00 Platelet Estimate Adequate Hypochromasia Ciro Cells Few Morphology Comment INR 1.9 PT Patient/Control Mix 21.4 Circ Anticoag PTT 29.9 ABG pH ABG pCO2 ABG pO2 ABG HCO3 ABG Total CO2 ABG O2 Saturation ABG Base Excess Sodium Potassium Chloride Carbon Dioxide Anion Gap BUN Creatinine GFR Calculation BUN/Creatinine Ratio Glucose POC Glucose Calculated Osmolality Lactic Acid Calcium Phosphorus 3.6 Magnesium Lactate Dehydrogenase Total Creatine Kinase CK-MB (CK-2) Troponin I Vancomycin Trough 11/04/16 11/04/16 11/04/16 04:15 06:01 07:52 WBC RBC Hgb Hct MCV MCH MCHC RDW Plt Count MPV Neut % (Auto) Lymph % (Auto) Jerome % (Auto) Eos % (Auto) Baso % (Auto) Neut # (Auto) Lymph # (Auto) Jerome # (Auto) Eos # (Auto) Baso # (Auto) Total Counted Immature Gran % Nucleated RBC % Immature Gran # Segmented Neutrophils Band Neutrophils Lymphocytes Monocytes Nucleated RBCs # Platelet Estimate Hypochromasia [place] Cells Morphology Comment INR PT Patient/Control Mix Circ Anticoag PTT ABG pH ABG pCO2 ABG pO2 ABG HCO3 ABG Total CO2 ABG O2 Saturation ABG Base Excess Sodium Potassium Chloride Carbon Dioxide Anion Gap BUN Creatinine GFR Calculation BUN/Creatinine Ratio Glucose POC Glucose 105 99 Calculated Osmolality Lactic Acid Calcium Phosphorus Magnesium Lactate Dehydrogenase Total Creatine Kinase CK-MB (CK-2) Troponin I Vancomycin Trough 19.6 - EKG EKG results: interpreted by me
--- NOTE | 2016-11-04 10:21 | EKG Report ---
Stationary ECG Study [facility] Test Date: 11/04/2016 10:20:19 AM Pat Name: JOSE IRVING Department: Room: 107 Gender: M Director Of Intelligence: : 1965 Requested by: Yannick Meyer Order Number: [id number] Reading MD: DIANE OKEEFE Intervals [place] Rate: 97 P: 72 [place]: 161 QRS: -20 QRSD: 108 T: 114 QT: 375 QTc: 430 Interpretive Statements SINUS RHYTHM POSSIBLE ANTERIOR MYOCARDIAL INFARCTION, OF INDETERMINATE AGE Electronically Signed On 11-04-16 11:52:12 MEDICAL LAB TECHNOLOGIST by DIANE OKEEFE [email or web address]
[2016-11-04 10:35] LABS: Basophils % 0.1 % (0.0-0.8); Hematocrit 45.4 VOL% (42.0-52.0); Hemoglobin 15.7 GM/DL (14.0-18.0); Immature Granulocytes % 0.5 %; Immature Granulocytes Absolute 0.06 #; Lymphocytes # 0.6 10*3/uL (1.4-4.0); Lymphocytes % 4.3 % (21.2-54.2); Mean Corpuscular HGB Conc 34.6 GM/DL (32-36); Mean Corpuscular Hemoglobin 30 PG (27-34); Mean Corpuscular Volume 86.6 FL (87-102); Mean Platelet Volume 13.9 FL (9.6-12.0); Monocytes % 7.5 % (1.7-12.7); NRBC # 0.04 10*3/uL; Neutrophils # 11.6 10*3/uL (1.4-7.4); Neutrophils % 87.6 % (38.7-73.9); Platelet Count 160 10*3/uL (130-400); Red Blood Count 5.24 10*6/uL (3.8-5.5); Red Cell Distribution Width 14.7 % (9.3-17.3); White Blood Count 13.3 10*3/uL (4.5-13.71)
--- NOTE | 2016-11-04 10:40 | XRay Report ---
XR chest 1V portable Indication: Cardiac arrest, hypothermia Comparison: 04 November 2016 Findings: The heart and mediastinum are stable in size and configuration. The lines and tubes are unchanged in position. The pulmonary vascularity is increased with increased lung density more prominent on the right. This may be slightly increased when compared previous. No other lung infiltrates, effusions, pneumothorax or other abnormality is demonstrated. Impression: Slight increased pulmonary density may indicate worsening edema. PROCEDURE INTERPRETED AT [facility] DEPARTMENT OF RADIOLOGY Final Report Signed by: Dr. Lico Charles
[2016-11-04 10:47] LABS: INR 1.4; PT Patient Result 15.3 SECS; Partial Thromboplastin Time 28.5 SECS (0-40)
[2016-11-04 10:50] LABS: ABG Base Excess -2.2 MMOL/L (-2.5-2.5); ABG HCO3 22.6 MMOL/L (20-26); ABG Oxygen Saturation 99.5 % (95-100); ABG PCO2 31.3 MM HG (35-48); ABG PH 7.432 (7.35-7.45); ABG TCO2 17.5 MMOL/L (23-27)
[2016-11-04 10:56] LABS: Burr Cells Slight; Hypochromasia Slight; Lymphocytes 2 % (20-55); Platelet Estimate Normal; Segmented Neutrophils 90 % (50-85); Total Cells Counted 100
[2016-11-04 11:17] LABS: Calcium 7.6 MG/DL (8.5-10.1); Magnesium 1.7 MG/DL (1.8-2.4); Osmolality,Calculated 287.7 MOS/KG (273-304); Potassium 4.3 MMOL/L (3.5-5.1)
--- NOTE | 2016-11-04 11:22 | Hospitalist Progress Note ---
Assessment and Plan (1) Cardiopulmonary arrest with successful resuscitation Status: Acute Assessment and plan: 1)post code- on cooling protocol, stable at this time. BP requiring minimum amount of Epi. UOP good. CXR looking better. 2)HTN 3)CHEMA 4)severe cardiomyopathy 5)s/p lap cholecystectomy and hernia repair 6)morbid obesity 7)social- has brother and father, I have not met them but Dr huizar and Dr Penn have talked to them. Current Visit: Yes (2) Hypertension Status: Chronic Current Visit: Yes (3) CHEMA (obstructive sleep apnea) Status: Acute Current Visit: Yes (4) Cardiomyopathy Status: Chronic Current Visit: Yes (5) Tachycardia Status: Acute Current Visit: Yes (6) S/P laparoscopic cholecystectomy Status: Acute Current Visit: No Hospitalist: Subjective Interval history: Mr Ramírez is doing well on rewarming protocol. No arrhythmias. Weaning Epi. Exam - Constitutional Vitals: Period Temp Pulse Resp BP Sys/Lobo Pulse Ox Last 24 Hr 90.1 F-97.4 F 61-99 11-12 81-106/57-77 97-100 General appearance: no acute distress, morbidly obese - Respiratory Respiratory exam: Present: clear to auscultation bilaterally - Cardiovascular Cardiovascular exam: Present: regular rate and rhythm - GI/Abdominal GI/Abdominal exam: Present: hypoactive bowel sounds - Extremities Exam Extremities exam: Absent: edema - Neurological Exam Neurological exam: Present: altered (sedated on vent) Results - Labs CBC & BMP: 11/04/16 10:15 11/04/16 10:15 Lab Results: I have reviewed the past 24 hour labs
[2016-11-04 11:27] LABS: Lactic Acid 1.9 MMOL/L (0.4-2.0)
[2016-11-04] MEDS: MAGNESIUM SULF RIDER 2 GM in PREMIX 1 EACH IV PRN (11:28)
[2016-11-04] MEDS ORDERED: DEXTROSE 50% 25 GM/50 ML VIAL IV ONE (12:04)
[2016-11-04] MEDS: DEXTROSE 50% 25 GM/50 ML VIAL IV PRN ×2 (12:10→16:07)
[2016-11-04 12:56] LABS: Troponin I Only 0.062 NG/ML (0.00-0.045)
[2016-11-04] MEDS ORDERED: SODIUM CHLORIDE 0.9% 1,000 ML IV ONE (15:05)
[2016-11-04] MEDS: MORPHINE 2 MG/1 ML SYRINGE IV PRN (15:15)
[2016-11-04] MEDS ORDERED: NOREPINEPHRINE 4 MG/4 ML VIAL IV ONE ×3 (15:32→21:59)
--- NOTE | 2016-11-04 15:41 | Neurology Progress Note ---
Neurology - PN : Subjective Interval history: Mr. Ramírez is finishing up hypothermia protocol. He is opening eyes. He's not following commands. Is still on sedatives. He has moved extremities is spontaneously though. He is withdrawing upon stimulation.. Exam (Progress Note) - Constitutional Vitals: Period Temp Pulse Resp BP Sys/Lobo Pulse Ox Last 24 Hr 90.2 F-98.1 F 61-111 11-12 81-106/57-77 98-100 Exam: GENERAL: Patient is in no acute distress. NECK: Neck is supple. There is no JVD. No carotid bruits present. No thyroid masses. CVS: First and second heart sounds are normal. There is no S3 present. Regular rate and rhythm. RESPIRATORY: Lungs are clear to auscultation without any rales or rhonchi. ABDOMEN: Soft and non-tender. Bowel sounds are present. There is no hepatosplenomegaly. EXT: There is no palpable edema. Peripheral pulses are present. 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 Left pupil is sluggish but reactive Motor: Strength cannot be assessed Sensory: Cannot be assessed Reflexes: Absent and symmetrical Cerebellar function: Cannot be assessed Gait: Cannot be assessed Results - Labs CBC & BMP: 11/04/16 10:15 11/04/16 10:15 Assessment and Plan (1) Anoxic encephalopathy Status: Acute Assessment and plan: Patient is coming off of hypothermia protocol treatment. Perform EEG and CT head in the morning Prognosis is guarded. Current Visit: Yes (2) Cardiopulmonary arrest with successful resuscitation Status: Acute Assessment and plan: Continue watchful observation. Current Visit: Yes
[2016-11-04] MEDS: NOREPINEPHRINE 8 MG in SODIUM CHLORIDE 0.9% 242 ML IV SCH (15:55)
[2016-11-04] MEDS ORDERED: SODIUM CHLORIDE 0.9% 500 ML IV ONE (16:00)
[2016-11-04] MEDS: LEVOFLOXACIN INJ 750 MG in PREMIX 1 EACH IV SCH (16:16)
[2016-11-05] MEDS: INSULIN REGULAR 100 UNIT/ML IV SCH ×6 (00:10→20:23)
[2016-11-05] MEDS: NOREPINEPHRINE 8 MG in SODIUM CHLORIDE 0.9% 242 ML IV SCH ×3 (00:11→18:46)
[2016-11-05] MEDS: PROPOFOL 1,000 MG/100 ML BOTTLE IV SCH ×4 (00:47→20:30)
[2016-11-05] MEDS: ALBUTEROL/IPRATROPIUM 3 ML NEB RESP TX SCH ×4 (01:40→19:59)
[2016-11-05 02:43] LABS: ABG Base Excess -3.3 MMOL/L (-2.5-2.5); ABG HCO3 20.8 MMOL/L (20-26); ABG Oxygen Saturation 99.4 % (95-100); ABG PH 7.391 (7.35-7.45); ABG PO2 193.3 MM HG (80-95); ABG TCO2 21.8 MMOL/L (23-27)
[2016-11-05] MEDS: AMPICILLIN/SULBACTAM 3,000 MG in SODIUM CHLORIDE 0.9% 100 ML IV SCH ×3 (04:30→20:24)
[2016-11-05 04:58] LABS: Basophils % 0.1 % (0.0-0.8); Eosinophils % 0.1 % (0.00-10.9); Hematocrit 47.3 VOL% (42.0-52.0); Hemoglobin 15.7 GM/DL (14.0-18.0); Immature Granulocytes % 0.6 %; Immature Granulocytes Absolute 0.07 #; Lymphocytes # 1.3 10*3/uL (1.4-4.0); Lymphocytes % 10.8 % (21.2-54.2); Mean Corpuscular HGB Conc 33.2 GM/DL (32-36); Mean Corpuscular Hemoglobin 30 PG (27-34); Mean Corpuscular Volume 90.1 FL (87-102); Mean Platelet Volume 14.3 FL (9.6-12.0); Monocytes # 1.2 10*3/uL (0.11-0.8); Monocytes % 10.4 % (1.7-12.7); NRBC # 0.08 10*3/uL; Neutrophils # 9.3 10*3/uL (1.4-7.4); Platelet Count 165 10*3/uL (130-400); Red Blood Count 5.25 10*6/uL (3.8-5.5); Red Cell Distribution Width 15.3 % (9.3-17.3); White Blood Count 11.9 10*3/uL (4.5-13.71)
[2016-11-05] MEDS: VANCOMYCIN INJ 1,750 MG in SODIUM CHLORIDE 0.9% 500 ML IV SCH ×2 (05:06→16:56)
[2016-11-05] MEDS: ENOXAPARIN 40 MG/0.4 ML SYRINGE SUBCUT SCH (05:06)
[2016-11-05] MEDS: DEXTROSE 5% NACL 0.45% 1,000 ML IV SCH ×4 (05:07→18:28)
[2016-11-05 06:38] LABS: Albumin 2.2 G/DL (3.4-5.0); Bilirubin,Total 0.9 MG/DL (0.2-1.0); Calcium 7.7 MG/DL (8.5-10.1); Osmolality,Calculated 286.8 MOS/KG (273-304); Potassium 4.6 MMOL/L (3.5-5.1)
--- NOTE | 2016-11-05 07:26 | EKG Report ---
Stationary ECG Study [facility] Test Date: 11/05/2016 7:25:06 AM Pat Name: JOSE IRVING Department: Room: 107 Gender: M Electronics Detail Draftsperson: MARCY : 1965 Requested by: Emiliano Penn Order Number: [id number] Reading MD: ANA LAURA LUNA Intervals [place] Rate: 90 P: 46 [place]: 196 QRS: 10 QRSD: 100 T: 111 QT: 356 QTc: 404 Interpretive Statements SINUS RHYTHM POSSIBLE ANTERIOR MYOCARDIAL INFARCTION, OF INDETERMINATE AGE (BASED ON DELAYED ANTERIOR R WAVE PROGRESSION) Electronically Signed On 11-05-16 07:47:07 CHILDREN'S TUTOR by ANA LAURA LUNA [email or web address]
[2016-11-05] MEDS ORDERED: FUROSEMIDE 40 MG/4 ML VIAL IV ONE (07:54)
--- NOTE | 2016-11-05 08:00 | XRay Report ---
Portable chest Date:[11/05/2016] Clinical history: Cardiac arrest, on ventilator Comparison: 11/04/2016 Technique: Portable AP sitting chest Findings: Stable cardiomegaly with supportive devices. Diffuse parenchymal findings persist in the lungs with minimally larger pleural effusions. Stable mediastinum and osseous structures. Impression: Persistent significant interstitial edema/infiltration with larger moderate bilateral pleural effusions. Supportive devices remain in satisfactory position. PROCEDURE INTERPRETED AT [facility] DEPARTMENT OF RADIOLOGY Final Report Signed by: Dr. Sarai Sanchez
[2016-11-05] MEDS ORDERED: NOREPINEPHRINE 4 MG/4 ML VIAL IV ONE (08:35)
--- NOTE | 2016-11-05 08:54 | Hospitalist Progress Note ---
Assessment and Plan (1) Cardiopulmonary arrest with successful resuscitation Status: Acute Assessment and plan: 1) post PEA/asytole arrest after surgery- he has completed cooling protocol and is now hypotensive. Becoming more responsive. On levophed. on vent- was able to CPAP for 45 minutes last night. He has significant severe systolic heart failure- consider dobutamine- defer to cardiology Continue supportive care. His UOP is good. Begin tube feeds. EEG and head CT today. 2)HTN 3)CHEMA- consult with Dr Arellano deferred until he is off vent 4)severe cardiomyopathy 5)s/p lap cholecystectomy- 6)morbid obesity Current Visit: Yes (2) Hypertension Status: Chronic Current Visit: Yes (3) CHEMA (obstructive sleep apnea) Status: Acute Current Visit: Yes (4) Cardiomyopathy Status: Chronic Current Visit: Yes (5) Tachycardia Status: Acute Current Visit: Yes (6) S/P laparoscopic cholecystectomy Status: Acute Current Visit: No Hospitalist: Subjective Interval history: MR Ramírez was rewarmed and began to respond. He is opening eyes and closed them to command. He was initially very uncomfortable, moving a lot when he was first rewarmed, and is more comfortable after adding morphine. He is on propofol and is starting to respond when I see him as it was turned down a few minutes ago. EEG, CT head today. Levophed started when rewarmed yesterday also for hypotension. Exam - Constitutional Vitals: Period Temp Pulse Resp BP Sys/Lobo Pulse Ox Last 24 Hr 96.5 F-99.4 F 83-116 8-24 80-113/50-78 99-100 General appearance: no acute distress, over weight - Head Head exam: Present: normocephalic, atraumatic - Eye Eye exam: Present: EOMI. Absent: scleral icterus Pupils: Present: CB - Respiratory Respiratory exam: Present: clear to auscultation bilaterally (anterior smiley- difficult to hear due to body habitus) - Cardiovascular Cardiovascular exam: Present: regular rate and rhythm - GI/Abdominal GI/Abdominal exam: Present: normal bowel sounds, soft. Absent: tenderness - Extremities Exam Extremities exam: Present: edema (some mild generalized edema, nonpitting in hands, dependent areas) - Neurological Exam Neurological exam: Present: altered - Skin Skin exam: Present: warm, dry Results - Labs CBC & BMP: 11/05/16 02:35 11/05/16 02:31 Lab Results: I have reviewed the past 24 hour labs
--- NOTE | 2016-11-05 08:55 | Pulmonology Progress Note ---
Pulmonary - PN: Subj Interval history: The patient is a 51-year-old black man that has a severe cardiomyopathy and had an arrest during surgery. He had just completed a lap cholecystectomy. He had a 20 minute resuscitation but didn't come around a little. He has been on pressors but is stable on the ventilator. He is on the Cooling protocol and now is back to normal temperature. He will on his eyes but is not following commands very well. He is getting an EEG this morning. He has been reasonably stable on the ventilator. His chest x-ray does suggest some mild volume overload. Exam (Progress Note) - Constitutional Vitals: Period Temp Pulse Resp BP Sys/Lobo Pulse Ox Last 24 Hr 96.5 F-99.4 F 83-116 8-24 80-113/50-78 99-100 Exam: General appearance: moderately obese, other (patient is comfortable on the ventilator and does arouse a little bit. ) - Head Head exam: Present: normal inspection - Eye Eye exam: Present: EOMI. Absent: scleral icterus Pupils: Present: CB, constricted - ENT ENT exam: Present: other (ET tube in good position) - Neck Neck exam: Present: normal inspection. Absent: lymphadenopathy, thyromegaly - Respiratory Respiratory exam: Present: He has good breath sounds bilaterally and his lungs sound reasonably clear at present. - Cardiovascular Cardiovascular exam: Present: regular rate and rhythm. Absent: gallop, JVD, systolic murmur - GI/Abdominal GI/Abdominal exam: Present: hypoactive bowel sounds, soft, other (he is postop and drains in place.). Absent: organomegaly - Extremities Exam Extremities exam: Present: edema (he has mild lower extremity edema.) - Neurological Exam Neurological exam: Present: altered (patient is opening his eyes but still doesn 't follow commands at well. ) - Skin Skin exam: Present: dry. Absent: rash Results - Labs CBC & BMP: 11/05/16 02:35 11/05/16 02:31 Labs: His PO2 is 193 with a PCO2 of 35 and a pH of 7.39 - Diagnostic Findings Procedure: Chest x-ray: image reviewed by me, report reviewed by me (chest x- ray shows cardiomegaly and mild volume overload) Assessment and Plan (1) Hypertension Status: Chronic Assessment and plan: The patient has a history of hypertension and a cardiomyopathy but his blood pressure has been on the low side while he sedated. Current Visit: Yes (2) CHEMA (obstructive sleep apnea) Status: Acute Assessment and plan: This will be evaluated later. Current Visit: Yes (3) Cardiomyopathy Status: Chronic Assessment and plan: The patient apparently has an ejection fraction of 15% and severe cardiomyopathy. He has been getting some volume and we will cut back on this. His chest x-ray looks a little wet now. Current Visit: Yes (4) Cardiopulmonary arrest with successful resuscitation Status: Acute Assessment and plan: The patient is on the ventilator after a successful resuscitation. He is back to normal temperature now and is getting an EEG. He is arousing some. He does move his extremities a little. Current Visit: Yes (5) S/P laparoscopic cholecystectomy Status: Acute Assessment and plan: The patient has had a lap cholecystectomy after presenting with significant abdominal pain. Current Visit: No
--- NOTE | 2016-11-05 10:12 | Cardiology Progress Note ---
Assessment and Plan (1) Cardiopulmonary arrest with successful resuscitation Status: Acute Assessment and plan: 51 year old black male with PMHx of severe NICM (LV EF 15%), CHF, HTN, and h/o cocaine abuse admitted to hospital for cholecystitis. He underwent LC today and had a bradycardic arrest at the end of the procedure. CPR for approximately 20 minutes. He did not regain consciousness, which is also difficult to assess as he was on anesthetics at that time. -Cardiac arrest. Bradycardic arrest was likely due to underlying severe cardiomyopathy, stress from anesthesia, surgery. No ACS/WA. Completing cooling protocol. -Ventricular ectopy. So far, this is hemodynamically not significant. Monitor and replete electrolytes. -CHF. He has severe cardiomyopathy. CVP still elevated, continue IV diuresis. -Hold losartan/coreg/aldactone while on pressor. He will need CMP workup when recovers from acute issues. Current Visit: Yes (2) S/P laparoscopic cholecystectomy Status: Acute Current Visit: No (3) Acute on chronic systolic CHF (congestive heart failure) Status: Acute Current Visit: No (4) Cardiomyopathy Status: Chronic Current Visit: Yes (5) CHEMA (obstructive sleep apnea) Status: Acute Current Visit: Yes (6) Hypertension Status: Chronic Current Visit: Yes (7) Cocaine abuse Status: Acute Current Visit: No (8) Uncontrolled hypertension Status: Acute Current Visit: No Cardiology - PN: Subj Interval history: Blood pressure is still borderline, need pressor. Heart rate 115, sinus tachycardia. He opens his eyes, but does not follow commands. CVP is around 20. Temperature is 99.3, finished cooling protocol. Exam (Progress Note) - Constitutional Vitals: Period Temp Pulse Resp BP Sys/Lobo Pulse Ox Last 24 Hr 97.4 F-99.4 F 83-116 8-24 80-113/50-78 99-100 General appearance: morbidly obese - Head Head exam: Present: normal inspection, other (intubated) - Eye Eye exam: Absent: periorbital swelling - ENT ENT exam: Present: normal external ear exam - Neck Neck exam: Present: normal inspection - Respiratory Respiratory exam: Present: clear to auscultation bilaterally - Cardiovascular Cardiovascular exam: Present: regular rate and rhythm, systolic murmur, tachycardia - GI/Abdominal GI/Abdominal exam: Present: hypoactive bowel sounds - Extremities Exam Extremities exam: Present: normal inspection, normal capillary refill, edema (1+ ) - Neurological Exam Neurological exam: Present: other (opens eyes) - Skin Skin exam: Present: normal color, warm. Absent: cyanosis Result/EKG - Labs CBC & BMP: 11/05/16 02:35 11/05/16 02:31 Lab Results: I have reviewed the past 24 hour labs Labs: Laboratory Results - last 24 hr 11/04/16 11/04/16 11/04/16 09:50 10:15 10:15 WBC RBC Hgb Hct MCV MCH MCHC RDW Plt Count MPV Neut % (Auto) Lymph % (Auto) Daniels % (Auto) Eos % (Auto) Baso % (Auto) Neut # (Auto) Lymph # (Auto) Daniels # (Auto) Eos # (Auto) Baso # (Auto) Total Counted Immature Gran % Nucleated RBC % Immature Gran # Segmented Neutrophils Lymphocytes Monocytes Nucleated RBCs # Platelet Estimate Hypochromasia [place] Cells Morphology Comment INR PT Patient/Control Mix Circ Anticoag PTT ABG pH ABG pCO2 ABG pO2 ABG HCO3 ABG Total CO2 ABG O2 Saturation ABG Base Excess Sodium 145 Potassium 4.3 Chloride 110 H Carbon Dioxide 22 Anion Gap 17.3 H BUN 11 Creatinine 1.00 GFR Calculation 134 BUN/Creatinine Ratio 11.00 Glucose 118 H POC Glucose Calculated Osmolality 287.7 Lactic Acid 1.9 Calcium 7.6 L Phosphorus 3.8 Magnesium 1.7 L Total Bilirubin AST ALT Alkaline Phosphatase Lactate Dehydrogenase 156 Total Creatine Kinase CK-MB (CK-2) Troponin I Total Protein Albumin Globulin Albumin/Globulin Ratio 11/04/16 11/04/16 11/04/16 10:15 10:15 10:15 WBC 13.3 RBC 5.24 Hgb 15.7 Hct 45.4 MCV 86.6 L MCH 30 MCHC 34.6 RDW 14.7 Plt Count 160 MPV 13.9 H Neut % (Auto) 87.6 H Lymph % (Auto) 4.3 L Daniels % (Auto) 7.5 Eos % (Auto) 0.0 Baso % (Auto) 0.1 Neut # (Auto) 11.6 H Lymph # (Auto) 0.6 L Daniels # (Auto) 1.0 H Eos # (Auto) 0.0 Baso # (Auto) 0.0 Total Counted 100 Immature Gran % 0.5 Nucleated RBC % 0.3 Immature Gran # 0.06 Segmented Neutrophils 90 H Lymphocytes 2 L Monocytes 8 Nucleated RBCs # 0.04 Platelet Estimate Normal Hypochromasia Slight [place] Cells Slight Morphology Comment INR 1.4 PT Patient/Control Mix 15.3 D Circ Anticoag PTT 28.5 ABG pH ABG pCO2 ABG pO2 ABG HCO3 ABG Total CO2 ABG O2 Saturation ABG Base Excess Sodium Potassium Chloride Carbon Dioxide Anion Gap BUN Creatinine GFR Calculation BUN/Creatinine Ratio Glucose POC Glucose Calculated Osmolality Lactic Acid Calcium Phosphorus Magnesium Total Bilirubin AST ALT Alkaline Phosphatase Lactate Dehydrogenase Total Creatine Kinase 124 CK-MB (CK-2) 4.1 H Troponin I 0.062 H Total Protein Albumin Globulin Albumin/Globulin Ratio 11/04/16 11/04/16 11/04/16 10:20 10:35 12:02 WBC RBC Hgb Hct MCV MCH MCHC RDW Plt Count MPV Neut % (Auto) Lymph % (Auto) Daniels % (Auto) Eos % (Auto) Baso % (Auto) Neut # (Auto) Lymph # (Auto) Daniels # (Auto) Eos # (Auto) Baso # (Auto) Total Counted Immature Gran % Nucleated RBC % Immature Gran # Segmented Neutrophils Lymphocytes Monocytes Nucleated RBCs # Platelet Estimate Hypochromasia [place] Cells Morphology Comment INR PT Patient/Control Mix Circ Anticoag PTT ABG pH 7.432 ABG pCO2 31.3 L ABG pO2 171.0 H ABG HCO3 22.6 ABG Total CO2 17.5 L ABG O2 Saturation 99.5 ABG Base Excess -2.2 Sodium Potassium Chloride Carbon Dioxide Anion Gap BUN Creatinine GFR Calculation BUN/Creatinine Ratio Glucose POC Glucose 102 60 L Calculated Osmolality Lactic Acid Calcium Phosphorus Magnesium Total Bilirubin AST ALT Alkaline Phosphatase Lactate Dehydrogenase Total Creatine Kinase CK-MB (CK-2) Troponin I Total Protein Albumin Globulin Albumin/Globulin Ratio 11/04/16 11/04/16 11/04/16 12:42 16:02 16:27 WBC RBC Hgb Hct MCV MCH MCHC RDW Plt Count MPV Neut % (Auto) Lymph % (Auto) Daniels % (Auto) Eos % (Auto) Baso % (Auto) Neut # (Auto) Lymph # (Auto) Daniels # (Auto) Eos # (Auto) Baso # (Auto) Total Counted Immature Gran % Nucleated RBC % Immature Gran # Segmented Neutrophils Lymphocytes Monocytes Nucleated RBCs # Platelet Estimate Hypochromasia [place] Cells Morphology Comment INR PT Patient/Control Mix Circ Anticoag PTT ABG pH ABG pCO2 ABG pO2 ABG HCO3 ABG Total CO2 ABG O2 Saturation ABG Base Excess Sodium Potassium Chloride Carbon Dioxide Anion Gap BUN Creatinine GFR Calculation BUN/Creatinine Ratio Glucose POC Glucose 110 H 67 L 141 H Calculated Osmolality Lactic Acid Calcium Phosphorus Magnesium Total Bilirubin AST ALT Alkaline Phosphatase Lactate Dehydrogenase Total Creatine Kinase CK-MB (CK-2) Troponin I Total Protein Albumin Globulin Albumin/Globulin Ratio 11/04/16 11/04/16 11/05/16 20:21 23:37 02:31 WBC RBC Hgb Hct MCV MCH MCHC RDW Plt Count MPV Neut % (Auto) Lymph % (Auto) Daniels % (Auto) Eos % (Auto) Baso % (Auto) Neut # (Auto) Lymph # (Auto) Daniels # (Auto) Eos # (Auto) Baso # (Auto) Total Counted Immature Gran % Nucleated RBC % Immature Gran # Segmented Neutrophils Lymphocytes Monocytes Nucleated RBCs # Platelet Estimate Hypochromasia [place] Cells Morphology Comment INR PT Patient/Control Mix Circ Anticoag PTT ABG pH ABG pCO2 ABG pO2 ABG HCO3 ABG Total CO2 ABG O2 Saturation ABG Base Excess Sodium 144 Potassium 4.6 Chloride 113 H Carbon Dioxide 21 Anion Gap 14.6 BUN 12 Creatinine 1.10 GFR Calculation 121 BUN/Creatinine Ratio 10.00 Glucose 111 H POC Glucose 77 95 Calculated Osmolality 286.8 Lactic Acid Calcium 7.7 L Phosphorus Magnesium Total Bilirubin 0.90 AST 31 ALT 23 Alkaline Phosphatase 52 Lactate Dehydrogenase Total Creatine Kinase CK-MB (CK-2) Troponin I Total Protein 5.0 L Albumin 2.2 L Globulin 2.8 Albumin/Globulin Ratio 0.7 L 11/05/16 11/05/16 11/05/16 02:31 02:35 02:35 WBC RBC Hgb Hct MCV MCH MCHC RDW Plt Count MPV Neut % (Auto) Lymph % (Auto) Daniels % (Auto) Eos % (Auto) Baso % (Auto) Neut # (Auto) Lymph # (Auto) Daniels # (Auto) Eos # (Auto) Baso # (Auto) Total Counted Immature Gran % Nucleated RBC % Immature Gran # Segmented Neutrophils Lymphocytes Monocytes Nucleated RBCs # Platelet Estimate Hypochromasia [place] Cells Morphology Comment INR PT Patient/Control Mix Circ Anticoag PTT ABG pH 7.391 ABG pCO2 35.0 ABG pO2 193.3 H ABG HCO3 20.8 ABG Total CO2 21.8 L ABG O2 Saturation 99.4 ABG Base Excess -3.3 L Sodium Potassium Chloride Carbon Dioxide Anion Gap BUN Creatinine GFR Calculation BUN/Creatinine Ratio Glucose POC Glucose Calculated Osmolality Lactic Acid Calcium Phosphorus 3.8 Magnesium 2.0 Total Bilirubin AST ALT Alkaline Phosphatase Lactate Dehydrogenase Total Creatine Kinase CK-MB (CK-2) Troponin I Total Protein Albumin Globulin Albumin/Globulin Ratio 11/05/16 11/05/16 11/05/16 02:35 04:32 07:27 WBC 11.9 RBC 5.25 Hgb 15.7 Hct 47.3 MCV 90.1 MCH 30 MCHC 33.2 RDW 15.3 Plt Count 165 MPV 14.3 H Neut % (Auto) 78.0 H Lymph % (Auto) 10.8 L Daniels % (Auto) 10.4 Eos % (Auto) 0.1 Baso % (Auto) 0.1 Neut # (Auto) 9.3 H Lymph # (Auto) 1.3 L Daniels # (Auto) 1.2 H Eos # (Auto) 0.0 Baso # (Auto) 0.0 Total Counted Immature Gran % 0.6 Nucleated RBC % 0.7 Immature Gran # 0.07 Segmented Neutrophils Lymphocytes Monocytes Nucleated RBCs # 0.08 Platelet Estimate Hypochromasia [place] Cells Morphology Comment INR PT Patient/Control Mix Circ Anticoag PTT ABG pH ABG pCO2 ABG pO2 ABG HCO3 ABG Total CO2 ABG O2 Saturation ABG Base Excess Sodium Potassium Chloride Carbon Dioxide Anion Gap BUN Creatinine GFR Calculation BUN/Creatinine Ratio Glucose POC Glucose 97 131 H Calculated Osmolality Lactic Acid Calcium Phosphorus Magnesium Total Bilirubin AST ALT Alkaline Phosphatase Lactate Dehydrogenase Total Creatine Kinase CK-MB (CK-2) Troponin I Total Protein Albumin Globulin Albumin/Globulin Ratio - EKG EKG results: interpreted by me
[2016-11-05] MEDS: PANTOPRAZOLE 40 MG VIAL IV SCH (10:35)
[2016-11-05] MEDS: MINERAL OIL/PETROLATUM OPH OINT 3.5 GM TUBE BOTH EYES SCH ×3 (10:36→21:50)
[2016-11-05] MEDS ORDERED: GLUCAGON 1 MG VIAL IM PRN (11:02)
--- NOTE | 2016-11-05 11:50 | CT Report ---
Referring physician: Cara Rabago Exam: CT brain without contrast Date: 11/05/2016 Comparison: None Reason: Alteration of consciousness Technique: Axial images of the head were obtained without the use of contrast. Total DLP was 1164.60 mGy*cm. Findings: No hydrocephalus or midline shift is present. There is no evidence of an acute infarction, recent intracranial hemorrhage or abnormal mass effect. Minimal atrophy. The osseous structures appear intact. The mastoid air cells are clear. Mucosal thickening/fluid in the visualized paranasal sinuses especially involving the ethmoid air cells. Artificial right eye. Impression: No acute intracranial abnormality is identified. Minimal atrophy. Artificial right eye. Pansinusitis. The CT exam was performed using one or more of the following dose reduction techniques: Automated exposure control and adjustment of the mA and/or kV according to patient size. PROCEDURE INTERPRETED AT [facility] DEPARTMENT OF RADIOLOGY Final Report Signed by: Dr. Sarai Sanchez
[2016-11-05] MEDS: LEVOFLOXACIN INJ 750 MG in PREMIX 1 EACH IV SCH (16:57)
[2016-11-06] MEDS: PROPOFOL 1,000 MG/100 ML BOTTLE IV SCH ×5 (01:26→23:13)
[2016-11-06] MEDS: ALBUTEROL/IPRATROPIUM 3 ML NEB RESP TX SCH ×4 (01:38→20:27)
[2016-11-06 04:36] LABS: ABG Base Excess 0.3 MMOL/L (-2.5-2.5); ABG HCO3 24.8 MMOL/L (20-26); ABG Oxygen Saturation 99.2 % (95-100); ABG PCO2 37.8 MM HG (35-48); ABG TCO2 21.1 MMOL/L (23-27)
[2016-11-06 04:39] LABS: Basophils # 0.1 10*3/uL (0.0-0.2); Basophils % 0.5 % (0.0-0.8); Eosinophils # 0.1 10*3/uL (0.0-0.87); Eosinophils % 1.1 % (0.00-10.9); Hematocrit 41.4 VOL% (42.0-52.0); Hemoglobin 13.7 GM/DL (14.0-18.0); Immature Granulocytes % 0.4 %; Immature Granulocytes Absolute 0.04 #; Lymphocytes # 1.3 10*3/uL (1.4-4.0); Lymphocytes % 12.9 % (21.2-54.2); Mean Corpuscular HGB Conc 33.1 GM/DL (32-36); Mean Corpuscular Hemoglobin 30 PG (27-34); Mean Corpuscular Volume 91.2 FL (87-102); Mean Platelet Volume 13.7 FL (9.6-12.0); Monocytes # 1.2 10*3/uL (0.11-0.8); Monocytes % 12.1 % (1.7-12.7); NRBC # 0.02 10*3/uL; Neutrophils # 7.2 10*3/uL (1.4-7.4); Platelet Count 128 10*3/uL (130-400); Red Blood Count 4.54 10*6/uL (3.8-5.5); Red Cell Distribution Width 14.9 % (9.3-17.3); White Blood Count 9.9 10*3/uL (4.5-13.71)
[2016-11-06] MEDS: AMPICILLIN/SULBACTAM 3,000 MG in SODIUM CHLORIDE 0.9% 100 ML IV SCH ×3 (05:12→21:35)
[2016-11-06] MEDS: ENOXAPARIN 40 MG/0.4 ML SYRINGE SUBCUT SCH (05:12)
[2016-11-06] MEDS: VANCOMYCIN INJ 1,750 MG in SODIUM CHLORIDE 0.9% 500 ML IV SCH (05:12)
[2016-11-06 05:29] LABS: Albumin 2.2 G/DL (3.4-5.0); Bilirubin,Total 1.3 MG/DL (0.2-1.0); Calcium 7.7 MG/DL (8.5-10.1); Osmolality,Calculated 285.7 MOS/KG (273-304); Potassium 4.1 MMOL/L (3.5-5.1); Total Protein 4.8 G/DL (6.4-8.3)
[2016-11-06] MEDS: INSULIN REGULAR 100 UNIT/ML IV SCH ×6 (05:32→21:16)
[2016-11-06] MEDS: NOREPINEPHRINE 8 MG in SODIUM CHLORIDE 0.9% 242 ML IV SCH ×3 (05:36→18:51)
[2016-11-06] MEDS: ONDANSETRON 4 MG/2 ML VIAL IV PRN ×2 (07:27→20:40)
--- NOTE | 2016-11-06 07:39 | XRay Report ---
XR chest 1V portable Indication: Cardiac arrest Comparison: 05 November 2016 Findings: The heart and mediastinum are stable in size and configuration. The lines and tubes are unchanged in position. The pulmonary vascularity is increased with bilateral pulmonary alveolar density similar to previous. No lung infiltrates, effusions, pneumothorax or other abnormality is demonstrated. Impression: No significant change PROCEDURE INTERPRETED AT [facility] DEPARTMENT OF RADIOLOGY Final Report Signed by: Dr. Lico Charles
--- NOTE | 2016-11-06 08:04 | Pulmonology Progress Note ---
Pulmonary - PN: Subj Interval history: The patient is a 51-year-old black man that has a severe cardiomyopathy and had an arrest during surgery. He had just completed a lap cholecystectomy. He had a 20 minute resuscitation but didn't come around a little. He has been on pressors but is stable on the ventilator. He is on the Cooling protocol and now is back to normal temperature. He has had a fairly stable night and is starting to move around more. He does seem to respond better today. He has been doing some CPAP and is comfortable on the ventilator. His oxygenation is better today. Exam (Progress Note) - Constitutional Vitals: Period Temp Pulse Resp BP Sys/Lobo Pulse Ox Last 24 Hr 99.7 F-100.3 F 76-126 12-27 65-130/42-81 97-100 Exam: General appearance: moderately obese, other (patient is comfortable on the ventilator and does arouse a little bit. He is moving his extremities. ) - Head Head exam: Present: normal inspection - Eye Eye exam: Present: EOMI. Absent: scleral icterus Pupils: Present: CB, constricted - ENT ENT exam: Present: other (ET tube in good position, he does seem to have some swelling of his face.) - Neck Neck exam: Present: normal inspection. Absent: lymphadenopathy, thyromegaly - Respiratory Respiratory exam: Present: He has good breath sounds bilaterally and his lungs sound reasonably clear at present. Now he has good air movement. - Cardiovascular Cardiovascular exam: Present: regular rate and rhythm. Absent: gallop, JVD, systolic murmur - GI/Abdominal GI/Abdominal exam: Present: hypoactive bowel sounds, soft, other (he is postop and drains in place.). Absent: organomegaly - Extremities Exam Extremities exam: Present: edema (he has mild lower extremity edema.) - Neurological Exam Neurological exam: Present: altered (patient is opening his eyes and does seem to be moving around little better. ) - Skin Skin exam: Present: dry. Absent: rash Results - Labs CBC & BMP: 11/06/16 04:30 11/06/16 04:30 Labs: His PO2 is 131 with a PCO2 of 37 and a pH is 7.42 - Diagnostic Findings Procedure: Chest x-ray: image reviewed by me, report reviewed by me (chest x- ray shows cardiomegaly and the lung smiley are little clearer.) Assessment and Plan (1) Hypertension Status: Chronic Assessment and plan: The patient has a history of hypertension and a cardiomyopathy but his blood pressure has been on the low side while he sedated. He is still on low-dose Levophed. Current Visit: Yes (2) CHEMA (obstructive sleep apnea) Status: Acute Assessment and plan: This will be evaluated later. Current Visit: Yes (3) Cardiomyopathy Status: Chronic Assessment and plan: The patient apparently has an ejection fraction of 15% and severe cardiomyopathy. His oxygenation is stable and his chest x-ray looks a little better. Current Visit: Yes (4) Cardiopulmonary arrest with successful resuscitation Status: Acute Assessment and plan: The patient is on the ventilator after a successful resuscitation. He is back to normal temperature now and is getting an EEG. He is more arousable and moving around little better. We will continue weaning from the ventilator. Current Visit: Yes (5) S/P laparoscopic cholecystectomy Status: Acute Assessment and plan: The patient has had a lap cholecystectomy after presenting with significant abdominal pain. His abdomen seems to be doing okay. Current Visit: No
[2016-11-06] MEDS: MINERAL OIL/PETROLATUM OPH OINT 3.5 GM TUBE BOTH EYES SCH ×3 (08:30→21:36)
[2016-11-06] MEDS: PANTOPRAZOLE 40 MG VIAL IV SCH (08:30)
[2016-11-06] MEDS: FUROSEMIDE 40 MG/4 ML VIAL IV SCH ×2 (08:33→17:14)
--- NOTE | 2016-11-06 10:31 | Physician Query Form ---
CLICK EDIT DOCUMENT TO SELECT QUERY ANSWER --> OK --> SIGN Alicia López RN, CCDS Certified Clinical Cardiac Cath Lab Technologist W) [phone] (f) [phone] [email or web address] PROVIDERS: Make your selection(s) from the choices in EACH section by typing an "x" and enter comments in the comment section. Please use your independent medical judgment in providing your response. This request does not imply that any particular answer is desired or expected. CLINICAL INDICATORS: (Providers should not edit this section) The medical record indicates that the patient had surgery, suffered cardiac arrest, history of cardiomyopathy (severe), NICM (LV EF 15%), and the patient is on Norepinephrine for a low BP. Please clarify which, if any, of the following is the etiology of the above symptoms and treatment rendered: ( ) Septic shock ( ) Hypovolemic shock (x ) Cardiogenic shock ( ) Hemorrhagic shock ( ) Traumatic shock ( ) Shock due to, please specify etiology: ( ) Shock, unknown etiology ( ) Drug induced, please specify substance: ( ) Iatrogenic Hypotension ( ) Orthostatic Hypotension ( ) Hypotension, unknown etiology ( ) Other, please specify: ( ) Clinically unable to determine COMMENTS: Use of terms such as suspected, likely, or probable (associated with a specific diagnosis that is being evaluated, monitored, or treated as if it exists) are acceptable and can be restated in the discharge summary if not ruled out. MTDD
[2016-11-06] MEDS: DEXTROSE 5% NACL 0.45% 1,000 ML IV SCH (11:38)
--- NOTE | 2016-11-06 14:55 | Cardiology Progress Note ---
Moshe Mancia Vanessa, RN, am scribing for, and in the presence of, Yannick Meyer MD 14 :55. Assessment and Plan - Time spent with patient Time spent with patient: Less than 30 minutes (1) Cardiopulmonary arrest with successful resuscitation Status: Acute Assessment and plan: 51 year old black male with PMHx of severe NICM (LV EF 15%), CHF, HTN, and h/o cocaine abuse admitted to hospital for cholecystitis. He underwent LC today and had a bradycardic arrest at the end of the procedure. CPR for approximately 20 minutes. He did not immediately regain consciousness, which is also difficult to assess as he was on anesthetics at that time. -Cardiac arrest. Bradycardic arrest was likely due to underlying severe cardiomyopathy, stress from anesthesia, surgery. No ACS/MO. Completied cooling protocol. -Ventricular ectopy. So far, this was hemodynamically not significant. Monitor and replete electrolytes. -CHF. He has severe cardiomyopathy. CVP still elevated, continue IV diuresis. -Hold losartan/coreg/aldactone while on pressor. He appears to be adequately perfused and CVP was around 20 initially. Cont diuresis. If BP remains low, will need to hold. -He will need CMP workup when recovers from acute issues. Current Visit: Yes (2) S/P laparoscopic cholecystectomy Status: Acute Current Visit: No (3) Acute on chronic systolic CHF (congestive heart failure) Status: Acute Current Visit: No (4) Cardiomyopathy Status: Chronic Current Visit: Yes (5) CHEMA (obstructive sleep apnea) Status: Acute Current Visit: Yes (6) Hypertension Status: Chronic Current Visit: Yes (7) Cocaine abuse Status: Acute Current Visit: No (8) Uncontrolled hypertension Status: Acute Current Visit: No Cardiology - PN: Subj Interval history: Remains intubated. Requiring Levophed for BP, currenty 120/70. Temp is 96.8. Sinus tach, HR 100 bpm. Will open eyes, does not follow commands. Exam (Progress Note) - Constitutional Vitals: Period Temp Pulse Resp BP Sys/Lobo Pulse Ox Last 24 Hr 96.8 F-100.3 F 76-126 12-27 65-130/42-81 97-100 General appearance: morbidly obese - Head Head exam: Present: normal inspection, other (intubated) - Eye Eye exam: Absent: periorbital swelling - ENT ENT exam: Present: normal external ear exam - Neck Neck exam: Present: normal inspection - Respiratory Respiratory exam: Present: clear to auscultation bilaterally - Cardiovascular Cardiovascular exam: Present: regular rate and rhythm, systolic murmur, tachycardia - GI/Abdominal GI/Abdominal exam: Present: hypoactive bowel sounds - Extremities Exam Extremities exam: Present: normal inspection, normal capillary refill, edema (1+ ) - Neurological Exam Neurological exam: Present: other (will open eyes) - Skin Skin exam: Present: normal color, warm, dry. Absent: cyanosis Result/EKG - Labs CBC & BMP: 11/06/16 04:30 11/06/16 04:30 Lab Results: I have reviewed the past 24 hour labs Labs: Laboratory Results - last 24 hr 11/05/16 11/05/16 11/05/16 04:00 13:18 16:44 WBC RBC Hgb Hct MCV MCH MCHC RDW Plt Count MPV Neut % (Auto) Lymph % (Auto) [place] % (Auto) Eos % (Auto) Baso % (Auto) Neut # (Auto) Lymph # (Auto) [place] # (Auto) Eos # (Auto) Baso # (Auto) Immature Gran % Nucleated RBC % Immature Gran # Nucleated RBCs # ABG pH ABG pCO2 ABG pO2 ABG HCO3 ABG Total CO2 ABG O2 Saturation ABG Base Excess Sodium Potassium Chloride Carbon Dioxide Anion Gap BUN Creatinine GFR Calculation BUN/Creatinine Ratio Glucose POC Glucose 82 82 Calculated Osmolality Calcium Total Bilirubin AST ALT Alkaline Phosphatase Total Protein Albumin Globulin Albumin/Globulin Ratio Prealbumin 18.5 L 11/05/16 11/05/16 11/06/16 20:06 23:51 04:20 WBC RBC Hgb Hct MCV MCH MCHC RDW Plt Count MPV Neut % (Auto) Lymph % (Auto) [place] % (Auto) Eos % (Auto) Baso % (Auto) Neut # (Auto) Lymph # (Auto) [place] # (Auto) Eos # (Auto) Baso # (Auto) Immature Gran % Nucleated RBC % Immature Gran # Nucleated RBCs # ABG pH 7.420 ABG pCO2 37.8 ABG pO2 131.0 H ABG HCO3 24.8 ABG Total CO2 21.1 L ABG O2 Saturation 99.2 ABG Base Excess 0.3 Sodium Potassium Chloride Carbon Dioxide Anion Gap BUN Creatinine GFR Calculation BUN/Creatinine Ratio Glucose POC Glucose 98 98 Calculated Osmolality Calcium Total Bilirubin AST ALT Alkaline Phosphatase Total Protein Albumin Globulin Albumin/Globulin Ratio Prealbumin 11/06/16 11/06/16 11/06/16 04:30 04:30 07:48 WBC 9.9 RBC 4.54 Hgb 13.7 L D Hct 41.4 L MCV 91.2 MCH 30 MCHC 33.1 RDW 14.9 Plt Count 128 L D MPV 13.7 H Neut % (Auto) 73.0 Lymph % (Auto) 12.9 L [place] % (Auto) 12.1 Eos % (Auto) 1.1 Baso % (Auto) 0.5 Neut # (Auto) 7.2 Lymph # (Auto) 1.3 L [place] # (Auto) 1.2 H Eos # (Auto) 0.1 Baso # (Auto) 0.1 Immature Gran % 0.4 Nucleated RBC % 0.2 Immature Gran # 0.04 Nucleated RBCs # 0.02 ABG pH ABG pCO2 ABG pO2 ABG HCO3 ABG Total CO2 ABG O2 Saturation ABG Base Excess Sodium 145 Potassium 4.1 Chloride 111 H Carbon Dioxide 24 Anion Gap 14.1 BUN 9 Creatinine 0.90 GFR Calculation 152 BUN/Creatinine Ratio 10.00 Glucose 89 POC Glucose 103 Calculated Osmolality 285.7 Calcium 7.7 L Total Bilirubin 1.30 H AST 31 ALT 16 Alkaline Phosphatase 51 Total Protein 4.8 L Albumin 2.2 L Globulin 2.6 Albumin/Globulin Ratio 0.8 L Prealbumin - EKG EKG results: interpreted by me EKG shows: sinus rhythm Mitch Mancia Attila, MD, personally performed the services described in this documentation, ascribed by Laura Mesa RN in my presence, and it is both accurate and complete [id number] .
[2016-11-06] MEDS: HYDROmorphone 2 MG/1 ML VIAL IV PRN (15:01)
--- NOTE | 2016-11-06 15:08 | Hospitalist Progress Note ---
Assessment and Plan (1) Cardiopulmonary arrest with successful resuscitation Status: Acute Assessment and plan: 1)post PEA/asystole arrest after cholecystectomy- 24 hours since rewarmed and neuro exam is encouraging. Remains on levophed. Resp failure persists though he has CPAPed for a couple of hours. SIg severe systolic heart failure supportive care 2)HTN 3)vomiting- hold tube feeds for now, restart tomorrow. 4)severe cardiomyopathy 5)s/p lap kailey 5 days ago 6)morbid obesity Current Visit: Yes (2) Hypertension Status: Chronic Current Visit: Yes (3) CHEMA (obstructive sleep apnea) Status: Acute Current Visit: Yes (4) Cardiomyopathy Status: Chronic Current Visit: Yes (5) Tachycardia Status: Acute Current Visit: Yes (6) S/P laparoscopic cholecystectomy Status: Acute Current Visit: No Hospitalist: Subjective Interval history: Mr Ramírez has followed commands when diprivan decreased but otherwise is sedated. He has had some emesis of secretions and tube feeds and seems to gag on the ETT, NGT, and bite block. Tube feeds held though there is no residual. Exam - Constitutional Vitals: Period Temp Pulse Resp BP Sys/Lobo Pulse Ox Last 24 Hr 96.8 F-100.3 F 76-126 12-27 65-130/42-81 97-100 General appearance: no acute distress, morbidly obese - Eye Eye exam: Present: EOMI. Absent: scleral icterus - Respiratory Respiratory exam: Present: clear to auscultation bilaterally - Cardiovascular Cardiovascular exam: Present: regular rate and rhythm - GI/Abdominal GI/Abdominal exam: Present: normal bowel sounds, soft. Absent: tenderness - Extremities Exam Extremities exam: Present: edema - Skin Skin exam: Present: warm, dry Results - Labs CBC & BMP: 11/06/16 04:30 11/06/16 04:30 Lab Results: I have reviewed the past 24 hour labs
[2016-11-06] MEDS: LEVOFLOXACIN INJ 750 MG in PREMIX 1 EACH IV SCH (17:14)
--- NOTE | 2016-11-06 17:32 | General Surgery Progress Note ---
Assessment and Plan (1) Abdominal pain Status: Acute Assessment and plan: Impression: 1. Abdominal pain etiology unclear questionable gallbladder disease undiagnosed 2. Obesity 3. Congestive heart failure 4. Low cardiac ejection fraction Recommendations: 1. Certainly would look at do a HIDA scan to see if its abnormal with that ejection fraction 2. We consider repeating ultrasound after his been nothing by mouth for at least 12 hours to see if there is any changes in the gallbladder see if it distends back up looks normal 3. We consider a CT scan abdomen and pelvis with contrast to get a better idea this is nothing else going on. 4. He needs a complete cardiac evaluation before that any consideration of surgery because he is at such high risk 5. May need pulmonary consult at some point 6. We consider surgery on the gallbladder all if everything else is ruled out and that we have clear diagnosis that he could possibly have gallbladder disease. 10/31/2016. Patient continues to complain of discomfort in the upper abdomen right chest area. On exam though he does not exhibit any guarding or unusual tenderness on deep palpation. No masses are palpable. He did not have his oxygen own and I have noted cardiology's note. He is for a HIDA scan today and hopefully we'll plan to CT scan abdomen and pelvis tomorrow. Still unclear whether he has gallbladder disease but certainly he remains a high risk surgical patient because of his cardiac disease. 11/01/2016 Patient continues to have some discomfort in the upper part of his abdomen. Better today than has been. His CT scan abdomen and pelvis was performed in his completed and they continue to see her contracted gallbladder normal size biliary tree. See some stranding around the kidneys but otherwise nothing dramatically noted at this point. I felt the pancreas was okay. At this point after discussing his cardiac status with Dr. Dodson we feel like that he has in optimal condition to proceed with surgery at this time. He is a high risk patient and he understands this but he is okay with going ahead with surgery. Dr. Dodson feels like that he would be best to get him at this point when he is optimal as opposed to let the gallbladder get truly sick and then having a worse situation deal with. 11/04/2016 Patient remains on the ventilator and they're starting to warm him up today. Else reduce his sedation once he is warm to see I much mental activity he comes back with. From his surgery he is done well minimal MAT drainage at this point. Remains with a mild ileus with some bowel sounds are present. NG tube with minimal drainage. We'll consider possible to feedings but right now wait and see how he wakes up. 11/06/2016 Patient remains on the ventilator but they're reducing his sedation any symptoms to be waking up. Abdomen remains slightly distended with hypoactive bowel sounds but to feedings have been started now. He has a moderate amount of MAT drainage still at this time. From a surgical standpoint he is doing good with the limbs wounds looking clean and dry and we just waiting for the drainage to decrease and after weaning pulled MAT drain. Cardiac velarde he seems to be stable at this point and minimally seems to be waking up at this time. Will let cardiology and neurology continue to manage this part of things as well as respiratory manage the ventilator. Current Visit: Yes Qualifiers: Abdominal location: upper abdomen, unspecified Qualified Code(s): R10.10 - Upper abdominal pain, unspecified Subjective Patient reports: Present: no new complaints, other (remains on the ventilator but is waking up) Exam - Constitutional Vitals: Period Temp Pulse Resp BP Sys/Lobo Pulse Ox Last 24 Hr 96.8 F-100.2 F 76-115 12-18 65-130/42-81 97-100 General appearance: mild distress - Head Head exam: Present: normal inspection - ENT ENT exam: Present: normal exam - Neck Neck exam: Present: normal inspection - Respiratory Respiratory exam: Present: rales, rhonchi - Cardiovascular Cardiovascular exam: Present: RRR - GI/Abdominal GI/Abdominal exam: Present: distended, hypoactive bowel sounds, soft, other (MAT drainage with a moderate amount of drainage.) - Extremities Exam Extremities exam: Present: normal inspection - Back Exam Back exam: Present: normal inspection - Neurological Exam Neurological exam: Present: altered - Skin Skin exam: Present: normal color, warm, dry Results - Labs CBC & BMP: 11/06/16 04:30 11/06/16 04:30 Lab Results: I have reviewed the past 24 hour labs
[2016-11-06] MEDS: MINERAL OIL/PETROLATUM OPH OINT 3.5 GM TUBE BOTH EYES PRN (21:35)
[2016-11-07] MEDS: ALBUTEROL/IPRATROPIUM 3 ML NEB RESP TX SCH ×4 (01:15→19:53)
[2016-11-07] MEDS: MORPHINE 2 MG/1 ML SYRINGE IV PRN (01:18)
[2016-11-07] MEDS: ONDANSETRON 4 MG/2 ML VIAL IV PRN (01:27)
[2016-11-07] MEDS: ACETAMINOPHEN 650 MG SUPP RECTAL PRN (01:33)
[2016-11-07] MEDS: INSULIN REGULAR 100 UNIT/ML IV SCH ×6 (01:47→19:44)
[2016-11-07] MEDS: PROPOFOL 1,000 MG/100 ML BOTTLE IV SCH ×6 (03:00→21:30)
[2016-11-07] MEDS: DEXTROSE 5% NACL 0.45% 1,000 ML IV SCH ×2 (03:02→12:52)
[2016-11-07] MEDS: DEXTROSE 50% 25 GM/50 ML VIAL IV PRN (04:06)
[2016-11-07] MEDS: AMPICILLIN/SULBACTAM 3,000 MG in SODIUM CHLORIDE 0.9% 100 ML IV SCH ×3 (04:29→20:20)
[2016-11-07 04:34] LABS: ABG Base Excess 2.5 MMOL/L (-2.5-2.5); ABG HCO3 26.2 MMOL/L (20-26); ABG Oxygen Saturation 98.7 % (95-100); ABG PCO2 37.7 MM HG (35-48); ABG PO2 132.6 MM HG (80-95); ABG TCO2 27.4 MMOL/L (23-27)
[2016-11-07 04:53] LABS: Basophils % 0.5 % (0.0-0.8); Eosinophils # 0.3 10*3/uL (0.0-0.87); Eosinophils % 3.4 % (0.00-10.9); Hematocrit 40.9 VOL% (42.0-52.0); Hemoglobin 13.2 GM/DL (14.0-18.0); Immature Granulocytes % 0.4 %; Immature Granulocytes Absolute 0.03 #; Lymphocytes # 0.8 10*3/uL (1.4-4.0); Mean Corpuscular HGB Conc 32.3 GM/DL (32-36); Mean Corpuscular Hemoglobin 29 PG (27-34); Mean Corpuscular Volume 89.9 FL (87-102); Mean Platelet Volume 13.5 FL (9.6-12.0); Monocytes % 12.8 % (1.7-12.7); Neutrophils # 5.5 10*3/uL (1.4-7.4); Neutrophils % 72.9 % (38.7-73.9); Platelet Count 102 10*3/uL (130-400); Red Blood Count 4.55 10*6/uL (3.8-5.5); Red Cell Distribution Width 15.2 % (9.3-17.3); White Blood Count 7.6 10*3/uL (4.5-13.71)
[2016-11-07 05:01] LABS: Calcium 7.7 MG/DL (8.5-10.1); Magnesium 1.7 MG/DL (1.8-2.4); Osmolality,Calculated 287.6 MOS/KG (273-304); Potassium 3.7 MMOL/L (3.5-5.1)
[2016-11-07] MEDS: ENOXAPARIN 40 MG/0.4 ML SYRINGE SUBCUT SCH (05:31)
[2016-11-07] MEDS: MAGNESIUM SULF RIDER 2 GM in PREMIX 1 EACH IV PRN (05:35)
[2016-11-07] MEDS: POTASSIUM CHLORIDE RIDER 20 MEQ in PREMIX 1 EACH IV PRN (05:41)
--- NOTE | 2016-11-07 05:41 | Pulmonology Progress Note ---
Pulmonary - PN: Subj Interval history: The patient is a 51-year-old black man that has a severe cardiomyopathy and had an arrest during surgery. He had just completed a lap cholecystectomy. He had a 20 minute resuscitation but didn't come around a little. He has been on pressors but is stable on the ventilator. He is on the Cooling protocol and now is back to normal temperature. He has had a fairly stable night and is starting to move around more. He still doesn't follow commands although he moves his extremities. He has not been able to do CPAP very well and his chest x-ray looks like congestive heart failure. Exam (Progress Note) - Constitutional Vitals: Period Temp Pulse Resp BP Sys/Lobo Pulse Ox Last 24 Hr 96.8 F-102.4 F 76-122 12-42 86-131/47-84 97-100 Exam: General appearance: moderately obese, other (patient is comfortable on the ventilator and does arouse a little bit. He is moving his extremities. ) - Head Head exam: Present: normal inspection - Eye Eye exam: Present: EOMI. Absent: scleral icterus Pupils: Present: CB, constricted - ENT ENT exam: Present: other (ET tube in good position, he does seem to have some swelling of his face.) - Neck Neck exam: Present: normal inspection. Absent: lymphadenopathy, thyromegaly - Respiratory Respiratory exam: Present: He has good breath sounds bilaterally but he does have some crackles and rhonchi bilaterally. - Cardiovascular Cardiovascular exam: Present: regular rate and rhythm. Absent: gallop, JVD, systolic murmur - GI/Abdominal GI/Abdominal exam: Present: hypoactive bowel sounds, soft, other (he is postop and drains in place.). Absent: organomegaly - Extremities Exam Extremities exam: Present: edema (he has mild lower extremity edema.) - Neurological Exam Neurological exam: Present: altered (patient is opening his eyes and does seem to be moving around little better. ) - Skin Skin exam: Present: dry. Absent: rash Results - Labs CBC & BMP: 11/07/16 04:15 11/07/16 04:15 Labs: His PO2 is 132 with a PCO2 of 37 pH is 7.46 - Diagnostic Findings Procedure: Chest x-ray: image reviewed by me, report reviewed by me (chest x- ray looks like congestive heart failure.) Assessment and Plan (1) Hypertension Status: Chronic Assessment and plan: The patient has a history of hypertension and a cardiomyopathy but his blood pressure has been on the low side while he sedated. He is still on low-dose Levophed. Current Visit: Yes (2) CHEMA (obstructive sleep apnea) Status: Acute Assessment and plan: This will be evaluated later. Current Visit: Yes (3) Cardiomyopathy Status: Chronic Assessment and plan: The patient apparently has an ejection fraction of 15% and severe cardiomyopathy. His chest x-ray looks like heart failure now. We will try to diurese a little more. His oxygenation is stable . Current Visit: Yes (4) Cardiopulmonary arrest with successful resuscitation Status: Acute Assessment and plan: The patient is on the ventilator after a successful resuscitation. He is back to normal temperature now and is getting an EEG. He is more arousable and moving around little better. He still does not follow commands very well. Current Visit: Yes (5) S/P laparoscopic cholecystectomy Status: Acute Assessment and plan: The patient has had a lap cholecystectomy after presenting with significant abdominal pain. His abdomen seems to be doing okay. Current Visit: No
--- NOTE | 2016-11-07 09:20 | Cardiology Progress Note ---
Assessment and Plan (1) Cardiopulmonary arrest with successful resuscitation Status: Acute Assessment and plan: 51 year old black male with PMHx of severe NICM (LV EF 15%), CHF, HTN, and h/o cocaine abuse admitted to hospital for cholecystitis. He underwent LC and had a bradycardic arrest at the end of the procedure. CPR for approximately 20 minutes. He did not immediately regain consciousness, which is also difficult to assess as he was on anesthetics at that time. -Cardiac arrest. Bradycardic arrest was likely due to underlying severe cardiomyopathy, stress from anesthesia, surgery. No ACS/MN. Completed cooling protocol. Still poor neuro function. -Ventricular ectopy. So far, this was hemodynamically not significant. Monitor and replete electrolytes. -CHF. He has severe cardiomyopathy. CVP was elevated, still has edema and pulm congestion, continue IV diuresis. -Will resume CHF regimen when volume overload improves -He will need CMP workup when recovers from acute issues. Current Visit: Yes (2) S/P laparoscopic cholecystectomy Status: Acute Current Visit: No (3) Acute on chronic systolic CHF (congestive heart failure) Status: Acute Current Visit: No (4) Cardiomyopathy Status: Chronic Current Visit: Yes (5) CHEMA (obstructive sleep apnea) Status: Acute Current Visit: Yes (6) Hypertension Status: Chronic Current Visit: Yes (7) Cocaine abuse Status: Acute Current Visit: No (8) Uncontrolled hypertension Status: Acute Current Visit: No Cardiology - PN: Subj Interval history: He is still not waking up properly. Blood pressure, heart rate better. Still with pulmonary congestion, despite being on the vent. Exam (Progress Note) - Constitutional Vitals: Period Temp Pulse Resp BP Sys/Lobo Pulse Ox Last 24 Hr 100.3 F-102.4 F 79-122 12-42 81-131/47-84 97-100 General appearance: morbidly obese - Head Head exam: Present: atraumatic - Eye Eye exam: Absent: periorbital swelling - ENT ENT exam: Present: normal external ear exam - Neck Neck exam: Present: other (jvd) - Respiratory Respiratory exam: Present: clear to auscultation bilaterally - Cardiovascular Cardiovascular exam: Present: regular rate and rhythm - GI/Abdominal GI/Abdominal exam: Present: hypoactive bowel sounds - Extremities Exam Extremities exam: Present: normal inspection, normal capillary refill, edema (2+ ) - Neurological Exam Neurological exam: Present: other (unresponsive) - Skin Skin exam: Present: normal color, warm. Absent: cyanosis Result/EKG - Labs CBC & BMP: 11/07/16 04:15 11/07/16 04:15 Lab Results: I have reviewed the past 24 hour labs Labs: Laboratory Results - last 24 hr 11/06/16 11/06/16 11/06/16 11:53 15:56 16:11 WBC RBC Hgb Hct MCV MCH MCHC RDW Plt Count MPV Neut % (Auto) Lymph % (Auto) [place] % (Auto) Eos % (Auto) Baso % (Auto) Neut # (Auto) Lymph # (Auto) [place] # (Auto) Eos # (Auto) Baso # (Auto) Immature Gran % Nucleated RBC % Immature Gran # Nucleated RBCs # ABG pH ABG pCO2 ABG pO2 ABG HCO3 ABG Total CO2 ABG O2 Saturation ABG Base Excess Sodium Potassium Chloride Carbon Dioxide Anion Gap BUN Creatinine GFR Calculation BUN/Creatinine Ratio Glucose POC Glucose 91 70 L 85 Calculated Osmolality Calcium Magnesium 11/06/16 11/06/16 11/07/16 20:04 21:43 00:21 WBC RBC Hgb Hct MCV MCH MCHC RDW Plt Count MPV Neut % (Auto) Lymph % (Auto) [place] % (Auto) Eos % (Auto) Baso % (Auto) Neut # (Auto) Lymph # (Auto) [place] # (Auto) Eos # (Auto) Baso # (Auto) Immature Gran % Nucleated RBC % Immature Gran # Nucleated RBCs # ABG pH ABG pCO2 ABG pO2 ABG HCO3 ABG Total CO2 ABG O2 Saturation ABG Base Excess Sodium Potassium Chloride Carbon Dioxide Anion Gap BUN Creatinine GFR Calculation BUN/Creatinine Ratio Glucose POC Glucose 73 L 80 86 Calculated Osmolality Calcium Magnesium 11/07/16 11/07/16 11/07/16 03:55 04:15 04:15 WBC 7.6 RBC 4.55 Hgb 13.2 L Hct 40.9 L MCV 89.9 MCH 29 MCHC 32.3 RDW 15.2 Plt Count 102 L D MPV 13.5 H Neut % (Auto) 72.9 Lymph % (Auto) 10.0 L [place] % (Auto) 12.8 H Eos % (Auto) 3.4 Baso % (Auto) 0.5 Neut # (Auto) 5.5 Lymph # (Auto) 0.8 L [place] # (Auto) 1.0 H Eos # (Auto) 0.3 Baso # (Auto) 0.0 Immature Gran % 0.4 Nucleated RBC % 0.0 Immature Gran # 0.03 Nucleated RBCs # 0.00 ABG pH ABG pCO2 ABG pO2 ABG HCO3 ABG Total CO2 ABG O2 Saturation ABG Base Excess Sodium 146 H Potassium 3.7 Chloride 109 H Carbon Dioxide 28 Anion Gap 12.7 BUN 8 Creatinine 1.00 GFR Calculation 134 BUN/Creatinine Ratio 8.00 Glucose 94 POC Glucose 63 L Calculated Osmolality 287.6 Calcium 7.7 L Magnesium 1.7 L 11/07/16 11/07/16 11/07/16 04:15 05:30 07:54 WBC RBC Hgb Hct MCV MCH MCHC RDW Plt Count MPV Neut % (Auto) Lymph % (Auto) [place] % (Auto) Eos % (Auto) Baso % (Auto) Neut # (Auto) Lymph # (Auto) [place] # (Auto) Eos # (Auto) Baso # (Auto) Immature Gran % Nucleated RBC % Immature Gran # Nucleated RBCs # ABG pH 7.460 H ABG pCO2 37.7 ABG pO2 132.6 H ABG HCO3 26.2 H ABG Total CO2 27.4 H ABG O2 Saturation 98.7 ABG Base Excess 2.5 Sodium Potassium Chloride Carbon Dioxide Anion Gap BUN Creatinine GFR Calculation BUN/Creatinine Ratio Glucose POC Glucose 115 H 97 Calculated Osmolality Calcium Magnesium - EKG EKG results: interpreted by me
[2016-11-07] MEDS: NOREPINEPHRINE 8 MG in SODIUM CHLORIDE 0.9% 242 ML IV SCH ×2 (10:02→17:38)
[2016-11-07] MEDS: FUROSEMIDE 40 MG/4 ML VIAL IV SCH ×2 (10:03→15:49)
[2016-11-07] MEDS: MINERAL OIL/PETROLATUM OPH OINT 3.5 GM TUBE BOTH EYES PRN (10:03)
[2016-11-07] MEDS: MINERAL OIL/PETROLATUM OPH OINT 3.5 GM TUBE BOTH EYES SCH ×3 (10:09→20:20)
[2016-11-07] MEDS: PANTOPRAZOLE 40 MG VIAL IV SCH (10:09)
--- NOTE | 2016-11-07 10:18 | Hospitalist Progress Note ---
Assessment and Plan (1) Cardiopulmonary arrest with successful resuscitation Status: Acute Assessment and plan: Currently stable being followed by pulmonary [facility] per their protocol Current Visit: Yes Hospitalist: Subjective Interval history: Patient without complaints this morning comfortable on the ventilator Exam - Constitutional Vitals: Period Temp Pulse Resp BP Sys/Lobo Pulse Ox Last 24 Hr 100.3 F-102.4 F 79-122 12-42 81-131/47-84 97-100 Exam: Constitutional: General appearance is normal Eyes: Pupils equal round react to light and accommodation conjunctiva and lids are normal Neck: supple without masses Respiratory: Respiratory effort is normal. Lungs are clear to auscultation. Resonant to percussion. Cardiac: Regular rate and rhythm without murmur rub or gallop. PMI at the midclavicular line by palpation. Carotid arteries 2+ palpation no bruits GI: Bowel sounds normoactive, no tenderness or rebound tenderness, no organomegaly Extremities: no clubbing cyanosis or edema Results - Labs CBC & BMP: 11/07/16 04:15 11/07/16 04:15
--- NOTE | 2016-11-07 10:40 | XRay Report ---
History is short of breath Comparison 11/06/2016 The heart remains enlarged. Supportive devices grossly unchanged in appearance including ET tube tip at T4-T5 There remain moderate diffuse bilateral infiltrates versus edema with more focal consolidation obscuring the left diaphragm. Small underlying effusions remain Impression: No significant change described above PROCEDURE INTERPRETED AT [facility] DEPARTMENT OF RADIOLOGY Final Report Signed by: Dr. Maryse Jonas
--- NOTE | 2016-11-07 11:33 | Event Note ---
He is sedated on the ventilator. The nurses report no new problems. He is stable vital signs. His abdomen is nontender but seems minimally distended. The nurses states that this occurred after the restorative tube feeds yesterday. We'll hold his tube feeds today. He has no bile in his MAT drain. His lab work looks okay.
[2016-11-07] MEDS: HYDROmorphone 2 MG/1 ML VIAL IV PRN (14:22)
[2016-11-07] MEDS: LEVOFLOXACIN INJ 750 MG in PREMIX 1 EACH IV SCH (16:06)
[2016-11-08] MEDS: ALBUTEROL/IPRATROPIUM 3 ML NEB RESP TX SCH ×4 (00:04→19:06)
[2016-11-08] MEDS: PROPOFOL 1,000 MG/100 ML BOTTLE IV SCH ×9 (00:07→22:20)
[2016-11-08] MEDS: INSULIN REGULAR 100 UNIT/ML IV SCH ×6 (00:59→22:27)
[2016-11-08] MEDS: HYDROmorphone 2 MG/1 ML VIAL IV PRN ×2 (00:59→23:50)
[2016-11-08] MEDS: ACETAMINOPHEN 650 MG SUPP RECTAL PRN ×2 (01:15→16:07)
[2016-11-08 03:14] LABS: Basophils % 0.6 % (0.0-0.8); Eosinophils # 0.4 10*3/uL (0.0-0.87); Eosinophils % 5.8 % (0.00-10.9); Hematocrit 39.6 VOL% (42.0-52.0); Hemoglobin 13.1 GM/DL (14.0-18.0); Immature Granulocytes % 0.5 %; Immature Granulocytes Absolute 0.03 #; Lymphocytes # 0.8 10*3/uL (1.4-4.0); Lymphocytes % 11.7 % (21.2-54.2); Mean Corpuscular HGB Conc 33.1 GM/DL (32-36); Mean Corpuscular Hemoglobin 30 PG (27-34); Mean Corpuscular Volume 90.4 FL (87-102); Mean Platelet Volume 14.2 FL (9.6-12.0); Monocytes # 1.1 10*3/uL (0.11-0.8); Monocytes % 17.5 % (1.7-12.7); Neutrophils # 4.1 10*3/uL (1.4-7.4); Neutrophils % 63.9 % (38.7-73.9); Platelet Count 103 10*3/uL (130-400); Red Blood Count 4.38 10*6/uL (3.8-5.5); Red Cell Distribution Width 15.1 % (9.3-17.3); White Blood Count 6.4 10*3/uL (4.5-13.71)
[2016-11-08 03:41] LABS: Calcium 7.6 MG/DL (8.5-10.1); Osmolality,Calculated 286.7 MOS/KG (273-304); Potassium 3.2 MMOL/L (3.5-5.1)
[2016-11-08 03:44] LABS: ABG Base Excess 4.6 MMOL/L (-2.5-2.5); ABG HCO3 27.6 MMOL/L (20-26); ABG Oxygen Saturation 98.9 % (95-100); ABG PCO2 35.9 MM HG (35-48); ABG PH 7.504 (7.35-7.45); ABG PO2 140.5 MM HG (80-95); ABG TCO2 28.7 MMOL/L (23-27)
[2016-11-08 03:48] LABS: Eosinophils 5 % (0-10); Lymphocytes 13 % (20-55); Segmented Neutrophils 72 % (50-85)
[2016-11-08 03:51] LABS: Platelet Estimate Adequate
[2016-11-08 03:53] LABS: Burr Cells Few; Total Cells Counted 100
[2016-11-08] MEDS: ENOXAPARIN 40 MG/0.4 ML SYRINGE SUBCUT SCH (04:10)
[2016-11-08] MEDS: AMPICILLIN/SULBACTAM 3,000 MG in SODIUM CHLORIDE 0.9% 100 ML IV SCH ×3 (04:10→22:35)
[2016-11-08] MEDS: POTASSIUM CHLORIDE RIDER 20 MEQ in PREMIX 1 EACH IV PRN ×3 (04:11→12:52)
[2016-11-08] MEDS: MAGNESIUM SULF RIDER 2 GM in PREMIX 1 EACH IV PRN (04:32)
--- NOTE | 2016-11-08 05:41 | Pulmonology Progress Note ---
Pulmonary - PN: Subj Interval history: The patient is a 51-year-old black man that has a severe cardiomyopathy and had an arrest during surgery. He had just completed a lap cholecystectomy. He had a 20 minute resuscitation but didn't come around a little. He has been on pressors but is stable on the ventilator. He is on the Cooling protocol and now is back to normal temperature. He has had a fairly stable night and is starting to move around more. He still doesn't follow commands although he moves his extremities. Yesterday he did not do CPAP very well. He did diurese reasonably well. His chest x-ray still shows bilateral changes. He gets very anxious when off sedation. We'll plan a therapeutic bronchoscopy tomorrow to clear his airways. Exam (Progress Note) - Constitutional Vitals: Period Temp Pulse Resp BP Sys/Lobo Pulse Ox Last 24 Hr 98.3 F-101.1 F 71-120 12-38 89-152/51-100 97-100 Exam: General appearance: moderately obese, other (patient is sedated on the ventilator and appear stable at present.) - Head Head exam: Present: normal inspection - Eye Eye exam: Present: EOMI. Absent: scleral icterus Pupils: Present: CB, constricted - ENT ENT exam: Present: other (ET tube in good position, he does seem to have some swelling of his face.) - Neck Neck exam: Present: normal inspection. Absent: lymphadenopathy, thyromegaly - Respiratory Respiratory exam: Present: He has good breath sounds bilaterally but he still has coarse breath sounds with rhonchi bilaterally. - Cardiovascular Cardiovascular exam: Present: regular rate and rhythm. Absent: gallop, JVD, systolic murmur - GI/Abdominal GI/Abdominal exam: Present: hypoactive bowel sounds, soft, other (he is postop and drains in place.). Absent: organomegaly - Extremities Exam Extremities exam: Present: edema (he has mild lower extremity edema.) - Neurological Exam Neurological exam: Present: altered (patient is opening his eyes and does seem to be moving around little better. ) - Skin Skin exam: Present: dry. Absent: rash Results - Labs CBC & BMP: 11/08/16 03:10 11/08/16 03:10 Labs: ABGs showed PO2 of 140 with a PCO2 of 35 and a pH of 7.5. - Diagnostic Findings Procedure: Chest x-ray: image reviewed by me, report reviewed by me (chest x- ray shows cardiomegaly with bilateral infiltrates. He still looks like he has some heart failure.) Assessment and Plan (1) Hypertension Status: Chronic Assessment and plan: The patient has a history of hypertension and a cardiomyopathy but his blood pressure has been on the low side while he sedated. He is still on low-dose Levophed. He has been diuresing fairly well. Current Visit: Yes (2) CHEMA (obstructive sleep apnea) Status: Acute Assessment and plan: This will be evaluated later. Current Visit: Yes (3) Cardiomyopathy Status: Chronic Assessment and plan: The patient apparently has an ejection fraction of 15% and severe cardiomyopathy. His chest x-ray looks like heart failure now. He does seem to be diuresing fairly well. He still has a very abnormal chest x-ray. Current Visit: Yes (4) Cardiopulmonary arrest with successful resuscitation Status: Acute Assessment and plan: The patient is on the ventilator after a successful resuscitation. He is starting to move around more but does get very agitated. He may need tranquilizer to help him come off the ventilator. Current Visit: Yes (5) S/P laparoscopic cholecystectomy Status: Acute Assessment and plan: The patient has had a lap cholecystectomy after presenting with significant abdominal pain. His abdomen seems to be doing okay. Current Visit: No
--- NOTE | 2016-11-08 07:53 | Hospitalist Progress Note ---
Assessment and Plan (1) Cardiopulmonary arrest with successful resuscitation Status: Acute Assessment and plan: Currently stable being followed by pulmonary wean per their protocol 11/08 patient is doing reasonably well this morning of the going to begin some weaning trials hopefully. Abdomen is a little distended we'll get a KUB and review his lab. Magnesium is low and potassium is low we'll supplement both of those. Chest x-ray looks worse today with a worsening right lower lobe infiltrate continue antibiotics and bronchodilators he's been diuresed Current Visit: Yes Hospitalist: Subjective Interval history: Patient without complaints today on the ventilator. Nurses, rounds this morning concerned his abdomen is a little bit more distended we will go ahead and evaluate that Exam - Constitutional Vitals: Period Temp Pulse Resp BP Sys/Lobo Pulse Ox Last 24 Hr 98.3 F-101.1 F 71-120 12-38 89-152/51-100 97-100 Exam: Constitutional: General appearance is normal Eyes: Pupils equal round react to light and accommodation conjunctiva and lids are normal Neck: supple without masses Respiratory: Respiratory effort is normal. Lungs are clear to auscultation. Resonant to percussion. Cardiac: Regular rate and rhythm without murmur rub or gallop. PMI at the midclavicular line by palpation. Carotid arteries 2+ palpation no bruits GI: Bowel sounds normoactive, no tenderness or rebound tenderness, no organomegaly, mildly distended but soft Extremities: no clubbing cyanosis or edema Results - Labs CBC & BMP: 11/08/16 03:10 11/08/16 03:10
[2016-11-08] MEDS ORDERED: POTASSIUM CHLORIDE RIDER 20 MEQ in PREMIX 1 EACH IV ONE (08:09)
--- NOTE | 2016-11-08 08:21 | Cardiology Progress Note ---
Assessment and Plan (1) Cardiopulmonary arrest with successful resuscitation Status: Acute Assessment and plan: 51 year old black male with PMHx of severe NICM (LV EF 15%), CHF, HTN, and h/o cocaine abuse admitted to hospital for cholecystitis. He underwent LC and had a bradycardic arrest at the end of the procedure. CPR for approximately 20 minutes. He did not immediately regain consciousness, which is also difficult to assess as he was on anesthetics at that time. -Cardiac arrest. Bradycardic arrest was likely due to underlying severe cardiomyopathy, stress from anesthesia, surgery. No ACS/MA. Completed cooling protocol. Still poor neuro function. -CHF. He has severe cardiomyopathy. CVP was elevated, still has edema and pulm congestion, continue IV diuresis. Decrease Lasix to 40 mg IV twice a day, he had 7 liters of urine output yesterday. X-ray looks worse today, he likely aspirated. Saturation 100%. -Hypokalemia, hypomagnesemia, increase electrolyte repletion. Unable to go enteral route currently, he vomited and is on NGT suction now. We will use the central line. -Continue blood pressure support with levophed. At this time, low cardiac output and doesn't seem to be a major factor, if he becomes hypotensive and oliguric, dobutamine may be tried for inotropic support. -He will need CMP workup when recovers from acute issues. Current Visit: Yes (2) S/P laparoscopic cholecystectomy Status: Acute Current Visit: No (3) Acute on chronic systolic CHF (congestive heart failure) Status: Acute Current Visit: No (4) Cardiomyopathy Status: Chronic Current Visit: Yes (5) CHEMA (obstructive sleep apnea) Status: Acute Current Visit: Yes (6) Hypertension Status: Chronic Current Visit: Yes (7) Cocaine abuse Status: Acute Current Visit: No (8) Uncontrolled hypertension Status: Acute Current Visit: No Cardiology - PN: Subj Interval history: He vomited yesterday and may have aspirated. -5 L yesterday, but the x-ray looks worse. He does not tolerate CPAP trials. Hypokalemic, hypomagnesemic, more frequent ventricular ectopy on telemetry. Blood pressure is stable, on Levophed. Exam (Progress Note) - Constitutional Vitals: Period Temp Pulse Resp BP Sys/Lobo Pulse Ox Last 24 Hr 98.3 F-101.1 F 71-120 12-38 89-152/51-100 97-100 General appearance: morbidly obese - Head Head exam: Present: normal inspection - Eye Eye exam: Absent: periorbital swelling - ENT ENT exam: Present: normal external ear exam - Neck Neck exam: Present: normal inspection - Respiratory Respiratory exam: Present: decreased breath sounds - Cardiovascular Cardiovascular exam: Present: regular rate and rhythm - GI/Abdominal GI/Abdominal exam: Present: hypoactive bowel sounds - Extremities Exam Extremities exam: Present: normal capillary refill, edema (1+) - Neurological Exam Neurological exam: Present: other (unresponsive) - Skin Skin exam: Present: normal color, warm. Absent: cyanosis Result/EKG - Labs CBC & BMP: 11/08/16 03:10 11/08/16 03:10 Lab Results: I have reviewed the past 24 hour labs Labs: Laboratory Results - last 24 hr 11/07/16 11/07/16 11/07/16 11:25 16:08 19:24 WBC RBC Hgb Hct MCV MCH MCHC RDW Plt Count MPV Neut % (Auto) Lymph % (Auto) Pine % (Auto) Eos % (Auto) Baso % (Auto) Neut # (Auto) Lymph # (Auto) Pine # (Auto) Eos # (Auto) Baso # (Auto) Total Counted Immature Gran % Nucleated RBC % Immature Gran # Segmented Neutrophils Lymphocytes Monocytes Eosinophils Basophils Nucleated RBCs # Platelet Estimate Edson Cells ABG pH ABG pCO2 ABG pO2 ABG HCO3 ABG Total CO2 ABG O2 Saturation ABG Base Excess Sodium Potassium Chloride Carbon Dioxide Anion Gap BUN Creatinine GFR Calculation BUN/Creatinine Ratio Glucose POC Glucose 96 96 137 H Calculated Osmolality Calcium Magnesium 11/08/16 11/08/16 11/08/16 00:47 03:10 03:10 WBC 6.4 RBC 4.38 Hgb 13.1 L Hct 39.6 L MCV 90.4 MCH 30 MCHC 33.1 RDW 15.1 Plt Count 103 L MPV 14.2 H Neut % (Auto) 63.9 Lymph % (Auto) 11.7 L Pine % (Auto) 17.5 H Eos % (Auto) 5.8 Baso % (Auto) 0.6 Neut # (Auto) 4.1 Lymph # (Auto) 0.8 L Pine # (Auto) 1.1 H Eos # (Auto) 0.4 Baso # (Auto) 0.0 Total Counted 100 Immature Gran % 0.5 Nucleated RBC % 0.0 Immature Gran # 0.03 Segmented Neutrophils 72 Lymphocytes 13 L Monocytes 8 Eosinophils 5 Basophils 2.0 H Nucleated RBCs # 0.00 Platelet Estimate Adequate Edson Cells Few ABG pH ABG pCO2 ABG pO2 ABG HCO3 ABG Total CO2 ABG O2 Saturation ABG Base Excess Sodium Potassium Chloride Carbon Dioxide Anion Gap BUN Creatinine GFR Calculation BUN/Creatinine Ratio Glucose POC Glucose 96 Calculated Osmolality Calcium Magnesium 1.7 L 11/08/16 11/08/16 03:10 03:30 WBC RBC Hgb Hct MCV MCH MCHC RDW Plt Count MPV Neut % (Auto) Lymph % (Auto) Pine % (Auto) Eos % (Auto) Baso % (Auto) Neut # (Auto) Lymph # (Auto) Pine # (Auto) Eos # (Auto) Baso # (Auto) Total Counted Immature Gran % Nucleated RBC % Immature Gran # Segmented Neutrophils Lymphocytes Monocytes Eosinophils Basophils Nucleated RBCs # Platelet Estimate Edson Cells ABG pH 7.504 H ABG pCO2 35.9 ABG pO2 140.5 H ABG HCO3 27.6 H ABG Total CO2 28.7 H ABG O2 Saturation 98.9 ABG Base Excess 4.6 H Sodium 145 Potassium 3.2 L Chloride 104 Carbon Dioxide 29 Anion Gap 15.2 H BUN 8 Creatinine 1.00 GFR Calculation 132 BUN/Creatinine Ratio 8.00 Glucose 114 H POC Glucose Calculated Osmolality 286.7 Calcium 7.6 L Magnesium - EKG EKG results: interpreted by me
[2016-11-08] MEDS: FUROSEMIDE 40 MG/4 ML VIAL IV SCH ×2 (08:44→15:18)
[2016-11-08] MEDS: QUEtiapine 25 MG TABLET PO SCH ×2 (08:48→22:34)
[2016-11-08] MEDS: PANTOPRAZOLE 40 MG VIAL IV SCH (08:48)
--- NOTE | 2016-11-08 09:10 | XRay Report ---
History respiratory failure ventilator management Comparison 11/07/2016 Cardiac silhouette remains enlarged. ET tube tip remains at T3-T4. Other supportive devices unchanged in appearance There remains moderate to severe hazy bilateral pulmonary opacities and suspected underlying effusions. More focal consolidation obscuring left diaphragm with air bronchograms in the retrocardiac region the left lung base remains. Impression: No significant change accounting for technique. See above details PROCEDURE INTERPRETED AT [facility] DEPARTMENT OF RADIOLOGY Final Report Signed by: Dr. Maryse Jonas
[2016-11-08] MEDS: MINERAL OIL/PETROLATUM OPH OINT 3.5 GM TUBE BOTH EYES SCH ×3 (09:14→22:35)
--- NOTE | 2016-11-08 09:15 | Event Note ---
He is about one week status post laparoscopic cholecystectomy. He is stable on the ventilator. I see no changes or new issues from a surgical standpoint. Dr. Penn will be back tomorrow but I'm available the rest of the weekend if needed
--- NOTE | 2016-11-08 12:11 | XRay Report ---
History is abdominal distention Mild air and contrast scattered in the colon. No small bowel dilatation or organomegaly seen There is density in the left lung base obscuring the left diaphragm as seen on chest x-ray of the same day Soft tissue candelario overlying the abdomen bilaterally A presumed drain tube overlies the right lateral abdomen Presumed bladder catheter present There are mild degenerative changes in the hips Impression: Nonspecific bowel gas pattern PROCEDURE INTERPRETED AT [facility] DEPARTMENT OF RADIOLOGY Final Report Signed by: Dr. Maryse Jonas
[2016-11-08] MEDS: NOREPINEPHRINE 8 MG in SODIUM CHLORIDE 0.9% 242 ML IV SCH ×3 (12:46→16:24)
[2016-11-08] MEDS: DEXTROSE 5% NACL 0.45% 1,000 ML IV SCH (13:38)
[2016-11-08] MEDS: POTASSIUM CHLORIDE RIDER 10 MEQ in PREMIX 1 EACH IV PRN (14:55)
[2016-11-08] MEDS ORDERED: ALBUMIN 5% 25 GM in PREMIX 1 EACH IV ONE (15:18)
[2016-11-08] MEDS ORDERED: ALBUMIN 5% 12.5 GM in PREMIX 1 EACH IV ONE (15:37)
[2016-11-08] MEDS: LEVOFLOXACIN INJ 750 MG in PREMIX 1 EACH IV SCH (16:23)
[2016-11-08 18:25] LABS: Basophils % 0.4 % (0.0-0.8); Eosinophils # 0.4 10*3/uL (0.0-0.87); Eosinophils % 8.4 % (0.00-10.9); Hematocrit 37.5 VOL% (42.0-52.0); Hemoglobin 12.1 GM/DL (14.0-18.0); Immature Granulocytes Absolute 0.05 #; Lymphocytes # 0.6 10*3/uL (1.4-4.0); Lymphocytes % 11.8 % (21.2-54.2); Mean Corpuscular HGB Conc 32.3 GM/DL (32-36); Mean Corpuscular Hemoglobin 29 PG (27-34); Mean Corpuscular Volume 89.7 FL (87-102); Mean Platelet Volume 14.2 FL (9.6-12.0); Monocytes # 0.9 10*3/uL (0.11-0.8); Monocytes % 18.8 % (1.7-12.7); Neutrophils % 59.6 % (38.7-73.9); Platelet Count 90 10*3/uL (130-400); Red Blood Count 4.18 10*6/uL (3.8-5.5); Red Cell Distribution Width 15.1 % (9.3-17.3)
[2016-11-08 18:29] LABS: Apearance,Urine Slightly Hazy (Clear); Bilirubin,Urine Negative (Negative); Blood, Urine Small mg/dL (Negative); Glucose,Urine (UA) Negative (Negative); Ketones,Urine 5 mg/dL (Negative); Mucus,Urine Occasional /LPF (Occasional); Nitrite,Urine Negative (Negative); Protein,Urine 100 MG/DL; RBC,Urine 48 /HPF (0-4); Squamous Epithelial Cell,Urine Occasional /HPF (0-10); Urine Urobilinogen < 2.0 EU/DL (0.2-1.0); WBC,Urine 2 /HPF (0-6)
[2016-11-08 18:30] LABS: Urine Color Dark yellow (Yellow)
--- NOTE | 2016-11-08 18:42 | XRay Report ---
History is fever Chest one view 11/08/2016 at 6 PM Comparison with earlier the same day Cardiac silhouette and vasculature remain enlarged with moderate to severe diffuse bilateral hazy pulmonary opacities There is a worsening consolidation and air bronchograms in the left lung base with worsening obscuration of the left diaphragm Right pleural effusion remains ET tube tip remains at T4 Impression: Worsening of left lower lobe consolidation with continued diffuse pulmonary edema PROCEDURE INTERPRETED AT [facility] DEPARTMENT OF RADIOLOGY Final Report Signed by: Dr. Maryse Jonas
[2016-11-08 18:55] LABS: Band Neutrophils 1 % (0-10); Eosinophils 6 % (0-10); Lymphocytes 13 % (20-55); Platelet Estimate Adequate; Segmented Neutrophils 63 % (50-85); Total Cells Counted 100
[2016-11-09] MEDS: MORPHINE 2 MG/1 ML SYRINGE IV PRN ×5 (00:13→20:51)
[2016-11-09] MEDS: INSULIN REGULAR 100 UNIT/ML IV SCH ×6 (00:19→20:06)
[2016-11-09] MEDS: NOREPINEPHRINE 8 MG in SODIUM CHLORIDE 0.9% 242 ML IV SCH ×4 (00:20→21:04)
[2016-11-09] MEDS: ALBUTEROL/IPRATROPIUM 3 ML NEB RESP TX SCH ×4 (00:30→20:16)
[2016-11-09] MEDS: PROPOFOL 1,000 MG/100 ML BOTTLE IV SCH ×9 (00:50→22:00)
[2016-11-09] MEDS: HYDROmorphone 2 MG/1 ML VIAL IV PRN (03:50)
--- NOTE | 2016-11-09 05:21 | General Surgery Progress Note ---
Assessment and Plan (1) Abdominal pain Status: Acute Assessment and plan: Impression: 1. Abdominal pain etiology unclear questionable gallbladder disease undiagnosed 2. Obesity 3. Congestive heart failure 4. Low cardiac ejection fraction Recommendations: 1. Certainly would look at do a HIDA scan to see if its abnormal with that ejection fraction 2. We consider repeating ultrasound after his been nothing by mouth for at least 12 hours to see if there is any changes in the gallbladder see if it distends back up looks normal 3. We consider a CT scan abdomen and pelvis with contrast to get a better idea this is nothing else going on. 4. He needs a complete cardiac evaluation before that any consideration of surgery because he is at such high risk 5. May need pulmonary consult at some point 6. We consider surgery on the gallbladder all if everything else is ruled out and that we have clear diagnosis that he could possibly have gallbladder disease. 10/31/2016. Patient continues to complain of discomfort in the upper abdomen right chest area. On exam though he does not exhibit any guarding or unusual tenderness on deep palpation. No masses are palpable. He did not have his oxygen own and I have noted cardiology's note. He is for a HIDA scan today and hopefully we'll plan to CT scan abdomen and pelvis tomorrow. Still unclear whether he has gallbladder disease but certainly he remains a high risk surgical patient because of his cardiac disease. 11/01/2016 Patient continues to have some discomfort in the upper part of his abdomen. Better today than has been. His CT scan abdomen and pelvis was performed in his completed and they continue to see her contracted gallbladder normal size biliary tree. See some stranding around the kidneys but otherwise nothing dramatically noted at this point. I felt the pancreas was okay. At this point after discussing his cardiac status with Dr. Dodson we feel like that he has in optimal condition to proceed with surgery at this time. He is a high risk patient and he understands this but he is okay with going ahead with surgery. Dr. Dodson feels like that he would be best to get him at this point when he is optimal as opposed to let the gallbladder get truly sick and then having a worse situation deal with. 11/04/2016 Patient remains on the ventilator and they're starting to warm him up today. Else reduce his sedation once he is warm to see I much mental activity he comes back with. From his surgery he is done well minimal MAT drainage at this point. Remains with a mild ileus with some bowel sounds are present. NG tube with minimal drainage. We'll consider possible to feedings but right now wait and see how he wakes up. 11/06/2016 Patient remains on the ventilator but they're reducing his sedation any symptoms to be waking up. Abdomen remains slightly distended with hypoactive bowel sounds but to feedings have been started now. He has a moderate amount of MAT drainage still at this time. From a surgical standpoint he is doing good with the limbs wounds looking clean and dry and we just waiting for the drainage to decrease and after weaning pulled MAT drain. Cardiac velarde he seems to be stable at this point and minimally seems to be waking up at this time. Will let cardiology and neurology continue to manage this part of things as well as respiratory manage the ventilator. 11/09/2016. Patient is status post lap scopic cholecystectomy but otherwise had a respiratory and cardiac arrest and is still on the ventilator at this time. He seems to have woken up some 400 although it is confusing the reports. He seems combative at times they say his pupils are equal and reactive and a responds to stimuli. They have not been able to get him off the ventilator because of his restless activity whenever they reduced the sedation. He's had some problem with failure of his feedings with some high residuals at this time. He's on NG suction at this point and we may have to find an alternative to his nutrition. Current Visit: Yes Qualifiers: Abdominal location: upper abdomen, unspecified Qualified Code(s): R10.10 - Upper abdominal pain, unspecified Subjective Patient reports: Present: other (patient remains on the ventilator) Exam - Constitutional Vitals: Period Temp Pulse Resp BP Sys/Lobo Pulse Ox Last 24 Hr 98.9 F-103.9 F 71-114 11-21 81-133/48-106 97-100 General appearance: mild distress - Head Head exam: Present: normal inspection - Eye Pupils: Present: CB - ENT ENT exam: Present: normal exam - Neck Neck exam: Present: normal inspection - Respiratory Respiratory exam: Present: rales - Cardiovascular Cardiovascular exam: Present: RRR - GI/Abdominal GI/Abdominal exam: Present: hypoactive bowel sounds, soft, other (moderate amount of MAT drainage.) - Extremities Exam Extremities exam: Present: normal inspection - Back Exam Back exam: Present: normal inspection - Neurological Exam Neurological exam: Present: altered, other (on the ventilator but seems to respond to painful stimuli and is combative at times.) - Skin Skin exam: Present: normal color, warm, dry Results - Labs CBC & BMP: 11/08/16 17:56 11/08/16 12:14 Lab Results: I have reviewed the past 24 hour labs
[2016-11-09] MEDS: AMPICILLIN/SULBACTAM 3,000 MG in SODIUM CHLORIDE 0.9% 100 ML IV SCH ×3 (05:25→21:04)
[2016-11-09 05:39] LABS: ABG Base Excess 0.9 MMOL/L (-2.5-2.5); ABG HCO3 23.6 MMOL/L (20-26); ABG PCO2 32.1 MM HG (35-48); ABG PH 7.485 (7.35-7.45); ABG PO2 164.5 MM HG (80-95); ABG TCO2 24.6 MMOL/L (23-27)
[2016-11-09 05:44] LABS: Basophils # 0.1 10*3/uL (0.0-0.2); Basophils % 1.1 % (0.0-0.8); Eosinophils # 0.2 10*3/uL (0.0-0.87); Eosinophils % 4.4 % (0.00-10.9); Hematocrit 38.9 VOL% (42.0-52.0); Hemoglobin 12.8 GM/DL (14.0-18.0); Immature Granulocytes % 0.6 %; Immature Granulocytes Absolute 0.03 #; Lymphocytes # 0.7 10*3/uL (1.4-4.0); Lymphocytes % 13.5 % (21.2-54.2); Mean Corpuscular HGB Conc 32.9 GM/DL (32-36); Mean Corpuscular Hemoglobin 30 PG (27-34); Mean Corpuscular Volume 90.7 FL (87-102); Mean Platelet Volume 14.3 FL (9.6-12.0); Monocytes # 1.2 10*3/uL (0.11-0.8); Monocytes % 22.4 % (1.7-12.7); Neutrophils # 3.1 10*3/uL (1.4-7.4); Platelet Count 95 10*3/uL (130-400); Red Blood Count 4.29 10*6/uL (3.8-5.5); White Blood Count 5.4 10*3/uL (4.5-13.71)
[2016-11-09] MEDS: ENOXAPARIN 40 MG/0.4 ML SYRINGE SUBCUT SCH (05:46)
[2016-11-09 06:04] LABS: Eosinophils 2 % (0-10); Lymphocytes 15 % (20-55); Platelet Estimate Decreased; Segmented Neutrophils 59 % (50-85); Total Cells Counted 100
[2016-11-09 06:05] LABS: Hypochromasia 1+; Ovalocytes Slight
[2016-11-09] MEDS: ALUMINUM/MAGNES/SIMETH MAX STR 30 ML UDCUP PO SCH ×4 (06:06→23:56)
[2016-11-09 06:15] LABS: Magnesium 1.9 MG/DL (1.8-2.4); Osmolality,Calculated 284.8 MOS/KG (273-304); Potassium 4.3 MMOL/L (3.5-5.1)
[2016-11-09 06:32] LABS: Phosphorous 3.3 MG/DL (2.5-4.9); Prealbumin 8.9 MG/DL (20-40)
--- NOTE | 2016-11-09 06:44 | XRay Report ---
XR chest 1V portable Indication: Respiratory failure. Chest one view: Since yesterday, endotracheal tube, NG tube, central line, cardiomegaly and fluffy opacification of the mid lungs and lung bases persists unchanged. Impression: No change. PROCEDURE INTERPRETED AT [facility] DEPARTMENT OF RADIOLOGY Final Report Signed by: Benigno Rodney M.D.
--- NOTE | 2016-11-09 07:16 | Pulmonology Progress Note ---
Pulmonary - PN: Subj Interval history: The patient is a 51-year-old black man that has a severe cardiomyopathy and had an arrest during surgery. He had just completed a lap cholecystectomy. He had a 20 minute resuscitation but did come around a little. He has been on pressors but is stable on the ventilator. He is on the Cooling protocol and now is back to normal temperature. He continues to have bilateral infiltrates and looks like congestive heart failure. He has been diuresing fairly well and his blood pressure has been stable. He does fatigue fairly easily on CPAP. We will try therapeutic bronchoscopy today. Exam (Progress Note) - Constitutional Vitals: Period Temp Pulse Resp BP Sys/Lobo Pulse Ox Last 24 Hr 98.9 F-103.9 F 68-114 11-21 81-133/48-106 97-100 Exam: General appearance: moderately obese, other (patient is sedated on the ventilator and appear stable at present. He does respond to home and gets agitated when off sedation.) - Head Head exam: Present: normal inspection - Eye Eye exam: Present: EOMI. Absent: scleral icterus Pupils: Present: CB, constricted - ENT ENT exam: Present: other (ET tube in good position, he does seem to have some swelling of his face.) - Neck Neck exam: Present: normal inspection. Absent: lymphadenopathy, thyromegaly - Respiratory Respiratory exam: Present: He has good breath sounds bilaterally but still has bilateral rhonchi. - Cardiovascular Cardiovascular exam: Present: regular rate and rhythm. Absent: gallop, JVD, systolic murmur - GI/Abdominal GI/Abdominal exam: Present: hypoactive bowel sounds, soft, other (he is postop and drains in place.). Absent: organomegaly - Extremities Exam Extremities exam: Present: edema (he has mild lower extremity edema.) - Neurological Exam Neurological exam: Present: altered (patient is opening his eyes and does seem to be moving around little better. ) - Skin Skin exam: Present: dry. Absent: rash Results - Labs CBC & BMP: 11/09/16 05:15 11/09/16 05:15 Labs: PO2 is 164 PCO2 32 and a pH is 7.48 - Diagnostic Findings Procedure: Chest x-ray: image reviewed by me, report reviewed by me (chest x- ray shows cardiomegaly with bilateral infiltrates and some CHF.) Assessment and Plan (1) Hypertension Status: Chronic Assessment and plan: The patient has a history of hypertension and a cardiomyopathy but his blood pressure has been on the low side while he sedated. He is still on low-dose Levophed. He has been diuresing fairly well. He does appear to be a little more hemodynamically stable. Current Visit: Yes (2) CHEMA (obstructive sleep apnea) Status: Acute Assessment and plan: This will be evaluated later. Current Visit: Yes (3) Cardiomyopathy Status: Chronic Assessment and plan: The patient apparently has an ejection fraction of 15% and severe cardiomyopathy. His chest x-ray looks like heart failure now. He does seem to be diuresing fairly well. His oxygenation has improved. Current Visit: Yes (4) Cardiopulmonary arrest with successful resuscitation Status: Acute Assessment and plan: The patient is on the ventilator after a successful resuscitation. He is starting to move around more but does get very agitated. He may need tranquilizer to help him come off the ventilator. Current Visit: Yes (5) S/P laparoscopic cholecystectomy Status: Acute Assessment and plan: The patient has had a lap cholecystectomy after presenting with significant abdominal pain. His abdomen seems to be doing okay. Current Visit: No (6) Acute on chronic systolic CHF (congestive heart failure) Status: Acute Assessment and plan: Patient is on the ventilator with what looks like heart failure. Some of this could be pneumonia. He is getting IV antibiotics. We will proceed with a therapeutic bronchoscopy. Current Visit: No
--- NOTE | 2016-11-09 07:29 | Operative Note ---
Date of procedure: 11/09/16 Pre-op diagnosis: with respiratory failure with bilateral infiltrates Post-op diagnosis: other (bronchitis with some mucus plugging) Procedure: Patient is a 51-year-old black man that is on the ventilator with bilateral infiltrates. A therapeutic bronchoscopy will be done to assess his airways and clear airways. He is sedated on the ventilator. Procedure: The fiberoptic bronchoscope was passed through the ET tube into the airways. The airways were quickly identified and specimens obtained. Findings: The ET tube is in good position in the trachea. The main bronchi are open but they are swollen considerable bronchitis. There is some thick mucus and plugs that were washed and cleared bilaterally. Washings were sent for culture. The right upper lobe, right middle lobe, and right lower lobe were all open. The left upper lobe, lingula, and left lower lobe were open. Once airways were cleared the procedure was stopped. He tolerated the procedure well without problems. Impression: Bronchitis with mucous plugging. Plan: We will continue weaning from the ventilator. Anesthesia: conscious sedation Surgeon / Physician: Dylan Colindres Estimated blood loss: none Specimens: other (washings sent for culture.) Condition: critical Disposition: ICU Results - Labs CBC & BMP: 11/09/16 05:15 11/09/16 05:15 Discharge Plan - Discharge Medications No Action Spironolactone 25 mg PO DAILY Carvedilol 6.25 mg PO BID W/MEALS Furosemide Tab [Lasix Tab] 20 mg PO BID DIURETIC Citalopram Hydrobromide [Citalopram HBr] 10 mg PO DAILY Aspirin EC Tab 81 mg PO DAILY Valsartan 40 mg PO DAILY - Follow Up or Referral - Forms/Instructions
[2016-11-09] MEDS ORDERED: VECURONIUM 10 MG VIAL IV ONE (07:58)
[2016-11-09] MEDS: PANTOPRAZOLE 40 MG VIAL IV SCH (08:00)
[2016-11-09] MEDS: FUROSEMIDE 40 MG/4 ML VIAL IV SCH ×2 (08:00→16:11)
[2016-11-09] MEDS: VECURONIUM 10 MG VIAL IV PRN ×4 (08:00→22:31)
--- NOTE | 2016-11-09 08:07 | Cardiology Progress Note ---
Assessment and Plan (1) Congestive heart failure Status: Acute Assessment and plan: 1. 51-year-old BM with severe cardiomyopathy (EF 15% 8 days ago) with a history of cocaine use, status post urgent laparoscopic cholecystectomy, with arrest requiring CPR for 20 minutes, with now fairly prolonged course, still requiring intubation/sedation with severe wheezing and some stridor after bronchoscopy this morning 2. Degree of brain injury is uncertain, he is not following commands when off sedation, but cannot be held off sedation very long due to agitation, etc. 3. He is unable to get his Coreg and losartan due to hypertension and is currently on levophed; could consider changed to dopamine, unless sepsis is suspected 4. Add spironolactone 50 mg daily as this would not affect his blood pressure, and will be helpful for his systolic acute on chronic heart failure (RALES trial ); his renal function and potassium are in reasonable ranges 5. Continue to monitor electrolytes and renal function 6. Reported history of CHEMA 7. Poor prognosis Current Visit: No (2) Cocaine abuse Status: Acute Current Visit: No (3) Acute on chronic systolic CHF (congestive heart failure) Status: Acute Current Visit: No (4) Cardiomyopathy Status: Chronic Current Visit: Yes (5) Anoxic encephalopathy Status: Acute Current Visit: Yes Cardiology - PN: Subj Interval history: Mr. Ramírez is sedated and intubated. His blood pressure is in a good range, currently during my examination, but he is on Levothroid and has a documented episode of hypotension this morning. He is normal sinus rhythm. Exam (Progress Note) - Constitutional Vitals: Period Temp Pulse Resp BP Sys/Lobo Pulse Ox Last 24 Hr 98.9 F-103.9 F 68-114 11-38 64-133/38-106 97-100 General appearance: no acute distress, over weight - Head Head exam: Present: normal inspection, normocephalic, atraumatic - Eye Eye exam: Present: other (absent right eye) - Neck Neck exam: Present: normal inspection - Respiratory Respiratory exam: Present: stridor, wheezes - Cardiovascular Cardiovascular exam: Present: regular rate and rhythm. Absent: diastolic murmur , rubs - Extremities Exam Extremities exam: Present: edema Result/EKG - Labs CBC & BMP: 11/09/16 05:15 11/09/16 05:15 Labs: Laboratory Results - last 24 hr 11/08/16 11/08/16 11/08/16 08:28 12:14 12:39 WBC RBC Hgb Hct MCV MCH MCHC RDW Plt Count MPV Neut % (Auto) Lymph % (Auto) [place] % (Auto) Eos % (Auto) Baso % (Auto) Neut # (Auto) Lymph # (Auto) [place] # (Auto) Eos # (Auto) Baso # (Auto) Total Counted Immature Gran % Nucleated RBC % Immature Gran # Segmented Neutrophils Band Neutrophils Lymphocytes Monocytes Eosinophils Basophils Nucleated RBCs # Platelet Estimate Hypochromasia Ovalocytes Morphology Comment ABG pH ABG pCO2 ABG pO2 ABG HCO3 ABG Total CO2 ABG O2 Saturation ABG Base Excess Sodium Potassium 3.5 Chloride Carbon Dioxide Anion Gap BUN Creatinine GFR Calculation BUN/Creatinine Ratio Glucose POC Glucose 92 85 Calculated Osmolality Calcium Phosphorus Magnesium Prealbumin Urine Color Urine Appearance Urine pH Ur Specific [place] Urine Protein Urine Glucose (UA) Urine Ketones Urine Blood Urine Nitrate Urine Bilirubin Urine Urobilinogen Urine Leukocytes Urine RBC Urine WBC Ur Squamous Epith Cells Urine Mucus Ur Culture Indicated? 11/08/16 11/08/16 11/08/16 16:23 17:56 18:00 WBC 5.0 RBC 4.18 Hgb 12.1 L Hct 37.5 L MCV 89.7 MCH 29 MCHC 32.3 RDW 15.1 Plt Count 90 L MPV 14.2 H Neut % (Auto) 59.6 Lymph % (Auto) 11.8 L [place] % (Auto) 18.8 H Eos % (Auto) 8.4 Baso % (Auto) 0.4 Neut # (Auto) 3.0 Lymph # (Auto) 0.6 L [place] # (Auto) 0.9 H Eos # (Auto) 0.4 Baso # (Auto) 0.0 Total Counted 100 Immature Gran % 1.0 Nucleated RBC % 0.0 Immature Gran # 0.05 Segmented Neutrophils 63 Band Neutrophils 1 Lymphocytes 13 L Monocytes 16 H Eosinophils 6 Basophils 1.0 H Nucleated RBCs # 0.00 Platelet Estimate Adequate Hypochromasia Ovalocytes Morphology Comment ABG pH ABG pCO2 ABG pO2 ABG HCO3 ABG Total CO2 ABG O2 Saturation ABG Base Excess Sodium Potassium Chloride Carbon Dioxide Anion Gap BUN Creatinine GFR Calculation BUN/Creatinine Ratio Glucose POC Glucose 96 Calculated Osmolality Calcium Phosphorus Magnesium Prealbumin Urine Color Dark yellow Urine Appearance Slightly hazy Urine pH 5.0 Ur Specific [place] 1.030 Urine Protein 100 Urine Glucose (UA) Negative Urine Ketones 5 Urine Blood Small Urine Nitrate Negative Urine Bilirubin Negative Urine Urobilinogen < 2.0 H Urine Leukocytes Negative Urine RBC 48 Urine WBC 2 Ur Squamous Epith Cells Occasional Urine Mucus Occasional Ur Culture Indicated? Not indicated 11/08/16 11/09/16 11/09/16 21:05 00:12 05:15 WBC RBC Hgb Hct MCV MCH MCHC RDW Plt Count MPV Neut % (Auto) Lymph % (Auto) [place] % (Auto) Eos % (Auto) Baso % (Auto) Neut # (Auto) Lymph # (Auto) [place] # (Auto) Eos # (Auto) Baso # (Auto) Total Counted Immature Gran % Nucleated RBC % Immature Gran # Segmented Neutrophils Band Neutrophils Lymphocytes Monocytes Eosinophils Basophils Nucleated RBCs # Platelet Estimate Hypochromasia Ovalocytes Morphology Comment ABG pH ABG pCO2 ABG pO2 ABG HCO3 ABG Total CO2 ABG O2 Saturation ABG Base Excess Sodium 144 Potassium 4.3 Chloride 109 H Carbon Dioxide 24 Anion Gap 15.3 H BUN 7 Creatinine 0.80 GFR Calculation 155 BUN/Creatinine Ratio 8.00 Glucose 110 H POC Glucose 96 92 Calculated Osmolality 284.8 Calcium 8.0 L Phosphorus Magnesium 1.9 Prealbumin Urine Color Urine Appearance Urine pH Ur Specific [place] Urine Protein Urine Glucose (UA) Urine Ketones Urine Blood Urine Nitrate Urine Bilirubin Urine Urobilinogen Urine Leukocytes Urine RBC Urine WBC Ur Squamous Epith Cells Urine Mucus Ur Culture Indicated? 11/09/16 11/09/16 11/09/16 05:15 05:15 05:15 WBC 5.4 RBC 4.29 Hgb 12.8 L Hct 38.9 L MCV 90.7 MCH 30 MCHC 32.9 RDW 15.0 Plt Count 95 L MPV 14.3 H Neut % (Auto) 58.0 Lymph % (Auto) 13.5 L [place] % (Auto) 22.4 H Eos % (Auto) 4.4 Baso % (Auto) 1.1 H Neut # (Auto) 3.1 Lymph # (Auto) 0.7 L [place] # (Auto) 1.2 H Eos # (Auto) 0.2 Baso # (Auto) 0.1 Total Counted 100 Immature Gran % 0.6 Nucleated RBC % 0.0 Immature Gran # 0.03 Segmented Neutrophils 59 Band Neutrophils Lymphocytes 15 L Monocytes 23 H Eosinophils 2 Basophils 1.0 H Nucleated RBCs # 0.00 Platelet Estimate Decreased Hypochromasia 1+ Ovalocytes Slight Morphology Comment ABG pH 7.485 H ABG pCO2 32.1 L ABG pO2 164.5 H ABG HCO3 23.6 ABG Total CO2 24.6 ABG O2 Saturation 99.0 ABG Base Excess 0.9 Sodium Potassium Chloride Carbon Dioxide Anion Gap BUN Creatinine GFR Calculation BUN/Creatinine Ratio Glucose POC Glucose Calculated Osmolality Calcium Phosphorus 3.3 Magnesium Prealbumin 8.9 L Urine Color Urine Appearance Urine pH Ur Specific [place] Urine Protein Urine Glucose (UA) Urine Ketones Urine Blood Urine Nitrate Urine Bilirubin Urine Urobilinogen Urine Leukocytes Urine RBC Urine WBC Ur Squamous Epith Cells Urine Mucus Ur Culture Indicated? 11/09/16 11/09/16 05:30 07:49 WBC RBC Hgb Hct MCV MCH MCHC RDW Plt Count MPV Neut % (Auto) Lymph % (Auto) [place] % (Auto) Eos % (Auto) Baso % (Auto) Neut # (Auto) Lymph # (Auto) [place] # (Auto) Eos # (Auto) Baso # (Auto) Total Counted Immature Gran % Nucleated RBC % Immature Gran # Segmented Neutrophils Band Neutrophils Lymphocytes Monocytes Eosinophils Basophils Nucleated RBCs # Platelet Estimate Hypochromasia Ovalocytes Morphology Comment ABG pH ABG pCO2 ABG pO2 ABG HCO3 ABG Total CO2 ABG O2 Saturation ABG Base Excess Sodium Potassium Chloride Carbon Dioxide Anion Gap BUN Creatinine GFR Calculation BUN/Creatinine Ratio Glucose POC Glucose 101 96 Calculated Osmolality Calcium Phosphorus Magnesium Prealbumin Urine Color Urine Appearance Urine pH Ur Specific [place] Urine Protein Urine Glucose (UA) Urine Ketones Urine Blood Urine Nitrate Urine Bilirubin Urine Urobilinogen Urine Leukocytes Urine RBC Urine WBC Ur Squamous Epith Cells Urine Mucus Ur Culture Indicated?
[2016-11-09] MEDS: QUEtiapine 25 MG TABLET PO SCH ×2 (08:23→21:19)
[2016-11-09] MEDS: MINERAL OIL/PETROLATUM OPH OINT 3.5 GM TUBE BOTH EYES SCH ×3 (08:24→21:18)
[2016-11-09] MEDS: SPIRONOLACTONE 50 MG TABLET PO SCH (09:22)
[2016-11-09] MEDS: METOCLOPRAMIDE 10 MG/2 ML VIAL IV SCH ×3 (12:45→23:56)
--- NOTE | 2016-11-09 14:09 | Hospitalist Progress Note ---
Assessment and Plan (1) S/P laparoscopic cholecystectomy Status: Acute Assessment and plan: see HPI Current Visit: No (2) Hypertension Status: Chronic Assessment and plan: controlled on coreg and losartan Current Visit: Yes (3) Congestive heart failure Status: Acute Assessment and plan: Patient echo shows an EF of 15% and moderate mitral regurg cont coreg and losartan, cont lasix and spironolactone Current Visit: No (4) CHEMA (obstructive sleep apnea) Status: Acute Assessment and plan: on vent Current Visit: Yes (5) Fatty liver Status: Acute Assessment and plan: needs to lose weight Current Visit: Yes (6) Cardiopulmonary arrest with successful resuscitation Status: Acute Current Visit: Yes (7) Anoxic encephalopathy Status: Acute Assessment and plan: Dr Holland saw him on 11/04/16 EEG reading pending Current Visit: Yes Hospitalist: Subjective Interval history: Patient arrested after lap kailey. was done. Patient still not waking up real well when off of sedation gets really agitated and tachycardic and has to go back on sedation. He still not pooping he is got an ileus. He has tube feed residuals were high and had to go on hold. I am starting him on TPN today. Patient had bronchoscopy Dr. Colindres today sounds much better. Spoke to Dr. Penn who reported his surgery went excellent. Patient was treated with [facility]. According to Dr. Calle's note he had a bradycardic arrest and CPR for 20 minutes. Exam - Constitutional Vitals: Period Temp Pulse Resp BP Sys/Lobo Pulse Ox Last 24 Hr 96 F-103.9 F 68-115 12-38 64-123/38-90 92-100 Exam: Heart Rate-[Tachy] Lungs-clear and diminished] GI-[+bs soft, NT] Ext-[no edema] neuro sedated and intubated psych sedated and intubated general mild distress Results - Labs CBC & BMP: 11/09/16 05:15 11/09/16 05:15 Lab Results: I have reviewed the past 24 hour labs Labs: blood cx negative - Diagnostic Findings Procedure: Chest x-ray: report reviewed by me (nothing acute ), CT: report reviewed by me (head pansinusitis )
[2016-11-09] MEDS: LEVOFLOXACIN INJ 750 MG in PREMIX 1 EACH IV SCH (16:12)
[2016-11-09] MEDS: MINERAL OIL/PETROLATUM OPH OINT 3.5 GM TUBE BOTH EYES PRN (16:12)
[2016-11-09] MEDS ORDERED: AMINO ACIDS IV SCH (17:00)
[2016-11-09] MEDS ORDERED: [UNRECOGNIZED DRUG - OTHER] IV SCH (17:00)
[2016-11-09] MEDS ORDERED: DEXTROSE 10% 1,000 ML IV PRN (17:00)
[2016-11-09] MEDS ORDERED: TRACE ELEMENTS IV SCH (17:00)
[2016-11-09] MEDS ORDERED: ELECTROLYTE IV SCH (17:00)
[2016-11-09] MEDS: DEXTROSE 5% NACL 0.45% 1,000 ML IV SCH (17:09)
--- NOTE | 2016-11-09 18:05 | Electroencephalogram ---
HISTORY: A 51-year-old gentleman with a history of change in mental status and hypoxia. EEG perfor med for 24 minutes. INTRODUCTION: A digital EEG was performed using the standard 10/20 system of electrode placement wi th one channel of EKG monitoring. Photic stimulation is performed. DESCRIPTION OF RECORD: The background is somewhat disorganized, consists of 4-5 hertz low amplitu de bilateral symmetrical rhythm. This record is remarkable for 50 hertz as well as movement artifac ts. Photic stimulation does not elicit a driving response. There are no focal, sharp wave, spike and wave activity seen. Heart rate 95 beats per minute. IMPRESSION: ABNORMAL EEG DUE TO GENERALIZED SLOWING. CLINICAL CORRELATION: This record is supportive of moderate to severe encephalopathy which could be secondary to postictal state, post-hypoxic state, metabolic disorder, diffuse NEIGHBORHOOD AIDE insult, or increa sed intracranial pressure. No epileptiform/seizure activity seen. Clinical correlation is suggested.
[2016-11-10] MEDS: ALBUTEROL/IPRATROPIUM 3 ML NEB RESP TX SCH ×4 (00:05→21:00)
[2016-11-10] MEDS: ACETAMINOPHEN 325 MG/10.15 ML UDCUP PO PRN ×3 (00:12→16:33)
[2016-11-10] MEDS: INSULIN REGULAR 100 UNIT/ML IV SCH ×7 (00:29→23:40)
[2016-11-10] MEDS: PROPOFOL 1,000 MG/100 ML BOTTLE IV SCH ×8 (00:30→19:57)
[2016-11-10 02:45] LABS: ABG Base Excess 4.8 MMOL/L (-2.5-2.5); ABG HCO3 28.8 MMOL/L (20-26); ABG PCO2 37.1 MM HG (35-48); ABG PH 7.489 (7.35-7.45); ABG TCO2 24.6 MMOL/L (23-27)
[2016-11-10 02:51] LABS: Basophils % 0.7 % (0.0-0.8); Eosinophils # 0.3 10*3/uL (0.0-0.87); Eosinophils % 4.8 % (0.00-10.9); Hemoglobin 12.5 GM/DL (14.0-18.0); Immature Granulocytes % 0.7 %; Immature Granulocytes Absolute 0.04 #; Lymphocytes # 0.8 10*3/uL (1.4-4.0); Mean Corpuscular HGB Conc 32.9 GM/DL (32-36); Mean Corpuscular Hemoglobin 30 PG (27-34); Mean Corpuscular Volume 90.3 FL (87-102); Mean Platelet Volume 14.3 FL (9.6-12.0); Monocytes # 0.8 10*3/uL (0.11-0.8); Monocytes % 14.3 % (1.7-12.7); Neutrophils # 3.9 10*3/uL (1.4-7.4); Neutrophils % 65.5 % (38.7-73.9); Red Blood Count 4.21 10*6/uL (3.8-5.5); Red Cell Distribution Width 15.1 % (9.3-17.3); White Blood Count 5.9 10*3/uL (4.5-13.71)
[2016-11-10 02:59] LABS: Platelet Count 83 10*3/uL (130-400)
[2016-11-10 03:21] LABS: Albumin 1.9 G/DL (3.4-5.0); Bilirubin,Total 0.9 MG/DL (0.2-1.0); Calcium 7.9 MG/DL (8.5-10.1); Osmolality,Calculated 288.7 MOS/KG (273-304); Potassium 3.6 MMOL/L (3.5-5.1); Total Protein 5.8 G/DL (6.4-8.3)
[2016-11-10] MEDS: POTASSIUM CHLORIDE RIDER 20 MEQ in PREMIX 1 EACH IV PRN (03:37)
[2016-11-10] MEDS: AMPICILLIN/SULBACTAM 3,000 MG in SODIUM CHLORIDE 0.9% 100 ML IV SCH ×2 (03:37→11:30)
[2016-11-10 03:52] LABS: Platelet Estimate Decreased
[2016-11-10] MEDS: NOREPINEPHRINE 8 MG in SODIUM CHLORIDE 0.9% 242 ML IV SCH ×3 (05:04→21:31)
[2016-11-10] MEDS: ENOXAPARIN 40 MG/0.4 ML SYRINGE SUBCUT SCH (05:19)
[2016-11-10] MEDS: METOCLOPRAMIDE 10 MG/2 ML VIAL IV SCH ×4 (05:20→23:40)
[2016-11-10] MEDS: ALUMINUM/MAGNES/SIMETH MAX STR 30 ML UDCUP PO SCH ×4 (05:20→23:40)
--- NOTE | 2016-11-10 06:25 | Pulmonology Progress Note ---
Pulmonary - PN: Subj Interval history: The patient is a 51-year-old black man that has a severe cardiomyopathy and had an arrest during surgery. He had just completed a lap cholecystectomy. He had a 20 minute resuscitation but did come around a little. He has been on pressors but is stable on the ventilator. He doesn't do CPAP trials very well. His chest x-ray looks like chronic heart failure. He is still on Levophed. He is getting diuretic therapy and had 6 L out yesterday. Exam (Progress Note) - Constitutional Vitals: Period Temp Pulse Resp BP Sys/Lobo Pulse Ox Last 24 Hr 96 F-100.5 F 73-120 9-38 64-180/38-136 92-100 Exam: General appearance: moderately obese, other (patient is sedated on the ventilator and appears stable at present. He will respond some but still gets very agitated when off sedation. ) - Head Head exam: Present: normal inspection - Eye Eye exam: Present: EOMI. Absent: scleral icterus Pupils: Present: CB, constricted - ENT ENT exam: Present: other (ET tube in good position, he does seem to have some swelling of his face.) - Neck Neck exam: Present: normal inspection. Absent: lymphadenopathy, thyromegaly - Respiratory Respiratory exam: Present: He has good breath sounds bilaterally but they are coarse with bilateral rhonchi. - Cardiovascular Cardiovascular exam: Present: regular rate and rhythm. Absent: gallop, JVD, systolic murmur - GI/Abdominal GI/Abdominal exam: Present: hypoactive bowel sounds, soft, other (he is postop and drains in place.). Absent: organomegaly - Extremities Exam Extremities exam: Present: edema (he has mild lower extremity edema.) - Neurological Exam Neurological exam: Present: altered (patient is opening his eyes and does seem to be moving around little better. ) - Skin Skin exam: Present: dry. Absent: rash Results - Labs CBC & BMP: 11/10/16 02:45 11/10/16 02:45 Labs: His PO2 is 121 with a PCO2 of 37 and pH is 7.48 - Diagnostic Findings Procedure: Chest x-ray: image reviewed by me, report reviewed by me (chest x- ray still showed bilateral infiltrates and effusions but may be a little better. ) Assessment and Plan (1) Hypertension Status: Chronic Assessment and plan: The patient has a history of hypertension and a cardiomyopathy but his blood pressure has been on the low side while he sedated. He is still on low-dose Levophed. He continues to diurese well and his vital signs are fairly stable at present. Current Visit: Yes (2) CHEMA (obstructive sleep apnea) Status: Acute Assessment and plan: This will be evaluated later. Current Visit: Yes (3) Cardiomyopathy Status: Chronic Assessment and plan: The patient apparently has an ejection fraction of 15% and severe cardiomyopathy. His chest x-ray looks like heart failure now. He does seem to be diuresing fairly well. His oxygenation has improved. He still does not want to wean very well but will continue trying CPAP trials. Current Visit: Yes (4) Cardiopulmonary arrest with successful resuscitation Status: Acute Assessment and plan: The patient is on the ventilator after a successful resuscitation. He is starting to move around more but does get very agitated. He may need tranquilizer to help him come off the ventilator. Current Visit: Yes (5) S/P laparoscopic cholecystectomy Status: Acute Assessment and plan: The patient has had a lap cholecystectomy after presenting with significant abdominal pain. His abdomen seems to be doing okay. Current Visit: No (6) Acute on chronic systolic CHF (congestive heart failure) Status: Acute Assessment and plan: Patient is on the ventilator with what looks like heart failure. Some of this could be pneumonia. He is getting IV antibiotics. He doesn't have anything on culture yet. He still has a lot of secretions in his ET tube. We'll continue diuresis and respiratory therapy. Current Visit: No
--- NOTE | 2016-11-10 07:14 | XRay Report ---
XR chest 1V portable Indication: Intubated. Chest one view: Comparison yesterday. Endotracheal tube, NG tube, central line, cardiomegaly and hazy obscuration of the mid lungs and lung bases is relatively stable. No new infiltrates identified. Impression: No change. PROCEDURE INTERPRETED AT [facility] DEPARTMENT OF RADIOLOGY Final Report Signed by: Benigno Rodney M.D.
--- NOTE | 2016-11-10 08:23 | General Surgery Progress Note ---
Assessment and Plan - Time spent with patient Time spent with patient: Less than 30 minutes (1) Abdominal pain Status: Acute Assessment and plan: Impression: 1. Abdominal pain etiology unclear questionable gallbladder disease undiagnosed 2. Obesity 3. Congestive heart failure 4. Low cardiac ejection fraction Recommendations: 1. Certainly would look at do a HIDA scan to see if its abnormal with that ejection fraction 2. We consider repeating ultrasound after his been nothing by mouth for at least 12 hours to see if there is any changes in the gallbladder see if it distends back up looks normal 3. We consider a CT scan abdomen and pelvis with contrast to get a better idea this is nothing else going on. 4. He needs a complete cardiac evaluation before that any consideration of surgery because he is at such high risk 5. May need pulmonary consult at some point 6. We consider surgery on the gallbladder all if everything else is ruled out and that we have clear diagnosis that he could possibly have gallbladder disease. 10/31/2016. Patient continues to complain of discomfort in the upper abdomen right chest area. On exam though he does not exhibit any guarding or unusual tenderness on deep palpation. No masses are palpable. He did not have his oxygen own and I have noted cardiology's note. He is for a HIDA scan today and hopefully we'll plan to CT scan abdomen and pelvis tomorrow. Still unclear whether he has gallbladder disease but certainly he remains a high risk surgical patient because of his cardiac disease. 11/01/2016 Patient continues to have some discomfort in the upper part of his abdomen. Better today than has been. His CT scan abdomen and pelvis was performed in his completed and they continue to see her contracted gallbladder normal size biliary tree. See some stranding around the kidneys but otherwise nothing dramatically noted at this point. I felt the pancreas was okay. At this point after discussing his cardiac status with Dr. Dodson we feel like that he has in optimal condition to proceed with surgery at this time. He is a high risk patient and he understands this but he is okay with going ahead with surgery. Dr. Dodson feels like that he would be best to get him at this point when he is optimal as opposed to let the gallbladder get truly sick and then having a worse situation deal with. 11/04/2016 Patient remains on the ventilator and they're starting to warm him up today. Else reduce his sedation once he is warm to see I much mental activity he comes back with. From his surgery he is done well minimal MAT drainage at this point. Remains with a mild ileus with some bowel sounds are present. NG tube with minimal drainage. We'll consider possible to feedings but right now wait and see how he wakes up. 11/06/2016 Patient remains on the ventilator but they're reducing his sedation any symptoms to be waking up. Abdomen remains slightly distended with hypoactive bowel sounds but to feedings have been started now. He has a moderate amount of MAT drainage still at this time. From a surgical standpoint he is doing good with the limbs wounds looking clean and dry and we just waiting for the drainage to decrease and after weaning pulled MAT drain. Cardiac velarde he seems to be stable at this point and minimally seems to be waking up at this time. Will let cardiology and neurology continue to manage this part of things as well as respiratory manage the ventilator. 11/09/2016. Patient is status post lap scopic cholecystectomy but otherwise had a respiratory and cardiac arrest and is still on the ventilator at this time. He seems to have woken up some 400 although it is confusing the reports. He seems combative at times they say his pupils are equal and reactive and a responds to stimuli. They have not been able to get him off the ventilator because of his restless activity whenever they reduced the sedation. He's had some problem with failure of his feedings with some high residuals at this time. He's on NG suction at this point and we may have to find an alternative to his nutrition. 11/10/2016 Patient vital signs are stable labs look generally good. Chest x-ray continues to show his enlarged heart and little bit of fluid and atelectasis but otherwise stable ABGs generally look in pretty good shape. Unfortunately there is slowing on his EEG and he is rather combative respiratory-velarde whenever he is weaned all for [place] to go to a CPAP situation. He does not flail his arms or removal of extremity but he does breathe poorly whenever he is weaning off. NG tube with minimal drainage and so will try to resume tube feedings at this time. Current Visit: Yes Qualifiers: Abdominal location: upper abdomen, unspecified Qualified Code(s): R10.10 - Upper abdominal pain, unspecified Subjective Patient reports: Present: no new complaints Exam - Constitutional Vitals: Period Temp Pulse Resp BP Sys/Lobo Pulse Ox Last 24 Hr 98.8 F-102.1 F 81-120 9-15 80-180/43-136 95-100 General appearance: severe distress - Head Head exam: Present: normal inspection - ENT ENT exam: Present: normal exam - Neck Neck exam: Present: normal inspection - Respiratory Respiratory exam: Present: rales, rhonchi - Cardiovascular Cardiovascular exam: Present: RRR - GI/Abdominal GI/Abdominal exam: Present: hypoactive bowel sounds, soft, other (decreasing MAT drainage) - Extremities Exam Extremities exam: Present: normal inspection - Neurological Exam Neurological exam: Present: altered - Skin Skin exam: Present: normal color, warm, dry Results - Labs CBC & BMP: 11/10/16 02:45 11/10/16 02:45 Lab Results: I have reviewed the past 24 hour labs
[2016-11-10] MEDS: PANTOPRAZOLE 40 MG VIAL IV SCH (08:28)
[2016-11-10] MEDS: FUROSEMIDE 40 MG/4 ML VIAL IV SCH ×2 (08:29→16:33)
[2016-11-10] MEDS: QUEtiapine 25 MG TABLET PO SCH ×2 (08:30→20:47)
[2016-11-10] MEDS: SPIRONOLACTONE 50 MG TABLET PO SCH (08:30)
[2016-11-10] MEDS: MINERAL OIL/PETROLATUM OPH OINT 3.5 GM TUBE BOTH EYES SCH ×3 (08:31→21:42)
--- NOTE | 2016-11-10 09:29 | Cardiology Progress Note ---
Moshe Mancia Vanessa, RN, am scribing for, and in the presence of, Ervin Santo MD 09:29. Assessment and Plan - Time spent with patient Time spent with patient: Less than 30 minutes (1) Acute on chronic systolic CHF (congestive heart failure) Status: Acute Assessment and plan: 11/09/16: 1. 51-year-old BM with severe cardiomyopathy (EF 15% 8 days ago) with a history of cocaine use, status post urgent laparoscopic cholecystectomy, with arrest requiring CPR for 20 minutes, with now fairly prolonged course, still requiring intubation/sedation with severe wheezing. 2. Degree of brain injury is uncertain, he is not following commands when off sedation, but cannot be held off sedation very long due to agitation, etc. 3. He is unable to get his Coreg and losartan due to hypertension and is currently on levophed 15 mcgs/min; could consider changed to dopamine, unless sepsis is suspected. 4. Add spironolactone 50 mg daily as this would not affect his blood pressure, and will be helpful for his systolic acute on chronic heart failure (RALES trial ); his renal function and potassium are in reasonable ranges 5. Continue to monitor electrolytes and renal function 6. Reported history of CHEMA 7. Poor prognosis November 10 update: 1. Mr. Ramírez is still hemodynamically unstable requiring significant believe that to maintain adequate M AP, with significant fever this morning (102.1), and worsening thrombocytopenia, and gram-positive cocci in the blood - apparent sepsis 2. Severe cardiomyopathy; we cannot add beta jacqueline or FLORY inhibitor given his severe hypotension and hemodynamic instability I'll continue spironolactone 3. EEG showed generalized slowing yesterday 4. Very poor prognosis Current Visit: No (2) Cardiopulmonary arrest with successful resuscitation Status: Acute Current Visit: Yes (3) S/P laparoscopic cholecystectomy Status: Acute Current Visit: No (4) Cardiomyopathy Status: Chronic Current Visit: Yes (5) CHEMA (obstructive sleep apnea) Status: Acute Current Visit: Yes (6) Hypertension Status: Chronic Current Visit: Yes (7) Cocaine abuse Status: Acute Current Visit: No (8) Uncontrolled hypertension Status: Acute Current Visit: No Cardiology - PN: Subj Interval history: Remains intubated, sedated in ICU without acute change. Borderline low BP at times with SBP 80-90 mmHg. Currently 129/55. Cont to require vasopressor for BP support. Sinus tachycardia with HR 110-120 currently. No occurrence of arrhythmia. Temp 102.1 this AM. Blood cultures with gram (+) cocci. Exam (Progress Note) - Constitutional Vitals: Period Temp Pulse Resp BP Sys/Lobo Pulse Ox Last 24 Hr 96 F-102.1 F 81-120 9-15 80-180/43-136 92-100 General appearance: no acute distress, over weight, other (intubated, sedated) - Head Head exam: Present: normal inspection, normocephalic, atraumatic. Absent: abrasion, laceration - Eye Eye exam: Present: other (right eye absent) - ENT ENT exam: Present: normal external ear exam - Neck Neck exam: Present: normal inspection - Respiratory Respiratory exam: Present: rales (scattered throughout), wheezes - Cardiovascular Cardiovascular exam: Present: regular rate and rhythm. Absent: diastolic murmur , rubs, systolic murmur - GI/Abdominal GI/Abdominal exam: Present: hypoactive bowel sounds, soft. Absent: ascites - Extremities Exam Extremities exam: Present: edema (trace BLE's, 1-2+ BUE's). Absent: full ROM - Neurological Exam Neurological exam: Present: other (sedated with mechanical ventilation; does not follow commands after sedation held, quickly agitated.) - Skin Skin exam: Present: warm, dry Result/EKG - Labs CBC & BMP: 11/10/16 02:45 11/10/16 02:45 Lab Results: I have reviewed the past 24 hour labs Labs: Laboratory Results - last 24 hr 11/09/16 11/09/16 11/09/16 07:49 12:19 15:39 WBC RBC Hgb Hct MCV MCH MCHC RDW Plt Count MPV Neut % (Auto) Lymph % (Auto) [place] % (Auto) Eos % (Auto) Baso % (Auto) Neut # (Auto) Lymph # (Auto) [place] # (Auto) Eos # (Auto) Baso # (Auto) Immature Gran % Nucleated RBC % Immature Gran # Nucleated RBCs # Platelet Estimate Anisocytosis ABG pH ABG pCO2 ABG pO2 ABG HCO3 ABG Total CO2 ABG O2 Saturation ABG Base Excess Sodium Potassium Chloride Carbon Dioxide Anion Gap BUN Creatinine GFR Calculation BUN/Creatinine Ratio Glucose POC Glucose 96 89 82 Calculated Osmolality Calcium Total Bilirubin AST ALT Alkaline Phosphatase Total Protein Albumin Globulin Albumin/Globulin Ratio Triglycerides 11/09/16 11/09/16 11/09/16 19:42 23:20 Unknown WBC RBC Hgb Hct MCV MCH MCHC RDW Plt Count MPV Neut % (Auto) Lymph % (Auto) [place] % (Auto) Eos % (Auto) Baso % (Auto) Neut # (Auto) Lymph # (Auto) [place] # (Auto) Eos # (Auto) Baso # (Auto) Immature Gran % Nucleated RBC % Immature Gran # Nucleated RBCs # Platelet Estimate Anisocytosis ABG pH ABG pCO2 ABG pO2 ABG HCO3 ABG Total CO2 ABG O2 Saturation ABG Base Excess Sodium Potassium Chloride Carbon Dioxide Anion Gap BUN Creatinine GFR Calculation BUN/Creatinine Ratio Glucose POC Glucose 109 H 92 Calculated Osmolality Calcium Total Bilirubin AST ALT Alkaline Phosphatase Total Protein Albumin Globulin Albumin/Globulin Ratio Triglycerides 134 11/10/16 11/10/16 11/10/16 02:45 02:45 02:45 WBC 5.9 RBC 4.21 Hgb 12.5 L Hct 38.0 L MCV 90.3 MCH 30 MCHC 32.9 RDW 15.1 Plt Count 83 L MPV 14.3 H Neut % (Auto) 65.5 Lymph % (Auto) 14.0 L [place] % (Auto) 14.3 H Eos % (Auto) 4.8 Baso % (Auto) 0.7 Neut # (Auto) 3.9 Lymph # (Auto) 0.8 L [place] # (Auto) 0.8 Eos # (Auto) 0.3 Baso # (Auto) 0.0 Immature Gran % 0.7 Nucleated RBC % 0.0 Immature Gran # 0.04 Nucleated RBCs # 0.00 Platelet Estimate Decreased Anisocytosis ABG pH 7.489 H ABG pCO2 37.1 ABG pO2 121.0 H ABG HCO3 28.8 H ABG Total CO2 24.6 ABG O2 Saturation 99.0 ABG Base Excess 4.8 H Sodium 145 Potassium 3.6 Chloride 108 H Carbon Dioxide 28 Anion Gap 12.6 BUN 10 Creatinine 1.00 GFR Calculation 130 BUN/Creatinine Ratio 10.00 Glucose 129 H POC Glucose Calculated Osmolality 288.7 Calcium 7.9 L Total Bilirubin 0.90 AST 18 ALT 9 L Alkaline Phosphatase 47 Total Protein 5.8 L Albumin 1.9 L Globulin 3.9 H Albumin/Globulin Ratio 0.4 L Triglycerides 11/10/16 04:05 WBC RBC Hgb Hct MCV MCH MCHC RDW Plt Count MPV Neut % (Auto) Lymph % (Auto) [place] % (Auto) Eos % (Auto) Baso % (Auto) Neut # (Auto) Lymph # (Auto) [place] # (Auto) Eos # (Auto) Baso # (Auto) Immature Gran % Nucleated RBC % Immature Gran # Nucleated RBCs # Platelet Estimate Anisocytosis ABG pH ABG pCO2 ABG pO2 ABG HCO3 ABG Total CO2 ABG O2 Saturation ABG Base Excess Sodium Potassium Chloride Carbon Dioxide Anion Gap BUN Creatinine GFR Calculation BUN/Creatinine Ratio Glucose POC Glucose 101 Calculated Osmolality Calcium Total Bilirubin AST ALT Alkaline Phosphatase Total Protein Albumin Globulin Albumin/Globulin Ratio Triglycerides - Diagnostic Findings Procedure: Chest x-ray: report reviewed by me (11/10 no significant change) - EKG EKG results: interpreted by me, no acute changes EKG shows: sinus rhythm Gal Mancia Randall Scott, MD, personally performed the services described in this documentation, ascribed by Laura Mesa RN in my presence, and it is both accurate and complete [id number] .
[2016-11-10] MEDS: LEVOFLOXACIN INJ 750 MG in PREMIX 1 EACH IV SCH (16:34)
[2016-11-10] MEDS ORDERED: [UNRECOGNIZED DRUG - OTHER] IV SCH (17:00)
[2016-11-10] MEDS ORDERED: TRACE ELEMENTS IV SCH (17:00)
[2016-11-10] MEDS ORDERED: AMINO ACIDS IV SCH (17:00)
[2016-11-10] MEDS ORDERED: ELECTROLYTE IV SCH (17:00)
--- NOTE | 2016-11-10 19:53 | Hospitalist Progress Note ---
Assessment and Plan (1) Anoxic encephalopathy Status: Acute Assessment and plan: Dr Holland started keppra IV, poor prognosis Current Visit: Yes (2) S/P laparoscopic cholecystectomy Status: Acute Assessment and plan: stop abx Current Visit: No (3) Congestive heart failure Status: Acute Assessment and plan: Patient echo shows an EF of 15% still on pressors Current Visit: No (4) CHEMA (obstructive sleep apnea) Status: Acute Assessment and plan: on vent Current Visit: Yes (5) Cardiopulmonary arrest with successful resuscitation Status: Acute Current Visit: Yes (6) Hypotension Status: Acute Assessment and plan: still on pressor, cannot decrease diprivan as too agitated Current Visit: Yes Hospitalist: Subjective Interval history: Dr Colindres spoke with patient sister to give her update. I turned off sedation and he became agitated and breathing hard but would not follow commands at all. Patient remains on levaphed. EEG read results available. No bowel movement. No clear evidence of ongoing infection stop abx Exam - Constitutional Vitals: Period Temp Pulse Resp BP Sys/Lobo Pulse Ox Last 24 Hr 98.8 F-102.1 F 84-120 9-14 84-180/44-136 95-100 Exam: Heart Rate-[Tachy] Lungs-coarse ] GI-[diminished nontender] Ext-[no edema] neuro agitated and not following commands, not sure the extent he feels pain psych agitated general severe distress when we stop sedation breathing hard and with his abdomen Results - Labs CBC & BMP: 11/10/16 02:45 11/10/16 02:45 Lab Results: I have reviewed the past 24 hour labs Labs: blood cultures 1/2 positive contaminent - Diagnostic Findings Procedure: X-ray: other (EEG severe encephalopathy no active seizure but could be post ictal )
[2016-11-11] MEDS: ALBUTEROL/IPRATROPIUM 3 ML NEB RESP TX SCH ×4 (00:04→19:10)
[2016-11-11] MEDS: PROPOFOL 1,000 MG/100 ML BOTTLE IV SCH ×4 (01:38→18:33)
[2016-11-11 03:07] LABS: ABG Base Excess 4.7 MMOL/L (-2.5-2.5); ABG HCO3 27.9 MMOL/L (20-26); ABG Oxygen Saturation 98.9 % (95-100); ABG PH 7.496 (7.35-7.45); ABG PO2 149.9 MM HG (80-95); ABG TCO2 29.1 MMOL/L (23-27)
[2016-11-11 03:09] LABS: Basophils % 0.5 % (0.0-0.8); Eosinophils # 0.2 10*3/uL (0.0-0.87); Eosinophils % 3.1 % (0.00-10.9); Hematocrit 39.1 VOL% (42.0-52.0); Hemoglobin 12.5 GM/DL (14.0-18.0); Immature Granulocytes % 0.3 %; Immature Granulocytes Absolute 0.02 #; Lymphocytes # 1.3 10*3/uL (1.4-4.0); Lymphocytes % 20.8 % (21.2-54.2); Mean Corpuscular Hemoglobin 29 PG (27-34); Mean Corpuscular Volume 90.1 FL (87-102); Mean Platelet Volume 14.1 FL (9.6-12.0); Monocytes # 0.7 10*3/uL (0.11-0.8); Monocytes % 11.8 % (1.7-12.7); Neutrophils # 3.9 10*3/uL (1.4-7.4); Neutrophils % 63.5 % (38.7-73.9); Platelet Count 73 10*3/uL (130-400); Red Blood Count 4.34 10*6/uL (3.8-5.5); Red Cell Distribution Width 15.1 % (9.3-17.3); White Blood Count 6.2 10*3/uL (4.5-13.71)
[2016-11-11 03:52] LABS: Calcium 7.6 MG/DL (8.5-10.1); Magnesium 2.3 MG/DL (1.8-2.4); Osmolality,Calculated 295.4 MOS/KG (273-304); Potassium 3.8 MMOL/L (3.5-5.1)
[2016-11-11 03:56] LABS: Platelet Estimate Decreased; Target Cells Slight
[2016-11-11] MEDS: INSULIN REGULAR 100 UNIT/ML IV SCH ×5 (04:23→21:01)
[2016-11-11] MEDS: ALUMINUM/MAGNES/SIMETH MAX STR 30 ML UDCUP PO SCH ×3 (04:37→16:45)
[2016-11-11] MEDS: METOCLOPRAMIDE 10 MG/2 ML VIAL IV SCH ×3 (06:03→18:30)
--- NOTE | 2016-11-11 07:07 | XRay Report ---
XR chest 1V portable Indication: Ventilatory support. Chest one view: Comparison 11/10/16. Endotracheal tube, NG tube, central line, cardiomegaly, and hazy obscuration of the mid lungs and both lung bases are unchanged. No new infiltrates identified. Impression: No change. PROCEDURE INTERPRETED AT [facility] DEPARTMENT OF RADIOLOGY Final Report Signed by: Benigno Rodney M.D.
--- NOTE | 2016-11-11 08:28 | Cardiology Progress Note ---
Assessment and Plan (1) Acute on chronic systolic CHF (congestive heart failure) Status: Acute Assessment and plan: 11/09/16: 1. 51-year-old BM with severe cardiomyopathy (EF 15% 8 days ago) with a history of cocaine use, status post urgent laparoscopic cholecystectomy, with arrest requiring CPR for 20 minutes, with now fairly prolonged course, still requiring intubation/sedation with severe wheezing. 2. Degree of brain injury is uncertain, he is not following commands when off sedation, but cannot be held off sedation very long due to agitation, etc. 3. He is unable to get his Coreg and losartan due to hypertension and is currently on levophed 15 mcgs/min; could consider changed to dopamine, unless sepsis is suspected. 4. Add spironolactone 50 mg daily as this would not affect his blood pressure, and will be helpful for his systolic acute on chronic heart failure (RALES trial ); his renal function and potassium are in reasonable ranges 5. Continue to monitor electrolytes and renal function 6. Reported history of CHEMA 7. Poor prognosis November 10 update: 1. Mr. Ramírez is still hemodynamically unstable requiring significant believe that to maintain adequate M AP, with significant fever this morning (102.1), and worsening thrombocytopenia, and gram-positive cocci in the blood - apparent sepsis 2. Severe cardiomyopathy; we cannot add beta jacqueline or FLORY inhibitor given his severe hypotension and hemodynamic instability I'll continue spironolactone 3. EEG showed generalized slowing yesterday 4. Very poor prognosis November 11 update: 1. Severe cardiomyopathy and sepsis requiring ventilator support and pressor support 2. Suspected anoxic brain injury; neurology is following; abnormal EEG 3. Cannot add Coreg or FLORY inhibitor due to hypotension; consider spironolactone (was discontinued?) 4. Very poor prognosis 5. He is currently still a full code according to the computer; consider DNR? Current Visit: No (2) Cardiopulmonary arrest with successful resuscitation Status: Acute Current Visit: Yes (3) S/P laparoscopic cholecystectomy Status: Acute Current Visit: No (4) Cardiomyopathy Status: Chronic Current Visit: Yes (5) CHEMA (obstructive sleep apnea) Status: Acute Current Visit: Yes (6) Hypertension Status: Chronic Current Visit: Yes (7) Cocaine abuse Status: Acute Current Visit: No (8) Uncontrolled hypertension Status: Acute Current Visit: No Cardiology - PN: Subj Interval history: Mr. Ramírez is still requiring ventilatory support as well as pressure support. He has not had any malignancy arrhythmias. Exam (Progress Note) - Constitutional Vitals: Period Temp Pulse Resp BP Sys/Lobo Pulse Ox Last 24 Hr 98.7 F-100.5 F 80-120 10-27 87-138/43-76 96-99 General appearance: no acute distress, over weight, other (sedated) - Head Head exam: Present: normal inspection - Neck Neck exam: Present: normal inspection - Respiratory Respiratory exam: Present: clear to auscultation bilaterally - Cardiovascular Cardiovascular exam: Present: regular rate and rhythm - GI/Abdominal GI/Abdominal exam: Present: soft - Extremities Exam Extremities exam: Absent: edema Result/EKG - Labs CBC & BMP: 11/11/16 03:00 11/11/16 03:00 Labs: Laboratory Results - last 24 hr 11/10/16 11/10/16 11/10/16 08:08 12:01 16:16 WBC RBC Hgb Hct MCV MCH MCHC RDW Plt Count MPV Neut % (Auto) Lymph % (Auto) [place] % (Auto) Eos % (Auto) Baso % (Auto) Neut # (Auto) Lymph # (Auto) [place] # (Auto) Eos # (Auto) Baso # (Auto) Immature Gran % Nucleated RBC % Immature Gran # Nucleated RBCs # Platelet Estimate Target Cells Morphology Comment ABG pH ABG pCO2 ABG pO2 ABG HCO3 ABG Total CO2 ABG O2 Saturation ABG Base Excess Sodium Potassium Chloride Carbon Dioxide Anion Gap BUN Creatinine GFR Calculation BUN/Creatinine Ratio Glucose POC Glucose 90 115 H 114 H Calculated Osmolality Calcium Magnesium 11/10/16 11/10/16 11/11/16 19:56 23:18 03:00 WBC RBC Hgb Hct MCV MCH MCHC RDW Plt Count MPV Neut % (Auto) Lymph % (Auto) [place] % (Auto) Eos % (Auto) Baso % (Auto) Neut # (Auto) Lymph # (Auto) [place] # (Auto) Eos # (Auto) Baso # (Auto) Immature Gran % Nucleated RBC % Immature Gran # Nucleated RBCs # Platelet Estimate Target Cells Morphology Comment ABG pH 7.496 H ABG pCO2 37.0 ABG pO2 149.9 H ABG HCO3 27.9 H ABG Total CO2 29.1 H ABG O2 Saturation 98.9 ABG Base Excess 4.7 H Sodium Potassium Chloride Carbon Dioxide Anion Gap BUN Creatinine GFR Calculation BUN/Creatinine Ratio Glucose POC Glucose 118 H 120 H Calculated Osmolality Calcium Magnesium 11/11/16 11/11/16 11/11/16 03:00 03:00 04:09 WBC 6.2 RBC 4.34 Hgb 12.5 L Hct 39.1 L MCV 90.1 MCH 29 MCHC 32.0 RDW 15.1 Plt Count 73 L MPV 14.1 H Neut % (Auto) 63.5 Lymph % (Auto) 20.8 L [place] % (Auto) 11.8 Eos % (Auto) 3.1 Baso % (Auto) 0.5 Neut # (Auto) 3.9 Lymph # (Auto) 1.3 L [place] # (Auto) 0.7 Eos # (Auto) 0.2 Baso # (Auto) 0.0 Immature Gran % 0.3 Nucleated RBC % 0.0 Immature Gran # 0.02 Nucleated RBCs # 0.00 Platelet Estimate Decreased Target Cells Slight Morphology Comment ABG pH ABG pCO2 ABG pO2 ABG HCO3 ABG Total CO2 ABG O2 Saturation ABG Base Excess Sodium 147 H Potassium 3.8 Chloride 110 H Carbon Dioxide 27 Anion Gap 13.8 BUN 20 H Creatinine 1.00 GFR Calculation 129 BUN/Creatinine Ratio 20.00 Glucose 125 H POC Glucose 99 Calculated Osmolality 295.4 Calcium 7.6 L Magnesium 2.3
--- NOTE | 2016-11-11 08:45 | Consultation ---
Assessment and Plan - Time spent with patient Time spent with patient: Less than 30 minutes (1) Ventilator dependent Status: Acute Assessment and plan: I recommend tracheostomy placement to be performed today we will obtain consent risks and benefits are discussed and the family desires to proceed. Current Visit: Yes (2) Respiratory failure Status: Acute Current Visit: Yes (3) CHEMA (obstructive sleep apnea) Status: Acute Current Visit: Yes (4) Anoxic encephalopathy Status: Acute Current Visit: Yes History of Present Illness - Data of Consult Patient: new to practice Consult date: 11/11/16 Requesting Physician: Jennifer Knox - Consult Narrative Reason for consult: Ventilator dependent respiratory failure History of present illness: Mr. Ramírez is a 51 year old male with multiple medical comorbidities requiring intubation and difficulty weaning the patient from ventilator dependence. ENT is consulted for tracheostomy for ventilator dependent respiratory failure. CC: Cara Rabago MD - Home Medications and Allergies Home Medications: Home Medications Medication Instructions Recorded Confirmed Type Carvedilol 6.25 mg PO BID W/MEALS 04/21/16 10/30/16 History Citalopram Hydrobromide 10 mg PO DAILY 04/21/16 10/30/16 History [Citalopram HBr] Furosemide Tab [Lasix Tab] 20 mg PO BID DIURETIC 04/21/16 10/30/16 History Spironolactone 25 mg PO DAILY 04/21/16 10/30/16 History Aspirin EC Tab 81 mg PO DAILY 09/15/16 10/30/16 History Valsartan 40 mg PO DAILY 10/30/16 10/30/16 History Allergies/Adverse Reactions: Allergies Allergy/AdvReac Type Severity Reaction Status Date / Time No Known Allergies Allergy Verified 09/15/16 19:22 ROS unobtainable: due to endotracheal tube Medical,Surgical,& Family Hx - Medical History Cardio: History of: CHF, Hypertension Psychological: History of: Anxiety Disorders, Depression Neurology: History of: Vertigo HEENT: History of: Eye Problem (ARTIFICIAL RIGHT EYE) Endocrine: History of: Dyslipidemia No history of: Diabetes Mellitus (NIDDM) Respiratory: History of: Respiratory Problems (CHF) Gastrointestinal: History of: GI Problems (ABD PAIN) Musculoskeletal: History of: Musculoskeletal Problems (FX L WRIST) - Surgical History Abdominal Surgeries: Surgical HX of: Abdominal Surgery (HAKEEM INGUINEAL HERNIA REPAIR), Hernia Repair Orthopedic Surgeries: Surgical HX of;: Orthopedic Surgery (L WRIST PINNING) - Family History Family History: Reports;: Family Diabetes (GREAT GM), Family Heart Disease (MOM- CHF), Family Hypertension (?FATHER,BROTHER) Denies;: Family Anesthesia Reaction, Family Cancer, Family Psychiatric Problems, Family Stroke - Social History Smoking Status: Former smoker Frequency of Alcohol Use: None Type of Drug Use: None Exam - Constitutional Vitals: Period Temp Pulse Resp BP Sys/Lobo Pulse Ox Last 24 Hr 98.7 F-100.5 F 80-120 10-27 87-129/43-76 96-99 General appearance: morbidly obese, other (Intubated) - Head Head exam: Present: normal inspection, normocephalic - ENT ENT exam: Present: normal exam, normal external ear exam, normal oropharynx ( Obscured exam secondary to endotracheal and nasogastric tube) - Neck Neck exam: Present: normal inspection - Respiratory Respiratory exam: Present: other (Resting on the ventilator with endotracheal intubation currently) - GI/Abdominal GI/Abdominal exam: Present: soft - Neurological Exam Neurological exam: Present: other (Currently mechanically ventilated) Results - Labs CBC & BMP: 11/11/16 03:00 11/11/16 03:00 Lab Results: I have reviewed the past 24 hour labs
--- NOTE | 2016-11-11 09:01 | Pulmonology Progress Note ---
Pulmonary - PN: Subj Interval history: The patient is a 51-year-old black man that has a severe cardiomyopathy and had an arrest during surgery. He had just completed a lap cholecystectomy. He had a 20 minute resuscitation but did come around a little. He has been on pressors but is stable on the ventilator. He doesn't do CPAP trials very well. His chest x-ray looks like chronic heart failure. Blood pressure is better and he is off pressors now. Overall he stable but will take a while to wean. He does need a tracheostomy tube. Exam (Progress Note) - Constitutional Vitals: Period Temp Pulse Resp BP Sys/Lobo Pulse Ox Last 24 Hr 98.7 F-100.5 F 80-120 10-27 87-129/43-76 96-99 Exam: General appearance: moderately obese, other (patient is sedated on the ventilator and appears stable at present. He will respond some but still gets very agitated when off sedation. ) - Head Head exam: Present: normal inspection - Eye Eye exam: Present: EOMI. Absent: scleral icterus Pupils: Present: CB, constricted - ENT ENT exam: Present: other (ET tube in good position, he does seem to have some swelling of his face.) - Neck Neck exam: Present: normal inspection. Absent: lymphadenopathy, thyromegaly - Respiratory Respiratory exam: Present: He has good breath sounds bilaterally but they are coarse with bilateral rhonchi. - Cardiovascular Cardiovascular exam: Present: regular rate and rhythm. Absent: gallop, JVD, systolic murmur - GI/Abdominal GI/Abdominal exam: Present: hypoactive bowel sounds, soft, other (he is postop and drains in place.). Absent: organomegaly - Extremities Exam Extremities exam: Present: edema (he has mild lower extremity edema.) - Neurological Exam Neurological exam: Present: altered (patient is opening his eyes and does seem to be moving around little better. ) - Skin Skin exam: Present: dry. Absent: rash Results - Labs CBC & BMP: 11/11/16 03:00 11/11/16 03:00 Labs: His ABG showed PO2 149 with a PCO2 of 37 and pH is 7.49 - Diagnostic Findings Procedure: Chest x-ray: image reviewed by me, report reviewed by me (chest x- ray is basically the same.) Assessment and Plan (1) Hypertension Status: Chronic Assessment and plan: The patient has a history of hypertension and a cardiomyopathy but his blood pressure has been on the low side while he sedated. He is off pressors now and seems to be a little more stable. Current Visit: Yes (2) CHEMA (obstructive sleep apnea) Status: Acute Assessment and plan: This will be evaluated later. Current Visit: Yes (3) Cardiomyopathy Status: Chronic Assessment and plan: The patient apparently has an ejection fraction of 15% and severe cardiomyopathy. His chest x-ray looks like heart failure now. He does seem to be diuresing fairly well. His oxygenation has improved. He is stable but will need a tracheostomy tube. Current Visit: Yes (4) Cardiopulmonary arrest with successful resuscitation Status: Acute Assessment and plan: The patient is on the ventilator after a successful resuscitation. He is responding better and moving a little better. He still hasn't done CPAP very well. He will be easier to wean with a tracheostomy tube. Current Visit: Yes (5) S/P laparoscopic cholecystectomy Status: Acute Assessment and plan: The patient has had a lap cholecystectomy after presenting with significant abdominal pain. His abdomen seems to be doing okay. Current Visit: No (6) Acute on chronic systolic CHF (congestive heart failure) Status: Acute Assessment and plan: Patient is on the ventilator with what looks like heart failure. His chest x- ray is basically unchanged. He seems to be diuresing fairly well. Current Visit: No
--- NOTE | 2016-11-11 09:28 | General Surgery Progress Note ---
Assessment and Plan - Time spent with patient Time spent with patient: Less than 30 minutes (1) S/P laparoscopic cholecystectomy Status: Acute Assessment and plan: 11/11/16 Stable post op lap kailey. Tolerating tube feedings. We've removed his MAT. I understand he's for trach today. We are continuing to follow. Current Visit: No Subjective Patient reports: Present: other (On vent; will open his eyes and sometimes follows others' movements but it does not seem to be purposefully) Exam - Constitutional Vitals: Period Temp Pulse Resp BP Sys/Lobo Pulse Ox Last 24 Hr 98.7 F-100.5 F 80-114 10-27 87-129/43-76 96-99 General appearance: over weight - GI/Abdominal GI/Abdominal exam: Present: hypoactive bowel sounds, soft (MAT in place with serous drainage, decreasing in amount. No redness. MAT was discontinued at this visit. ), other. Absent: guarding, tenderness - Extremities Exam Extremities exam: Present: other (Mild generalized edema of all extremities. ) Results - Labs CBC & BMP: 11/11/16 03:00 11/11/16 03:00 Lab Results: I have reviewed the past 24 hour labs
[2016-11-11] MEDS: MINERAL OIL/PETROLATUM OPH OINT 3.5 GM TUBE BOTH EYES PRN ×2 (09:54→14:46)
[2016-11-11] MEDS: PANTOPRAZOLE 40 MG VIAL IV SCH (09:54)
[2016-11-11] MEDS: QUEtiapine 25 MG TABLET PO SCH ×2 (09:55→21:13)
[2016-11-11] MEDS: MINERAL OIL/PETROLATUM OPH OINT 3.5 GM TUBE BOTH EYES SCH ×3 (09:55→21:14)
[2016-11-11] MEDS: POTASSIUM CHLORIDE RIDER 20 MEQ in PREMIX 1 EACH IV PRN (09:57)
--- NOTE | 2016-11-11 10:15 | Hospitalist Progress Note ---
Assessment and Plan (1) Anoxic encephalopathy Status: Acute Assessment and plan: slight improvement with keppra Current Visit: Yes (2) S/P laparoscopic cholecystectomy Status: Acute Assessment and plan: Patient has finished his course of antibiotics Current Visit: No (3) Congestive heart failure Status: Acute Assessment and plan: Patient echo shows an EF of 15% still on pressors Current Visit: No (4) Cardiopulmonary arrest with successful resuscitation Status: Acute Current Visit: Yes (5) Hypotension Status: Acute Assessment and plan: still on pressor, Current Visit: Yes Hospitalist: Subjective Interval history: Patient doing better today and following commands since starting seizure medicines. He is still very encephalopathic. Spoke to Dr. WEBB about placing a trach. He is going try to do that today. Patient is good candidate for [facility]. Patient did have a bowel movement today. Exam - Constitutional Vitals: Period Temp Pulse Resp BP Sys/Lobo Pulse Ox Last 24 Hr 98.7 F-100.5 F 80-112 10-27 90-129/43-76 96-99 Exam: Heart Rate-[RRR] Lungs-clear ] GI-[diminished nontender] Ext-[no edema] neuro not as agitated and following simple commands of squeezing my hand. psych normal mood and affect general no acute distress Results - Labs CBC & BMP: 11/11/16 03:00 11/11/16 03:00 Lab Results: I have reviewed the past 24 hour labs Labs: blood cultures 1/2 positive
--- NOTE | 2016-11-11 11:05 | Physician Query Form ---
CLICK EDIT DOCUMENT TO SELECT QUERY ANSWER --> OK --> SIGN Alicia López RN, CCDS Certified Clinical Transfer Table Operator Helper W) [phone] (f) [phone] [email or web address]: Make your selection(s) from the choices in EACH section by typing an "x" and enter comments in the comment section. Please use your independent medical judgment in providing your response. This request does not imply that any particular answer is desired or expected. CLINICAL INDICATORS: (Providers should not edit this section) The medical record indicates that the patient had surgery, suffered cardiac arrest, later developed pneumonia, bronched on the and the bronchial washings are growing "Staph Aureus Negative".. Community Acquired and Healthcare Acquired are both unspecified terms and require further specificity. Based on the above, could you please clarify further specificity regarding the type of pneumonia you are treating (even if specific organism may not be known) ? ( ) Aspiration pneumonia ( ) Gram negative pneumonia ( ) Gram positive pneumonia ( x) Bacterial pneumonia due to, please specify organism (if known): "Staph Aureus Negative" ( ) Pneumonia with Influenza ( ) Viral pneumonia ( ) Post procedural ( ) HIV associated pneumonia ( ) Radiation Pneumonitis ( ) Pneumonia due to, please specify: ( ) Clinically unable to determine ( ) Other, please specify: COMMENTS: Use of terms such as suspected, likely, or probable (associated with a specific diagnosis that is being evaluated, monitored, or treated as if it exists) are acceptable and can be restated in the discharge summary if not ruled out. MTDD
[2016-11-11] MEDS ORDERED: MICROFIBRILLAR COLLAGEN POWDER 1 GM CAN TOP ONE (14:42)
[2016-11-11] MEDS ORDERED: THROMBIN TOPICAL (RECOMBINANT) 5,000 UNIT VIAL TOP ONE (14:43)
--- NOTE | 2016-11-11 15:03 | Neurology Progress Note ---
Stacy Mancia Chassity, am scribing for, and in the presence of, Dave Holland MD 16 :44. Neurology - PN : Subjective Interval history: Patient is sedated. He is not waking up or following any commands. Patient is doing poorly on the vent. EEG reveals generalized slowing. CT of the head is unremarkable for acute changes. He is having some jerking movement in his whole body. Exam (Progress Note) - Constitutional Vitals: Period Temp Pulse Resp BP Sys/Lobo Pulse Ox Last 24 Hr 98.8 F-102.1 F 83-120 9-14 81-180/44-136 95-100 Exam: GENERAL: Patient is in no acute distress. NECK: Neck is supple. There is no JVD. No carotid bruits present. No thyroid masses. CVS: First and second heart sounds are normal. There is no S3 present. Regular rate and rhythm. RESPIRATORY: Lungs are clear to auscultation without any rales or rhonchi. ABDOMEN: Soft and non-tender. Bowel sounds are present. There is no hepatosplenomegaly. EXT: There is no palpable edema. Peripheral pulses are present. 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 Left pupil is sluggish but reactive Motor: Strength cannot be assessed Sensory: Cannot be assessed Reflexes: Absent and symmetrical Cerebellar function: Cannot be assessed Gait: Cannot be assessed Results - Labs CBC & BMP: 11/10/16 02:45 11/10/16 02:45 Assessment and Plan (1) Anoxic encephalopathy Status: Acute Assessment and plan: Continues to remain the same. No significant improvements. Current Visit: Yes (2) Seizures Status: Acute Assessment and plan: Add Keppra 500mg IV Q12. Current Visit: Yes Skyler Mancia Aamir, MD, personally performed the services described in this documentation, ascribed by Luisana Kumar in my presence, and it is both accurate and complete 503 .
[2016-11-11] MEDS ORDERED: VECURONIUM 10 MG VIAL IV ONE (15:06)
[2016-11-11] MEDS ORDERED: MIDAZOLAM 10 MG/2 ML VIAL ONE (16:24)
[2016-11-11] MEDS: NOREPINEPHRINE 8 MG in SODIUM CHLORIDE 0.9% 242 ML IV SCH (16:44)
--- NOTE | 2016-11-11 17:47 | Anesthesia ---
Anesthesia Post OP - Post Ansesthetic Evaluation Patient seen in post op: Yes Resp: within normal limits CV: within normal limits Mental: within normal limits (sedated) Temp: within normal limits [id number]-[id number]: within normal limits Nausea and Vomiting: within normal limits Pain: within normal limits
[2016-11-12] MEDS: METOCLOPRAMIDE 10 MG/2 ML VIAL IV SCH ×4 (00:17→17:22)
[2016-11-12] MEDS: ALUMINUM/MAGNES/SIMETH MAX STR 30 ML UDCUP PO SCH ×4 (00:17→17:21)
[2016-11-12] MEDS: INSULIN REGULAR 100 UNIT/ML IV SCH ×6 (00:18→21:13)
[2016-11-12] MEDS: PROPOFOL 1,000 MG/100 ML BOTTLE IV SCH ×3 (01:02→17:30)
[2016-11-12] MEDS: ALBUTEROL/IPRATROPIUM 3 ML NEB RESP TX SCH ×4 (02:01→19:24)
[2016-11-12 03:16] LABS: Basophils % 0.5 % (0.0-0.8); Eosinophils # 0.1 10*3/uL (0.0-0.87); Eosinophils % 1.3 % (0.00-10.9); Hematocrit 38.5 VOL% (42.0-52.0); Hemoglobin 12.5 GM/DL (14.0-18.0); Immature Granulocytes % 0.5 %; Immature Granulocytes Absolute 0.04 #; Lymphocytes # 1.4 10*3/uL (1.4-4.0); Lymphocytes % 17.2 % (21.2-54.2); Mean Corpuscular HGB Conc 32.5 GM/DL (32-36); Mean Corpuscular Hemoglobin 29 PG (27-34); Mean Corpuscular Volume 90.2 FL (87-102); Monocytes # 0.6 10*3/uL (0.11-0.8); Monocytes % 7.6 % (1.7-12.7); Neutrophils # 6.1 10*3/uL (1.4-7.4); Neutrophils % 72.9 % (38.7-73.9); Red Blood Count 4.27 10*6/uL (3.8-5.5); White Blood Count 8.4 10*3/uL (4.5-13.71)
[2016-11-12 03:21] LABS: Platelet Count 77 10*3/uL (130-400)
[2016-11-12 03:32] LABS: ABG HCO3 27.1 MMOL/L (20-26); ABG Oxygen Saturation 99.1 % (95-100); ABG PCO2 38.8 MM HG (35-48); ABG PH 7.451 (7.35-7.45); ABG TCO2 23.5 MMOL/L (23-27)
[2016-11-12 03:39] LABS: Osmolality,Calculated 295.4 MOS/KG (273-304); Potassium 3.9 MMOL/L (3.5-5.1)
[2016-11-12 03:40] LABS: Platelet Estimate Decreased
[2016-11-12 03:56] LABS: Magnesium 2.5 MG/DL (1.8-2.4); Phosphorous 2.8 MG/DL (2.5-4.9); Prealbumin 9.6 MG/DL (20-40)
[2016-11-12] MEDS: POTASSIUM CHLORIDE RIDER 20 MEQ in PREMIX 1 EACH IV PRN (05:29)
--- NOTE | 2016-11-12 06:49 | XRay Report ---
XR chest 1V portable Indication: Respiratory failure. Chest one view: Comparison yesterday. Tracheostomy is now present. NG tube, central line, cardiomegaly and complete obscuration of the mid lungs and lung bases is unchanged. Impression: Tracheostomy. Otherwise no change. PROCEDURE INTERPRETED AT [facility] DEPARTMENT OF RADIOLOGY Final Report Signed by: Benigno Rodney M.D.
--- NOTE | 2016-11-12 07:46 | Pulmonology Progress Note ---
Pulmonary - PN: Subj Interval history: The patient is a 51-year-old black man that has a severe cardiomyopathy and had an arrest during surgery. He had just completed a lap cholecystectomy. He had a 20 minute resuscitation but did come around a little. He had been on pressors but is stable on the ventilator. He doesn't do CPAP trials very well. His chest x-ray looks like chronic heart failure. He is awake at times and calmer when sedation is cut back. He apparently does follow commands. He still doesn't do well on CPAP yet. His oxygenation is still excellent. Exam (Progress Note) - Constitutional Vitals: Period Temp Pulse Resp BP Sys/Lobo Pulse Ox Last 24 Hr 97.1 F-98.4 F 82-106 12-27 85-126/50-78 97-100 Exam: General appearance: moderately obese, other (patient is sedated on the ventilator and appears stable at present. He is responding better and seems to be less agitated. ) - Head Head exam: Present: normal inspection - Eye Eye exam: Present: EOMI. Absent: scleral icterus Pupils: Present: CB, constricted - ENT ENT exam: Present: Unremarkable, facial swelling is less. - Neck Neck exam: Present: normal inspection. He has a tracheostomy tube in place. Absent: lymphadenopathy, thyromegaly - Respiratory Respiratory exam: Present: He has good breath sounds bilaterally but they are coarse with bilateral rhonchi. - Cardiovascular Cardiovascular exam: Present: regular rate and rhythm. Absent: gallop, JVD, systolic murmur - GI/Abdominal GI/Abdominal exam: Present: hypoactive bowel sounds, soft, other (he is postop and drains in place.). Absent: organomegaly - Extremities Exam Extremities exam: Present: edema (he has mild lower extremity edema.) - Neurological Exam Neurological exam: Present: altered (patient is following commands a little better does seem to be less agitated.) - Skin Skin exam: Present: dry. Absent: rash Results - Labs CBC & BMP: 11/12/16 02:55 11/12/16 02:55 Labs: His ABGs show a PO2 of 144 with a PCO2 of 38 and a pH of 7.45. - Diagnostic Findings Procedure: Chest x-ray: image reviewed by me, report reviewed by me (chest x- ray still shows cardiomegaly and bilateral infiltrates and fluid.) Assessment and Plan (1) Hypertension Status: Chronic Assessment and plan: The patient has a history of hypertension and a cardiomyopathy but his blood pressure has been on the low side while he sedated. He is off pressors now and seems to be a little more stable. His weight fluctuates a good bit. Current Visit: Yes (2) CHEMA (obstructive sleep apnea) Status: Acute Assessment and plan: This will be evaluated later. Current Visit: Yes (3) Cardiomyopathy Status: Chronic Assessment and plan: The patient apparently has an ejection fraction of 15% and severe cardiomyopathy. His chest x-ray looks like heart failure now. He does seem to be diuresing fairly well. His oxygenation has improved. He got a tracheostomy tube without any problems. We will continue weaning trials. Current Visit: Yes (4) Cardiopulmonary arrest with successful resuscitation Status: Acute Assessment and plan: The patient is on the ventilator after a successful resuscitation. He is responding better and following commands better. He did get his tracheostomy tube yesterday. Will adjust his ventilator. Current Visit: Yes (5) S/P laparoscopic cholecystectomy Status: Acute Assessment and plan: The patient has had a lap cholecystectomy after presenting with significant abdominal pain. His abdomen seems to be doing okay. Current Visit: No (6) Acute on chronic systolic CHF (congestive heart failure) Status: Acute Assessment and plan: Patient is on the ventilator with what looks like heart failure. His chest x- ray is basically unchanged. We will continue to try to wean still diurese him. Current Visit: No
[2016-11-12] MEDS ORDERED: FUROSEMIDE 40 MG/4 ML VIAL IV ONE (07:51)
--- NOTE | 2016-11-12 08:16 | Cardiology Progress Note ---
Assessment and Plan (1) Acute on chronic systolic CHF (congestive heart failure) Status: Acute Assessment and plan: 11/09/16: 1. 51-year-old BM with severe cardiomyopathy (EF 15% 8 days ago) with a history of cocaine use, status post urgent laparoscopic cholecystectomy, with arrest requiring CPR for 20 minutes, with now fairly prolonged course, still requiring intubation/sedation with severe wheezing. 2. Degree of brain injury is uncertain, he is not following commands when off sedation, but cannot be held off sedation very long due to agitation, etc. 3. He is unable to get his Coreg and losartan due to hypertension and is currently on levophed 15 mcgs/min; could consider changed to dopamine, unless sepsis is suspected. 4. Add spironolactone 50 mg daily as this would not affect his blood pressure, and will be helpful for his systolic acute on chronic heart failure (RALES trial ); his renal function and potassium are in reasonable ranges 5. Continue to monitor electrolytes and renal function 6. Reported history of CHEMA 7. Poor prognosis November 10 update: 1. Mr. Ramírez is still hemodynamically unstable requiring significant believe that to maintain adequate M AP, with significant fever this morning (102.1), and worsening thrombocytopenia, and gram-positive cocci in the blood - apparent sepsis 2. Severe cardiomyopathy; we cannot add beta jacqueline or FLORY inhibitor given his severe hypotension and hemodynamic instability I'll continue spironolactone 3. EEG showed generalized slowing yesterday 4. Very poor prognosis November 11 update: 1. Severe cardiomyopathy and sepsis requiring ventilator support and pressor support 2. Suspected anoxic brain injury; neurology is following; abnormal EEG 3. Cannot add Coreg or FLORY inhibitor due to hypotension; consider spironolactone (was discontinued?) 4. Very poor prognosis 5. He is currently still a full code according to the computer; consider DNR? November 12 update: 1. Previous history of severe cardiomyopathy followed in [place], noted to have EF 15% with moderate mitral regurgitation this admission 2. Suspected anoxic brain or injury after arrest, with possible seizures (per neurology note) 3. Resume his home spironolactone, Lasix, and low-dose Coreg at 3.125 mg twice a day as tolerated 4. History of cocaine use 5. Poor prognosis Current Visit: No (2) Cardiopulmonary arrest with successful resuscitation Status: Acute Current Visit: Yes (3) S/P laparoscopic cholecystectomy Status: Acute Current Visit: No (4) Cardiomyopathy Status: Chronic Current Visit: Yes (5) CHEMA (obstructive sleep apnea) Status: Acute Current Visit: Yes (6) Hypertension Status: Chronic Current Visit: Yes (7) Cocaine abuse Status: Acute Current Visit: No (8) Uncontrolled hypertension Status: Acute Current Visit: No Cardiology - PN: Subj Interval history: Mr. Ramírez still requires intubation, and reportedly did some minor purposeful movement off sedation. His blood pressure is improved with previous hypotension. Exam (Progress Note) - Constitutional Vitals: Period Temp Pulse Resp BP Sys/Lobo Pulse Ox Last 24 Hr 97.1 F-98.4 F 82-106 12-24 85-126/50-78 97-100 General appearance: normal weight, no acute distress - Head Head exam: Present: normal inspection, normocephalic, atraumatic - Respiratory Respiratory exam: Present: rhonchi. Absent: wheezes - Cardiovascular Cardiovascular exam: Present: regular rate and rhythm. Absent: rubs, systolic murmur - GI/Abdominal GI/Abdominal exam: Present: soft - Extremities Exam Extremities exam: Present: other (warm). Absent: edema Result/EKG - Labs CBC & BMP: 11/12/16 02:55 11/12/16 02:55 Labs: Laboratory Results - last 24 hr 11/11/16 11/11/16 11/11/16 08:44 11:47 16:19 WBC RBC Hgb Hct MCV MCH MCHC RDW Plt Count Neut % (Auto) Lymph % (Auto) [place] % (Auto) Eos % (Auto) Baso % (Auto) Neut # (Auto) Lymph # (Auto) [place] # (Auto) Eos # (Auto) Baso # (Auto) Immature Gran % Nucleated RBC % Immature Gran # Nucleated RBCs # Platelet Estimate Anisocytosis ABG pH ABG pCO2 ABG pO2 ABG HCO3 ABG Total CO2 ABG O2 Saturation ABG Base Excess Sodium Potassium Chloride Carbon Dioxide Anion Gap BUN Creatinine GFR Calculation BUN/Creatinine Ratio Glucose POC Glucose 104 96 106 Calculated Osmolality Calcium Phosphorus Magnesium Prealbumin Triglycerides 11/11/16 11/12/16 11/12/16 19:48 00:00 02:55 WBC 8.4 D RBC 4.27 Hgb 12.5 L Hct 38.5 L MCV 90.2 MCH 29 MCHC 32.5 RDW 15.0 Plt Count 77 L Neut % (Auto) 72.9 Lymph % (Auto) 17.2 L [place] % (Auto) 7.6 Eos % (Auto) 1.3 Baso % (Auto) 0.5 Neut # (Auto) 6.1 Lymph # (Auto) 1.4 [place] # (Auto) 0.6 Eos # (Auto) 0.1 Baso # (Auto) 0.0 Immature Gran % 0.5 Nucleated RBC % 0.0 Immature Gran # 0.04 Nucleated RBCs # 0.00 Platelet Estimate Decreased Anisocytosis ABG pH ABG pCO2 ABG pO2 ABG HCO3 ABG Total CO2 ABG O2 Saturation ABG Base Excess Sodium Potassium Chloride Carbon Dioxide Anion Gap BUN Creatinine GFR Calculation BUN/Creatinine Ratio Glucose POC Glucose 97 83 Calculated Osmolality Calcium Phosphorus Magnesium Prealbumin Triglycerides 11/12/16 11/12/16 11/12/16 02:55 02:55 02:55 WBC RBC Hgb Hct MCV MCH MCHC RDW Plt Count Neut % (Auto) Lymph % (Auto) [place] % (Auto) Eos % (Auto) Baso % (Auto) Neut # (Auto) Lymph # (Auto) [place] # (Auto) Eos # (Auto) Baso # (Auto) Immature Gran % Nucleated RBC % Immature Gran # Nucleated RBCs # Platelet Estimate Anisocytosis ABG pH 7.451 H ABG pCO2 38.8 ABG pO2 144.0 H ABG HCO3 27.1 H ABG Total CO2 23.5 ABG O2 Saturation 99.1 ABG Base Excess 3.0 H Sodium 147 H Potassium 3.9 Chloride 109 H Carbon Dioxide 27 Anion Gap 14.9 BUN 23 H Creatinine 0.90 GFR Calculation 147 BUN/Creatinine Ratio 25.00 H Glucose 107 H POC Glucose Calculated Osmolality 295.4 Calcium 8.0 L Phosphorus 2.8 Magnesium 2.5 H Prealbumin 9.6 L Triglycerides 138
--- NOTE | 2016-11-12 09:10 | Neurology Progress Note ---
Stacy Mancia Chassity, am scribing for, and in the presence of, Dave Holland MD 16 :50. Neurology - PN : Subjective Interval history: Patient seems to be doing better. He is opening his eye and following commands and tried to nod his head yes and no. He was probably having seizures and Keppra has helped him a good bit. Exam (Progress Note) - Constitutional Vitals: Period Temp Pulse Resp BP Sys/Lobo Pulse Ox Last 24 Hr 97.1 F-99.7 F 80-110 10-27 90-129/43-78 96-100 Exam: GENERAL: Patient is in no acute distress. NECK: Neck is supple. There is no JVD. No carotid bruits present. No thyroid masses. CVS: First and second heart sounds are normal. There is no S3 present. Regular rate and rhythm. RESPIRATORY: Lungs are clear to auscultation without any rales or rhonchi. ABDOMEN: Soft and non-tender. Bowel sounds are present. There is no hepatosplenomegaly. EXT: There is no palpable edema. Peripheral pulses are present. 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 Left pupil is sluggish but reactive Motor: Strength cannot be assessed Sensory: Cannot be assessed Reflexes: Absent and symmetrical Cerebellar function: Cannot be assessed Gait: Cannot be assessed Results - Labs CBC & BMP: 11/11/16 03:00 11/11/16 03:00 Assessment and Plan (1) Anoxic encephalopathy Status: Acute Assessment and plan: Continue supportive treatment. Current Visit: Yes (2) Seizures Status: Acute Assessment and plan: Continue Keppra 500mg IV Q12. Current Visit: Yes Skyler Mancia Aamir, MD, personally performed the services described in this documentation, ascribed by Luisana Kumar in my presence, and it is both accurate and complete .
--- NOTE | 2016-11-12 09:36 | General Surgery Progress Note ---
Assessment and Plan - Time spent with patient Time spent with patient: Less than 30 minutes (1) S/P laparoscopic cholecystectomy Status: Acute Assessment and plan: 11/12/16 No surgical problems noted. He's tolerating tube feedings & having bowel movements. Hopefully when he's able to be weaned, we can transition to diet if he continues to make cognitive progress. 11/11/16 Stable post op lap kailey. Tolerating tube feedings. We've removed his MAT. I understand he's for trach today. We are continuing to follow. Current Visit: No Subjective Patient reports: Present: other (Sedated; I'm not able to get any response out of him today during the exam.) Exam - Constitutional Vitals: Period Temp Pulse Resp BP Sys/Lobo Pulse Ox Last 24 Hr 97.1 F-98.4 F 82-107 12-24 85-126/50-78 97-100 - Respiratory Respiratory exam: Present: rales, rhonchi - GI/Abdominal GI/Abdominal exam: Present: other (Obese, hypoactive bowel sounds. No guarding, incisions clean and without redness or drainage. ) - Extremities Exam Extremities exam: Present: edema Results - Labs CBC & BMP: 11/12/16 02:55 11/12/16 02:55
[2016-11-12] MEDS: QUEtiapine 25 MG TABLET PO SCH ×2 (09:41→21:33)
[2016-11-12] MEDS: CARVEDILOL 3.125 MG TABLET PO SCH ×2 (09:41→21:33)
[2016-11-12] MEDS: PANTOPRAZOLE 40 MG VIAL IV SCH (09:41)
[2016-11-12] MEDS: MINERAL OIL/PETROLATUM OPH OINT 3.5 GM TUBE BOTH EYES SCH ×3 (09:41→21:33)
--- NOTE | 2016-11-12 11:11 | Hospitalist Progress Note ---
Assessment and Plan (1) Anoxic encephalopathy Status: Acute Assessment and plan: patient more alert since treating for seizures Current Visit: Yes (2) S/P laparoscopic cholecystectomy Status: Acute Current Visit: No (3) Congestive heart failure Status: Acute Assessment and plan: Patient echo shows an EF of 15% weaning off pressors Current Visit: No (4) Cardiopulmonary arrest with successful resuscitation Status: Acute Current Visit: Yes (5) Hypotension Status: Acute Assessment and plan: wean off levophed Current Visit: Yes Hospitalist: Subjective Interval history: Nursing reports patient is following commands. He is having bowel movements. We have been able to wean his Levophed down to 3 mics. His last tube feed residuals were 130. Has good bowel sounds. Exam - Constitutional Vitals: Period Temp Pulse Resp BP Sys/Lobo Pulse Ox Last 24 Hr 97.1 F-98.4 F 82-114 8-24 85-126/50-78 97-100 Exam: Heart Rate-[RRR] Lungs-clear GI-[+BS, soft, NT ] Ext-[no edema] neuro sedated and intubated psych sedated and intubated general no acute distress Results - Labs CBC & BMP: 11/12/16 02:55 11/12/16 02:55 Lab Results: I have reviewed the past 24 hour labs Labs: Blood cultures 1/2 staph Haemolyticus which is a contaminant - Diagnostic Findings Procedure: Chest x-ray: report reviewed by me (trach)
--- NOTE | 2016-11-12 15:26 | Neurology Progress Note ---
Stacy Mancia Chassity, am scribing for, and in the presence of, Dave Holland MD 14 :03. Neurology - PN : Subjective Interval history: Patient is doing okay. He is sedated. He is alert and awake and follows commands while off Diprivan. He does have trac placed. No more clinical seizures seen. Exam (Progress Note) - Constitutional Vitals: Period Temp Pulse Resp BP Sys/Lobo Pulse Ox Last 24 Hr 97.4 F-98.4 F 82-116 8-24 85-126/50-78 97-100 Exam: GENERAL: Patient is in no acute distress. NECK: Neck is supple. There is no JVD. No carotid bruits present. No thyroid masses. CVS: First and second heart sounds are normal. There is no S3 present. Regular rate and rhythm. RESPIRATORY: Lungs are clear to auscultation without any rales or rhonchi. ABDOMEN: Soft and non-tender. Bowel sounds are present. There is no hepatosplenomegaly. EXT: There is no palpable edema. Peripheral pulses are present. 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 Left pupil is sluggish but reactive Motor: Strength cannot be assessed Sensory: Cannot be assessed Reflexes: Absent and symmetrical Cerebellar function: Cannot be assessed Gait: Cannot be assessed Results - Labs CBC & BMP: 11/12/16 02:55 11/12/16 02:55 Assessment and Plan (1) Anoxic encephalopathy Status: Acute Assessment and plan: Continue supportive treatment. Current Visit: Yes (2) Seizures Status: Acute Assessment and plan: Continue Keppra 500mg IV Q12. Patient is a good candidate for LTAC. Current Visit: Yes Skyler Mancia Aamir, MD, personally performed the services described in this documentation, ascribed by Luisana Kumar in my presence, and it is both accurate and complete .
[2016-11-12] MEDS: NOREPINEPHRINE 8 MG in SODIUM CHLORIDE 0.9% 242 ML IV SCH (18:17)
[2016-11-13] MEDS: ALUMINUM/MAGNES/SIMETH MAX STR 30 ML UDCUP PO SCH ×5 (00:18→23:12)
[2016-11-13] MEDS: INSULIN REGULAR 100 UNIT/ML IV SCH ×5 (00:19→23:12)
[2016-11-13] MEDS: METOCLOPRAMIDE 10 MG/2 ML VIAL IV SCH ×5 (00:19→23:12)
[2016-11-13] MEDS: PROPOFOL 1,000 MG/100 ML BOTTLE IV SCH ×4 (00:20→21:00)
[2016-11-13] MEDS: ALBUTEROL/IPRATROPIUM 3 ML NEB RESP TX SCH ×4 (01:16→19:17)
[2016-11-13 03:23] LABS: ABG Base Excess 4.8 MMOL/L (-2.5-2.5); ABG HCO3 28.7 MMOL/L (20-26); ABG Oxygen Saturation 98.4 % (95-100); ABG PCO2 42.2 MM HG (35-48); ABG PH 7.449 (7.35-7.45); ABG TCO2 25.6 MMOL/L (23-27)
[2016-11-13 03:34] LABS: Basophils % 0.5 % (0.0-0.8); Eosinophils # 0.1 10*3/uL (0.0-0.87); Eosinophils % 1.2 % (0.00-10.9); Hematocrit 34.7 VOL% (42.0-52.0); Hemoglobin 12.3 GM/DL (14.0-18.0); Immature Granulocytes % 0.4 %; Immature Granulocytes Absolute 0.03 #; Lymphocytes # 1.2 10*3/uL (1.4-4.0); Lymphocytes % 13.7 % (21.2-54.2); Mean Corpuscular HGB Conc 35.4 GM/DL (32-36); Mean Corpuscular Hemoglobin 34 PG (27-34); Mean Corpuscular Volume 95.6 FL (87-102); Monocytes # 0.5 10*3/uL (0.11-0.8); Monocytes % 6.2 % (1.7-12.7); Neutrophils # 6.6 10*3/uL (1.4-7.4); Platelet Count 96 10*3/uL (130-400); Red Blood Count 3.63 10*6/uL (3.8-5.5); Red Cell Distribution Width 16.6 % (9.3-17.3); White Blood Count 8.4 10*3/uL (4.5-13.71)
[2016-11-13 04:15] LABS: Calcium 7.8 MG/DL (8.5-10.1); Magnesium 2.6 MG/DL (1.8-2.4); Osmolality,Calculated 295.4 MOS/KG (273-304); Potassium 4.1 MMOL/L (3.5-5.1)
--- NOTE | 2016-11-13 06:57 | XRay Report ---
XR chest 1V portable Indication: Shortness of breath. Chest one view: Since yesterday, tracheostomy, central line, NG tube, cardiomegaly and hazy obscuration of the lung bases persists unchanged. Minimal improved aeration of the perihilar lungs noted, especially on the right. Impression: Very slightly improved aeration of the right midlung. Otherwise no change. PROCEDURE INTERPRETED AT [facility] DEPARTMENT OF RADIOLOGY Final Report Signed by: Benigno Rodney M.D.
--- NOTE | 2016-11-13 07:27 | Pulmonology Progress Note ---
Pulmonary - PN: Subj Interval history: The patient is a 51-year-old black man that has a severe cardiomyopathy and had an arrest during surgery. He had just completed a lap cholecystectomy. He had a 20 minute resuscitation but did come around a little. He had been on pressors but is stable on the ventilator. He has an ejection fraction of 15% and his chest x-ray has looked like heart failure. Yesterday he did diurese very well and is still maintaining his blood pressure. His weight is down and he looks much better. He still on 45 minutes on CPAP. His chest x-ray does look a little better today. Exam (Progress Note) - Constitutional Vitals: Period Temp Pulse Resp BP Sys/Lobo Pulse Ox Last 24 Hr 98.0 F-99.0 F 93-116 8-30 81-111/45-74 94-100 Exam: General appearance: moderately obese, other (patient is sedated on the ventilator and appears stable at present. He is responding better and and looks much more comfortable. ) - Head Head exam: Present: normal inspection - Eye Eye exam: Present: EOMI. Absent: scleral icterus Pupils: Present: CB, constricted - ENT ENT exam: Present: Unremarkable, facial swelling is less. - Neck Neck exam: Present: normal inspection. He has a tracheostomy tube in place. Absent: lymphadenopathy, thyromegaly - Respiratory Respiratory exam: Present: He has good breath sounds bilaterally but they are coarse with bilateral rhonchi. His lungs are sounding a little better. - Cardiovascular Cardiovascular exam: Present: regular rate and rhythm. Absent: gallop, JVD, systolic murmur - GI/Abdominal GI/Abdominal exam: Present: hypoactive bowel sounds, soft, other (he is postop and drains in place.). Absent: organomegaly - Extremities Exam Extremities exam: Present: edema (he has mild lower extremity edema.) - Neurological Exam Neurological exam: Present: altered (patient is following commands a little better does seem to be less agitated.) - Skin Skin exam: Present: dry. Absent: rash Results - Labs CBC & BMP: 11/13/16 03:10 11/13/16 03:10 Labs: His PO2 is 109 with a PCO2 of 42 and a pH is 7.44 - Diagnostic Findings Procedure: Chest x-ray: image reviewed by me, report reviewed by me (chest x- ray still has bilateral changes but they are improving.) Assessment and Plan (1) Hypertension Status: Chronic Assessment and plan: The patient has a history of hypertension and a cardiomyopathy but his blood pressure has been on the low side while he sedated. He is off Levophed now and seems to be doing better. Current Visit: Yes (2) CHEMA (obstructive sleep apnea) Status: Acute Assessment and plan: This will be evaluated later. Current Visit: Yes (3) Cardiomyopathy Status: Chronic Assessment and plan: The patient apparently has an ejection fraction of 15% and severe cardiomyopathy. His chest x-ray looks like heart failure now. He did diurese very well yesterday and his weight is down. We'll repeat a dose of Lasix today. Current Visit: Yes (4) Cardiopulmonary arrest with successful resuscitation Status: Acute Assessment and plan: The patient is on the ventilator after a successful resuscitation. He is responding better and following commands better. He did get his tracheostomy tube yesterday. He continues to improve. Current Visit: Yes (5) S/P laparoscopic cholecystectomy Status: Acute Assessment and plan: The patient has had a lap cholecystectomy after presenting with significant abdominal pain. His abdomen seems to be doing okay. Current Visit: No (6) Acute on chronic systolic CHF (congestive heart failure) Status: Acute Assessment and plan: Patient is on the ventilator with what looks like heart failure. His chest x- ray is slowly improving. We'll continue to diurese a little. Current Visit: No
[2016-11-13] MEDS: QUEtiapine 25 MG TABLET PO SCH ×2 (09:42→21:00)
[2016-11-13] MEDS: PANTOPRAZOLE 40 MG VIAL IV SCH (09:42)
[2016-11-13] MEDS: MINERAL OIL/PETROLATUM OPH OINT 3.5 GM TUBE BOTH EYES SCH ×3 (09:42→21:00)
[2016-11-13] MEDS: CARVEDILOL 3.125 MG TABLET PO SCH ×2 (09:42→21:00)
[2016-11-13] MEDS: FUROSEMIDE 40 MG/4 ML VIAL IV SCH (09:42)
--- NOTE | 2016-11-13 11:07 | Hospitalist Progress Note ---
Assessment and Plan (1) Anoxic encephalopathy Status: Acute Assessment and plan: patient only following simple commands, no further seizure activity observed. Continue Keppra. Current Visit: Yes (2) S/P laparoscopic cholecystectomy Status: Acute Current Visit: No (3) Congestive heart failure Status: Acute Assessment and plan: Patient echo shows an EF of 15% off pressors Current Visit: No (4) Cardiopulmonary arrest with successful resuscitation Status: Acute Current Visit: Yes (5) Hypotension Status: Acute Assessment and plan: off levophed Current Visit: Yes Hospitalist: Subjective Interval history: Patient is having bowel movements. He is failing his CPAP trials he is only lasting about 40 minutes. We are still attempting to get him insurance so he can go to a rehabilitation center to get stronger. Neurologically still waking up and falling just very few commands like squeeze my hand which is not significant improvement. Exam - Constitutional Vitals: Period Temp Pulse Resp BP Sys/Lobo Pulse Ox Last 24 Hr 98.0 F-99.0 F 88-111 8-30 81-108/45-65 94-100 Exam: Heart Rate-[RRR] Lungs-clear GI-[+BS, soft, NT ] Ext-[no edema] neuro sedated and trach psych sedated cannot assess general no acute distress Results - Labs CBC & BMP: 11/13/16 03:10 11/13/16 03:10 Lab Results: I have reviewed the past 24 hour labs
--- NOTE | 2016-11-13 11:49 | Cardiology Progress Note ---
Shakeel Mancia Rachel, RN, am scribing for, and in the presence of, Ervin Santo MD 11:24. Assessment and Plan (1) Acute on chronic systolic CHF (congestive heart failure) Status: Acute Assessment and plan: 11/09/16: 1. 51-year-old BM with severe cardiomyopathy (EF 15% 8 days ago) with a history of cocaine use, status post urgent laparoscopic cholecystectomy, with arrest requiring CPR for 20 minutes, with now fairly prolonged course, still requiring intubation/sedation with severe wheezing. 2. Degree of brain injury is uncertain, he is not following commands when off sedation, but cannot be held off sedation very long due to agitation, etc. 3. He is unable to get his Coreg and losartan due to hypertension and is currently on levophed 15 mcgs/min; could consider changed to dopamine, unless sepsis is suspected. 4. Add spironolactone 50 mg daily as this would not affect his blood pressure, and will be helpful for his systolic acute on chronic heart failure (RALES trial ); his renal function and potassium are in reasonable ranges 5. Continue to monitor electrolytes and renal function 6. Reported history of CHEMA 7. Poor prognosis November 10 update: 1. Mr. Ramírez is still hemodynamically unstable requiring significant believe that to maintain adequate M AP, with significant fever this morning (102.1), and worsening thrombocytopenia, and gram-positive cocci in the blood - apparent sepsis 2. Severe cardiomyopathy; we cannot add beta jacqueline or FLORY inhibitor given his severe hypotension and hemodynamic instability I'll continue spironolactone 3. EEG showed generalized slowing yesterday 4. Very poor prognosis November 11 update: 1. Severe cardiomyopathy and sepsis requiring ventilator support and pressor support 2. Suspected anoxic brain injury; neurology is following; abnormal EEG 3. Cannot add Coreg or FLORY inhibitor due to hypotension; consider spironolactone (was discontinued?) 4. Very poor prognosis 5. He is currently still a full code according to the computer; consider DNR? November 12 update: 1. Previous history of severe cardiomyopathy followed in [place], noted to have EF 15% with moderate mitral regurgitation this admission 2. Suspected anoxic brain or injury after arrest, with possible seizures (per neurology note) 3. Resume his home spironolactone, Lasix, and low-dose Coreg at 3.125 mg twice a day as tolerated 4. History of cocaine use 5. Poor prognosis 11/13/16 1. Baseline severe cardiomyopathy, now with stable blood pressure systolic of about 90 mmHg 2. No dysrhythmia noted 3. No longer requiring pressors 4. Continue low-dose Coreg; consider spironolactone therapy 5. Poor prognosis 6. Do not anticipate any new recommendations from a cardiac standpoint; please reconsult if needed I will sign off. Current Visit: No (2) Cardiopulmonary arrest with successful resuscitation Status: Acute Current Visit: Yes (3) Hypotension Status: Acute Current Visit: Yes (4) Respiratory failure Status: Acute Current Visit: Yes (5) Cocaine abuse Status: Acute Current Visit: No (6) CHEMA (obstructive sleep apnea) Status: Acute Current Visit: Yes (7) Cardiomyopathy Status: Chronic Current Visit: Yes (8) S/P laparoscopic cholecystectomy Status: Acute Current Visit: No (9) Abdominal pain Status: Acute Current Visit: Yes Qualifiers: Abdominal location: upper abdomen, unspecified Qualified Code(s): R10.10 - Upper abdominal pain, unspecified Cardiology - PN: Subj Interval history: Mr. Ramírez still requires intubation. Nurse reports that he "weakly"follows commands when sedation is held. His blood pressure is improved and no longer requiring vasopressors. Exam (Progress Note) - Constitutional Vitals: Period Temp Pulse Resp BP Sys/Lobo Pulse Ox Last 24 Hr 98.0 F-99.0 F 88-111 8-30 81-108/45-65 94-100 General appearance: other (sedated on ventilator. ) - Head Head exam: Present: normal inspection, normocephalic, atraumatic - Respiratory Respiratory exam: Present: rhonchi, wheezes (minimal wheezing) - Cardiovascular Cardiovascular exam: Present: regular rate and rhythm. Absent: gallop, irregular rhythm, rubs - GI/Abdominal GI/Abdominal exam: Present: normal bowel sounds, soft. Absent: distended - Extremities Exam Extremities exam: Present: normal inspection. Absent: edema - Neurological Exam Neurological exam: Present: other (sedated on vent ) - Skin Skin exam: Present: warm, dry Result/EKG - Labs CBC & BMP: 11/13/16 03:10 11/13/16 03:10 Lab Results: I have reviewed the past 24 hour labs Labs: Laboratory Results - last 24 hr 11/12/16 11/12/16 11/12/16 11:30 16:12 23:38 WBC RBC Hgb Hct MCV MCH MCHC RDW Plt Count Neut % (Auto) Lymph % (Auto) [place] % (Auto) Eos % (Auto) Baso % (Auto) Neut # (Auto) Lymph # (Auto) [place] # (Auto) Eos # (Auto) Baso # (Auto) Immature Gran % Nucleated RBC % Immature Gran # Nucleated RBCs # ABG pH ABG pCO2 ABG pO2 ABG HCO3 ABG Total CO2 ABG O2 Saturation ABG Base Excess Sodium Potassium Chloride Carbon Dioxide Anion Gap BUN Creatinine GFR Calculation BUN/Creatinine Ratio Glucose POC Glucose 113 H 88 95 Calculated Osmolality Calcium Magnesium 11/13/16 11/13/16 11/13/16 03:10 03:10 03:10 WBC 8.4 RBC 3.63 L Hgb 12.3 L Hct 34.7 L MCV 95.6 MCH 34 MCHC 35.4 RDW 16.6 Plt Count 96 L D Neut % (Auto) 78.0 H Lymph % (Auto) 13.7 L [place] % (Auto) 6.2 Eos % (Auto) 1.2 Baso % (Auto) 0.5 Neut # (Auto) 6.6 Lymph # (Auto) 1.2 L [place] # (Auto) 0.5 Eos # (Auto) 0.1 Baso # (Auto) 0.0 Immature Gran % 0.4 Nucleated RBC % 0.0 Immature Gran # 0.03 Nucleated RBCs # 0.00 ABG pH 7.449 ABG pCO2 42.2 ABG pO2 109.0 H ABG HCO3 28.7 H ABG Total CO2 25.6 ABG O2 Saturation 98.4 ABG Base Excess 4.8 H Sodium 147 H Potassium 4.1 Chloride 109 H Carbon Dioxide 29 Anion Gap 13.1 BUN 25 H Creatinine 0.80 GFR Calculation 155 BUN/Creatinine Ratio 31.00 H Glucose 107 H POC Glucose Calculated Osmolality 295.4 Calcium 7.8 L Magnesium 2.6 H 11/13/16 05:47 WBC RBC Hgb Hct MCV MCH MCHC RDW Plt Count Neut % (Auto) Lymph % (Auto) [place] % (Auto) Eos % (Auto) Baso % (Auto) Neut # (Auto) Lymph # (Auto) [place] # (Auto) Eos # (Auto) Baso # (Auto) Immature Gran % Nucleated RBC % Immature Gran # Nucleated RBCs # ABG pH ABG pCO2 ABG pO2 ABG HCO3 ABG Total CO2 ABG O2 Saturation ABG Base Excess Sodium Potassium Chloride Carbon Dioxide Anion Gap BUN Creatinine GFR Calculation BUN/Creatinine Ratio Glucose POC Glucose 123 H Calculated Osmolality Calcium Magnesium - EKG EKG results: interpreted by me, sinus rhythm EKG shows: tachycardia I, Ervin Santo MD, personally performed the services described in this documentation, ascribed by Arabella Beckford RN in my presence, and it is both accurate and complete .
--- NOTE | 2016-11-13 12:41 | Neurology Progress Note ---
Neurology - PN : Subjective Interval history: Mr. Ramírez continued to remain same. Still requiring vent support. Is still requiring sedation. No more clinical seizures reported. Tolerating Keppra well. Exam (Progress Note) - Constitutional Vitals: Period Temp Pulse Resp BP Sys/Lobo Pulse Ox Last 24 Hr 98.0 F-99.0 F 88-111 8-30 81-106/45-65 94-100 Exam: GENERAL: Patient is in no acute distress. NECK: Neck is supple. There is no JVD. No carotid bruits present. No thyroid masses. CVS: First and second heart sounds are normal. There is no S3 present. Regular rate and rhythm. RESPIRATORY: Lungs are clear to auscultation without any rales or rhonchi. ABDOMEN: Soft and non-tender. Bowel sounds are present. There is no hepatosplenomegaly. EXT: There is no palpable edema. Peripheral pulses are present. 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 Left pupil is sluggish but reactive Motor: Strength cannot be assessed Sensory: Cannot be assessed Reflexes: Absent and symmetrical Cerebellar function: Cannot be assessed Gait: Cannot be assessed Results - Labs CBC & BMP: 11/13/16 03:10 11/13/16 03:10 Assessment and Plan (1) Anoxic encephalopathy Status: Acute Assessment and plan: Continue supportive treatment. Prognosis is guarded. Current Visit: Yes (2) Seizures Status: Acute Assessment and plan: Continue Keppra 500mg IV Q12. Repeat EEG Wednesday Current Visit: Yes
--- NOTE | 2016-11-13 13:24 | General Surgery Progress Note ---
Assessment and Plan (1) Abdominal pain Status: Acute Assessment and plan: Impression: 1. Abdominal pain etiology unclear questionable gallbladder disease undiagnosed 2. Obesity 3. Congestive heart failure 4. Low cardiac ejection fraction Recommendations: 1. Certainly would look at do a HIDA scan to see if its abnormal with that ejection fraction 2. We consider repeating ultrasound after his been nothing by mouth for at least 12 hours to see if there is any changes in the gallbladder see if it distends back up looks normal 3. We consider a CT scan abdomen and pelvis with contrast to get a better idea this is nothing else going on. 4. He needs a complete cardiac evaluation before that any consideration of surgery because he is at such high risk 5. May need pulmonary consult at some point 6. We consider surgery on the gallbladder all if everything else is ruled out and that we have clear diagnosis that he could possibly have gallbladder disease. 10/31/2016. Patient continues to complain of discomfort in the upper abdomen right chest area. On exam though he does not exhibit any guarding or unusual tenderness on deep palpation. No masses are palpable. He did not have his oxygen own and I have noted cardiology's note. He is for a HIDA scan today and hopefully we'll plan to CT scan abdomen and pelvis tomorrow. Still unclear whether he has gallbladder disease but certainly he remains a high risk surgical patient because of his cardiac disease. 11/01/2016 Patient continues to have some discomfort in the upper part of his abdomen. Better today than has been. His CT scan abdomen and pelvis was performed in his completed and they continue to see her contracted gallbladder normal size biliary tree. See some stranding around the kidneys but otherwise nothing dramatically noted at this point. I felt the pancreas was okay. At this point after discussing his cardiac status with Dr. Dodson we feel like that he has in optimal condition to proceed with surgery at this time. He is a high risk patient and he understands this but he is okay with going ahead with surgery. Dr. Dodson feels like that he would be best to get him at this point when he is optimal as opposed to let the gallbladder get truly sick and then having a worse situation deal with. 11/04/2016 Patient remains on the ventilator and they're starting to warm him up today. Else reduce his sedation once he is warm to see I much mental activity he comes back with. From his surgery he is done well minimal MAT drainage at this point. Remains with a mild ileus with some bowel sounds are present. NG tube with minimal drainage. We'll consider possible to feedings but right now wait and see how he wakes up. 11/06/2016 Patient remains on the ventilator but they're reducing his sedation any symptoms to be waking up. Abdomen remains slightly distended with hypoactive bowel sounds but to feedings have been started now. He has a moderate amount of MAT drainage still at this time. From a surgical standpoint he is doing good with the limbs wounds looking clean and dry and we just waiting for the drainage to decrease and after weaning pulled MAT drain. Cardiac velarde he seems to be stable at this point and minimally seems to be waking up at this time. Will let cardiology and neurology continue to manage this part of things as well as respiratory manage the ventilator. 11/09/2016. Patient is status post lap scopic cholecystectomy but otherwise had a respiratory and cardiac arrest and is still on the ventilator at this time. He seems to have woken up some 400 although it is confusing the reports. He seems combative at times they say his pupils are equal and reactive and a responds to stimuli. They have not been able to get him off the ventilator because of his restless activity whenever they reduced the sedation. He's had some problem with failure of his feedings with some high residuals at this time. He's on NG suction at this point and we may have to find an alternative to his nutrition. 11/10/2016 Patient vital signs are stable labs look generally good. Chest x-ray continues to show his enlarged heart and little bit of fluid and atelectasis but otherwise stable ABGs generally look in pretty good shape. Unfortunately there is slowing on his EEG and he is rather combative respiratory-velarde whenever he is weaned all for [place] to go to a CPAP situation. He does not flail his arms or removal of extremity but he does breathe poorly whenever he is weaning off. NG tube with minimal drainage and so will try to resume tube feedings at this time. 11/13/2016 This is a patient with severe cardiac disease with cardiomegaly and low ejection fractions who postop from a cholecystectomy had a cardiac arrest. He remains on the ventilator with some mental activity but difficult to assess. Off sedation and becomes very agitated or hyperventilates. He is reported to squeeze fingers at times. From a surgical standpoint his abdomen is soft there's hypoactive bowel sounds he's tolerating his tube feedings that he's had some bowel movements. His incisions are clean and dry and his drain is out. This seems to be in good shape at this point time. His primary problems now or medical Current Visit: Yes Qualifiers: Abdominal location: upper abdomen, unspecified Qualified Code(s): R10.10 - Upper abdominal pain, unspecified Subjective Patient reports: Present: no new complaints, other (patient remains stable sedated on the ventilator) Exam - Constitutional Vitals: Period Temp Pulse Resp BP Sys/Lobo Pulse Ox Last 24 Hr 98.0 F-99.0 F 88-111 8-31 81-106/46-71 94-100 General appearance: other (patient is sedated) - Head Head exam: Present: normal inspection - ENT ENT exam: Present: normal exam - Neck Neck exam: Present: trachea midline, other (trach in place) - Respiratory Respiratory exam: Present: rales, rhonchi - Cardiovascular Cardiovascular exam: Present: RRR - GI/Abdominal GI/Abdominal exam: Present: hypoactive bowel sounds, soft, other (incisions clean and dry) - Extremities Exam Extremities exam: Present: normal inspection - Neurological Exam Neurological exam: Present: altered, other (patient becomes combative hyperventilates whenever he comes off his sedation. Reported that he sometimes will squeezer finger on command) - Skin Skin exam: Present: normal color, warm, dry Results - Labs CBC & BMP: 11/13/16 03:10 11/13/16 03:10 Lab Results: I have reviewed the past 24 hour labs
[2016-11-13] MEDS: NOREPINEPHRINE 8 MG in SODIUM CHLORIDE 0.9% 242 ML IV SCH (17:24)
[2016-11-13] MEDS: VECURONIUM 10 MG VIAL IV PRN (21:01)
[2016-11-14] MEDS: PROPOFOL 1,000 MG/100 ML BOTTLE IV SCH ×4 (00:43→21:04)
[2016-11-14] MEDS: ONDANSETRON 4 MG/2 ML VIAL IV PRN (00:43)
[2016-11-14] MEDS: ALBUTEROL/IPRATROPIUM 3 ML NEB RESP TX SCH ×4 (01:05→20:36)
[2016-11-14 02:40] LABS: ABG Base Excess 5.6 MMOL/L (-2.5-2.5); ABG HCO3 29.5 MMOL/L (20-26); ABG Oxygen Saturation 98.4 % (95-100); ABG PCO2 47.4 MM HG (35-48); ABG PH 7.424 (7.35-7.45); ABG TCO2 27.2 MMOL/L (23-27)
[2016-11-14 03:10] LABS: Basophils # 0.1 10*3/uL (0.0-0.2); Basophils % 0.7 % (0.0-0.8); Eosinophils # 0.2 10*3/uL (0.0-0.87); Hematocrit 38.9 VOL% (42.0-52.0); Hemoglobin 12.6 GM/DL (14.0-18.0); Immature Granulocytes % 0.5 %; Immature Granulocytes Absolute 0.05 #; Lymphocytes # 1.4 10*3/uL (1.4-4.0); Lymphocytes % 14.3 % (21.2-54.2); Mean Corpuscular HGB Conc 32.4 GM/DL (32-36); Mean Corpuscular Hemoglobin 30 PG (27-34); Monocytes # 0.6 10*3/uL (0.11-0.8); Monocytes % 5.8 % (1.7-12.7); Neutrophils # 7.5 10*3/uL (1.4-7.4); Neutrophils % 76.7 % (38.7-73.9); Platelet Count 100 10*3/uL (130-400); Red Blood Count 4.23 10*6/uL (3.8-5.5); White Blood Count 9.8 10*3/uL (4.5-13.71)
[2016-11-14 03:18] LABS: Magnesium 2.7 MG/DL (1.8-2.4); Osmolality,Calculated 296.4 MOS/KG (273-304); Potassium 3.8 MMOL/L (3.5-5.1)
[2016-11-14 05:33] LABS: Anisocytosis 1+; Poikilocytosis Slight
[2016-11-14 05:34] LABS: Platelet Estimate Adequate
[2016-11-14] MEDS: ALUMINUM/MAGNES/SIMETH MAX STR 30 ML UDCUP PO SCH ×4 (05:51→23:38)
[2016-11-14] MEDS: METOCLOPRAMIDE 10 MG/2 ML VIAL IV SCH ×4 (06:03→23:38)
[2016-11-14] MEDS: INSULIN REGULAR 100 UNIT/ML IV SCH ×4 (06:03→23:45)
[2016-11-14] MEDS: POTASSIUM CHLORIDE RIDER 10 MEQ in PREMIX 1 EACH IV PRN (06:32)
--- NOTE | 2016-11-14 07:26 | Pulmonology Progress Note ---
Pulmonary - PN: Subj Interval history: PAtient s/p arrest following kailey, underwent cooling protocol, now he is trached. Nursing reports that they are having a lot of trouble finding the optimal level of sedation for him. Report taht when sedation is lowered he becomes extremely agitated and respiratory status deteriorates. Has not done well on CPAP trials at all. No other acute events overnight Exam (Progress Note) - Constitutional Vitals: Period Temp Pulse Resp BP Sys/Lobo Pulse Ox Last 24 Hr 97.4 F-99 F 90-108 8-38 82-119/45-84 95-100 General appearance: no acute distress - Head Head exam: Present: normal inspection - ENT ENT exam: Present: other (trach in place) - Respiratory Respiratory exam: Absent: accessory muscle use, rhonchi, stridor, wheezes - GI/Abdominal GI/Abdominal exam: Present: soft - Extremities Exam Extremities exam: Present: normal inspection Results - Labs CBC & BMP: 11/14/16 02:30 11/14/16 02:30 Lab Results: I have reviewed the past 24 hour labs - Diagnostic Findings Procedure: Chest x-ray: image reviewed by me (appears volume overloaded) Assessment and Plan (1) Respiratory failure Status: Acute Assessment and plan: PAtient requiring full vent support at this time, not progressing well with vent weaning. Will change to full support with AC this morning, and optimize lung protective low tidal volume strategy. Continue with diuresis. Current Visit: Yes (2) Anoxic encephalopathy Status: Acute Assessment and plan: neurology is following. Plan for EEG on Wednesday Current Visit: Yes
[2016-11-14 08:09] LABS: ABG Base Excess 3.7 MMOL/L (-2.5-2.5); ABG HCO3 27.7 MMOL/L (20-26); ABG PCO2 39.8 MM HG (35-48); ABG PH 7.461 (7.35-7.45); ABG PO2 111.7 MM HG (80-95)
--- NOTE | 2016-11-14 09:49 | XRay Report ---
Exam: XR chest 1V portable Date: 11/14/2016 4:00 AM Indication: Followup tracheostomy tube ventilator Comparison: None Technical:AP portable Findings: Cardiomegaly is present. Right IJ catheter and nasogastric tube is suspected. External cardiac leads are present. Low-volume effusions atelectatic change or infiltrates are present. Impression: 1. Stable position of the tracheostomy tube 2. Faint visualization of the nasogastric tube unchanged and previous right IJ catheter 3. Cardiomegaly and alveolar edema and effusions present with shunt vascularity similar to previous study without significant change PROCEDURE INTERPRETED AT [facility] DEPARTMENT OF RADIOLOGY Final Report Signed by: Dr. Jian Durham
[2016-11-14] MEDS: QUEtiapine 25 MG TABLET PO SCH ×2 (09:53→22:05)
[2016-11-14] MEDS: CARVEDILOL 3.125 MG TABLET PO SCH ×2 (09:53→22:05)
[2016-11-14] MEDS: FUROSEMIDE 40 MG/4 ML VIAL IV SCH (09:54)
[2016-11-14] MEDS: PANTOPRAZOLE 40 MG VIAL IV SCH (09:54)
[2016-11-14] MEDS: MINERAL OIL/PETROLATUM OPH OINT 3.5 GM TUBE BOTH EYES SCH ×3 (09:54→22:05)
--- NOTE | 2016-11-14 10:43 | Hospitalist Progress Note ---
Assessment and Plan (1) Anoxic encephalopathy Status: Acute Assessment and plan: Not doing well on CPAP trials. Concerned that patient may still be having seizures even though no seizure activity witnessed. We will increase Keppra 2000 mg twice daily Current Visit: Yes (2) S/P laparoscopic cholecystectomy Status: Acute Current Visit: No (3) Congestive heart failure Status: Acute Assessment and plan: Patient echo shows an EF of 15% currently not on any Lasix. Current Visit: No (4) Cardiopulmonary arrest with successful resuscitation Status: Acute Current Visit: Yes (5) Hematuria Status: Acute Assessment and plan: UA Current Visit: Yes (6) Ileus Status: Acute Assessment and plan: KUB, hold tube feeds, lactulose Current Visit: Yes Hospitalist: Subjective Interval history: Abdomen looks more distended today. His bowel sounds are present but more diminished. Nursing is reporting high tube feed residuals. His urine looks bloody and dark. I will put his tube feeds on hold send a UA and add some lactulose. Patient is still not tolerating CPAP trials. I am still concerned patient may be having breakthrough seizures and will increase his Keppra today. Exam - Constitutional Vitals: Period Temp Pulse Resp BP Sys/Lobo Pulse Ox Last 24 Hr 97.4 F-98.9 F 90-103 8-38 82-119/45-84 95-100 Exam: Heart Rate-[RRR] Lungs-clear GI-[diminished BS, distended] Ext-[1+ edema] neuro sedated and trach psych sedated cannot assess general no acute distress Results - Labs CBC & BMP: 11/14/16 02:30 11/14/16 02:30 Lab Results: I have reviewed the past 24 hour labs
--- NOTE | 2016-11-14 11:53 | XRay Report ---
Referring Physician: Jennifer Knox Exam: XR KUB Date: November 14, 2016 at 10:54 AM Reason: Constipation Comparison: KUB November 08, 2016 Findings: There is gaseous distention of the colon, which is concerning for ileus. Sigmoid volvulus is not excluded. No free air is identified. The renal shadows are largely obscured. Surgical clips are noted at the abdomen. The osseous structures appear stable. Impression: There is gaseous distention of the colon, which is concerning for ileus. Sigmoid volvulus cannot be excluded, and correlation with CT is recommended. An ICU nurse was contacted about the findings on November 14, 2016 at 11:50 AM. She reports that the patient has had a significant bowel movement since this x-ray. A repeat KUB is recommended. If these findings persist, then CT should be considered. PROCEDURE INTERPRETED AT [facility] DEPARTMENT OF RADIOLOGY Final Report Signed by: Dr. Beau Wick
[2016-11-14] MEDS: LACTULOSE 20 GM/30 ML UDCUP PO SCH ×3 (12:12→23:38)
[2016-11-14 12:34] LABS: Apearance,Urine Slightly Hazy (Clear); Bilirubin,Urine Negative (Negative); Blood, Urine Small mg/dL (Negative); Glucose,Urine (UA) Negative (Negative); Ketones,Urine Negative (Negative); Mucus,Urine Occasional /LPF (Occasional); Nitrite,Urine Negative (Negative); Protein,Urine 100 MG/DL; RBC,Urine 64 /HPF (0-4); Urine Color Amber (Yellow); Urine Specific Gravity 1.028 (1.001-1.035); WBC,Urine 5 /HPF (0-6)
--- NOTE | 2016-11-14 13:12 | XRay Report ---
Exam: XR KUB Date: 11/14/2016 11:52 AM Indication: Postop Comparison: Earlier film 11/14/2016 11:01 AM Technical:AP portable Findings: Nasogastric tube is in place. Surgical clips are present in the right upper left upper and left lower abdomen with previous cholecystectomy clips also present. Abdominal ileus pattern is present the. Dilated large bowel segments are present. The liver shadow is unremarkable. The spleen and renal shadows are obscured. Mild fecal debris in the descending colon and rectosigmoid colon is mostly collapsed Impression: 1. Postoperative Abdominal ileus 2. Nasogastric tube in place. PROCEDURE INTERPRETED AT [facility] DEPARTMENT OF RADIOLOGY Final Report Signed by: Dr. Jian Durham
[2016-11-15] MEDS: ALBUTEROL/IPRATROPIUM 3 ML NEB RESP TX SCH ×4 (01:00→19:06)
[2016-11-15] MEDS: ACETAMINOPHEN 325 MG/10.15 ML UDCUP PO PRN (02:08)
[2016-11-15] MEDS: PROPOFOL 1,000 MG/100 ML BOTTLE IV SCH ×4 (02:20→21:00)
[2016-11-15] MEDS: ALUMINUM/MAGNES/SIMETH MAX STR 30 ML UDCUP PO SCH ×4 (05:54→23:22)
[2016-11-15] MEDS: METOCLOPRAMIDE 10 MG/2 ML VIAL IV SCH ×4 (05:55→23:22)
[2016-11-15] MEDS: LACTULOSE 20 GM/30 ML UDCUP PO SCH ×4 (05:55→23:28)
[2016-11-15] MEDS: INSULIN REGULAR 100 UNIT/ML IV SCH ×4 (06:16→23:29)
[2016-11-15] MEDS: CARVEDILOL 3.125 MG TABLET PO SCH ×2 (08:45→21:37)
[2016-11-15] MEDS: FUROSEMIDE 40 MG/4 ML VIAL IV SCH ×3 (08:47→23:23)
[2016-11-15] MEDS: PANTOPRAZOLE 40 MG VIAL IV SCH (08:47)
[2016-11-15] MEDS: MINERAL OIL/PETROLATUM OPH OINT 3.5 GM TUBE BOTH EYES SCH ×3 (08:48→21:46)
[2016-11-15] MEDS: QUEtiapine 25 MG TABLET PO SCH (08:48)
--- NOTE | 2016-11-15 08:57 | Pulmonology Progress Note ---
Pulmonary - PN: Subj Interval history: Patient stable on the vent. Still having problems with anxiety when sedation is taken off. this has been affecting his CPAP trials Exam (Progress Note) - Constitutional Vitals: Period Temp Pulse Resp BP Sys/Lobo Pulse Ox Last 24 Hr 98.2 F-103.1 F 77-108 7-29 84-113/52-82 74-100 General appearance: no acute distress (currently sedated on the vent) Results - Labs CBC & BMP: 11/14/16 02:30 11/14/16 02:30 - Diagnostic Findings Procedure: Chest x-ray: image reviewed by me (large bilateral plerual effusions) Assessment and Plan (1) Respiratory failure Status: Acute Assessment and plan: PAtient requiring full vent support at this time, not progressing well with vent weaning. Will change to full support with AC this morning, and optimize lung protective low tidal volume strategy. Continue with diuresis. Consider thoracentesis tomorrow as his efufsions are really not improving with medical therapy Current Visit: Yes (2) Anoxic encephalopathy Status: Acute Assessment and plan: neurology is following. Plan for EEG on Wednesday. Could also consider switching propofol to Precedex which should help with anxiety without suppressing respiratory drive Current Visit: Yes
--- NOTE | 2016-11-15 08:59 | XRay Report ---
Exam: XR chest 1V portable Date: 11/15/2016 7:39 AM Indication: CHF followup ventilator Comparison: 11/14/2016 Technical:AP semierect portable Findings: Right IJ catheter nasogastric tube and tracheostomy tube are present. Cardiomegaly is present with alveolar edema and effusions present and shunt vascularity. External cardiac leads are present. No pneumothorax. Impression: 1. Stable appearance of life support tubing 2. No significant interval change with diffuse alveolar edema infiltrates and effusions and cardiac enlargement PROCEDURE INTERPRETED AT [facility] DEPARTMENT OF RADIOLOGY Final Report Signed by: Dr. Jian Durham
[2016-11-15 09:38] LABS: Basophils # 0.1 10*3/uL (0.0-0.2); Basophils % 0.9 % (0.0-0.8); Eosinophils # 0.2 10*3/uL (0.0-0.87); Hematocrit 24.7 VOL% (42.0-52.0); Hemoglobin 12.5 GM/DL (14.0-18.0); Immature Granulocytes % 0.4 %; Immature Granulocytes Absolute 0.03 #; Lymphocytes % 12.4 % (21.2-54.2); Mean Corpuscular HGB Conc 50.6 GM/DL (32-36); Mean Corpuscular Hemoglobin 48 PG (27-34); Mean Corpuscular Volume 95.7 FL (87-102); Monocytes # 0.5 10*3/uL (0.11-0.8); Monocytes % 5.8 % (1.7-12.7); Neutrophils # 6.3 10*3/uL (1.4-7.4); Neutrophils % 78.5 % (38.7-73.9); Platelet Count 134 10*3/uL (130-400); Red Blood Count 2.58 10*6/uL (3.8-5.5); Red Cell Distribution Width 15.9 % (9.3-17.3)
[2016-11-15 10:10] LABS: Calcium 8.3 MG/DL (8.5-10.1); Magnesium 2.7 MG/DL (1.8-2.4); Osmolality,Calculated 292.6 MOS/KG (273-304); Potassium 3.9 MMOL/L (3.5-5.1)
[2016-11-15 10:15] LABS: Macrocytosis 1+; Polychromasia Slight; Target Cells Slight
[2016-11-15] MEDS ORDERED: FUROSEMIDE 40 MG/4 ML VIAL IV SCH (10:42)
--- NOTE | 2016-11-15 11:22 | Hospitalist Progress Note ---
Assessment and Plan (1) Anoxic encephalopathy Status: Acute Assessment and plan: Still not doing well on CPAP trials. We will add Vimpat to Keppra Current Visit: Yes (2) S/P laparoscopic cholecystectomy Status: Acute Assessment and plan: Patient has finished his course of antibiotics Current Visit: No (3) Congestive heart failure Status: Acute Assessment and plan: Patient echo shows an EF of 15% increase Lasix Current Visit: No (4) Cardiopulmonary arrest with successful resuscitation Status: Acute Current Visit: Yes (5) Hematuria Status: Acute Assessment and plan: resolving Current Visit: Yes (6) Ileus Status: Acute Assessment and plan: restart tube feeds Current Visit: Yes Hospitalist: Subjective Interval history: Patient gets extremely agitated when woke up. I have increased his Keppra yesterday 1000 q. 12 and have added Vimpat today. Patient only waking up and doing minimal commands of squeeze my hand he has not done much more than that since his arrest. Patient had a large bowel movement yesterday and we are going to start back his promote today. I meant to decrease his Lasix as I think he is getting dehydrated. Exam - Constitutional Vitals: Period Temp Pulse Resp BP Sys/Lobo Pulse Ox Last 24 Hr 98.2 F-103.1 F 77-100 7-29 84-113/52-82 74-100 Exam: Heart Rate-[RRR] Lungs-clear GI-[positive BS, nondistended] Ext-[no edema] neuro sedated and trach psych sedated cannot assess general no acute distress Results - Labs CBC & BMP: 11/15/16 09:01 11/15/16 09:01 Lab Results: I have reviewed the past 24 hour labs - Diagnostic Findings Procedure: Chest x-ray: report reviewed by me (Pulmonary edema)
[2016-11-15] MEDS: LACOSAMIDE INJ 100 MG in SODIUM CHLORIDE 0.9% 50 ML IV SCH ×2 (11:42→23:22)
[2016-11-16] MEDS: ALBUTEROL/IPRATROPIUM 3 ML NEB RESP TX SCH ×4 (00:26→19:07)
[2016-11-16] MEDS: PROPOFOL 1,000 MG/100 ML BOTTLE IV SCH ×4 (02:27→22:26)
[2016-11-16] MEDS: LACTULOSE 20 GM/30 ML UDCUP PO SCH ×3 (05:24→17:33)
[2016-11-16] MEDS: INSULIN REGULAR 100 UNIT/ML IV SCH ×3 (05:24→17:43)
[2016-11-16] MEDS: METOCLOPRAMIDE 10 MG/2 ML VIAL IV SCH ×3 (05:49→17:51)
[2016-11-16] MEDS: ALUMINUM/MAGNES/SIMETH MAX STR 30 ML UDCUP PO SCH ×3 (05:49→17:51)
[2016-11-16 06:09] LABS: Magnesium 2.7 MG/DL (1.8-2.4); Phosphorous 3.5 MG/DL (2.5-4.9); Prealbumin 18.3 MG/DL (20-40)
--- NOTE | 2016-11-16 07:35 | General Surgery Progress Note ---
Assessment and Plan - Time spent with patient Time spent with patient: Less than 30 minutes (1) Abdominal pain Status: Acute Assessment and plan: Impression: 1. Abdominal pain etiology unclear questionable gallbladder disease undiagnosed 2. Obesity 3. Congestive heart failure 4. Low cardiac ejection fraction Recommendations: 1. Certainly would look at do a HIDA scan to see if its abnormal with that ejection fraction 2. We consider repeating ultrasound after his been nothing by mouth for at least 12 hours to see if there is any changes in the gallbladder see if it distends back up looks normal 3. We consider a CT scan abdomen and pelvis with contrast to get a better idea this is nothing else going on. 4. He needs a complete cardiac evaluation before that any consideration of surgery because he is at such high risk 5. May need pulmonary consult at some point 6. We consider surgery on the gallbladder all if everything else is ruled out and that we have clear diagnosis that he could possibly have gallbladder disease. 10/31/2016. Patient continues to complain of discomfort in the upper abdomen right chest area. On exam though he does not exhibit any guarding or unusual tenderness on deep palpation. No masses are palpable. He did not have his oxygen own and I have noted cardiology's note. He is for a HIDA scan today and hopefully we'll plan to CT scan abdomen and pelvis tomorrow. Still unclear whether he has gallbladder disease but certainly he remains a high risk surgical patient because of his cardiac disease. 11/01/2016 Patient continues to have some discomfort in the upper part of his abdomen. Better today than has been. His CT scan abdomen and pelvis was performed in his completed and they continue to see her contracted gallbladder normal size biliary tree. See some stranding around the kidneys but otherwise nothing dramatically noted at this point. I felt the pancreas was okay. At this point after discussing his cardiac status with Dr. Dodson we feel like that he has in optimal condition to proceed with surgery at this time. He is a high risk patient and he understands this but he is okay with going ahead with surgery. Dr. Dodson feels like that he would be best to get him at this point when he is optimal as opposed to let the gallbladder get truly sick and then having a worse situation deal with. 11/04/2016 Patient remains on the ventilator and they're starting to warm him up today. Else reduce his sedation once he is warm to see I much mental activity he comes back with. From his surgery he is done well minimal MAT drainage at this point. Remains with a mild ileus with some bowel sounds are present. NG tube with minimal drainage. We'll consider possible to feedings but right now wait and see how he wakes up. 11/06/2016 Patient remains on the ventilator but they're reducing his sedation any symptoms to be waking up. Abdomen remains slightly distended with hypoactive bowel sounds but to feedings have been started now. He has a moderate amount of MAT drainage still at this time. From a surgical standpoint he is doing good with the limbs wounds looking clean and dry and we just waiting for the drainage to decrease and after weaning pulled MAT drain. Cardiac velarde he seems to be stable at this point and minimally seems to be waking up at this time. Will let cardiology and neurology continue to manage this part of things as well as respiratory manage the ventilator. 11/09/2016. Patient is status post lap scopic cholecystectomy but otherwise had a respiratory and cardiac arrest and is still on the ventilator at this time. He seems to have woken up some 400 although it is confusing the reports. He seems combative at times they say his pupils are equal and reactive and a responds to stimuli. They have not been able to get him off the ventilator because of his restless activity whenever they reduced the sedation. He's had some problem with failure of his feedings with some high residuals at this time. He's on NG suction at this point and we may have to find an alternative to his nutrition. 11/10/2016 Patient vital signs are stable labs look generally good. Chest x-ray continues to show his enlarged heart and little bit of fluid and atelectasis but otherwise stable ABGs generally look in pretty good shape. Unfortunately there is slowing on his EEG and he is rather combative respiratory-velarde whenever he is weaned all for Trias to go to a CPAP situation. He does not flail his arms or removal of extremity but he does breathe poorly whenever he is weaning off. NG tube with minimal drainage and so will try to resume tube feedings at this time. 11/13/2016 This is a patient with severe cardiac disease with cardiomegaly and low ejection fractions who postop from a cholecystectomy had a cardiac arrest. He remains on the ventilator with some mental activity but difficult to assess. Off sedation and becomes very agitated or hyperventilates. He is reported to squeeze fingers at times. From a surgical standpoint his abdomen is soft there's hypoactive bowel sounds he's tolerating his tube feedings that he's had some bowel movements. His incisions are clean and dry and his drain is out. This seems to be in good shape at this point time. His primary problems now or medical 11/16/2016. Patient has not really shown any improvement minimally at this time. Remains on the ventilator at this time. Tolerating tube feedings with some loose bowel movements. Abdomen remains fairly soft not significantly distended some hypoactive bowel sounds present. Incisions are healing well and will go ahead and remove his clips today. Do not know his mental status at this point what the prognosis would be on that. Probably need to the topic the family about the possibility of a PEG tube for feedings to get the NG tube out of his nose and for long-term feedings. Current Visit: Yes Qualifiers: Abdominal location: upper abdomen, unspecified Qualified Code(s): R10.10 - Upper abdominal pain, unspecified Subjective Patient reports: Present: no new complaints, other (patient remains on the ventilator Weaning Well and Does Not Seem to Be As Responsive Has Been Reported over the Last 2 Days) Exam - Constitutional Vitals: Period Temp Pulse Resp BP Sys/Lobo Pulse Ox Last 24 Hr 96.7 F-99.8 F 78-96 16-25 95-123/54-76 96-100 General appearance: mild distress - Head Head exam: Present: normal inspection - ENT ENT exam: Present: normal exam - Neck Neck exam: Present: other (trach in place) - Respiratory Respiratory exam: Present: rales, rhonchi - Cardiovascular Cardiovascular exam: Present: RRR - GI/Abdominal GI/Abdominal exam: Present: hypoactive bowel sounds, soft, other (incisions healing well clean and dry.). Absent: distended, tenderness - Extremities Exam Extremities exam: Present: normal inspection - Back Exam Back exam: Present: normal inspection - Neurological Exam Neurological exam: Present: alert, oriented X3, CN II-XII intact - Skin Skin exam: Present: normal color, warm, dry Results - Labs CBC & BMP: 11/15/16 09:01 11/15/16 09:01 Lab Results: I have reviewed the past 24 hour labs
--- NOTE | 2016-11-16 08:18 | Pulmonology Progress Note ---
Pulmonary - PN: Subj Interval history: The patient is a 51-year-old black man that has a severe cardiomyopathy and had an arrest during surgery. He had just completed a lap cholecystectomy. He had a 20 minute resuscitation but did come around a little. He had been on pressors but is stable on the ventilator. He has an ejection fraction of 15% and his chest x-ray has looked like heart failure. Over the weekend he was not able to do much CPAP. He does arouse still and has been very stable. His chest x-ray has not improved much. Exam (Progress Note) - Constitutional Vitals: Period Temp Pulse Resp BP Sys/Lobo Pulse Ox Last 24 Hr 96.7 F-99.8 F 78-96 16-25 95-123/54-76 96-100 Exam: General appearance: moderately obese, other (patient is sedated on the ventilator and appears stable at present. He still response on. ) - Head Head exam: Present: normal inspection - Eye Eye exam: Present: EOMI. Absent: scleral icterus Pupils: Present: CB, constricted - ENT ENT exam: Present: Unremarkable, facial swelling is less. - Neck Neck exam: Present: normal inspection. He has a tracheostomy tube in place. Absent: lymphadenopathy, thyromegaly - Respiratory Respiratory exam: Present: He has good breath sounds bilaterally but they are coarse with bilateral rhonchi. He does have decreased breath sounds in the bases. - Cardiovascular Cardiovascular exam: Present: regular rate and rhythm. Absent: gallop, JVD, systolic murmur - GI/Abdominal GI/Abdominal exam: Present: hypoactive bowel sounds, soft, other (he is postop and drains in place.). Absent: organomegaly - Extremities Exam Extremities exam: Present: edema (he has mild lower extremity edema.) - Neurological Exam Neurological exam: Present: altered (patient is following commands a little better does seem to be less agitated.) - Skin Skin exam: Present: dry. Absent: rash Results - Labs CBC & BMP: 11/15/16 09:01 11/15/16 09:01 - Diagnostic Findings Procedure: Chest x-ray: image reviewed by me, report reviewed by me (chest x- ray still has bilateral consolidation.) Assessment and Plan (1) Hypertension Status: Chronic Assessment and plan: The patient has a history of hypertension and a cardiomyopathy but his blood pressure has been on the low side while he sedated. He is stable off pressors. Current Visit: Yes (2) CHEMA (obstructive sleep apnea) Status: Acute Assessment and plan: This will be evaluated later. Current Visit: Yes (3) Cardiomyopathy Status: Chronic Assessment and plan: The patient apparently has an ejection fraction of 15% and severe cardiomyopathy. His chest x-ray still looks like heart failure. We will consider attempting a thoracentesis. Current Visit: Yes (4) Cardiopulmonary arrest with successful resuscitation Status: Acute Assessment and plan: The patient is on the ventilator after a successful resuscitation. He is responding better and following commands better. He did get his tracheostomy tube yesterday. He continues to improve. Current Visit: Yes (5) S/P laparoscopic cholecystectomy Status: Acute Assessment and plan: The patient has had a lap cholecystectomy after presenting with significant abdominal pain. His abdomen seems to be doing okay. Current Visit: No (6) Acute on chronic systolic CHF (congestive heart failure) Status: Acute Assessment and plan: Patient is on the ventilator with what looks like heart failure. His chest x- ray is slowly improving. We'll continue to diurese a little. We will continue weaning attempts. Current Visit: No
[2016-11-16] MEDS: PANTOPRAZOLE 40 MG VIAL IV SCH (11:04)
[2016-11-16] MEDS: FUROSEMIDE 40 MG/4 ML VIAL IV SCH ×2 (11:04→21:41)
[2016-11-16] MEDS: CARVEDILOL 3.125 MG TABLET PO SCH ×2 (11:04→21:41)
[2016-11-16] MEDS: MINERAL OIL/PETROLATUM OPH OINT 3.5 GM TUBE BOTH EYES SCH ×3 (11:05→22:41)
[2016-11-16] MEDS: LACOSAMIDE INJ 100 MG in SODIUM CHLORIDE 0.9% 50 ML IV SCH (11:05)
--- NOTE | 2016-11-16 12:52 | Hospitalist Progress Note ---
Assessment and Plan (1) Cardiopulmonary arrest with successful resuscitation Status: Acute Assessment and plan: 1)post PEA/asystole after cholecystectomy- 2)HTN 3)severe cardiomyopathy of long standing- well compensated, good renal function 4)morbid obesity 5)seizures- on meds, neuro following. 6)ileus- resolved. tolerating tube feeds Current Visit: Yes (2) Hypertension Status: Chronic Current Visit: Yes (3) CHEMA (obstructive sleep apnea) Status: Acute Current Visit: Yes (4) Cardiomyopathy Status: Chronic Current Visit: Yes (5) Tachycardia Status: Acute Current Visit: Yes (6) S/P laparoscopic cholecystectomy Status: Acute Current Visit: No Hospitalist: Subjective Interval history: Mr Ramírez is stable on vent overnight. He is not doing well with CPAP. He responds to commands per nursing when Diprivan is minimized. Exam - Constitutional Vitals: Period Temp Pulse Resp BP Sys/Lobo Pulse Ox Last 24 Hr 96.7 F-99.5 F 78-96 12-25 95-123/54-76 96-100 General appearance: no acute distress, morbidly obese - Head Head exam: Present: normocephalic, atraumatic - Eye Eye exam: Present: EOMI. Absent: scleral icterus - Respiratory Respiratory exam: Present: clear to auscultation bilaterally - Cardiovascular Cardiovascular exam: Present: regular rate and rhythm - GI/Abdominal GI/Abdominal exam: Present: normal bowel sounds, soft. Absent: tenderness - Extremities Exam Extremities exam: Absent: edema Results - Labs CBC & BMP: 11/15/16 09:01 11/15/16 09:01 Lab Results: I have reviewed the past 24 hour labs
--- NOTE | 2016-11-16 14:02 | Neurology Progress Note ---
Neurology - PN : Subjective Interval history: Patient continued to remain same neurologically. No more seizures reported. He is sedated at this time. Repeat EEG revealed generalized slowing. Exam (Progress Note) - Constitutional Vitals: Period Temp Pulse Resp BP Sys/Lobo Pulse Ox Last 24 Hr 96.7 F-99.5 F 78-100 12-25 95-123/54-76 96-100 Exam: GENERAL: Patient is in no acute distress. NECK: Neck is supple. There is no JVD. No carotid bruits present. No thyroid masses. CVS: First and second heart sounds are normal. There is no S3 present. Regular rate and rhythm. RESPIRATORY: Lungs are clear to auscultation without any rales or rhonchi. ABDOMEN: Soft and non-tender. Bowel sounds are present. There is no hepatosplenomegaly. EXT: There is no palpable edema. Peripheral pulses are present. 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 Left pupil is sluggish but reactive Motor: Strength cannot be assessed Sensory: Cannot be assessed Reflexes: Absent and symmetrical Cerebellar function: Cannot be assessed Gait: Cannot be assessed Results - Labs CBC & BMP: 11/15/16 09:01 11/15/16 09:01 Assessment and Plan (1) Anoxic encephalopathy Status: Acute Assessment and plan: Continue supportive treatment. Prognosis is guarded. Current Visit: Yes (2) Seizures Status: Acute Assessment and plan: Continue Keppra 1000mg IV Q12. Repeat EEG reveals generalized slowing Current Visit: Yes
[2016-11-16] MEDS ORDERED: SKIN HEALING OINT (AQUAPHOR) 50 GM TUBE TOP SCH (16:00)
--- NOTE | 2016-11-16 20:03 | Electroencephalogram ---
DATE OF STUDY: 11/16/2016 HISTORY: A 51-year-old male with a history of change in mental status. EEG was done for 22 minutes. INTRODUCTION: A digital EEG was performed using the standard 10/20 system of electrode placement wi th one channel of EKG monitoring. Photic stimulation is performed. DESCRIPTION OF RECORD: The background is somewhat disorganized, consists of 6 to 7 hertz low amplit ude bilaterally symmetrical rhythm. Photic stimulation does not elicit a driving response. Hyperve ntilation was not performed. There are no focal, sharp-wave, spike, or wave activity seen. Heart rate difficult to assess because of constant movement, 70 beats per minute. IMPRESSION: ABNORMAL ELECTROENCEPHALOGRAM DUE TO GENERALIZED SLOWING. CLINICAL CORRELATION: This record is supportive of [id number] encephalopathy, which could be secondary to postictal state, post-hypoxic state, metabolic disorder, diffuse [employer] insult or increase d intracranial pressure. No epileptiform/seizure activity seen. Clinical correlation is suggested.
[2016-11-16] MEDS: SKIN HEALING OINT (AQUAPHOR) 50 GM TUBE TOP SCH (22:41)
[2016-11-17] MEDS: METOCLOPRAMIDE 10 MG/2 ML VIAL IV SCH ×4 (00:59→18:13)
[2016-11-17] MEDS: LACTULOSE 20 GM/30 ML UDCUP PO SCH ×5 (00:59→23:49)
[2016-11-17] MEDS: INSULIN REGULAR 100 UNIT/ML IV SCH ×5 (00:59→23:49)
[2016-11-17] MEDS: ALUMINUM/MAGNES/SIMETH MAX STR 30 ML UDCUP PO SCH ×5 (00:59→23:49)
[2016-11-17] MEDS: ALBUTEROL/IPRATROPIUM 3 ML NEB RESP TX SCH ×4 (01:05→19:38)
[2016-11-17] MEDS: PROPOFOL 1,000 MG/100 ML BOTTLE IV SCH ×4 (04:02→21:58)
[2016-11-17] MEDS: CARVEDILOL 3.125 MG TABLET PO SCH ×2 (08:11→20:14)
[2016-11-17] MEDS: FUROSEMIDE 40 MG/4 ML VIAL IV SCH ×2 (08:12→20:15)
[2016-11-17] MEDS: SKIN HEALING OINT (AQUAPHOR) 50 GM TUBE TOP SCH ×2 (08:12→20:16)
[2016-11-17] MEDS: PANTOPRAZOLE 40 MG VIAL IV SCH (08:15)
[2016-11-17] MEDS: MINERAL OIL/PETROLATUM OPH OINT 3.5 GM TUBE BOTH EYES SCH ×3 (08:15→20:16)
--- NOTE | 2016-11-17 08:32 | General Surgery Progress Note ---
Assessment and Plan - Time spent with patient Time spent with patient: Less than 30 minutes (1) Abdominal pain Status: Acute Assessment and plan: Impression: 1. Abdominal pain etiology unclear questionable gallbladder disease undiagnosed 2. Obesity 3. Congestive heart failure 4. Low cardiac ejection fraction Recommendations: 1. Certainly would look at do a HIDA scan to see if its abnormal with that ejection fraction 2. We consider repeating ultrasound after his been nothing by mouth for at least 12 hours to see if there is any changes in the gallbladder see if it distends back up looks normal 3. We consider a CT scan abdomen and pelvis with contrast to get a better idea this is nothing else going on. 4. He needs a complete cardiac evaluation before that any consideration of surgery because he is at such high risk 5. May need pulmonary consult at some point 6. We consider surgery on the gallbladder all if everything else is ruled out and that we have clear diagnosis that he could possibly have gallbladder disease. 10/31/2016. Patient continues to complain of discomfort in the upper abdomen right chest area. On exam though he does not exhibit any guarding or unusual tenderness on deep palpation. No masses are palpable. He did not have his oxygen own and I have noted cardiology's note. He is for a HIDA scan today and hopefully we'll plan to CT scan abdomen and pelvis tomorrow. Still unclear whether he has gallbladder disease but certainly he remains a high risk surgical patient because of his cardiac disease. 11/01/2016 Patient continues to have some discomfort in the upper part of his abdomen. Better today than has been. His CT scan abdomen and pelvis was performed in his completed and they continue to see her contracted gallbladder normal size biliary tree. See some stranding around the kidneys but otherwise nothing dramatically noted at this point. I felt the pancreas was okay. At this point after discussing his cardiac status with Dr. Dodson we feel like that he has in optimal condition to proceed with surgery at this time. He is a high risk patient and he understands this but he is okay with going ahead with surgery. Dr. Dodson feels like that he would be best to get him at this point when he is optimal as opposed to let the gallbladder get truly sick and then having a worse situation deal with. 11/04/2016 Patient remains on the ventilator and they're starting to warm him up today. Else reduce his sedation once he is warm to see I much mental activity he comes back with. From his surgery he is done well minimal MAT drainage at this point. Remains with a mild ileus with some bowel sounds are present. NG tube with minimal drainage. We'll consider possible to feedings but right now wait and see how he wakes up. 11/06/2016 Patient remains on the ventilator but they're reducing his sedation any symptoms to be waking up. Abdomen remains slightly distended with hypoactive bowel sounds but to feedings have been started now. He has a moderate amount of MAT drainage still at this time. From a surgical standpoint he is doing good with the limbs wounds looking clean and dry and we just waiting for the drainage to decrease and after weaning pulled MAT drain. Cardiac velarde he seems to be stable at this point and minimally seems to be waking up at this time. Will let cardiology and neurology continue to manage this part of things as well as respiratory manage the ventilator. 11/09/2016. Patient is status post lap scopic cholecystectomy but otherwise had a respiratory and cardiac arrest and is still on the ventilator at this time. He seems to have woken up some 400 although it is confusing the reports. He seems combative at times they say his pupils are equal and reactive and a responds to stimuli. They have not been able to get him off the ventilator because of his restless activity whenever they reduced the sedation. He's had some problem with failure of his feedings with some high residuals at this time. He's on NG suction at this point and we may have to find an alternative to his nutrition. 11/10/2016 Patient vital signs are stable labs look generally good. Chest x-ray continues to show his enlarged heart and little bit of fluid and atelectasis but otherwise stable ABGs generally look in pretty good shape. Unfortunately there is slowing on his EEG and he is rather combative respiratory-velarde whenever he is weaned all for [facility] to go to a CPAP situation. He does not flail his arms or removal of extremity but he does breathe poorly whenever he is weaning off. NG tube with minimal drainage and so will try to resume tube feedings at this time. 11/13/2016 This is a patient with severe cardiac disease with cardiomegaly and low ejection fractions who postop from a cholecystectomy had a cardiac arrest. He remains on the ventilator with some mental activity but difficult to assess. Off sedation and becomes very agitated or hyperventilates. He is reported to squeeze fingers at times. From a surgical standpoint his abdomen is soft there's hypoactive bowel sounds he's tolerating his tube feedings that he's had some bowel movements. His incisions are clean and dry and his drain is out. This seems to be in good shape at this point time. His primary problems now or medical 11/16/2016. Patient has not really shown any improvement minimally at this time. Remains on the ventilator at this time. Tolerating tube feedings with some loose bowel movements. Abdomen remains fairly soft not significantly distended some hypoactive bowel sounds present. Incisions are healing well and will go ahead and remove his clips today. Do not know his mental status at this point what the prognosis would be on that. Probably need to the topic the family about the possibility of a PEG tube for feedings to get the NG tube out of his nose and for long-term feedings. 11/17/2016. Patient is still ventilator not very responsive at this time. Tolerating the tube feedings with bowel movements. His incisions are healing well clips are out at this time. Have started preventive care to prevent sacral and heel ulcers at this point. At this point not much but just observational care from my standpoint. Current Visit: Yes Qualifiers: Abdominal location: upper abdomen, unspecified Qualified Code(s): R10.10 - Upper abdominal pain, unspecified Subjective Patient reports: Present: no new complaints, other (still on the ventilator not very responsive) Exam - Constitutional Vitals: Period Temp Pulse Resp BP Sys/Lobo Pulse Ox Last 24 Hr 97.6 F-100.8 F 80-108 11-30 81-127/50-84 96-100 General appearance: mild distress - Head Head exam: Present: normal inspection - ENT ENT exam: Present: normal exam - Neck Neck exam: Present: normal inspection - Respiratory Respiratory exam: Present: rales, rhonchi - Cardiovascular Cardiovascular exam: Present: RRR - GI/Abdominal GI/Abdominal exam: Present: hypoactive bowel sounds, soft, other (clips are out incisions healing well) - Extremities Exam Extremities exam: Present: normal inspection - Back Exam Back exam: Present: normal inspection - Neurological Exam Neurological exam: Present: alert, oriented X3, CN II-XII intact - Skin Skin exam: Present: normal color, warm, dry Results - Labs CBC & BMP: 11/15/16 09:01 11/15/16 09:01 Lab Results: I have reviewed the past 24 hour labs
--- NOTE | 2016-11-17 08:38 | Pulmonology Progress Note ---
Pulmonary - PN: Subj Interval history: The patient is a 51-year-old black man that has a severe cardiomyopathy and had an arrest during surgery. He had just completed a lap cholecystectomy. He had a 20 minute resuscitation but did come around a little. He had been on pressors but is stable on the ventilator. He has an ejection fraction of 15% and his chest x-ray has looked like heart failure. He has had a fairly good day yesterday and today he is doing CPAP a little better. He does respond but is very weak. His oxygenation is stable. Exam (Progress Note) - Constitutional Vitals: Period Temp Pulse Resp BP Sys/Lobo Pulse Ox Last 24 Hr 97.6 F-100.8 F 80-108 11-30 81-127/50-84 96-100 Exam: General appearance: moderately obese, other (patient is awake but not doing much movement. He is comfortable on CPAP this morning. ) - Head Head exam: Present: normal inspection - Eye Eye exam: Present: EOMI. Absent: scleral icterus Pupils: Present: CB, constricted - ENT ENT exam: Present: Unremarkable, facial swelling is less. - Neck Neck exam: Present: normal inspection. He has a tracheostomy tube in place. Absent: lymphadenopathy, thyromegaly - Respiratory Respiratory exam: Present: He has good breath sounds bilaterally but they are coarse with bilateral rhonchi. He does have decreased breath sounds in the bases. - Cardiovascular Cardiovascular exam: Present: regular rate and rhythm. Absent: gallop, JVD, systolic murmur - GI/Abdominal GI/Abdominal exam: Present: hypoactive bowel sounds, soft, other (he is postop and drains in place.). Absent: organomegaly - Extremities Exam Extremities exam: Present: edema (he has mild lower extremity edema. His leg swelling is better. ) - Neurological Exam Neurological exam: Present: altered (patient is following commands a little better does seem to be less agitated.) - Skin Skin exam: Present: dry. Absent: rash Results - Labs CBC & BMP: 11/15/16 09:01 11/15/16 09:01 Assessment and Plan (1) Hypertension Status: Chronic Assessment and plan: The patient has a history of hypertension and a cardiomyopathy but his blood pressure has been on the low side while he sedated. He is stable off pressors. Current Visit: Yes (2) CHEMA (obstructive sleep apnea) Status: Acute Assessment and plan: This will be evaluated later. Current Visit: Yes (3) Cardiomyopathy Status: Chronic Assessment and plan: The patient apparently has an ejection fraction of 15% and severe cardiomyopathy. His chest x-ray still looks like heart failure. He does seem to be doing CPAP better. We will relook at x-ray. Current Visit: Yes (4) Cardiopulmonary arrest with successful resuscitation Status: Acute Assessment and plan: The patient is on the ventilator after a successful resuscitation. He is responding better and following commands better. He has a tracheostomy tube and is breathing comfortably at present. Current Visit: Yes (5) S/P laparoscopic cholecystectomy Status: Acute Assessment and plan: The patient has had a lap cholecystectomy after presenting with significant abdominal pain. His abdomen seems to be doing okay. Current Visit: No (6) Acute on chronic systolic CHF (congestive heart failure) Status: Acute Assessment and plan: Patient is on the ventilator with what looks like heart failure. His chest x- ray is slowly improving. We'll continue to diurese a little. He does seem to be doing CPAP better. Current Visit: No
--- NOTE | 2016-11-17 10:18 | XRay Report ---
Referring Physician: Dylan Colindres Exam: XR chest 1V portable Date: November 17, 2016 at 8:52 AM Reason: Bilateral infiltrates Comparison: Chest one view portable November 15, 2016 Findings: A right IJ catheter, tracheostomy catheter and feeding tube are again in place. The cardiac silhouette is again enlarged. There are prominent opacities are both lungs, mainly within the lower lung zones. This likely represents pulmonary edema and atelectasis, but superimposed pneumonia is not excluded. No pneumothorax is identified, but there is bilateral pleural fluid. A calcified granuloma is also suspected at the right mid/lower lung zone. The osseous structures appear stable. Impression: There has been no significant change. PROCEDURE INTERPRETED AT [facility] DEPARTMENT OF RADIOLOGY Final Report Signed by: Dr. Beau Wick
--- NOTE | 2016-11-17 14:31 | Hospitalist Progress Note ---
Assessment and Plan (1) Cardiopulmonary arrest with successful resuscitation Status: Acute Assessment and plan: 1)post PEA/asystole after cholecystectomy- more alert today after vimpat stopped and keppra decreased. opens eyes to command. 2)HTN 3)severe cardiomyopathy of long standing- well compensated, good renal function 4)morbid obesity 5)seizures- on meds, neuro following. 6)ileus- resolved. tolerating tube feeds Current Visit: Yes (2) Hypertension Status: Chronic Current Visit: Yes (3) CHEMA (obstructive sleep apnea) Status: Acute Current Visit: Yes (4) Cardiomyopathy Status: Chronic Current Visit: Yes (5) Tachycardia Status: Acute Current Visit: Yes (6) S/P laparoscopic cholecystectomy Status: Acute Current Visit: No Hospitalist: Subjective Interval history: Mr Ramírez is doing well on CPAP when I saw him this morning. The nurse says that a thoracentesis is planned today. Exam - Constitutional Vitals: Period Temp Pulse Resp BP Sys/Loob Pulse Ox Last 24 Hr 97.6 F-100.8 F 80-108 11-30 84-127/50-84 97-100 General appearance: no acute distress, morbidly obese - Eye Eye exam: Present: EOMI. Absent: scleral icterus - Respiratory Respiratory exam: Present: clear to auscultation bilaterally - Cardiovascular Cardiovascular exam: Present: regular rate and rhythm - GI/Abdominal GI/Abdominal exam: Present: normal bowel sounds, soft. Absent: tenderness - Extremities Exam Extremities exam: Absent: edema Results - Labs CBC & BMP: 11/15/16 09:01 11/15/16 09:01
[2016-11-18] MEDS: METOCLOPRAMIDE 10 MG/2 ML VIAL IV SCH ×4 (00:18→18:10)
[2016-11-18] MEDS: ALBUTEROL/IPRATROPIUM 3 ML NEB RESP TX SCH ×4 (00:29→19:34)
[2016-11-18] MEDS: PROPOFOL 1,000 MG/100 ML BOTTLE IV SCH ×4 (03:37→23:00)
[2016-11-18] MEDS: ALUMINUM/MAGNES/SIMETH MAX STR 30 ML UDCUP PO SCH ×4 (05:35→23:00)
[2016-11-18] MEDS: LACTULOSE 20 GM/30 ML UDCUP PO SCH ×3 (05:35→18:11)
[2016-11-18] MEDS: INSULIN REGULAR 100 UNIT/ML IV SCH ×3 (05:48→18:10)
--- NOTE | 2016-11-18 07:32 | Pulmonology Progress Note ---
Pulmonary - PN: Subj Interval history: The patient is a 51-year-old black man that has a severe cardiomyopathy and had an arrest during surgery. He had just completed a lap cholecystectomy. He had a 20 minute resuscitation but did come around a little. He had been on pressors but is stable on the ventilator. He has an ejection fraction of 15% and his chest x-ray has looked like heart failure. He is starting to do better and has diuresed fairly well. His weight is down over 20 kg. He did do fairly well on CPAP yesterday and is starting stage III of weaning. His oxygenation has been stable and his blood pressure is doing okay. Overall he looks a little better. Exam (Progress Note) - Constitutional Vitals: Period Temp Pulse Resp BP Sys/Lobo Pulse Ox Last 24 Hr 98 F-100.0 F 83-108 12-34 75-118/49-77 95-100 Exam: General appearance: moderately obese, other (patient is responding okay and doing well with CPAP. ) - Head Head exam: Present: normal inspection - Eye Eye exam: Present: EOMI. Absent: scleral icterus Pupils: Present: CB, constricted - ENT ENT exam: Present: Unremarkable, facial swelling is less. - Neck Neck exam: Present: normal inspection. He has a tracheostomy tube in place. Absent: lymphadenopathy, thyromegaly - Respiratory Respiratory exam: Present: He has good breath sounds bilaterally and his lungs do sound better. He has less rales and rhonchi. - Cardiovascular Cardiovascular exam: Present: regular rate and rhythm. Absent: gallop, JVD, systolic murmur - GI/Abdominal GI/Abdominal exam: Present: hypoactive bowel sounds, soft, other (he is postop and drains in place.). Absent: organomegaly - Extremities Exam Extremities exam: Present: edema (he has mild lower extremity edema. His leg swelling is better. ) - Neurological Exam Neurological exam: Present: altered (patient is following commands a little better does seem to be less agitated.) - Skin Skin exam: Present: dry. Absent: rash Results - Labs CBC & BMP: 11/15/16 09:01 11/15/16 09:01 Assessment and Plan (1) Hypertension Status: Chronic Assessment and plan: The patient has a history of hypertension and a cardiomyopathy but he is diuresing fairly well and his hemodynamics are better. Current Visit: Yes (2) CHEMA (obstructive sleep apnea) Status: Acute Assessment and plan: This will be evaluated later. Current Visit: Yes (3) Cardiomyopathy Status: Chronic Assessment and plan: The patient apparently has an ejection fraction of 15% and severe cardiomyopathy. His chest x-ray still looks like heart failure. He does seem to be doing CPAP better. We'll advance CPAP trials. Current Visit: Yes (4) Cardiopulmonary arrest with successful resuscitation Status: Acute Assessment and plan: The patient is on the ventilator after a successful resuscitation. He is responding better and following commands better. He has a tracheostomy tube and is breathing comfortably at present. Current Visit: Yes (5) S/P laparoscopic cholecystectomy Status: Acute Assessment and plan: The patient has had a lap cholecystectomy after presenting with significant abdominal pain. His abdomen seems to be doing okay. Current Visit: No (6) Acute on chronic systolic CHF (congestive heart failure) Status: Acute Assessment and plan: Patient is on the ventilator with what looks like heart failure. His weight is down over 20 kg and is diuresing well. We will continue with weaning trials. Current Visit: Yes
--- NOTE | 2016-11-18 08:29 | General Surgery Progress Note ---
Assessment and Plan - Time spent with patient Time spent with patient: Less than 30 minutes (1) Abdominal pain Status: Acute Assessment and plan: Impression: 1. Abdominal pain etiology unclear questionable gallbladder disease undiagnosed 2. Obesity 3. Congestive heart failure 4. Low cardiac ejection fraction Recommendations: 1. Certainly would look at do a HIDA scan to see if its abnormal with that ejection fraction 2. We consider repeating ultrasound after his been nothing by mouth for at least 12 hours to see if there is any changes in the gallbladder see if it distends back up looks normal 3. We consider a CT scan abdomen and pelvis with contrast to get a better idea this is nothing else going on. 4. He needs a complete cardiac evaluation before that any consideration of surgery because he is at such high risk 5. May need pulmonary consult at some point 6. We consider surgery on the gallbladder all if everything else is ruled out and that we have clear diagnosis that he could possibly have gallbladder disease. 10/31/2016. Patient continues to complain of discomfort in the upper abdomen right chest area. On exam though he does not exhibit any guarding or unusual tenderness on deep palpation. No masses are palpable. He did not have his oxygen own and I have noted cardiology's note. He is for a HIDA scan today and hopefully we'll plan to CT scan abdomen and pelvis tomorrow. Still unclear whether he has gallbladder disease but certainly he remains a high risk surgical patient because of his cardiac disease. 11/01/2016 Patient continues to have some discomfort in the upper part of his abdomen. Better today than has been. His CT scan abdomen and pelvis was performed in his completed and they continue to see her contracted gallbladder normal size biliary tree. See some stranding around the kidneys but otherwise nothing dramatically noted at this point. I felt the pancreas was okay. At this point after discussing his cardiac status with Dr. Dodson we feel like that he has in optimal condition to proceed with surgery at this time. He is a high risk patient and he understands this but he is okay with going ahead with surgery. Dr. Dodson feels like that he would be best to get him at this point when he is optimal as opposed to let the gallbladder get truly sick and then having a worse situation deal with. 11/04/2016 Patient remains on the ventilator and they're starting to warm him up today. Else reduce his sedation once he is warm to see I much mental activity he comes back with. From his surgery he is done well minimal MAT drainage at this point. Remains with a mild ileus with some bowel sounds are present. NG tube with minimal drainage. We'll consider possible to feedings but right now wait and see how he wakes up. 11/06/2016 Patient remains on the ventilator but they're reducing his sedation any symptoms to be waking up. Abdomen remains slightly distended with hypoactive bowel sounds but to feedings have been started now. He has a moderate amount of MAT drainage still at this time. From a surgical standpoint he is doing good with the limbs wounds looking clean and dry and we just waiting for the drainage to decrease and after weaning pulled MAT drain. Cardiac velarde he seems to be stable at this point and minimally seems to be waking up at this time. Will let cardiology and neurology continue to manage this part of things as well as respiratory manage the ventilator. 11/09/2016. Patient is status post lap scopic cholecystectomy but otherwise had a respiratory and cardiac arrest and is still on the ventilator at this time. He seems to have woken up some 400 although it is confusing the reports. He seems combative at times they say his pupils are equal and reactive and a responds to stimuli. They have not been able to get him off the ventilator because of his restless activity whenever they reduced the sedation. He's had some problem with failure of his feedings with some high residuals at this time. He's on NG suction at this point and we may have to find an alternative to his nutrition. 11/10/2016 Patient vital signs are stable labs look generally good. Chest x-ray continues to show his enlarged heart and little bit of fluid and atelectasis but otherwise stable ABGs generally look in pretty good shape. Unfortunately there is slowing on his EEG and he is rather combative respiratory-velarde whenever he is weaned all for [facility] to go to a CPAP situation. He does not flail his arms or removal of extremity but he does breathe poorly whenever he is weaning off. NG tube with minimal drainage and so will try to resume tube feedings at this time. 11/13/2016 This is a patient with severe cardiac disease with cardiomegaly and low ejection fractions who postop from a cholecystectomy had a cardiac arrest. He remains on the ventilator with some mental activity but difficult to assess. Off sedation and becomes very agitated or hyperventilates. He is reported to squeeze fingers at times. From a surgical standpoint his abdomen is soft there's hypoactive bowel sounds he's tolerating his tube feedings that he's had some bowel movements. His incisions are clean and dry and his drain is out. This seems to be in good shape at this point time. His primary problems now or medical 11/16/2016. Patient has not really shown any improvement minimally at this time. Remains on the ventilator at this time. Tolerating tube feedings with some loose bowel movements. Abdomen remains fairly soft not significantly distended some hypoactive bowel sounds present. Incisions are healing well and will go ahead and remove his clips today. Do not know his mental status at this point what the prognosis would be on that. Probably need to the topic the family about the possibility of a PEG tube for feedings to get the NG tube out of his nose and for long-term feedings. 11/17/2016. Patient is still ventilator not very responsive at this time. Tolerating the tube feedings with bowel movements. His incisions are healing well clips are out at this time. Have started preventive care to prevent sacral and heel ulcers at this point. At this point not much but just observational care from my standpoint. 11/18/2016. From a general surgery standpoint the abdomen remains soft with hypoactive bowel sounds in seems to be tolerating tube feedings well. Incisions are healing well without problems. He does not seem to be neurologically much improved from what I can tell at this point. It's reported that he does squeeze hand at times and seems to be more alert at the other times. I have not been able to observe much mental activity at this point. Remains on the ventilator. Will just maintain present care and tube feedings at this time. Current Visit: Yes Qualifiers: Abdominal location: upper abdomen, unspecified Qualified Code(s): R10.10 - Upper abdominal pain, unspecified Subjective Patient reports: Present: other (ill on the ventilator not overly responsive) Exam - Constitutional Vitals: Period Temp Pulse Resp BP Sys/Lobo Pulse Ox Last 24 Hr 98 F-100.0 F 83-103 12-34 75-113/49-77 95-100 General appearance: mild distress - Head Head exam: Present: normal inspection - ENT ENT exam: Present: normal exam - Neck Neck exam: Present: normal inspection, other (trach in place and looks clean) - Respiratory Respiratory exam: Present: rales, rhonchi - Cardiovascular Cardiovascular exam: Present: RRR - GI/Abdominal GI/Abdominal exam: Present: hypoactive bowel sounds, soft, other (having bowel movement and seems to be tolerating tube feedings) - Extremities Exam Extremities exam: Present: normal inspection - Neurological Exam Neurological exam: Present: alert, oriented X3, CN II-XII intact - Skin Skin exam: Present: normal color, warm, dry Results - Labs CBC & BMP: 11/15/16 09:01 11/15/16 09:01 Lab Results: I have reviewed the past 24 hour labs
--- NOTE | 2016-11-18 08:50 | Hospitalist Progress Note ---
Assessment and Plan (1) Cardiopulmonary arrest with successful resuscitation Status: Acute Assessment and plan: 1)post PEA/asystole after cholecystectomy- more alert after vimpat stopped and keppra decreased. opens eyes to command. 2)HTN 3)severe cardiomyopathy of long standing- well compensated, good renal function 4)morbid obesity 5)seizures- on meds, neuro following. 6)ileus- resolved. tolerating tube feeds 7)dispo- to LTAC when insurance approves Current Visit: Yes (2) Hypertension Status: Chronic Current Visit: Yes (3) CHEMA (obstructive sleep apnea) Status: Acute Current Visit: Yes (4) Cardiomyopathy Status: Chronic Current Visit: Yes (5) Tachycardia Status: Acute Current Visit: Yes (6) S/P laparoscopic cholecystectomy Status: Acute Current Visit: No Hospitalist: Subjective Interval history: Mr Ramírez is stable on the vent. Tolerating tube feeds. Exam - Constitutional Vitals: Period Temp Pulse Resp BP Sys/Lobo Pulse Ox Last 24 Hr 98 F-100.0 F 83-103 12-34 75-113/49-77 95-100 General appearance: no acute distress - Eye Eye exam: Present: EOMI. Absent: scleral icterus - Respiratory Respiratory exam: Present: clear to auscultation bilaterally - Cardiovascular Cardiovascular exam: Present: regular rate and rhythm - GI/Abdominal GI/Abdominal exam: Present: normal bowel sounds, soft. Absent: tenderness - Extremities Exam Extremities exam: Absent: edema - Skin Skin exam: Present: warm, dry Results - Labs CBC & BMP: 11/15/16 09:01 11/15/16 09:01 Lab Results: I have reviewed the past 24 hour labs
[2016-11-18] MEDS: FUROSEMIDE 40 MG/4 ML VIAL IV SCH ×2 (09:10→21:10)
[2016-11-18] MEDS: CARVEDILOL 3.125 MG TABLET PO SCH ×2 (09:10→21:10)
[2016-11-18] MEDS: PANTOPRAZOLE 40 MG VIAL IV SCH (09:10)
[2016-11-18] MEDS: SKIN HEALING OINT (AQUAPHOR) 50 GM TUBE TOP SCH ×2 (09:11→20:30)
[2016-11-18] MEDS: MINERAL OIL/PETROLATUM OPH OINT 3.5 GM TUBE BOTH EYES SCH ×3 (09:11→21:10)
[2016-11-19] MEDS: ALBUTEROL/IPRATROPIUM 3 ML NEB RESP TX SCH ×4 (02:05→19:02)
[2016-11-19] MEDS: PROPOFOL 1,000 MG/100 ML BOTTLE IV SCH ×3 (02:35→20:30)
[2016-11-19 03:26] LABS: ABG Base Excess 7.6 MMOL/L (-2.5-2.5); ABG HCO3 31.3 MMOL/L (20-26); ABG Oxygen Saturation 97.2 % (95-100); ABG PCO2 41.5 MM HG (35-48); ABG PH 7.491 (7.35-7.45); ABG TCO2 27.3 MMOL/L (23-27)
[2016-11-19 04:13] LABS: Calcium 8.5 MG/DL (8.5-10.1); Osmolality,Calculated 297.3 MOS/KG (273-304); Potassium 3.1 MMOL/L (3.5-5.1)
[2016-11-19 04:53] LABS: Magnesium 2.4 MG/DL (1.8-2.4); Prealbumin 22.2 MG/DL (20-40)
[2016-11-19] MEDS: ALUMINUM/MAGNES/SIMETH MAX STR 30 ML UDCUP PO SCH (05:00)
[2016-11-19] MEDS: POTASSIUM CHLORIDE RIDER 20 MEQ in PREMIX 1 EACH IV PRN ×2 (05:30→06:30)
[2016-11-19] MEDS: METOCLOPRAMIDE 10 MG/2 ML VIAL IV SCH ×2 (06:00)
[2016-11-19] MEDS: LACTULOSE 20 GM/30 ML UDCUP PO SCH ×2 (06:00)
[2016-11-19] MEDS: INSULIN REGULAR 100 UNIT/ML IV SCH ×3 (06:00→19:07)
--- NOTE | 2016-11-19 07:38 | XRay Report ---
History is ventilator management Comparison 11/17/2016 The heart remains enlarged. Tracheostomy remains the tip at T5. Other support devices grossly unchanged. There remains vascular congestion and moderate diffuse bilateral pulmonary opacities and small underlying effusions similar on the prior study. Left diaphragm remains obscured. Impression: No interval change PROCEDURE INTERPRETED AT [facility], [place] DEPARTMENT OF RADIOLOGY Final Report Signed by: Dr. Maryse Jonas
[2016-11-19] MEDS ORDERED: LACTULOSE 20 GM/30 ML UDCUP PO PRN (08:50)
--- NOTE | 2016-11-19 08:56 | Hospitalist Progress Note ---
Assessment and Plan (1) Cardiopulmonary arrest with successful resuscitation Status: Acute Assessment and plan: 1)post PEA/asystole after cholecystectomy- alert, eyes open and follows commands , nods and shakes head. 2)HTN 3)severe cardiomyopathy of long standing- well compensated, good renal function. had 6 beat run of vtach last night. replace low potassium today. 4)morbid obesity 5)seizures- on meds, neuro following. no more seizures seen. 6)ileus- resolved. tolerating tube feeds. stop laxatives and reglan. change to keofed for comfort. 7)dispo- to LTAC when insurance approves Current Visit: Yes (2) Hypertension Status: Chronic Current Visit: Yes (3) CHEMA (obstructive sleep apnea) Status: Acute Current Visit: Yes (4) Cardiomyopathy Status: Chronic Current Visit: Yes (5) Tachycardia Status: Acute Current Visit: Yes (6) S/P laparoscopic cholecystectomy Status: Acute Current Visit: No Hospitalist: Subjective Interval history: Mr Ramírez is stable on vent. He has had some success with CPAP, but it is inconsistent. He is having copious stool output. Sedation weaned, coughs occasionally. shakes and nods head to answer questions. Denies pain. Exam - Constitutional Vitals: Period Temp Pulse Resp BP Sys/Lobo Pulse Ox Last 24 Hr 97.7 F-99.6 F 79-102 11-27 91-113/56-81 87-100 General appearance: no acute distress, morbidly obese - Eye Eye exam: Present: EOMI. Absent: scleral icterus Pupils: Present: CB - Respiratory Respiratory exam: Present: clear to auscultation bilaterally - Cardiovascular Cardiovascular exam: Present: regular rate and rhythm - GI/Abdominal GI/Abdominal exam: Present: normal bowel sounds, soft. Absent: tenderness - Extremities Exam Extremities exam: Absent: edema - Skin Skin exam: Present: warm, dry Results - Labs CBC & BMP: 11/15/16 09:01 11/19/16 03:15 Lab Results: I have reviewed the past 24 hour labs
--- NOTE | 2016-11-19 09:16 | Pulmonology Progress Note ---
Pulmonary - PN: Subj Interval history: The patient is a 51-year-old black man that has a severe cardiomyopathy and had an arrest during surgery. He had just completed a lap cholecystectomy. He had a 20 minute resuscitation but did come around a little. He had been on pressors but is stable on the ventilator. He has an ejection fraction of 15% and his chest x-ray has looked like heart failure. He is starting to do better and has diuresed fairly well. His weight is down over 20 kg. He continues to diurese and he seems to be breathing better. He is doing CPAP trials well. He is not having any new seizures. He is extremely weak and has a critical care myopathy. Exam (Progress Note) - Constitutional Vitals: Period Temp Pulse Resp BP Sys/Lobo Pulse Ox Last 24 Hr 97.7 F-99.6 F 79-102 11-27 91-113/56-81 87-100 Exam: General appearance: moderately obese, other (patient is responding okay and doing well with CPAP. He does look more alert but is extremely weak.) - Head Head exam: Present: normal inspection - Eye Eye exam: Present: EOMI. Absent: scleral icterus Pupils: Present: CB, constricted - ENT ENT exam: Present: Unremarkable, facial swelling is less. - Neck Neck exam: Present: normal inspection. He has a tracheostomy tube in place. Absent: lymphadenopathy, thyromegaly - Respiratory Respiratory exam: Present: He has good breath sounds bilaterally and his lungs do sound better. He has fairly good air movement. - Cardiovascular Cardiovascular exam: Present: regular rate and rhythm. Absent: gallop, JVD, systolic murmur - GI/Abdominal GI/Abdominal exam: Present: hypoactive bowel sounds, soft, other (he is postop and drains in place.). Absent: organomegaly - Extremities Exam Extremities exam: Present: edema (he has mild lower extremity edema. His leg swelling is better. ) - Neurological Exam Neurological exam: Present: altered (patient is following commands a little better does seem to be less agitated.) - Skin Skin exam: Present: dry. Absent: rash Results - Labs CBC & BMP: 11/15/16 09:01 11/19/16 03:15 - Diagnostic Findings Procedure: Chest x-ray: image reviewed by me, report reviewed by me (chest x- ray still shows marked cardiomegaly with bilateral changes.) Assessment and Plan (1) Hypertension Status: Chronic Assessment and plan: The patient has a history of hypertension and a cardiomyopathy but he is diuresing fairly well and his hemodynamics are better. Current Visit: Yes (2) CHEMA (obstructive sleep apnea) Status: Acute Assessment and plan: This will be evaluated later. Current Visit: Yes (3) Cardiomyopathy Status: Chronic Assessment and plan: The patient apparently has an ejection fraction of 15% and severe cardiomyopathy. His chest x-ray still looks like heart failure. He does seem to be doing CPAP better. He is still very debilitated. Current Visit: Yes (4) Cardiopulmonary arrest with successful resuscitation Status: Acute Assessment and plan: The patient is on the ventilator after a successful resuscitation. He is responding better and following commands better. He has a tracheostomy tube and is breathing comfortably at present. We will continue with CPAP trials. Current Visit: Yes (5) S/P laparoscopic cholecystectomy Status: Acute Assessment and plan: The patient has had a lap cholecystectomy after presenting with significant abdominal pain. His abdomen seems to be doing okay. Current Visit: No (6) Acute on chronic systolic CHF (congestive heart failure) Status: Acute Assessment and plan: Patient is on the ventilator with what looks like heart failure. His weight is down over 20 kg and is diuresing well. We will continue with weaning trials. He does look reasonably comfortable at present. He looks like he probably has a critical care myopathy however. Current Visit: Yes
[2016-11-19] MEDS: CARVEDILOL 3.125 MG TABLET PO SCH ×2 (09:57→21:10)
[2016-11-19] MEDS: FUROSEMIDE 40 MG/4 ML VIAL IV SCH ×2 (09:57→21:10)
[2016-11-19] MEDS: POTASSIUM CHLORIDE 20 MEQ TABLET PO SCH ×2 (09:57→15:27)
[2016-11-19] MEDS: PANTOPRAZOLE 40 MG VIAL IV SCH (09:58)
[2016-11-19] MEDS: MINERAL OIL/PETROLATUM OPH OINT 3.5 GM TUBE BOTH EYES SCH ×3 (09:58→21:10)
[2016-11-19] MEDS: SKIN HEALING OINT (AQUAPHOR) 50 GM TUBE TOP SCH ×2 (09:58→20:00)
--- NOTE | 2016-11-19 14:17 | XRay Report ---
Exam: XR chest/abdomen 1V portable Date: 11/19/2016 1:14 PM Indication: Feeding tube placement Comparison: None Technical:AP portable Findings: The right chest and abdomen are not included. Endotracheal tube is located just proximal to the adair. A feeding tube demonstrated with the distal tip at the pyloric antrum region. Right IJ catheter is in the superior vena cava. Cardiomegaly is present. Patchy densities are present in the medial right base and left lung. The liver shadow is not well seen nor the spleen nor the kidneys with mild reactive bowel in the upper abdomen. Impression: 1. Interval placement of a feeding tube along the pyloric gastric antral region of the stomach 2. Endotracheal tube at the carinal level and right IJ catheter at the superior vena cava right atrial junction. 2. Cardiomegaly with patchy alveolar densities present PROCEDURE INTERPRETED AT [facility] DEPARTMENT OF RADIOLOGY Final Report Signed by: Dr. Jian Durham
--- NOTE | 2016-11-19 15:24 | Neurology Progress Note ---
Stacy Mancia Chassity, am scribing for, and in the presence of, Dave Holland MD 16 :05. Neurology - PN : Subjective Interval history: Patient seems to be doing about the same. No more seizures reported. He is waking up. Exam (Progress Note) - Constitutional Vitals: Period Temp Pulse Resp BP Sys/Lobo Pulse Ox Last 24 Hr 98.5 F-100.0 F 82-96 11-27 75-113/52-77 95-100 Exam: GENERAL: Patient is in no acute distress. NECK: Neck is supple. There is no JVD. No carotid bruits present. No thyroid masses. CVS: First and second heart sounds are normal. There is no S3 present. Regular rate and rhythm. RESPIRATORY: Lungs are clear to auscultation without any rales or rhonchi. ABDOMEN: Soft and non-tender. Bowel sounds are present. There is no hepatosplenomegaly. EXT: There is no palpable edema. Peripheral pulses are present. 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 Left pupil is sluggish but reactive Motor: Strength cannot be assessed Sensory: Cannot be assessed Reflexes: Absent and symmetrical Cerebellar function: Cannot be assessed Gait: Cannot be assessed Results - Labs CBC & BMP: 11/15/16 09:01 11/15/16 09:01 Assessment and Plan (1) Anoxic encephalopathy Status: Acute Assessment and plan: Continue supportive treatment. Current Visit: Yes (2) Seizures Status: Acute Assessment and plan: Continue Keppra 1000mg IV Q12. Current Visit: Yes Skyler Mancia Aamir, MD, personally performed the services described in this documentation, ascribed by Luisana Kumar in my presence, and it is both accurate and complete [phone] .
[2016-11-20] MEDS: ALBUTEROL/IPRATROPIUM 3 ML NEB RESP TX SCH ×4 (01:04→19:43)
[2016-11-20] MEDS: PROPOFOL 1,000 MG/100 ML BOTTLE IV SCH ×4 (01:45→22:15)
[2016-11-20 02:46] LABS: Basophils # 0.1 10*3/uL (0.0-0.2); Basophils % 1.1 % (0.0-0.8); Eosinophils # 0.2 10*3/uL (0.0-0.87); Eosinophils % 2.6 % (0.00-10.9); Hematocrit 37.2 VOL% (42.0-52.0); Hemoglobin 12.6 GM/DL (14.0-18.0); Immature Granulocytes % 0.4 %; Immature Granulocytes Absolute 0.03 #; Lymphocytes % 11.6 % (21.2-54.2); Mean Corpuscular HGB Conc 33.9 GM/DL (32-36); Mean Corpuscular Hemoglobin 32 PG (27-34); Mean Corpuscular Volume 95.6 FL (87-102); Monocytes # 0.7 10*3/uL (0.11-0.8); Monocytes % 8.9 % (1.7-12.7); Neutrophils # 6.2 10*3/uL (1.4-7.4); Neutrophils % 75.4 % (38.7-73.9); Platelet Count 180 10*3/uL (130-400); Red Blood Count 3.89 10*6/uL (3.8-5.5); Red Cell Distribution Width 16.2 % (9.3-17.3); White Blood Count 8.2 10*3/uL (4.5-13.71)
[2016-11-20 03:09] LABS: Calcium 8.4 MG/DL (8.5-10.1); Osmolality,Calculated 297.4 MOS/KG (273-304); Potassium 3.4 MMOL/L (3.5-5.1)
[2016-11-20] MEDS: POTASSIUM CHLORIDE RIDER 20 MEQ in PREMIX 1 EACH IV PRN (03:40)
[2016-11-20] MEDS: POTASSIUM CHLORIDE RIDER 10 MEQ in PREMIX 1 EACH IV PRN (04:45)
[2016-11-20] MEDS: INSULIN REGULAR 100 UNIT/ML IV SCH ×3 (06:00→11:53)
--- NOTE | 2016-11-20 07:31 | Pulmonology Progress Note ---
Pulmonary - PN: Subj Interval history: The patient is a 51-year-old black man that has a severe cardiomyopathy and had an arrest during surgery. He had just completed a lap cholecystectomy. He had a 20 minute resuscitation but did come around a little. He had been on pressors but is stable on the ventilator. He has an ejection fraction of 15% and his chest x-ray has looked like heart failure. He is starting to do better and has diuresed fairly well. His weight continues to come down. He still has not been able to do CPAP very long. He arouses okay but does not do much activity. His chest x-ray is better but he still has chronic heart failure. Overall he is reasonably stable. Exam (Progress Note) - Constitutional Vitals: Period Temp Pulse Resp BP Sys/Lobo Pulse Ox Last 24 Hr 97 F-98.8 F 92-113 12-22 84-130/53-113 95-100 Exam: General appearance: moderately obese, other (patient is responding okay but is extremely weak. He was not able to do much CPAP yesterday.) - Head Head exam: Present: normal inspection - Eye Eye exam: Present: EOMI. Absent: scleral icterus Pupils: Present: CB, constricted - ENT ENT exam: Present: Unremarkable, facial swelling is less. - Neck Neck exam: Present: normal inspection. He has a tracheostomy tube in place. Absent: lymphadenopathy, thyromegaly - Respiratory Respiratory exam: Present: He has good breath sounds bilaterally and his lungs do sound better. He has some mild rhonchi and crackles toward the bases. He has fairly good air movement. - Cardiovascular Cardiovascular exam: Present: regular rate and rhythm. He has a very prominent laterally displaced PMI. Absent: gallop, JVD, systolic murmur - GI/Abdominal GI/Abdominal exam: Present: His abdomen is soft and he has some active bowel sounds. His wounds are healing well. - Extremities Exam Extremities exam: Present: edema (he has mild lower extremity edema. His leg swelling is better. ) - Neurological Exam Neurological exam: Present: altered (patient is following commands a little better but is unable to use his extremities very well at all.) - Skin Skin exam: Present: dry. Absent: rash Results - Labs CBC & BMP: 11/20/16 02:30 11/20/16 02:30 - Diagnostic Findings Procedure: Chest x-ray: image reviewed by me, report reviewed by me (chest x- ray has marked cardiomegaly with less infiltrates.) Assessment and Plan (1) Hypertension Status: Chronic Assessment and plan: The patient has a history of hypertension and a cardiomyopathy and basically he has had chronic congestive heart failure. He is down over 25 kg now. Current Visit: Yes (2) CHEMA (obstructive sleep apnea) Status: Acute Assessment and plan: This will be evaluated later. Current Visit: Yes (3) Cardiomyopathy Status: Chronic Assessment and plan: The patient apparently has an ejection fraction of 15% and severe cardiomyopathy. His chest x-ray still looks like heart failure. He has diuresed fairly well and his weight is much better. He still fatigues quickly on CPAP. Current Visit: Yes (4) Cardiopulmonary arrest with successful resuscitation Status: Acute Assessment and plan: The patient is on the ventilator after a successful resuscitation. He is responding better and following commands better. He has a tracheostomy tube and is breathing comfortably at present. He still is very weak and not able to do CPAP very long. Current Visit: Yes (5) S/P laparoscopic cholecystectomy Status: Acute Assessment and plan: The patient has had a lap cholecystectomy after presenting with significant abdominal pain. His abdomen seems to be doing okay. Current Visit: No (6) Acute on chronic systolic CHF (congestive heart failure) Status: Acute Assessment and plan: Patient is on the ventilator with what looks like heart failure. His weight is down over 25 kg and is diuresing well. We will continue with weaning trials. He does look reasonably comfortable at present. He looks like he probably has a critical care myopathy however. He continues to be difficult to wean. Current Visit: Yes
--- NOTE | 2016-11-20 07:40 | XRay Report ---
History is respiratory distress ventilator management Comparison 11/19/2016 The heart is enlarged. Tracheostomy tip is 2 CM above the adair. There remains some moderate to severe diffuse bilateral hazy pulmonary opacities with more focal consolidation and air bronchograms in the left base. Underlying effusion suspected Impression: No significant change detailed above PROCEDURE INTERPRETED AT [facility] DEPARTMENT OF RADIOLOGY Final Report Signed by: Dr. Maryse Jonas
[2016-11-20] MEDS: SKIN HEALING OINT (AQUAPHOR) 50 GM TUBE TOP SCH ×2 (08:35→21:26)
[2016-11-20] MEDS: MINERAL OIL/PETROLATUM OPH OINT 3.5 GM TUBE BOTH EYES SCH ×3 (08:36→21:25)
[2016-11-20] MEDS: FUROSEMIDE 40 MG/4 ML VIAL IV SCH ×2 (08:36→20:48)
[2016-11-20] MEDS: CARVEDILOL 3.125 MG TABLET PO SCH ×2 (08:36→20:45)
[2016-11-20] MEDS: PANTOPRAZOLE 40 MG VIAL IV SCH (08:37)
--- NOTE | 2016-11-20 08:41 | Hospitalist Progress Note ---
Assessment and Plan (1) Cardiopulmonary arrest with successful resuscitation Status: Acute Assessment and plan: 1)post PEA/asystole after cholecystectomy- alert, eyes open and follows commands , nods and shakes head. 2)HTN 3)severe cardiomyopathy of long standing- well compensated, good renal function. replace low potassium today. 4)morbid obesity 5)seizures- on meds, neuro following. no more seizures seen. 6)ileus- resolved. tolerating tube feeds. stop laxatives and reglan. change to keofed for comfort. diarrhea has slowed down today. 7)dispo- to LTAC when insurance approves. Talked to his sister about his prognosis and plans for 15 minutes. Current Visit: Yes (2) Hypertension Status: Chronic Current Visit: Yes (3) CHEMA (obstructive sleep apnea) Status: Acute Current Visit: Yes (4) Cardiomyopathy Status: Chronic Current Visit: Yes (5) Tachycardia Status: Acute Current Visit: Yes (6) S/P laparoscopic cholecystectomy Status: Acute Current Visit: No Hospitalist: Subjective Interval history: Mr Ramírez is stable on vent. He got to chair yesterday. His diarrhea has slowed since meds stopped. Exam - Constitutional Vitals: Period Temp Pulse Resp BP Sys/Lobo Pulse Ox Last 24 Hr 97 F-98.8 F 92-113 12-22 84-130/53-113 95-100 General appearance: no acute distress, morbidly obese - Eye Eye exam: Present: EOMI. Absent: scleral icterus - Respiratory Respiratory exam: Present: clear to auscultation bilaterally - Cardiovascular Cardiovascular exam: Present: regular rate and rhythm - GI/Abdominal GI/Abdominal exam: Present: normal bowel sounds, soft. Absent: tenderness - Extremities Exam Extremities exam: Absent: edema - Neurological Exam Neurological exam: Present: alert - Skin Skin exam: Present: warm, dry Results - Labs CBC & BMP: 11/20/16 02:30 11/20/16 02:30 Lab Results: I have reviewed the past 24 hour labs
[2016-11-21] MEDS: ALBUTEROL/IPRATROPIUM 3 ML NEB RESP TX SCH ×4 (00:50→19:26)
[2016-11-21 03:49] LABS: ABG Base Excess 6.6 MMOL/L (-2.5-2.5); ABG HCO3 30.5 MMOL/L (20-26); ABG Oxygen Saturation 99.1 % (95-100); ABG PCO2 37.3 MM HG (35-48); ABG PH 7.512 (7.35-7.45); ABG TCO2 25.8 MMOL/L (23-27); Pt O2 Delivery Device Ventilator
[2016-11-21 05:01] LABS: Basophils # 0.1 10*3/uL (0.0-0.2); Eosinophils # 0.2 10*3/uL (0.0-0.87); Eosinophils % 2.3 % (0.00-10.9); Hematocrit 39.6 VOL% (42.0-52.0); Immature Granulocytes % 0.4 %; Immature Granulocytes Absolute 0.04 #; Lymphocytes # 1.5 10*3/uL (1.4-4.0); Lymphocytes % 16.7 % (21.2-54.2); Mean Corpuscular HGB Conc 32.8 GM/DL (32-36); Mean Corpuscular Hemoglobin 30 PG (27-34); Mean Corpuscular Volume 91.7 FL (87-102); Monocytes # 0.9 10*3/uL (0.11-0.8); Monocytes % 9.8 % (1.7-12.7); Neutrophils # 6.4 10*3/uL (1.4-7.4); Neutrophils % 69.8 % (38.7-73.9); Platelet Count 155 10*3/uL (130-400); Red Blood Count 4.32 10*6/uL (3.8-5.5); White Blood Count 9.1 10*3/uL (4.5-13.71)
[2016-11-21 05:18] LABS: Calcium 8.3 MG/DL (8.5-10.1); Osmolality,Calculated 294.6 MOS/KG (273-304); Potassium 3.7 MMOL/L (3.5-5.1)
[2016-11-21 05:33] LABS: Platelet Estimate Adequate
[2016-11-21] MEDS: POTASSIUM CHLORIDE RIDER 20 MEQ in PREMIX 1 EACH IV PRN (05:49)
--- NOTE | 2016-11-21 06:04 | Pulmonology Progress Note ---
Pulmonary - PN: Subj Interval history: This 51-year-old black male had a cardiac arrest during gallbladder surgery. He has severe cardiomyopathy with ejection fraction of 15%. He's been on the ventilator for a while has a tracheostomy. He's been diuresed fairly vigorously. His blood pressure is running on the low side with a systolic pressure of 85-90. He's not been tolerating CPAP well. ABGs look good. Chest x-ray still looks a little wet. We'll be difficult to diurese him further without dropping his blood pressure. I will try changing him to IMV with pressure support and proceed with weaning trials. Exam (Progress Note) - Constitutional Vitals: Period Temp Pulse Resp BP Sys/Lobo Pulse Ox Last 24 Hr 97.5 F-99.0 F 92-117 12-21 80-134/52-76 92-100 Exam: Patient is responsive. Vital signs normal except for systolic blood pressure 85. Pupils react to light. Throat is clear. Neck supple. Tracheostomy is clean. Chest reveals a few crackles in the bases otherwise clear. Heart normal rate rhythm but does have an S4 gallop. Abdomen soft nontender no masses. Bowel sounds present. Extremities no clubbing cyanosis or edema. Calves nontender. Results - Labs CBC & BMP: 11/21/16 03:45 11/21/16 03:45 Lab Results: I have reviewed the past 24 hour labs - Diagnostic Findings Procedure: Chest x-ray: image reviewed by me (has cardiomegaly and bilateral pleural effusions. No change from previous x-ray.) Assessment and Plan (1) Acute respiratory failure Status: Acute Assessment and plan: ABGs look good on current settings. We will reduce rate and change to IMV with pressure support he has not tolerated CPAP well to this point. Probably need to diurese further but with his blood pressure low we can't do that at present. Current Visit: Yes (2) Acute on chronic systolic CHF (congestive heart failure) Status: Acute Assessment and plan: Has a severe cardiomyopathy with ejection fraction 15%. Defer to cardiology. Current Visit: Yes (3) CHEMA (obstructive sleep apnea) Status: Acute Assessment and plan: This will become pertinent once he is off the ventilator. However he does have a tracheostomy which will treat that at that time. Current Visit: Yes (4) Cardiopulmonary arrest with successful resuscitation Status: Acute Assessment and plan: Appears to have his mental faculties back. Current Visit: Yes
--- NOTE | 2016-11-21 07:17 | XRay Report ---
XR chest 1V portable Indication: Intubated. Chest one view: Comparison yesterday. Tracheostomy, central line, Dobbhoff feeding tube, cardiomegaly and hazy obscuration of the mid lungs and lung bases is stable. No new infiltrates identified. Impression: No significant change. PROCEDURE INTERPRETED AT [facility] DEPARTMENT OF RADIOLOGY Final Report Signed by: Benigno Rodney M.D.
[2016-11-21] MEDS: SKIN HEALING OINT (AQUAPHOR) 50 GM TUBE TOP SCH ×2 (08:34→21:00)
[2016-11-21] MEDS: PANTOPRAZOLE 40 MG VIAL IV SCH (08:35)
[2016-11-21] MEDS: CARVEDILOL 3.125 MG TABLET PO SCH ×2 (08:35→21:00)
[2016-11-21] MEDS: MINERAL OIL/PETROLATUM OPH OINT 3.5 GM TUBE BOTH EYES SCH ×3 (08:36→21:00)
[2016-11-21] MEDS: FUROSEMIDE 40 MG/4 ML VIAL IV SCH ×2 (08:36→21:00)
--- NOTE | 2016-11-21 10:29 | Hospitalist Progress Note ---
Assessment and Plan (1) Cardiopulmonary arrest with successful resuscitation Status: Acute Assessment and plan: Impression: 1. Cardiopulmonary arrest with successful resuscitation Plan: I've changed his ventilator settings to CPAP with pressure support of 15. This is allowing a tidal volume 450. As long as his chest x-ray shows the pulmonary vascular congestion, I don't think he will be able to tolerate CPAP trials for an extended period of time. We will see how he does today. Otherwise, continue current care. Current Visit: Yes Hospitalist: Subjective Interval history: Follow-up acute respiratory failure following laparoscopic cholecystectomy with subsequent cardiopulmonary arrest. Patient remains on the ventilator. Reports that he is not tolerating trials of CPAP very well. Currently, he is on IMV and pressure support. He is awake, nods his head, and looks around the room. Urine output is low despite diuretics, but it appears that he may be developing some volume depletion as a result of the vigorous diuresis. Exam - Constitutional Vitals: Period Temp Pulse Resp BP Sys/Lobo Pulse Ox Last 24 Hr 97.1 F-99.0 F 92-120 10-35 80-113/52-74 92-100 Heart is regular and rapid. I don't hear a gallop. He has bilateral rhonchi. He is alert and nods his head. Results - Labs CBC & BMP: 11/21/16 03:45 11/21/16 03:45 Lab Results: I have reviewed the past 24 hour labs - Diagnostic Findings Procedure: Chest x-ray: image reviewed by me (personally reviewed by me; pulmonary vascular congestion a little better than 2 days ago.)
[2016-11-22] MEDS: ALBUTEROL/IPRATROPIUM 3 ML NEB RESP TX SCH ×4 (01:44→19:27)
[2016-11-22 03:03] LABS: Allen Test Positive; Pt O2 Delivery Device Ventilator
[2016-11-22 03:04] LABS: ABG Base Excess 6.5 MMOL/L (-2.5-2.5); ABG HCO3 30.5 MMOL/L (20-26); ABG Oxygen Saturation 97.7 % (95-100); ABG PCO2 41.2 MM HG (35-48); ABG PH 7.487 (7.35-7.45); ABG PO2 103.8 MM HG (80-95); ABG TCO2 31.7 MMOL/L (23-27)
[2016-11-22 03:18] LABS: Basophils # 0.1 10*3/uL (0.0-0.2); Basophils % 1.2 % (0.0-0.8); Eosinophils # 0.1 10*3/uL (0.0-0.87); Eosinophils % 1.1 % (0.00-10.9); Hematocrit 32.4 VOL% (42.0-52.0); Hemoglobin 12.4 GM/DL (14.0-18.0); Immature Granulocytes % 0.4 %; Immature Granulocytes Absolute 0.03 #; Lymphocytes # 1.1 10*3/uL (1.4-4.0); Lymphocytes % 13.6 % (21.2-54.2); Mean Corpuscular HGB Conc 38.3 GM/DL (32-36); Mean Corpuscular Hemoglobin 37 PG (27-34); Mean Platelet Volume 15.3 FL (9.6-12.0); Monocytes # 0.8 10*3/uL (0.11-0.8); Monocytes % 9.8 % (1.7-12.7); Neutrophils % 73.9 % (38.7-73.9); Platelet Count 126 10*3/uL (130-400); Red Blood Count 3.34 10*6/uL (3.8-5.5); Red Cell Distribution Width 16.5 % (9.3-17.3); White Blood Count 8.2 10*3/uL (4.5-13.71)
[2016-11-22 03:43] LABS: Calcium 8.2 MG/DL (8.5-10.1); Osmolality,Calculated 298.6 MOS/KG (273-304); Potassium 3.7 MMOL/L (3.5-5.1)
[2016-11-22] MEDS: POTASSIUM CHLORIDE RIDER 20 MEQ in PREMIX 1 EACH IV PRN (04:00)
--- NOTE | 2016-11-22 07:06 | Pulmonology Progress Note ---
Pulmonary - PN: Subj Interval history: This 51-year-old black male had a cardiac arrest during gallbladder surgery. He has severe cardiomyopathy with ejection fraction of 15%. He's been on the ventilator for a while has a tracheostomy. He's been diuresed fairly vigorously. His blood pressure is running on the low side with a systolic pressure of 85-90. He's not been tolerating CPAP well. ABGs look good. Chest x-ray still looks a little wet. We'll be difficult to diurese him further without dropping his blood pressure. I will try changing him to IMV with pressure support and proceed with weaning trials. 11/22/2016 patient did not do well with CPAP chest related. He was either heavily sedated with propofol and was anxious. We will try him on Precedex today and resume CPAP trials. Exam (Progress Note) - Constitutional Vitals: Period Temp Pulse Resp BP Sys/Lobo Pulse Ox Last 24 Hr 97 F-99.4 F 100-119 4-35 74-108/49-77 92-100 Exam: Patient is responsive. Vital signs normal except for systolic blood pressure 90. Pupils react to light. Throat is clear. Neck supple. Tracheostomy is clean. Chest reveals a few crackles in the bases otherwise clear. Heart normal rate rhythm but does have an S4 gallop. Abdomen soft nontender no masses. Bowel sounds present. Extremities no clubbing cyanosis or edema. Calves nontender. Results - Labs CBC & BMP: 11/22/16 02:45 11/22/16 02:45 Lab Results: I have reviewed the past 24 hour labs - Diagnostic Findings Procedure: Chest x-ray: image reviewed by me (bilateral pleural effusions. Slightly better than yesterday.) Assessment and Plan (1) Acute respiratory failure Status: Acute Assessment and plan: ABGs look good on current settings. We will reduce rate and change to IMV with pressure support he has not tolerated CPAP well to this point. Probably need to diurese further but with his blood pressure low we can't do that at present. 11/22/2016 we'll try to resume CPAP's today. Congestive heart failure with pulmonary edema. Difficult to diurese due to hypotension. Current Visit: Yes (2) Acute on chronic systolic CHF (congestive heart failure) Status: Acute Assessment and plan: Has a severe cardiomyopathy with ejection fraction 15%. Defer to cardiology. 11/22/16 trying to diurese despite low cardiac output. Current Visit: Yes (3) CHEMA (obstructive sleep apnea) Status: Acute Assessment and plan: This will become pertinent once he is off the ventilator. However he does have a tracheostomy which will treat that at that time. Current Visit: Yes (4) Cardiopulmonary arrest with successful resuscitation Status: Acute Assessment and plan: Appears to have his mental faculties back. 11/22/2016 does appear to be responsive when sedation is held. Current Visit: Yes
--- NOTE | 2016-11-22 07:54 | XRay Report ---
XR chest 1V portable Indication: Shortness of breath. Chest one view: Since yesterday, tracheostomy, Dobbhoff feeding tube, central line, cardiomegaly and hazy obscuration of the right midlung and both lung bases persists unchanged. No new densities are seen. Impression: No change. PROCEDURE INTERPRETED AT [facility] DEPARTMENT OF RADIOLOGY Final Report Signed by: Benigno Rodney M.D.
[2016-11-22] MEDS: SKIN HEALING OINT (AQUAPHOR) 50 GM TUBE TOP SCH ×2 (08:12→21:00)
[2016-11-22] MEDS: MINERAL OIL/PETROLATUM OPH OINT 3.5 GM TUBE BOTH EYES SCH ×3 (08:12→21:00)
[2016-11-22] MEDS: PANTOPRAZOLE 40 MG VIAL IV SCH (08:12)
[2016-11-22] MEDS: FUROSEMIDE 40 MG/4 ML VIAL IV SCH ×3 (08:15→21:00)
[2016-11-22] MEDS: CARVEDILOL 3.125 MG TABLET PO SCH ×2 (08:15→21:00)
--- NOTE | 2016-11-22 08:22 | Hospitalist Progress Note ---
Assessment and Plan (1) Cardiopulmonary arrest with successful resuscitation Status: Acute Assessment and plan: Impression: 1. Cardiopulmonary arrest with successful resuscitation 2. Acute on chronic systolic congestive heart failure 3. Acute respiratory failure 4. Pleural effusions, likely related to hypoalbuminemia Plan: Check serum albumin, and consider supplementation to improve mobilization of pulmonary vascular congestion. We have not checked an albumin and over 10 days. Continue current medications, and continue trials of CPAP as he tolerates. I don't think we will make any significant progress in liberation from the ventilator until we've improved his pulmonary vascular congestion. This note was completed using [employer] voice recognition software. There may be disk recordist errors as a result. Current Visit: Yes Hospitalist: Subjective Interval history: Follow-up acute on chronic systolic congestive heart failure, acute respiratory failure, and cardiac arrest following laparoscopic cholecystectomy. The patient was able to tolerate CPAP and pressure support for a few hours yesterday morning. A repeat trial if today afternoon was not very successful. He remains somewhat hypotensive and tachycardic, likely due to the diuretics and antihypertensives that he is receiving. Staff reports that the patient complains of feeling anxious, but he is off of sedatives and opioids currently. He is tolerating tube feedings. We appreciate the assistance of all the consultants. Exam - Constitutional Vitals: Period Temp Pulse Resp BP Sys/Lobo Pulse Ox Last 24 Hr 97 F-99.4 F 100-117 4-32 74-108/49-77 92-100 Vital signs are noted above. He is tachycardic. Heart is regular with a gallop, but I can't tell if it's an S3 or S4 because his rate is so rapid. He has a few rhonchi in the chest, with some decreased breath sounds bilaterally. Abdomen is soft with positive bowel sounds. He is awake, looks around, and nods appropriately. Results - Labs CBC & BMP: 11/22/16 02:45 11/22/16 02:45 Lab Results: I have reviewed the past 24 hour labs (BUN is trending up. ABGs look like he might be over ventilated.)
[2016-11-22] MEDS: DEXMEDETOMIDINE 200 MCG in SODIUM CHLORIDE 0.9% 48 ML IV SCH ×3 (08:56→21:00)
[2016-11-22] MEDS ORDERED: SODIUM CHLORIDE 0.9% 250 ML IV ONE (20:27)
[2016-11-23] MEDS: ALBUTEROL/IPRATROPIUM 3 ML NEB RESP TX SCH ×4 (01:34→19:21)
[2016-11-23 02:42] LABS: Calcium 8.3 MG/DL (8.5-10.1); Potassium 5.1 MMOL/L (3.5-5.1)
[2016-11-23 02:53] LABS: Magnesium 2.6 MG/DL (1.8-2.4); Phosphorous 4.7 MG/DL (2.5-4.9)
[2016-11-23] MEDS: DEXMEDETOMIDINE 200 MCG in SODIUM CHLORIDE 0.9% 48 ML IV SCH ×2 (03:00→11:21)
[2016-11-23 03:17] LABS: Basophils # 0.1 10*3/uL (0.0-0.2); Eosinophils % 0.1 % (0.00-10.9); Hematocrit 39.9 VOL% (42.0-52.0); Hemoglobin 12.9 GM/DL (14.0-18.0); Immature Granulocytes % 0.5 %; Immature Granulocytes Absolute 0.04 #; Lymphocytes # 1.5 10*3/uL (1.4-4.0); Mean Corpuscular HGB Conc 32.3 GM/DL (32-36); Mean Corpuscular Hemoglobin 29 PG (27-34); Mean Corpuscular Volume 89.1 FL (87-102); Monocytes # 0.9 10*3/uL (0.11-0.8); NRBC # 0.02 10*3/uL; Neutrophils # 6.3 10*3/uL (1.4-7.4); Neutrophils % 71.4 % (38.7-73.9); Red Blood Count 4.48 10*6/uL (3.8-5.5); Red Cell Distribution Width 14.8 % (9.3-17.3); White Blood Count 8.9 10*3/uL (4.5-13.71)
[2016-11-23 03:23] LABS: Platelet Count 43 10*3/uL (130-400)
[2016-11-23 03:47] LABS: ABG Base Excess 1.8 MMOL/L (-2.5-2.5); ABG Oxygen Saturation 97.8 % (95-100); ABG PCO2 27.4 MM HG (35-48); ABG PH 7.536 (7.35-7.45); ABG PO2 92.9 MM HG (80-95); Pt O2 Delivery Device Ventilator
[2016-11-23 05:42] LABS: Elliptocytes Few; Hypochromasia Slight; Platelet Estimate Decreased
--- NOTE | 2016-11-23 07:07 | Cardiology Progress Note ---
Cardiology - PN: Subj Interval history: Cardiology note 51-year-old man with cardiomyopathy, status post laparoscopically cholecystectomy with cardiac arrest Now with tracheostomy. Did not do well with CPAP yesterday. Telemetry shows sinus tachycardia rate 110-120 Blood pressure 94/70 O2 sat 95% on 35% FiO2 Decreased breath sounds Regular rhythm with gallop Abdomen soft benign Tolerating tube feedings Lab data today White count 8.9 hemoglobin 12.9 hematocrit 39.9 Sodium 143 potassium 5.1 chloride 103 CO2 28 BUN 35 creatinine 1.60 Glucose 2.6 cardiomyopathy EF 15% Obstructive sleep apnea History of cocaine abuse Status post laparoscopic cholecystectomy with cardiac arrest Plan Continue Lasix 40 mg IV twice daily Carvedilol 3.125 mg twice daily CPAP trials Tube feedings Exam (Progress Note) - Constitutional Vitals: Period Temp Pulse Resp BP Sys/Lobo Pulse Ox Last 24 Hr 97.8 F-100.2 F 101-126 10-32 80-106/50-78 95-100 Result/EKG - Labs CBC & BMP: 11/23/16 02:23 11/23/16 02:00 Labs: Laboratory Results - last 24 hr 11/22/16 11/23/16 11/23/16 08:28 02:00 02:00 WBC RBC Hgb Hct MCV MCH MCHC RDW Plt Count Neut % (Auto) Lymph % (Auto) [place] % (Auto) Eos % (Auto) Baso % (Auto) Neut # (Auto) Lymph # (Auto) [place] # (Auto) Eos # (Auto) Baso # (Auto) Immature Gran % Nucleated RBC % Immature Gran # Nucleated RBCs # Platelet Estimate Hypochromasia Elliptocytes Morphology Comment ABG pH ABG pCO2 ABG pO2 ABG HCO3 ABG Total CO2 ABG O2 Saturation ABG Base Excess FiO2 Sodium 143 Potassium 5.1 Chloride 103 Carbon Dioxide 28 Anion Gap 17.1 H BUN 55 H D Creatinine 1.60 H GFR Calculation 70 BUN/Creatinine Ratio 34.00 H Glucose 116 H Calculated Osmolality 300.0 Calcium 8.3 L Phosphorus 4.7 Magnesium 2.6 H Albumin 2.6 L Prealbumin 21.0 11/23/16 11/23/16 02:23 03:35 WBC 8.9 RBC 4.48 D Hgb 12.9 L Hct 39.9 L MCV 89.1 MCH 29 MCHC 32.3 RDW 14.8 Plt Count 43 L D Neut % (Auto) 71.4 Lymph % (Auto) 17.0 L [place] % (Auto) 10.0 Eos % (Auto) 0.1 Baso % (Auto) 1.0 H Neut # (Auto) 6.3 Lymph # (Auto) 1.5 [place] # (Auto) 0.9 H Eos # (Auto) 0.0 Baso # (Auto) 0.1 Immature Gran % 0.5 Nucleated RBC % 0.2 Immature Gran # 0.04 Nucleated RBCs # 0.02 Platelet Estimate Decreased Hypochromasia Slight Elliptocytes Few Morphology Comment ABG pH 7.536 H ABG pCO2 27.4 L ABG pO2 92.9 ABG HCO3 26.0 ABG Total CO2 20.0 L ABG O2 Saturation 97.8 ABG Base Excess 1.8 FiO2 35.00 Sodium Potassium Chloride Carbon Dioxide Anion Gap BUN Creatinine GFR Calculation BUN/Creatinine Ratio Glucose Calculated Osmolality Calcium Phosphorus Magnesium Albumin Prealbumin
--- NOTE | 2016-11-23 07:32 | XRay Report ---
Referring Physician: Benigno Lovelace Exam: XR chest 1V portable Date: November 23, 2016 at 3:03 AM Reason: Respiratory distress Comparison: Chest one view portable November 22, 2016 Findings: A tracheostomy catheter, right IJ catheter and left IJ catheter are again present. Cardiac silhouette is again enlarged. There are scattered opacities within both lungs, mainly within the lower lung zones and right greater than left. This likely represents pulmonary edema and atelectasis, but superimposed pneumonia is not excluded. No pneumothorax is identified, but there is mild to moderate right pleural fluid and mild left pleural fluid. The osseous structures appear stable. Impression: There has been no significant change. PROCEDURE INTERPRETED AT [facility] [place] DEPARTMENT OF RADIOLOGY Final Report Signed by: Dr. Beau Wick
--- NOTE | 2016-11-23 07:40 | Pulmonology Progress Note ---
Pulmonary - PN: Subj Interval history: The patient is a 51-year-old black man that has a severe cardiomyopathy and had an arrest during surgery. He had just completed a lap cholecystectomy. He had a 20 minute resuscitation but did come around a little. He had been on pressors but is stable on the ventilator. He has an ejection fraction of 15% and his chest x-ray has looked like heart failure. He is starting to do better and has diuresed fairly well. Over the weekend he has not done as well on CPAP. He also has an increased heart rate is probably somewhat dehydrated now. His weight is down and his creatinine is up a little. We will stop his diuretics and rehydrate a little. Exam (Progress Note) - Constitutional Vitals: Period Temp Pulse Resp BP Sys/Lobo Pulse Ox Last 24 Hr 97.8 F-100.2 F 101-126 10-32 80-106/50-78 95-100 Exam: General appearance: moderately obese, other (patient is responding better and is comfortable on the ventilator. His heart rate is elevated now.) - Head Head exam: Present: normal inspection - Eye Eye exam: Present: EOMI. Absent: scleral icterus Pupils: Present: CB, constricted - ENT ENT exam: Present: Unremarkable, facial swelling is less. - Neck Neck exam: Present: normal inspection. He has a tracheostomy tube in place. Absent: lymphadenopathy, thyromegaly - Respiratory Respiratory exam: Present: He has good breath sounds bilaterally and his lungs are clear but he does have some rhonchi still. - Cardiovascular Cardiovascular exam: Present: He has a regular tachycardia now with a blood pressure on the low side. - GI/Abdominal GI/Abdominal exam: Present: His abdomen is soft and he has some active bowel sounds. His wounds are healing well. - Extremities Exam Extremities exam: Present: His leg swelling is going down completely. - Neurological Exam Neurological exam: Present: altered (patient is following commands a little better but is unable to use his extremities very well at all.) - Skin Skin exam: Present: dry. Absent: rash Results - Labs CBC & BMP: 11/23/16 02:23 11/23/16 02:00 Labs: His PO2 is 92 with a PCO2 of 27 and a pH is 7.5 - Diagnostic Findings Procedure: Chest x-ray: image reviewed by me, report reviewed by me (chest x- ray looks better with less infiltrates.) Assessment and Plan (1) Hypertension Status: Chronic Assessment and plan: The patient has a history of hypertension and a cardiomyopathy and basically he has had chronic congestive heart failure. His blood pressure is down now and he is probably dehydrated now. Current Visit: Yes (2) CHEMA (obstructive sleep apnea) Status: Acute Assessment and plan: This will be evaluated later. Current Visit: Yes (3) Cardiomyopathy Status: Chronic Assessment and plan: The patient apparently has an ejection fraction of 15% and severe cardiomyopathy. His chest x-ray has improved and he is probably on the dry side now. Current Visit: Yes (4) Cardiopulmonary arrest with successful resuscitation Status: Acute Assessment and plan: The patient is on the ventilator after a successful resuscitation. He is responding better and following commands better. He has a tracheostomy tube and is breathing comfortably at present. He still is very weak and not able to do CPAP very long. Current Visit: Yes (5) S/P laparoscopic cholecystectomy Status: Acute Assessment and plan: The patient has had a lap cholecystectomy after presenting with significant abdominal pain. His abdomen seems to be doing okay. Current Visit: No (6) Acute on chronic systolic CHF (congestive heart failure) Status: Acute Assessment and plan: Patient is on the ventilator with what looks like heart failure. His weight is down over 25 kg and is diuresing well. His blood pressure is down and his heart rate is up and will try to rehydrate a little. Current Visit: Yes
[2016-11-23] MEDS ORDERED: SODIUM CHLORIDE 0.9% 1,000 ML IV SCH (08:00)
--- NOTE | 2016-11-23 08:41 | General Surgery Progress Note ---
Assessment and Plan - Time spent with patient Time spent with patient: Less than 30 minutes (1) Abdominal pain Status: Acute Assessment and plan: Impression: 1. Abdominal pain etiology unclear questionable gallbladder disease undiagnosed 2. Obesity 3. Congestive heart failure 4. Low cardiac ejection fraction Recommendations: 1. Certainly would look at do a HIDA scan to see if its abnormal with that ejection fraction 2. We consider repeating ultrasound after his been nothing by mouth for at least 12 hours to see if there is any changes in the gallbladder see if it distends back up looks normal 3. We consider a CT scan abdomen and pelvis with contrast to get a better idea this is nothing else going on. 4. He needs a complete cardiac evaluation before that any consideration of surgery because he is at such high risk 5. May need pulmonary consult at some point 6. We consider surgery on the gallbladder all if everything else is ruled out and that we have clear diagnosis that he could possibly have gallbladder disease. 10/31/2016. Patient continues to complain of discomfort in the upper abdomen right chest area. On exam though he does not exhibit any guarding or unusual tenderness on deep palpation. No masses are palpable. He did not have his oxygen own and I have noted cardiology's note. He is for a HIDA scan today and hopefully we'll plan to CT scan abdomen and pelvis tomorrow. Still unclear whether he has gallbladder disease but certainly he remains a high risk surgical patient because of his cardiac disease. 11/01/2016 Patient continues to have some discomfort in the upper part of his abdomen. Better today than has been. His CT scan abdomen and pelvis was performed in his completed and they continue to see her contracted gallbladder normal size biliary tree. See some stranding around the kidneys but otherwise nothing dramatically noted at this point. I felt the pancreas was okay. At this point after discussing his cardiac status with Dr. Dodson we feel like that he has in optimal condition to proceed with surgery at this time. He is a high risk patient and he understands this but he is okay with going ahead with surgery. Dr. Dodson feels like that he would be best to get him at this point when he is optimal as opposed to let the gallbladder get truly sick and then having a worse situation deal with. 11/04/2016 Patient remains on the ventilator and they're starting to warm him up today. Else reduce his sedation once he is warm to see I much mental activity he comes back with. From his surgery he is done well minimal MAT drainage at this point. Remains with a mild ileus with some bowel sounds are present. NG tube with minimal drainage. We'll consider possible to feedings but right now wait and see how he wakes up. 11/06/2016 Patient remains on the ventilator but they're reducing his sedation any symptoms to be waking up. Abdomen remains slightly distended with hypoactive bowel sounds but to feedings have been started now. He has a moderate amount of MAT drainage still at this time. From a surgical standpoint he is doing good with the limbs wounds looking clean and dry and we just waiting for the drainage to decrease and after weaning pulled MAT drain. Cardiac velarde he seems to be stable at this point and minimally seems to be waking up at this time. Will let cardiology and neurology continue to manage this part of things as well as respiratory manage the ventilator. 11/09/2016. Patient is status post lap scopic cholecystectomy but otherwise had a respiratory and cardiac arrest and is still on the ventilator at this time. He seems to have woken up some 400 although it is confusing the reports. He seems combative at times they say his pupils are equal and reactive and a responds to stimuli. They have not been able to get him off the ventilator because of his restless activity whenever they reduced the sedation. He's had some problem with failure of his feedings with some high residuals at this time. He's on NG suction at this point and we may have to find an alternative to his nutrition. 11/10/2016 Patient vital signs are stable labs look generally good. Chest x-ray continues to show his enlarged heart and little bit of fluid and atelectasis but otherwise stable ABGs generally look in pretty good shape. Unfortunately there is slowing on his EEG and he is rather combative respiratory-velarde whenever he is weaned all for Trias to go to a CPAP situation. He does not flail his arms or removal of extremity but he does breathe poorly whenever he is weaning off. NG tube with minimal drainage and so will try to resume tube feedings at this time. 11/13/2016 This is a patient with severe cardiac disease with cardiomegaly and low ejection fractions who postop from a cholecystectomy had a cardiac arrest. He remains on the ventilator with some mental activity but difficult to assess. Off sedation and becomes very agitated or hyperventilates. He is reported to squeeze fingers at times. From a surgical standpoint his abdomen is soft there's hypoactive bowel sounds he's tolerating his tube feedings that he's had some bowel movements. His incisions are clean and dry and his drain is out. This seems to be in good shape at this point time. His primary problems now or medical 11/16/2016. Patient has not really shown any improvement minimally at this time. Remains on the ventilator at this time. Tolerating tube feedings with some loose bowel movements. Abdomen remains fairly soft not significantly distended some hypoactive bowel sounds present. Incisions are healing well and will go ahead and remove his clips today. Do not know his mental status at this point what the prognosis would be on that. Probably need to the topic the family about the possibility of a PEG tube for feedings to get the NG tube out of his nose and for long-term feedings. 11/17/2016. Patient is still ventilator not very responsive at this time. Tolerating the tube feedings with bowel movements. His incisions are healing well clips are out at this time. Have started preventive care to prevent sacral and heel ulcers at this point. At this point not much but just observational care from my standpoint. 11/18/2016. From a general surgery standpoint the abdomen remains soft with hypoactive bowel sounds in seems to be tolerating tube feedings well. Incisions are healing well without problems. He does not seem to be neurologically much improved from what I can tell at this point. It's reported that he does squeeze hand at times and seems to be more alert at the other times. I have not been able to observe much mental activity at this point. Remains on the ventilator. Will just maintain present care and tube feedings at this time. 11/23/2016. Patient has pretty much recovered from his laparoscopic cholecystectomy with no problems associated with it. His mental status does not seem very good at this point I can get an assessment of clearly where he stands. He has a tube down his nose receiving tube feedings at this time which he is tolerating. Certainly has a nutritional problem inserted we not quite sure what his mental status is going to be long-term. We'll remain available as little for me to do at this time Current Visit: Yes Qualifiers: Abdominal location: upper abdomen, unspecified Qualified Code(s): R10.10 - Upper abdominal pain, unspecified Subjective Patient reports: Present: other (no dramatic changes at this time.) Exam - Constitutional Vitals: Period Temp Pulse Resp BP Sys/Lobo Pulse Ox Last 24 Hr 97.8 F-100.2 F 101-126 10-30 80-106/50-78 95-100 General appearance: mild distress - Head Head exam: Present: normal inspection - ENT ENT exam: Present: normal exam - Neck Neck exam: Present: normal inspection - Respiratory Respiratory exam: Present: rales - Cardiovascular Cardiovascular exam: Present: RRR - GI/Abdominal GI/Abdominal exam: Present: hypoactive bowel sounds, soft - Extremities Exam Extremities exam: Present: normal inspection - Neurological Exam Neurological exam: Present: altered - Skin Skin exam: Present: normal color, warm, dry Results - Labs CBC & BMP: 11/23/16 02:23 11/23/16 02:00 Lab Results: I have reviewed the past 24 hour labs
[2016-11-23] MEDS ORDERED: QUEtiapine 25 MG TABLET PO SCH (09:00)
[2016-11-23] MEDS: PANTOPRAZOLE 40 MG VIAL IV SCH (10:27)
[2016-11-23] MEDS: CARVEDILOL 3.125 MG TABLET PO SCH (10:28)
[2016-11-23] MEDS: MINERAL OIL/PETROLATUM OPH OINT 3.5 GM TUBE BOTH EYES SCH ×2 (10:28→14:37)
--- NOTE | 2016-11-23 12:19 | EKG Report ---
Stationary ECG Study [facility] Test Date: 11/23/2016 12:19:16 PM Pat Name: JOSE IRVING Department: Room: 107 Gender: M Hat Conditioner: MARCY : 1965 Requested by: Jennifer Gale Order Number: [id number] Reading MD: ERENDIRA THIBODEAUX Intervals [place] Rate: 126 P: 33 MI: 142 QRS: -41 QRSD: 111 T: 106 QT: 300 QTc: 375 Interpretive Statements SINUS TACHYCARDIA WITH OCCASIONAL VENTRICULAR PREMATURE COMPLEXES MARKED LEFT AXIS DEVIATION MODERATE INTRAVENTRICULAR CONDUCTION DELAY EARLY REPOLARIZATION ST DEVIATION AND MODERATE T-WAVE ABNORMALITY, CONSIDER LATERAL ISCHEMIA Electronically Signed On 11-23-16 12:39:05 NAIL POLISH BRUSH MACHINE FEEDER by ERENDIRA THIBODEAUX [email or web address]
--- NOTE | 2016-11-23 13:55 | Hospitalist Progress Note ---
Assessment and Plan (1) Anoxic encephalopathy Status: Acute Assessment and plan: Still not doing well on CPAP trials. Repeat EEG today, marie Current Visit: Yes (2) S/P laparoscopic cholecystectomy Status: Acute Current Visit: No (3) Congestive heart failure Status: Acute Assessment and plan: Patient echo shows an EF of 15% blood pressure low hold off restarting lasix Current Visit: No (4) Cardiopulmonary arrest with successful resuscitation Status: Acute Current Visit: Yes (5) Hypotension Status: Acute Assessment and plan: ns at 100 ml/hr Current Visit: Yes Hospitalist: Subjective Interval history: Patient is still not waking up. He is agitated and confused. Unable to follow commands. Patient has not improved since the week have been gone. We will try to have discussion with family this week. Patient is not able to wean off the vent. Reading the EEG today just to ensure he is not still seizing. Exam - Constitutional Vitals: Period Temp Pulse Resp BP Sys/Lobo Pulse Ox Last 24 Hr 97.8 F-100.2 F 101-126 10-30 80-97/50-78 95-100 Exam: Heart Rate-[RRR] Lungs-clear GI-[positive BS, nondistended] Ext-[no edema] neuro agitated and combative psych cannot assess general mild acute distress Results - Labs CBC & BMP: 11/23/16 02:23 11/23/16 02:00 Lab Results: I have reviewed the past 24 hour labs Labs: Blood cultures 1 of 2 positive due to contaminant - Diagnostic Findings Procedure: Chest x-ray: report reviewed by me (Pulmonary edema)
--- NOTE | 2016-11-23 15:04 | EKG Report ---
Stationary ECG Study [facility] Test Date: 11/23/2016 3:03:39 PM Pat Name: JOSE IRVING Department: Room: 107 Gender: M Wind Tunnel Technician: MARCY : 1965 Requested by: Jennifer Gale Order Number: [id number] Reading MD: ANDRES OTERO Intervals [place] Rate: 131 P: 67 VA: 146 QRS: -46 QRSD: 110 T: 109 QT: 295 QTc: 372 Interpretive Statements SINUS TACHYCARDIA LEFT AXIS DEVIATION EARLY REPOLARIZATION ST DEVIATION AND MODERATE T-WAVE ABNORMALITY, CONSIDER HIGH LATERAL ISCHEMIA NON-SPECIFIC IVCD Electronically Signed On 11-23-16 16:34:13 ACID PUMP OPERATOR by ANDRES OTERO [id number]
[2016-11-23] MEDS: ACETAMINOPHEN 325 MG/10.15 ML UDCUP PO PRN (16:13)
[2016-11-23] MEDS: SKIN HEALING OINT (AQUAPHOR) 50 GM TUBE TOP SCH (17:52)
--- NOTE | 2016-11-23 17:58 | CT Report ---
CT head/brain wo con Indication: Decreased responsiveness. CT BRAIN WITHOUT CONTRAST DLP: 1134 mGy*cm Comparison: 11/05/2016. Date of admission: 10/30/16. Technique: Axial noncontrast CT images of the brain were obtained. Findings: Prosthetic right globe again shown. No acute hemorrhage, mass or mass effect. Ventricles and sulci are appropriate for age. Finn-white junction is maintained throughout. No focal bone lesions are shown. Nodular mucosal thickening of the sphenoid air cells is similar to the previous exam.. Impression: No acute intracranial pathology, and no change since 11/05/16. Chronic but stable sphenoid sinus disease. PROCEDURE INTERPRETED AT [facility] DEPARTMENT OF RADIOLOGY Final Report Signed by: Benigno Rodney M.D.
[2016-11-23] MEDS ORDERED: MORPHINE 2 MG/1 ML SYRINGE IV PRN (19:28)
[2016-11-23] MEDS ORDERED: LORazepam 2 MG/1 ML VIAL IV PRN (19:28)
[2016-11-23] MEDS ORDERED: NOREPINEPHRINE 8 MG in SODIUM CHLORIDE 0.9% 242 ML IV SCH (19:30)
[2016-11-23] MEDS ORDERED: VECURONIUM 10 MG VIAL IV ONE ×2 (19:39→19:42)
[2016-11-23 19:57] LABS: ABG Base Excess -0.3 MMOL/L (-2.5-2.5); ABG Oxygen Saturation 90.5 % (95-100); ABG PH 7.508 (7.35-7.45); ABG PO2 59.8 MM HG (80-95); ABG TCO2 18.6 MMOL/L (23-27); Allen Test Positive; Pt O2 Delivery Device Ventilator
[2016-11-23] MEDS ORDERED: VECURONIUM 100 MG in SODIUM CHLORIDE 0.9% 100 ML IV ONE (20:00)
[2016-11-23] MEDS ORDERED: PIPERACILLIN/TAZOBACTAM 3,375 MG in SODIUM CHLORIDE 0.9% 100 ML IV SCH (20:00)
[2016-11-23] MEDS ORDERED: NOREPINEPHRINE 4 MG/4 ML VIAL IV ONE (20:01)
[2016-11-23 20:32] LABS: Partial Thromboplastin Time 30.1 SECS (0-40)
[2016-11-23 20:37] LABS: INR 1.9
[2016-11-23] MEDS ORDERED: DOPamine 800 MG/250 ML PREMIX IV ONE (20:38)
[2016-11-23] MEDS ORDERED: VANCOMYCIN INJ 1,500 MG in SODIUM CHLORIDE 0.9% 500 ML IV SCH (21:00)
[2016-11-23] MEDS ORDERED: LACOSAMIDE INJ 100 MG in SODIUM CHLORIDE 0.9% 50 ML IV SCH (21:00)
[2016-11-23 21:32] LABS: PT Patient Result 21.3 SECS
--- NOTE | 2016-11-23 21:35 | Discharge Summary ---
Hospital Course - Hospital Course Hospital Course: 51-year-old -Citizen Of [place] male with history of congestive heart failure and hypertension presents to the emergency room with complaints of right upper quadrant pain. Ultrasound of his gallbladder showed wall thickening and angelina- cholecystic fluid. HIDA scan showed an ejection fraction of 12%. Dr. Penn from surgery was consulted. Patient has a history of congestive heart failure. His prior echocardiogram showed an EF of 25%. His echocardiogram was repeated which showed that his ejection fraction had declined to 15%. His BNP on admission was elevated at over thousand. Patient was started on IV Lasix and diuresed. His serial troponins were mildly elevated. Dr. Dodson from cardiology was consulted who felt that he was moderate risk for surgery. However his surgical risk would become higher risk if his heart failure continued to deteriorate. Lap kailey and epigastric hernia repair was performed on November 02, 2016. Patient had an episode of bradycardia then PEA asystole. CPR was done for 20 minutes and he was successfully resuscitated. He was started on an epinephrine infusion and Dr. Meyer from cardiology was consulted. Patient was cooled using Arctic sun. Neurologically patient was not waking up and Dr. Holland from Neurology was consulted. Dr. Holland felt he incurred anoxic encephalopathy despite reports of adequate oxygenation during arrest. EEG on November 09, 2016 showed moderate to severe encephalopathy but no seizure activity. Patient however developed seizures and was started on keppra. His neurological function improved alittle and he was able to open his eye and squeeze your hands. His platelets started to drop and us of abdomen suggested fatty liver disease. Patient was unable to wean off due to agitation and hyperventilation. This morning he developed worsening congestive heart failure but had adequate oxygenation. Patient developed severe agitation and a repeat EEG was ordered. Dr Holland saw him and ordered a repeat head CT which reported no acute change. His blood pressure began to drop and he was started on levophed and we ordered a septic workup and started vancomycin and zosyn. He became bradycardic and arrested. Tamie cardona called at 2027. Despite CPR, ventilation and 3 doses of epinephrine, we were unable to get a blood pressure or pulse. He at 2042 - Time spent with patient Time with patient DS: Greater than 30 minutes Diagnosis - Discharge Diagnosis (1) Anoxic encephalopathy Status: Acute (2) S/P laparoscopic cholecystectomy Status: Acute (3) Congestive heart failure Status: Acute (4) Cardiopulmonary arrest with successful resuscitation Status: Acute (5) Hypotension Status: Acute Discharge Plan - Discharge Data Disposition: - Discharge Medications No Action Spironolactone 25 mg PO DAILY Carvedilol 6.25 mg PO BID W/MEALS Furosemide Tab [Lasix Tab] 20 mg PO BID DIURETIC Citalopram Hydrobromide [Citalopram HBr] 10 mg PO DAILY Aspirin EC Tab 81 mg PO DAILY Valsartan 40 mg PO DAILY - Follow Up or Referral - Forms/Instructions Exam - Constitutional Vitals: Period Temp Pulse Resp BP Sys/Lobo Pulse Ox Last 24 Hr 98.8 F-100.5 F 101-133 12-42 66-100/35-78 91-100 Discharge Results Procedures and tests throughout hospitalization: Pending Orders 11/23/16 16:00 Levetiracetam (Keppra) Routine 11/23/16 19:25 Urinalysis Stat 11/23/16 19:36 NM lung scan vent and per Stat 11/23/16 20:11 Blood Culture Stat PT & PTT Stat Troponin I Only Q3H 11/26/16 04:00 Magnesium MOTH Phosphorous MOTH Prealbumin MOTH 11/30/16 04:00 Magnesium MOTH Phosphorous MOTH Prealbumin MOTH Labs on day of discharge: Labs from last 24 hours 11/23/16 11/23/16 11/23/16 19:50 14:57 12:31 WBC RBC Hgb Hct MCV MCH MCHC RDW Plt Count Neut % (Auto) Lymph % (Auto) Wallace % (Auto) Eos % (Auto) Baso % (Auto) Neut # (Auto) Lymph # (Auto) Wallace # (Auto) Eos # (Auto) Baso # (Auto) Immature Gran % Nucleated RBC % Immature Gran # Nucleated RBCs # Platelet Estimate Hypochromasia Elliptocytes Morphology Comment ABG pH 7.508 H ABG pCO2 27.0 L ABG pO2 59.8 L ABG HCO3 24.0 ABG Total CO2 18.6 L ABG O2 Saturation 90.5 L ABG Base Excess -0.3 FiO2 35.00 Sodium Potassium Chloride Carbon Dioxide Anion Gap BUN Creatinine GFR Calculation BUN/Creatinine Ratio Glucose Calculated Osmolality Calcium Phosphorus Magnesium Troponin I 1.220 H 1.050 H B-Natriuretic Peptide Prealbumin 11/23/16 11/23/16 11/23/16 09:51 03:35 02:23 WBC 8.9 RBC 4.48 D Hgb 12.9 L Hct 39.9 L MCV 89.1 MCH 29 MCHC 32.3 RDW 14.8 Plt Count 43 L D Neut % (Auto) 71.4 Lymph % (Auto) 17.0 L Wallace % (Auto) 10.0 Eos % (Auto) 0.1 Baso % (Auto) 1.0 H Neut # (Auto) 6.3 Lymph # (Auto) 1.5 Wallace # (Auto) 0.9 H Eos # (Auto) 0.0 Baso # (Auto) 0.1 Immature Gran % 0.5 Nucleated RBC % 0.2 Immature Gran # 0.04 Nucleated RBCs # 0.02 Platelet Estimate Decreased Hypochromasia Slight Elliptocytes Few Morphology Comment ABG pH 7.536 H ABG pCO2 27.4 L ABG pO2 92.9 ABG HCO3 26.0 ABG Total CO2 20.0 L ABG O2 Saturation 97.8 ABG Base Excess 1.8 FiO2 35.00 Sodium Potassium Chloride Carbon Dioxide Anion Gap BUN Creatinine GFR Calculation BUN/Creatinine Ratio Glucose Calculated Osmolality Calcium Phosphorus Magnesium Troponin I B-Natriuretic Peptide > 5000 H Prealbumin 11/23/16 11/23/16 02:00 02:00 WBC RBC Hgb Hct MCV MCH MCHC RDW Plt Count Neut % (Auto) Lymph % (Auto) Wallace % (Auto) Eos % (Auto) Baso % (Auto) Neut # (Auto) Lymph # (Auto) Wallace # (Auto) Eos # (Auto) Baso # (Auto) Immature Gran % Nucleated RBC % Immature Gran # Nucleated RBCs # Platelet Estimate Hypochromasia Elliptocytes Morphology Comment ABG pH ABG pCO2 ABG pO2 ABG HCO3 ABG Total CO2 ABG O2 Saturation ABG Base Excess FiO2 Sodium 143 Potassium 5.1 Chloride 103 Carbon Dioxide 28 Anion Gap 17.1 H BUN 55 H D Creatinine 1.60 H GFR Calculation 70 BUN/Creatinine Ratio 34.00 H Glucose 116 H Calculated Osmolality 300.0 Calcium 8.3 L Phosphorus 4.7 Magnesium 2.6 H Troponin I B-Natriuretic Peptide Prealbumin 21.0 DS: Provider Date of admission: 10/30/16 16:13 Primary care physician: . No PCP Attending physician on admission: Jennifer Knox MD Consults: 10/30/16 18:42 Consult to Physician [CONS] Routine Comment: acute cholecystitis Consulting Provider: Emiliano Penn Consult to Physician [CONS] Routine Comment: cardiac clearance for surgery Consulting Provider: Benigno Dodson 10/31/16 11:06 Consult to Physician [CONS] Routine Comment: severe chema, causing worsening chf Consulting Provider: Jayna Arellano 11/01/16 13:32 Consult to Anesthesiology [CONS] Routine Consulting Provider: Reason for Anesthesiology: Pre-op Clearance Consult Comment: refer to cardiology note/ cleared for surgery 11/02/16 07:10 Consult to Sleep Center [CONS] Routine Reason for Sleep Center: Sleep Center Physician Consult Comment: SEVERE CHEMA, WORSENING CHF 11/02/16 11:14 Consult to Pharmacy [CONS] Routine Reason for Pharmacy Consult: Adjust Meds Renal Funct 11/02/16 11:53 Consult to Physician [CONS] Routine Comment: Consulting Provider: Dylan Colindres Consulting Provider Notified: Yes Consult to Specialist Group: Pulmonology When should Consulting Provider be notified: Now Person Notified: KIMBERLY Date Notified: 11/02/16 Time Notified: 12:55 Consult Notification Comment: Patient is postop cholecystectomy but underwent a cardiac arrest in the OR. History of congestive heart failure followed by cardiology now on the ventilator. Please help with ventilator management 11/02/16 15:53 Consult to Pharmacy [CONS] Routine Reason for Pharmacy Consult: Dose/Manage Vancomycin 11/02/16 17:12 Consult to Physician [CONS] Routine Comment: Consulting Provider: Dave Holland Consult to Specialist Group: Neurology When should Consulting Provider be notified: Now Person Notified: Dr Holland Date Notified: 11/02/16 Time Notified: 19:15 11/03/16 11:34 Consult to Case Mgmt/Social Srvs [CONS] Routine Reason for Case Mgmt/Social Srvs: Other Consult Comment: insurance coverage options/assistance 11/05/16 08:50 Consult to Dietitian [CONS] Routine Reason for Dietitian: TF-Initiate/Manage 11/09/16 09:19 Consult to Dietitian [CONS] Routine Reason for Dietitian: TPN/PPN-Initiate/Manage Consult Comment: tpn 11/10/16 08:53 Consult to Dietitian [CONS] Routine Reason for Dietitian: TF-Initiate/Manage Consult Comment: ON TPN, BUT RESTART TF TO SEE IF HE TOLERATES IT 11/11/16 09:07 Consult to Physician [CONS] Routine Comment: trach Consulting Provider: Abhijit Avendaño When should Consulting Provider be notified: Now 11/22/16 07:44 Consult to Occupational Therapy [CONS] Routine Reason for Occupational Therapy: Weakness Consult to Physical Therapy [CONS] Routine Reason for Physical Therapy: Weakness Discharging clinician: Jennifer Knox MD
[2016-11-23 22:57] VITALS: BP 64/44
--- NOTE | 2016-12-07 20:36 | Electroencephalogram ---
HISTORY: A 51-year-old male with a history of change in mental status. INTRODUCTION: A digital EEG was performed using the standard 10/20 system of electrode placement wi th one channel of EKG monitoring. Photic stimulation is performed. DESCRIPTION OF RECORD: The background consists of 6-6.5 hertz low amplitude bilateral symmetrical rhythm. Photic stimulation elicits a driving response at slower flash frequencies. The patient is intubated. There are no focal, sharp wave, spike or wave activity seen. Heart rate 100 beats per minute. IMPRESSION: ABNORMAL EEG DUE TO GENERALIZED SLOWING. CLINICAL CORRELATION: This record is supportive of moderate to severe encephalopathy which could b e secondary to postictal state, post-hypoxic state, metabolic disorder, diffuse HOOKER ON insult or increa sed intracranial pressure. No epileptiform/seizure activity seen. Clinical correlation is suggested
== END 2016-11-23 20:43 | disposition expired | DRG 3 ==
LOC: N.ED 12:06 → N.EDINP 16:13 → SUATTDRO 16:13 → N.TELEN 18:37 → N.ICU 11-02 11:59
PROVIDERS: ADMIT Internal Medicine; ATTEND Internal Medicine Geriatric Medicine
PROC: LAPCHOL (2016-11-02 09:00)